=== PATIENT | male | born 1940 | race Caucasian/White ===

== ENCOUNTER 2020-08-04 11:16 | Outpatient (REF) | payer MEDICARE, SELFPAY ==
--- NOTE | 2020-08-04 11:25 | XR_ITS ---
EXAMINATION: XR LUMBAR SPINE XR CERVICAL SPINE CLINICAL INFORMATION: Chronic cervical and lumbar pain. COMPARISON: None TECHNIQUE: Three views lumbar spine and 4 views cervical spine. FINDINGS: LUMBAR SPINE: There is normal lumbar lordosis. The vertebral heights and alignment are normal. There is loss of L4-L5 and L5-S1 disc heights. The rest of the disc heights are normal. No lytic or sclerotic process seen. The paravertebral soft tissues are normal. CERVICAL SPINE: There is mild straightening of the cervical lordosis. The vertebral heights and alignment are normal. There is moderate right C3-C4, C4-C5 and C5-C6 and left C4-C5 facet joint arthropathy and hypertrophy. No visible acute fracture or dislocation seen. There is mild ventral spondylosis. The prevertebral soft tissues are normal. XR/XR cervical spine 2V IMPRESSION: 1. Degenerative disc changes L4-L5 and L5-S1 disc levels. No visible acute fracture or dislocation seen. 2. Mild degenerative disc changes C6-C7 disc levels with mild ventral spondylosis. No visible acute fracture or dislocation.
--- NOTE | 2020-08-04 11:25 | XR_ITS ---
EXAMINATION: XR LUMBAR SPINE XR CERVICAL SPINE CLINICAL INFORMATION: Chronic cervical and lumbar pain. COMPARISON: None TECHNIQUE: Three views lumbar spine and 4 views cervical spine. FINDINGS: LUMBAR SPINE: There is normal lumbar lordosis. The vertebral heights and alignment are normal. There is loss of L4-L5 and L5-S1 disc heights. The rest of the disc heights are normal. No lytic or sclerotic process seen. The paravertebral soft tissues are normal. CERVICAL SPINE: There is mild straightening of the cervical lordosis. The vertebral heights and alignment are normal. There is moderate right C3-C4, C4-C5 and C5-C6 and left C4-C5 facet joint arthropathy and hypertrophy. No visible acute fracture or dislocation seen. There is mild ventral spondylosis. The prevertebral soft tissues are normal. XR/XR lumbar spine 2-3V IMPRESSION: 1. Degenerative disc changes L4-L5 and L5-S1 disc levels. No visible acute fracture or dislocation seen. 2. Mild degenerative disc changes C6-C7 disc levels with mild ventral spondylosis. No visible acute fracture or dislocation.
== END 2020-08-04 11:17 | disposition home or self-care (01) ==
LOC: HO.XRAY 11:16
PROVIDERS: Visit Provider Chiropractor
DX: M54.5 Low back pain (principal); M54.2 Cervicalgia
CPT/HCPCS: 72040; 72100

== ENCOUNTER 2020-09-09 14:51 | Outpatient (REF) | payer MEDICARE, SELFPAY ==
--- NOTE | 2020-09-09 15:09 | XR_ITS ---
EXAMINATION: XR HANDS, BILATERAL CLINICAL INFORMATION: Bilateral hand pain. COMPARISON: None TECHNIQUE: 3 views each hand. FINDINGS: Left Hand: There is mild reduction in the PIP and DIP joint space with mild periarticular spurring DIP joint 2nd, 3rd and 5th joints and PIP joint 1st digit. The MCP joints are preserved well. There is nonspecific minimal calcification 2nd and 5th MCP joint as noted. Right Hand: Mild loss of PIP and DIP joints 1st through 5th digits is noted. There is periarticular spurring PIP joint 1st digit. No visible acute fracture, dislocation seen. No pericardial spurring. The soft tissues are normal. 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 No visible acute fracture, bony erosive changes or subluxation seen.
--- NOTE | 2020-09-09 15:09 | XR_ITS ---
EXAMINATION: XR HANDS, BILATERAL CLINICAL INFORMATION: Bilateral hand pain. COMPARISON: None TECHNIQUE: 3 views each hand. FINDINGS: Left Hand: There is mild reduction in the PIP and DIP joint space with mild periarticular spurring DIP joint 2nd, 3rd and 5th joints and PIP joint 1st digit. The MCP joints are preserved well. There is nonspecific minimal calcification 2nd and 5th MCP joint as noted. Right Hand: Mild loss of PIP and DIP joints 1st through 5th digits is noted. There is periarticular spurring PIP joint 1st digit. No visible acute fracture, dislocation seen. No pericardial spurring. The soft tissues are normal. 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 No visible acute fracture, bony erosive changes or subluxation seen.
== END 2020-09-09 14:52 | disposition home or self-care (01) ==
LOC: HO.XRAY 14:51
PROVIDERS: PCP Internal Medicine Geriatric Medicine; Visit Provider Internal Medicine Geriatric Medicine
DX: M79.641 Pain in right hand (principal); M79.642 Pain in left hand; M79.89 Other specified soft tissue disorders
CPT/HCPCS: 73130

== ENCOUNTER → 2020-09-29 10:41 | Outpatient (BNVA) | payer MEDICARE, SELFPAY | PROVIDERS: Visit Provider Internal Medicine Gastroenterology | DX: Z13.89 Encounter for screening for other disorder (principal) | CPT/HCPCS: Q3014 ==

== ENCOUNTER 2020-12-19 11:39 | Outpatient (REF) | payer MEDICARE, SELFPAY | END 2020-12-19 11:40 | disposition home or self-care (01) | LOC: HO.LAB 11:39 | PROVIDERS: Visit Provider Internal Medicine | DX: Z20.822 Contact with and (suspected) exposure to COVID-19 (principal) | CPT/HCPCS: 36415; C9803; U0003; U0005 ==

== ENCOUNTER 2020-12-25 09:54 | Emergency (ER) | payer MEDICARE, SELFPAY ==
[2020-12-25 10:01] VITALS: BP 200/76; PULSE 54; RESP 16; TEMP 36.6; O2SAT 98; BMI 29.7
--- NOTE | 2020-12-25 10:35 | ED.MALEGU ---
HPI - Male Genitourinary General Chief complaint: Urogenital-Male Stated complaint: uti? Time Seen by Provider: 12/25/20 10:13 Source: patient Mode of arrival: ambulatory History of Present Illness HPI Narrative: 80-year-old male with a past medical history of diabetes, cholecystectomy, presented to the ED complaining of urinary frequency and dysuria x1.5 weeks. Denies hematuria, penile discharge, penile/scrotal pain/lesion, flank pain, abdominal pain, nausea/vomiting, fever. Denies being sexually active MD Complaint: dysuria Related Data Home Medications Medication Instructions Recorded Confirmed amlodipine 10 mg tablet 10 mg PO DAILY 09/29/20 blood sugar diagnostic #10 ea 09/29/20 dulaglutide 1.5 mg/0.5 mL 1.5 mg SUBCUT QWEEK 09/29/20 subcutaneous pen injector glimepiride 2 mg tablet 2 mg PO DAILY 09/29/20 metformin 500 mg tablet 500 mg PO DAILY 09/29/20 metoprolol succinate 50 mg 50 mg PO DAILY 09/29/20 tablet,extended release 24 hr spironolactone 25 mg tablet 12.5 mg PO DAILY 09/29/20 tramadol 50 mg tablet 50 mg PO BID PRN 09/29/20 Previous Rx's Medication Instructions Recorded omeprazole 20 mg capsule,delayed 20 mg PO DAILY 60 Days #60 cap 09/29/20 release cefuroxime axetil 250 mg PO BID 7 Days #14 tab 12/25/20 phenazopyridine [Pyridium] 200 mg PO TID PRN #6 tab 12/25/20 Allergies Allergy/AdvReac Type Severity Reaction Status Date / Time No Known Allergies Allergy Verified 12/25/20 10:04 [No Known Allergies*] Review of Systems Review of Systems: Constitutional: No Fever, No Chills Gastrointestinal: No Nausea, No Vomiting, No Constipation, No Abdominal pain Genitourinary: + Dysuria, + Urinary Frequency, No Hematuria, No Urinary Incontinence, No Urgency, No Flank Pain Musculoskeletal: No joint pain, No Myalgias Skin: No Skin Lesions, No rash Yes all other systems are reviewed and are negative [facility] Past Medical History Attestation statement: The following information was validated with the patient. Medical History (Updated 12/25/20 @ 11:35 by HATTIE Plaza) Diabetes Surgical History (Updated 09/29/20 @ 10:13 by Gissel Roman MD) History of arthroplasty of right knee (~03/2019) History of cholecystectomy Hx of colonoscopy (~03/2019) Family History Family History (Updated 09/29/20 @ 10:45 by Sherry Garcia CMA) Father No problems noted. Mother No problems noted. Social History Social History (Updated 09/29/20 @ 10:45 by Sherry Garcia CMA) Alcohol intake: never Smoking Status: Never smoker Advance Directives: No Advance Directives Information Provided: No Physical Exam Vital Signs: Vital Signs: Last Vital Signs Temp 97.8 F 12/25/20 10:01 Pulse 54 12/25/20 10:01 Resp 16 12/25/20 10:01 BP 200/76 H 12/25/20 10:01 Pulse Ox 98 12/25/20 10:01 Body Mass Index 29.7 Const: General: cooperative, healthy appearing and comfortable Orientation/consciousness: patient oriented x3 Limitations: no limitations HENMT: Head: Yes normal to inspection Ears: hearing grossly normal bilaterally General nose exam: Normal external nose present Face and sinus: Yes normal facial exam Eyes: General: appearance normal, both eyes and all related structures EOM: EOMs intact bilaterally Neck: Neck: Yes normal visual inspection and Yes no meningeal signs Resp: Effort & Inspection: normal respiratory effort Cardio: Rate: regular rate GI: Inspection: Yes normal to inspection Palpation (GI): Soft to palpation, nontender, no guarding and not rigid : General: Yes no CVA tenderness Back/Spine/Pelvis: Back: no CVA tenderness Skin: Rashes: no rashes Wounds: no wounds Neuro: General: patient oriented x3 and no meningeal signs Gait exam (Neuro): Normal gait present Extrem: General: Yes normal to inspection Course Course Course Narrative: -UA infected. Patient given 1st doses of Ceftin in the ED. MDM - Male Genitourinary MDM Narrative Medical decision making narrative: 80-year-old male with a past medical history of diabetes, cholecystectomy, presented to the ED complaining of urinary frequency and dysuria x1.5 weeks. On exam hypertensive, NAD/nontoxic, abdomen soft/nontender, no CVAT. Concern for UTI. Low concern for STI, renal stone, pyelo, or intra-abdominal pathology Plan: UA Lab Data Labs: Lab Results 12/25/20 Range/Units 10:46 Urine Color YELLOW Urine Appearance CLOUDY Urine pH 7.0 (5.0-8.0) Ur Specific [place] 1.015 (1.005-1.025) Urine Protein 2+ H (NEG-TRACE) MG/DL Urine Glucose (UA) 250 H (NEG) MG/DL Urine Ketones NEG (NEG) MG/DL Urine Blood 1+ H (NEG) Urine Nitrite NEG (NEG) Ur Leukocyte Esterase 2+ H (NEG) Urine RBC 15-29 H (0) /HPF Urine WBC 30-49 H (0-4) /HPF Ur Squamous Epith Cells NONE /LPF Urine Bacteria NONE /LPF Discharge Plan Discharge Clinical Impression: Urinary tract infection Qualifiers: Urinary tract infection type: acute cystitis Hematuria presence: without hematuria Qualified Code(s): N30.00 - Acute cystitis without hematuria Patient Disposition: Home, Self-Care Instructions: Urinary Tract Infection in Men (ED) Additional Instructions: You have a urinary tract infection. Ceftin as an antibiotic, take as prescribed. Pyridium will help with the burning when he pee Take antibiotic until completion Make sure staying hydrated at home Follow-up with her primary care doctor If you develop constant worsening symptoms, fever, chills, nausea, vomiting, abdominal pain, back pain return to the ED Prescriptions: New cefuroxime axetil 250 mg tablet 250 mg PO BID 7 Days Qty: 14 RF: 0 phenazopyridine [Pyridium] 200 mg tablet 200 mg PO TID PRN (Reason: pain) Qty: 6 RF: 0 No Action metformin 500 mg tablet 500 mg PO DAILY RF: 0 spironolactone 25 mg tablet 12.5 mg PO DAILY RF: 0 glimepiride 2 mg tablet 2 mg PO DAILY RF: 0 Trulicity 1.5 mg/0.5 mL pen injector 1.5 mg subcut QWEEK RF: 0 tramadol 50 mg tablet 50 mg PO BID PRNRF: 0 (DME) FreeStyle Lite Strips Strip See Rx Instructions ea Not Applicable .MEDSUPPLY Qty: 10 RF: 0 amlodipine 10 mg tablet 10 mg PO DAILY RF: 0 metoprolol succinate 50 mg tablet extended release 24 hr 50 mg PO DAILY RF: 0 omeprazole 20 mg capsule,delayed release(DR/EC) 20 mg PO DAILY 60 Days Qty: 60 RF: 2 Referrals: Name,MD Isai [Primary Care Provider] - 2 days
[2020-12-25 10:54] LABS: Glucose Urine UA 250 MG/DL (NEG); Leukocyte Esterase Urine 2+ (NEG); Nitrite Urine NEG (NEG); Specific Gravity - Urine 1.015 (1.005-1.025); UACC Culture Trigger YES; Urine Blood 1+ (NEG); Urine Ketones NEG (NEG); Urine Protein 2+ MG/DL (NEG-TRACE)
[2020-12-25 10:55] LABS: Appearance Urine CLOUDY; Color Urine YELLOW
[2020-12-25 11:03] LABS: WBC Urine 30-49 /HPF (0-4)
== END 2020-12-25 11:51 | disposition home or self-care (01) ==
PROVIDERS: Physician Assistant; Emergency Provider Emergency Medicine; PCP Internal Medicine Geriatric Medicine
DX: N30.00 Acute cystitis without hematuria (principal); Z79.899 Other long term (current) drug therapy
CPT/HCPCS: 81001; 81003; 87086; 99283

== ENCOUNTER 2021-01-27 13:59 | Outpatient (REF) | payer MEDICARE, SELFPAY ==
--- NOTE | ~2021-01-27 | US_ITS ---
EXAMINATION: US SCROTUM CLINICAL INFORMATION: Right and left testicular pain. COMPARISON: Previous CT of the pelvis March 2019 TECHNIQUE: A sonogram of the scrotum was performed assessing villanueva-scale appearance and color Doppler flow. Spectral Doppler analysis of the arterial and venous flow were performed in the testes bilaterally. FINDINGS: RIGHT: Right testicle measures 5.0 x 2.7 x 4.1 cm, volume 28.9 mL. 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 There is a 6 x 4 x 3 mm simple cyst cyst in the left superior right testicle. No other focal lesion is seen. Spectral Doppler analysis of the arterial and venous flow is normal in the right testis. Right epididymal head is normal in size. There is a complex cyst in the right epididymal head measuring 1.7 x 0.7 x 1.4 cm. No right hydrocele or varicocele is seen. Right epididymal Doppler flow is normal. LEFT: Left testicle measures 5.3 x 2.5 x 3.4 cm, volume 23.6 mL. 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 No focal testicular parenchymal lesions are visualized. Spectral Doppler analysis of the arterial and venous flow is normal in the left testis. Left epididymal head is normal in size. There is a 0.7 x 0.9 x 1.3 cm complex cyst in the left epididymal head. No left hydrocele or varicocele is seen. There is a left scrotal calcification or scrotal oral the superior scrotum measuring 2 x 4 x 2 mm. Left epididymal Doppler flow is normal. US/US scrotum IMPRESSION: Bilateral complex epididymal head cysts, right greater than left. Ectasia of the bilateral rete testis. Small simple appearing right testicular cyst.
== END 2021-01-27 14:00 | disposition home or self-care (01) ==
LOC: HO.HMGCX 13:59
PROVIDERS: Visit Provider Internal Medicine
DX: N50.811 Right testicular pain (principal); N50.812 Left testicular pain
CPT/HCPCS: 76870

== ENCOUNTER → 2021-02-06 14:23 | Outpatient (BNVA) | payer MEDICARE, SELFPAY | PROVIDERS: PCP Internal Medicine Geriatric Medicine; Visit Provider Internal Medicine Gastroenterology | DX: K76.0 Fatty (change of) liver, not elsewhere classified (principal); R79.89 Other specified abnormal findings of blood chemistry; Z87.19 Personal history of other diseases of the digestive system; Z86.010 Personal history of colon polyps | CPT/HCPCS: 99212 ==

== ENCOUNTER → 2021-02-08 11:07 | Outpatient (BNVA) | payer MEDICARE, SELFPAY | PROVIDERS: PCP Internal Medicine Geriatric Medicine; Visit Provider Urology | DX: N40.1 Benign prostatic hyperplasia with lower urinary tract symptoms (principal); N13.8 Other obstructive and reflux uropathy | CPT/HCPCS: 81002; 99202 ==

== ENCOUNTER 2021-02-16 10:06 | Outpatient (REF) | payer MEDICARE, SELFPAY ==
--- NOTE | 2021-02-16 10:09 | EMG_ITS ---
Bilateral median and ulnar motor and sensory studies were performed. Bilateral radial sensory studies were performed and paraspinal muscles were tested with a needle. IMPRESSION: 1. 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 2. Mild bilateral ulnar neuropathy across cubital tunnel. 3. Underlying chronic axonal sensory motor peripheral neuropathy. MD DANA Fitzgerald/ADAIR / [id number]
== END 2021-02-16 10:07 | disposition home or self-care (01) ==
LOC: HO.NEURO 10:06
PROVIDERS: Visit Provider Internal Medicine Geriatric Medicine
DX: N50.811 Right testicular pain (principal); N50.812 Left testicular pain; R20.0 Anesthesia of skin
CPT/HCPCS: 95886; 95911

== ENCOUNTER 2021-03-23 18:51 | Emergency (ER) | payer MEDICARE, SELFPAY ==
[2021-03-23 18:56] VITALS: BP 155/91; PULSE 79; RESP 18; TEMP 36.7; O2SAT 98; BMI 32.8
[2021-03-23 19:23] LABS: Glucose Urine UA NEG (NEG); Leukocyte Esterase Urine 1+ (NEG); Nitrite Urine NEG (NEG); Specific Gravity - Urine 1.015 (1.005-1.025); Urine Blood NEG (NEG); Urine Ketones NEG (NEG); Urine Protein 2+ MG/DL (NEG-TRACE)
[2021-03-23 19:24] LABS: Appearance Urine CLEAR; Color Urine YELLOW
[2021-03-23 19:32] LABS: Bacteria Urine TRACE /LPF; RBC Urine 0 /HPF (0); WBC Urine 0-2 /HPF (0-4)
--- NOTE | 2021-03-23 23:24 | ED_ITS ---
HPI - Male Genitourinary General Chief complaint: Urogenital-Male Stated complaint: Prostate Time Seen by Provider: 03/23/21 22:51 Source: patient and family (Daughter, Nicholas) Mode of arrival: ambulatory Limitations: no limitations History of Present Illness HPI Narrative: 80-year-old male who presents emergency department for evaluation of frequency, dysuria, diminished urinary stream, lower abdominal pain. The patient states that he has been having these symptoms for approximately 2 months. He was seen by his urologist and started on finasteride and tamsulosin. He states that despite taking these medications his symptoms have not improved. He states that he is continuing to urinate small amounts of urine every 15 minutes. He believes that he can empty his bladder knee does not feel a fullness in his bladder. He does complain of pain in his suprapubic area in the also believes that he is having pain in his lower testicles and prostate area whenever he goes from sitting to standing position. He denied fever, chills, chest pain, shortness of breath, nausea, vomiting, changes bowel movements. Related Data Home Medications Medication Instructions Recorded Confirmed amlodipine 10 mg tablet 10 mg PO DAILY 09/29/20 02/06/21 blood sugar diagnostic #10 ea 09/29/20 02/06/21 dulaglutide 1.5 mg/0.5 mL 1.5 mg SUBCUT QWEEK 09/29/20 02/06/21 subcutaneous pen injector glimepiride 2 mg tablet 2 mg PO DAILY 09/29/20 02/06/21 metformin 500 mg tablet 500 mg PO DAILY 09/29/20 02/06/21 metoprolol succinate 50 mg 50 mg PO DAILY 09/29/20 02/06/21 tablet,extended release 24 hr spironolactone 25 mg tablet 12.5 mg PO DAILY 09/29/20 02/06/21 tramadol 50 mg tablet 50 mg PO BID PRN 09/29/20 02/06/21 atorvastatin 20 mg tablet 20 mg PO DAILY 02/08/21 dulaglutide 3 mg/0.5 mL 3 mg SUBCUT QWEEK 02/08/21 subcutaneous pen injector hydralazine 25 mg tablet 25 mg PO BID 02/08/21 hydralazine 50 mg tablet 50 mg PO BID 02/08/21 losartan 25 mg tablet 25 mg PO DAILY 02/08/21 tamsulosin 0.4 mg capsule 0.4 mg PO DAILY 02/08/21 Previous Rx's Medication Instructions Recorded omeprazole 20 mg capsule,delayed 20 mg PO DAILY 60 Days #60 cap 09/29/20 release cefuroxime axetil 250 mg PO BID 7 Days #14 tab 12/25/20 phenazopyridine [Pyridium] 200 mg PO TID PRN #6 tab 12/25/20 simethicone 125 mg chewable tablet 125 mg PO BID-QID PRN 30 Days #90 02/06/21 tab finasteride 5 mg tablet 5 mg PO DAILY 90 Days #90 tab 02/08/21 ciprofloxacin HCl [Cipro] 500 mg PO Q12H 14 Days #28 tab 03/23/21 phenazopyridine [Pyridium] 200 mg PO TID PRN 3 Days #9 tab 03/23/21 Allergies Allergy/AdvReac Type Severity Reaction Status Date / Time No Known Allergies Allergy Verified 03/23/21 18:54 [No Known Allergies*] Review of Systems Review of Systems: Yes all other systems are reviewed and are negative [facility] Past Medical History [facility] Narrative: Social history: Patient is a former smoker, he stopped smoking 30 years prior. He denies alcohol use. He denies drug use. 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 Mother No problems noted. Social History Social History Alcohol intake: never Advance Directives: No Advance Directives Information Provided: No Physical Exam Vital Signs: Vital Signs: Last Vital Signs Temp 98.0 F 03/23/21 18:56 Pulse 79 03/23/21 18:56 Resp 18 03/23/21 18:56 BP 155/91 H 03/23/21 18:56 Pulse Ox 98 03/23/21 18:56 Body Mass Index 32.8 Const: General: cooperative and healthy appearing Orientation/consciousness: oriented to person and oriented to place Limitations: no limitations HENMT: Head: Yes normal to inspection, Yes normocephalic and Yes atraumatic Ears: external ears normal General nose exam: Normal external nose present Face and sinus: Yes normal facial exam Mouth: Normal oral and palatal mucosa present Throat: Yes posterior oropharynx normal Eyes: Periorbital: periorbital findings normal Eyelids: Yes eyelids normal Conjunctivae: conjunctivae normal Sclerae: sclerae normal Corneas: corneas normal Pupils: Equal, round and reactive pupils present Direct Ophthalmoscopy: normal light reflex Neck: Neck: Yes full ROM, Yes no lymphadenopathy, Yes no meningeal signs, Yes trachea midline and Yes supple Chest: Chest palpation & inspection: normal inspection of the chest and normal palpation of entire chest wall Resp: Effort & Inspection: normal respiratory effort and able to speak in complete sentences Auscultation: clear to auscultation bilaterally Cardio: Rate: regular rate Rhythm: regular rhythm Heart sounds: S1 normal heart sound present, S2 normal heart sound present and no murmurs GI: Inspection: Yes normal to inspection Palpation (GI): Soft to palpation, Tenderness to palpation present (GI) suprapubicly (Mild), no guarding, not rigid and No hepatosplenomegaly present Rectal Exam - Male: Yes visual inspection normal, Yes normal sphincter tone and Yes prostate abnormal (Soft, tender to palpation) : General: Yes no CVA tenderness Penis: normal penis and uncircumcised Meatus: meatus normal Scrotum: scrotum normal Testes: Testes normal, no testicular swelling and testicular tenderness (Mild, bilateral) Back/Spine/Pelvis: Back: no CVA tenderness Cervical Spine: normal cervical lordosis Thoracic/Lumbar Spine: thoracic and lumbar spine normal to inspection Skin: Lesions: no lesions Rashes: no rashes Wounds: no wounds Neuro: General: oriented to person, oriented to place and no meningeal signs Cranial nerves: Yes Equal, round and reactive pupils present Cognition (Neuro): normal cognition Motor exam (neuro): 5/5 motor strength present throughout Extrem: General: Yes normal to inspection and Yes full ROM Psych: Appearance: well kempt Mental Status: mental status grossly normal Speech and movement: Normal speech and movement present Affect: normal affect Attitude: cooperative Thought process: Normal thought process present Thought content: Normal thought content present Course Course Course Narrative: 80-year-old male who presents emergency department for evaluation of frequency, dysuria, slow urinary stream, suprapubic pain x2 months with symptoms getting worse x1 month. Patient was started on prostate medications by his doctor but did not get any improvement of his symptoms. States the symptoms are worse over the last week. Urinalysis revealed 2+ protein in his urine, 1+ leukocyte esterase. Microscopic examination revealed 0 RBCs, 0-2 wbc's and trace bacteria. Bladder scan revealed that the patient 270 cc of urine in bladder. The patient was able to urinate approximately 250 cc and post micturition bladder scan revealed no urine in the bladder suggested does not have urinary retention is the cause of his symptoms. The patient did have a tender boggy prostate and I suspect that he may have prostatitis and I did discuss this with the patient. Patient was given Levaquin 500 mg orally and Pyridium 200 mg orally here in the emergency department. The patient will be treated with ciprofloxacin 500 mg twice a day for 14 days and Pyridium 200 mg 3 times a day for 3 days. He was advised to contact his urologist for follow-up in 10-14 days. MDM - Male Genitourinary Lab Data Labs: Lab Results 03/23/21 Range/Units 19:09 Urine Color YELLOW Urine Appearance CLEAR Urine pH 6.0 (5.0-8.0) Ur Specific [place] 1.015 (1.005-1.025) Urine Protein 2+ H (NEG-TRACE) MG/DL Urine Glucose (UA) NEG (NEG) MG/DL Urine Ketones NEG (NEG) MG/DL Urine Blood NEG (NEG) Urine Nitrite NEG (NEG) Ur Leukocyte Esterase 1+ H (NEG) Urine RBC 0 (0) /HPF Urine WBC 0-2 (0-4) /HPF Ur Squamous Epith Cells NONE /LPF Urine Bacteria TRACE /LPF Discharge Plan Discharge Clinical Impression: Acute prostatitis Patient Disposition: Home, Self-Care Instructions: Prostatitis (ED) Additional Instructions: Your urinalysis today was unremarkable, there is no evidence for an infection. Your bladder scan revealed that you are not retaining urine (your pre void volume was 270 mL, your postvoid volume was 0). On your prostate exam, the prostate did feel soft and you had tenderness with palpation of her prostate, this is consistent with a prostate infection (prostatitis). You received Levaquin 500 mg orally. Start ciprofloxacin tomorrow night, 500 mg twice a day for 14 days. You also received Pyridium 200 mg orally, this is medication to help with the burning when he urinates. Take Pyridium 200 mg 3 times a day as needed for burning with urination for the next 3 days. Follow-up with Dr. Tolbert in 10-14 days. Please return to the emergency department if your symptoms get worse or if you develop any symptoms that are concerning to you. Prescriptions: New ciprofloxacin HCl [Cipro] 500 mg tablet 500 mg PO Q12H 14 Days Qty: 28 RF: 0 phenazopyridine [Pyridium] 200 mg tablet 200 mg PO TID PRN (Reason: Burning with urination) 3 Days Qty: 9 RF: 0 No Action cefuroxime axetil 250 mg tablet 250 mg PO BID 7 Days Qty: 14 RF: 0 phenazopyridine [Pyridium] 200 mg tablet 200 mg PO TID PRN (Reason: pain) Qty: 6 RF: 0 metformin 500 mg tablet 500 mg PO DAILY RF: 0 spironolactone 25 mg tablet 12.5 mg PO DAILY RF: 0 glimepiride 2 mg tablet 2 mg PO DAILY RF: 0 Trulicity 1.5 mg/0.5 mL pen injector 1.5 mg subcut QWEEK RF: 0 tramadol 50 mg tablet 50 mg PO BID PRNRF: 0 (DME) FreeStyle Lite Strips Strip See Rx Instructions ea Not Applicable .MEDSUPPLY Qty: 10 RF: 0 amlodipine 10 mg tablet 10 mg PO DAILY RF: 0 metoprolol succinate 50 mg tablet extended release 24 hr 50 mg PO DAILY RF: 0 omeprazole 20 mg capsule,delayed release(DR/EC) 20 mg PO DAILY 60 Days Qty: 60 RF: 2 simethicone [Gas Relief (simethicone)] 125 mg tablet,chewable 125 mg PO BID-QID PRN (Reason: abdominal distention) 30 Days Qty: 90 RF: 2 finasteride 5 mg tablet 5 mg PO DAILY 90 Days Qty: 90 RF: 1 Referrals: Colby Tolbert MD [Physician] - 2 weeks (Seen in the ED for frequency, dysuria, suprapubic pain. Soft tender prostate on examination. Pre void bladder scan 270 mL, postvoid residual was 0. Started on ciprofloxacin 500 mg q.12 times 14 days for prostatitis. )
[2021-03-23] MEDS: Phenazopyridine HCL 200 MG TABLET PO (23:45)
[2021-03-23] MEDS: levoFLOXacin 500 MG TABLET PO (23:46)
[2021-03-23 23:49] VITALS: BP 146/84; PULSE 77; RESP 16; TEMP 36.6; O2SAT 99
== END 2021-03-23 23:50 | disposition home or self-care (01) ==
PROVIDERS: Emergency Provider Emergency Medicine Emergency Medical Services; PCP Internal Medicine Geriatric Medicine
DX: N41.0 Acute prostatitis (principal); I12.9 Hypertensive chronic kidney disease with stage 1 through stage 4 chronic kidney disease, or unspecified chronic kidney disease; N18.30 Chronic kidney disease, stage 3 unspecified; E10.22 Type 1 diabetes mellitus with diabetic chronic kidney disease; Z79.899 Other long term (current) drug therapy
CPT/HCPCS: 51798; 81001; 99283; 99284

== ENCOUNTER → 2021-05-15 13:37 | Outpatient (BNVA) | payer MEDICARE, SELFPAY | PROVIDERS: PCP Internal Medicine Geriatric Medicine; Referring Provider Internal Medicine Geriatric Medicine; Visit Provider Internal Medicine Gastroenterology | DX: K76.0 Fatty (change of) liver, not elsewhere classified (principal); K59.09 Other constipation; K64.9 Unspecified hemorrhoids; R79.89 Other specified abnormal findings of blood chemistry; Z87.19 Personal history of other diseases of the digestive system; Z86.010 Personal history of colon polyps | CPT/HCPCS: 99212 ==

== ENCOUNTER → 2021-06-14 13:59 | Outpatient (BNVA) | payer MEDICARE, SELFPAY | PROVIDERS: PCP Internal Medicine Geriatric Medicine; Visit Provider Urology | DX: N40.1 Benign prostatic hyperplasia with lower urinary tract symptoms (principal); N48.1 Balanitis; N13.8 Other obstructive and reflux uropathy | CPT/HCPCS: 51798; 99212 ==

== ENCOUNTER 2021-07-03 11:14 | Outpatient (REF) | payer MEDICARE, SELFPAY ==
--- NOTE | ~2021-07-03 | XR_ITS ---
EXAMINATION: XR THORACIC SPINE CLINICAL INFORMATION: Right-sided mid back pain. COMPARISON: None. TECHNIQUE: 3 views of the thoracic spine were obtained. FINDINGS: Minimal levocurvature of the midthoracic spine. No significant loss of vertebral body height. Multilevel loss of intervertebral disc height with endplate osteophytes. No lytic or blastic osseous lesion. The visualized lungs are clear. XR/XR thoracic spine 3V IMPRESSION: Moderate multilevel degenerative disc disease. No displaced fracture or acute subluxation.
== END 2021-07-03 11:15 | disposition home or self-care (01) ==
LOC: HO.XRAY 11:14
PROVIDERS: PCP Internal Medicine Geriatric Medicine; Visit Provider Internal Medicine Geriatric Medicine
DX: M54.6 Pain in thoracic spine (principal); G89.29 Other chronic pain
CPT/HCPCS: 72072

== ENCOUNTER 2021-07-05 09:00 | Outpatient (RCR) | payer MEDICARE, SELFPAY | END 2021-08-11 12:49 | disposition home or self-care (01) | LOC: HO.PT 09:00 | PROVIDERS: Visit Provider Internal Medicine Geriatric Medicine | DX: M25.561 Pain in right knee (principal) | CPT/HCPCS: 97110; 97162; 97530 ==

== ENCOUNTER 2021-07-20 08:28 | Emergency (ER) | payer MEDICARE, SELFPAY ==
[2021-07-20 08:54] VITALS: BP 181/84; PULSE 70; RESP 18; TEMP 36.7; O2SAT 99; BMI 32.8
--- NOTE | 2021-07-20 10:19 | ED.GENADULT ---
HPI - General Adult General Chief complaint: General Medical Stated complaint: Back pain Time Seen by Provider: 07/20/21 09:52 Source: patient Mode of arrival: ambulatory Limitations: no limitations History of Present Illness HPI narrative: 80-year-old male who presents emergency department for evaluation of thoracic back pain. Patient states he has had the pain for at least 2 years but is gotten worse for the past 2 days. The patient did have x-rays as an outpatient on 07/03/2021 which revealed arthritis and degenerative disc disease but no acute findings. The patient states that over the past 3 days his pain has gotten worse, describes as a constant, sharp pain which is located in his thoracic and left posterior chest, the pain is worse with movement. The pain is 10/10 at its worst. He denied any numbness or weakness of extremities or loss of bowel or bladder control. He denied fever, chills, chest pain, shortness of breath, nausea, vomiting, frequency, urgency or dysuria. The patient has been taking ibuprofen 400 mg once or twice a day for no relief his pain. He has been using topical ointments with no relief. Patient states that his pain got worse today therefore came to the emergency department for evaluation. Related Data Home Medications Medication Instructions Recorded Confirmed amlodipine 10 mg tablet 10 mg PO DAILY 09/29/20 05/15/21 blood sugar diagnostic #10 ea 09/29/20 05/15/21 dulaglutide 1.5 mg/0.5 mL 1.5 mg SUBCUT QWEEK 09/29/20 05/15/21 subcutaneous pen injector glimepiride 2 mg tablet 2 mg PO DAILY 09/29/20 05/15/21 metformin 500 mg tablet 500 mg PO DAILY 09/29/20 05/15/21 metoprolol succinate 50 mg 50 mg PO DAILY 09/29/20 05/15/21 tablet,extended release 24 hr spironolactone 25 mg tablet 12.5 mg PO DAILY 09/29/20 05/15/21 tramadol 50 mg tablet 50 mg PO BID PRN 09/29/20 05/15/21 atorvastatin 20 mg tablet 20 mg PO DAILY 02/08/21 05/15/21 dulaglutide 3 mg/0.5 mL 3 mg SUBCUT QWEEK 02/08/21 05/15/21 subcutaneous pen injector hydralazine 25 mg tablet 25 mg PO BID 02/08/21 05/15/21 hydralazine 50 mg tablet 50 mg PO BID 02/08/21 05/15/21 losartan 25 mg tablet 25 mg PO DAILY 02/08/21 05/15/21 tamsulosin 0.4 mg capsule 0.4 mg PO DAILY 02/08/21 05/15/21 lancets 33 gauge (TRUEplus Lancets) #100 ea 06/14/21 Previous Rx's Medication Instructions Recorded omeprazole 20 mg capsule,delayed 20 mg PO DAILY 60 Days #60 cap 09/29/20 release phenazopyridine 200 mg tablet 200 mg PO TID PRN #6 tab 12/25/20 (Pyridium) simethicone 125 mg chewable tablet 125 mg PO BID-QID PRN 30 Days #90 02/06/21 (Gas Relief (simethicone)) tab finasteride 5 mg tablet 5 mg PO DAILY 90 Days #90 tab 02/08/21 phenazopyridine 200 mg tablet 200 mg PO TID PRN 3 Days #9 tab 03/23/21 (Pyridium) hydrocortisone 2.5 % topical cream 1 appl [place] BID-QID PRN 15 Days #30 g 05/15/21 with perineal applicator sennosides 8.6 mg tablet (senna) 8.6 mg PO BID PRN 60 Days #60 tab 05/15/21 clotrimazole-betamethasone 1 1 appl TOPICAL BID 7 Days #15 g 06/14/21 %-0.05 % topical cream lidocaine 5 % topical patch 1 patch TOPICAL DAILY #30 ea 07/20/21 meloxicam 7.5 mg tablet 7.5 mg PO DAILY PRN #30 tab 07/20/21 Allergies Allergy/AdvReac Type Severity Reaction Status Date / Time No Known Allergies Allergy Verified 06/14/21 14:07 [No Known Allergies*] Review of Systems Review of Systems: Yes all other systems are reviewed and are negative [facility] Past Medical History [facility] Narrative: Social history: The patient denies tobacco, alcohol and drug use. 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 Mother No problems noted. Social History Social History Alcohol intake: never Advance Directives: No Physical Exam Vital Signs: Vital Signs: Last Vital Signs Temp 98.0 F 07/20/21 08:54 Pulse 70 07/20/21 08:54 Resp 18 07/20/21 08:54 BP 181/84 H 07/20/21 08:54 Pulse Ox 99 07/20/21 08:54 Body Mass Index 32.8 Const: Other: Very pleasant and cooperative elderly male patient, he answers all questions appropriately, he does not appear to be in distress. HENMT: Head: Yes normal to inspection, Yes normocephalic and Yes atraumatic Ears: external ears normal General nose exam: Normal external nose present Face and sinus: Yes normal facial exam Mouth: Normal oral and palatal mucosa present Throat: Yes posterior oropharynx normal Eyes: General: appearance normal, both eyes and all related structures Pupils: Equal, round and reactive pupils present Neck: Neck: Yes normal visual inspection, Yes no lymphadenopathy, Yes trachea midline and Yes supple Chest: Chest palpation & inspection: normal inspection of the chest and normal palpation of entire chest wall Resp: Effort & Inspection: normal respiratory effort and able to speak in complete sentences Auscultation: clear to auscultation bilaterally Cardio: Rate: regular rate Rhythm: regular rhythm Heart sounds: S1 normal heart sound present, S2 normal heart sound present and no murmurs GI: Inspection: Yes normal to inspection Palpation (GI): Soft to palpation, nontender and no guarding Auscultation: normal bowel sounds Back/Spine/Pelvis: Other: The patient does have tenderness with palpation of his mid to lower thoracic spine, he also has tenderness with palpation of the left thoracic paraspinal muscles, there is no spasm was muscles, he has negative straight leg raises bilaterally. Skin: General skin exam: no rashes or lesions noted Neuro: Cranial nerves: Yes CN's II-XII intact bilaterally and Yes Equal, round and reactive pupils present Cognition (Neuro): normal cognition Motor exam (neuro): 5/5 motor strength present throughout Extrem: General: Yes normal to inspection Psych: Appearance: grossly normal Speech and movement: Normal speech and movement present Affect: normal affect Attitude: cooperative Thought process: Normal thought process present Thought content: Normal thought content present Course Course Course Narrative: 80-year-old male who presents emergency department for evaluation change in his chronic back pain. The patient has been having chronic back pain for at least 2 years, pain is gotten worse in the last 2 weeks and especially worse over the past 3 days. The patient had thoracic spine x-rays done on 07/03/2021 as moderate multilevel degenerative disc disease with no displaced fracture or acute subluxation. I did discuss these findings with the patient. The patient was advised to stop taking ibuprofen the patient was started on meloxicam 7.5 mg once a day. Patient was also advised to take Tylenol for pain and he was also prescribed lidocaine patches. Patient was given printed and verbal instructions and discharged home. Discharge Plan Discharge Clinical Impression: Thoracic disc disease Back pain, thoracic Qualifiers: Chronicity: acute Back pain laterality: left Qualified Code(s): M54.6 - Pain in thoracic spine Patient Disposition: Home, Self-Care Instructions: Back Pain (ED) Additional Instructions: Back Pain Discharge Instructions: Take meloxicam 7.5 mg pills, 1 pills daily needed for pain. Take Tylenol (acetaminophen) 500 mg pills, 2 pills every 6 hours as needed for pain. Apply ice for 15 minutes to the area that hurts on your back, then apply a heating a pad on low for 15 minutes. Do this 4-6 times a day to help reduce the pain in your back. Continue with normal activities as tolerated since staying in bed and not moving around will make your pain worse. You can also try over the lidocaine patches , apply to the area of your back that hurts the most, apply 1 patch daily and take it off after 12 hours. Please return to the Emergency Department or see your doctor immediately if your symptoms get worse or if you develop any new symptoms that are concerning you. Follow up with your doctor in 2 day. Please read the other printed discharge instructions on back pain. Prescriptions: New meloxicam 7.5 mg tablet 7.5 mg PO DAILY PRN (Reason: back pain) Qty: 30 RF: 0 lidocaine 5 % adhesive patch,medicated 1 patch topical DAILY Qty: 30 RF: 0 No Action phenazopyridine [Pyridium] 200 mg tablet 200 mg PO TID PRN (Reason: pain) Qty: 6 RF: 0 phenazopyridine [Pyridium] 200 mg tablet 200 mg PO TID PRN (Reason: Burning with urination) 3 Days Qty: 9 RF: 0 metformin 500 mg tablet 500 mg PO DAILY RF: 0 spironolactone 25 mg tablet 12.5 mg PO DAILY RF: 0 glimepiride 2 mg tablet 2 mg PO DAILY RF: 0 Trulicity 1.5 mg/0.5 mL pen injector 1.5 mg subcut QWEEK RF: 0 tramadol 50 mg tablet 50 mg PO BID PRNRF: 0 (DME) FreeStyle Lite Strips Strip See Rx Instructions ea Not Applicable .MEDSUPPLY Qty: 10 RF: 0 amlodipine 10 mg tablet 10 mg PO DAILY RF: 0 metoprolol succinate 50 mg tablet extended release 24 hr 50 mg PO DAILY RF: 0 omeprazole 20 mg capsule,delayed release(DR/EC) 20 mg PO DAILY 60 Days Qty: 60 RF: 2 sennosides [senna] 8.6 mg tablet 8.6 mg PO BID PRN (Reason: constipation) 60 Days Qty: 60 RF: 1 hydrocortisone 2.5 % cream with perineal applicator 1 appl MT BID-QID PRN (Reason: hemorrhoids) 15 Days Qty: 30 RF: 1 clotrimazole-betamethasone 1-0.05 % cream 1 appl topical BID 7 Days Qty: 15 RF: 0 simethicone [Gas Relief (simethicone)] 125 mg tablet,chewable 125 mg PO BID-QID PRN (Reason: abdominal distention) 30 Days Qty: 90 RF: 2 losartan 25 mg tablet 25 mg PO DAILY RF: 0 atorvastatin 20 mg tablet 20 mg PO DAILY RF: 0 hydralazine 50 mg tablet 50 mg PO BID RF: 0 Trulicity 3 mg/0.5 mL pen injector 3 mg subcut QWEEK RF: 0 tamsulosin 0.4 mg capsule 0.4 mg PO DAILY RF: 0 hydralazine 25 mg tablet 25 mg PO BID RF: 0 finasteride 5 mg tablet 5 mg PO DAILY 90 Days Qty: 90 RF: 1
== END 2021-07-20 10:43 | disposition home or self-care (01) ==
PROVIDERS: Emergency Provider Emergency Medicine Emergency Medical Services; PCP Internal Medicine Geriatric Medicine
DX: M54.6 Pain in thoracic spine (principal); Z79.899 Other long term (current) drug therapy
CPT/HCPCS: 99283

== ENCOUNTER → 2021-09-21 12:32 | Outpatient (BNVA) | payer MEDICARE, SELFPAY | PROVIDERS: Referring Provider Internal Medicine Geriatric Medicine; Visit Provider Internal Medicine Gastroenterology | DX: K59.09 Other constipation (principal); K64.9 Unspecified hemorrhoids; K76.0 Fatty (change of) liver, not elsewhere classified; R79.89 Other specified abnormal findings of blood chemistry; Z87.19 Personal history of other diseases of the digestive system; Z86.010 Personal history of colon polyps | CPT/HCPCS: 99212 ==

== ENCOUNTER 2021-12-04 09:05 | Outpatient (REF) | payer MEDICARE, SELFPAY ==
--- NOTE | ~2021-12-04 | XR_ITS ---
EXAMINATION: XR LUMBOSACRAL SPINE CLINICAL INFORMATION: Pain. COMPARISON: 08/04/2020 TECHNIQUE: Three views of the lumbosacral spine. FINDINGS: Vertebral body heights are maintained. Degenerative disc space narrowing at T11-T12, L4-L5, and L5-S1. Moderate facet arthrosis at L4-L5 and L5-S1 bilaterally. No compression fracture. Aortoiliac calcifications. XR/XR lumbar spine 2-3V IMPRESSION: Stable degenerative disc disease in the lower lumbar spine.
--- NOTE | ~2021-12-04 | XR_ITS ---
EXAMINATION: XR CHEST CLINICAL INFORMATION: Pain COMPARISON: Chest x-ray 04/21/2019 TECHNIQUE: 2 views of the chest were obtained. FINDINGS: The cardiomediastinal silhouette is stable. No vascular congestion or pulmonary edema. The lungs are mildly hypoexpanded. No consolidation. No effusion or pneumothorax. Degenerative changes in the thoracic spine. XR/XR chest 2V IMPRESSION: No acute cardiopulmonary findings. Stable chest x-ray.
[2021-12-04 10:04] LABS: Hematocrit 43.7 % (42.0-52.0); Hemoglobin 14.5 g/dl (14.0-18.0); Mean Corpuscular HGB Conc 33.2 g/dl (31.0-36.0); Mean Corpuscular Hemoglobin 30.1 pg (27.0-33.0); Mean Corpuscular Volume 90.7 fL (80.0-98.0); Mean Platelet Volume 10.3 fL (9.4-12.4); Platelet Count 243 X10*3/uL (160-400); Red Blood Count 4.82 X10*6/uL (4.60-5.80); Red Cell Distribution Width 12.9 % (11.0-16.0); White Blood Count 6.3 X10*3/uL (4.8-10.8)
[2021-12-04 10:31] LABS: Alanine Aminotransferase 43 U/L (0-40); Albumin Level 4.4 g/dL (3.5-5.0); Alkaline Phosphatase 72 U/L (39-117); Anion Gap 12 (12-20); Aspartate Amino Transferase 29 U/L (5-37); Bilirubin Direct 0.4 mg/dL (0.0-0.5); Bilirubin Total 0.9 mg/dL (0.0-1.0); Blood Urea Nitrogen 18 mg/dL (9-16); Calcium 9.9 mg/dL (8.4-10.2); Carbon Dioxide 28 mmol/L (22-29); Chloride 102 mmol/L (96-108); Cholesterol 108 mg/dL; Estimated Glomerular Filt Rate 45; Glucose Random 172 mg/dL (60-115); HDL Cholesterol 46 mg/dL; LDL Cholesterol Calculated 38 mg/dl; Potassium 4.5 mmol/L (3.3-5.1); Sodium 137 mmol/L (135-145); Total Protein 7.3 g/dL (6.5-8.0); Triglycerides 120 mg/dL
[2021-12-04 11:09] LABS: Creatinine Urine 112.46 mg/dL; Microalbum/Creatinine Ratio Ur 273.8 ug/mg cr
== END 2021-12-04 09:06 | disposition home or self-care (01) ==
LOC: HO.LAB 09:05
PROVIDERS: PCP Internal Medicine Geriatric Medicine; Visit Provider Internal Medicine Geriatric Medicine
DX: G89.29 Other chronic pain (principal); M54.6 Pain in thoracic spine; I12.9 Hypertensive chronic kidney disease with stage 1 through stage 4 chronic kidney disease, or unspecified chronic kidney disease; N18.30 Chronic kidney disease, stage 3 unspecified
CPT/HCPCS: 36415; 71046; 72100; 80048; 80061; 80076; 82043; 85027

== ENCOUNTER → 2021-12-12 14:56 | Outpatient (BNVA) | payer MEDICARE, SELFPAY | PROVIDERS: PCP Internal Medicine Geriatric Medicine; Visit Provider Urology | DX: N40.1 Benign prostatic hyperplasia with lower urinary tract symptoms (principal); N13.8 Other obstructive and reflux uropathy; R33.8 Other retention of urine; N48.1 Balanitis; Z79.899 Other long term (current) drug therapy | CPT/HCPCS: 51798; 99212 ==

== ENCOUNTER → 2021-12-21 10:00 | Outpatient (REF) | payer OTHER, SELFPAY ==
--- NOTE | 2021-12-21 11:08 | ECG_ITS ---
Test Reason : 287.19 Blood Pressure : / mmHG Vent. Rate : 061 BPM Atrial Rate : 061 BPM P-R Int : 172 ms QRS Dur : 104 ms QT Int : 404 ms P-R-T Axes : 043 -24 -04 degrees QTc Int : 406 ms Normal sinus rhythm with sinus arrhythmia Normal ECG When compared with ECG of 24-APR-2019 07:36, Premature atrial complexes are no longer Present Inverted T waves have replaced nonspecific T wave abnormality in Inferior leads T wave amplitude has increased in Anterior leads QT has shortened Referred By: Gissel Roman Electronically Signed By:MONIQUE MENDEZ MD
== END ==
LOC: HO.CARD 10:00
PROVIDERS: PCP Internal Medicine Geriatric Medicine; Visit Provider Internal Medicine Gastroenterology
DX: I49.9 Cardiac arrhythmia, unspecified (principal); K59.09 Other constipation; K64.9 Unspecified hemorrhoids; R79.89 Other specified abnormal findings of blood chemistry; Z87.19 Personal history of other diseases of the digestive system; Z86.010 Personal history of colon polyps
CPT/HCPCS: 93005; 99212

== ENCOUNTER → 2022-04-26 13:38 | Outpatient (BNVA) | payer OTHER, SELFPAY | PROVIDERS: PCP Internal Medicine Geriatric Medicine; Referring Provider Internal Medicine Geriatric Medicine; Visit Provider Internal Medicine Gastroenterology | DX: R10.10 Upper abdominal pain, unspecified (principal); K59.09 Other constipation; K64.9 Unspecified hemorrhoids; K76.0 Fatty (change of) liver, not elsewhere classified; R79.89 Other specified abnormal findings of blood chemistry; Z87.19 Personal history of other diseases of the digestive system; Z86.010 Personal history of colon polyps; Z79.899 Other long term (current) drug therapy | CPT/HCPCS: 99212 ==

== ENCOUNTER 2022-05-03 14:55 | Outpatient (REF) | payer OTHER, SELFPAY ==
[2022-05-03 15:51] LABS: Alanine Aminotransferase 36 U/L (0-40); Albumin Level 4.4 g/dL (3.5-5.0); Alkaline Phosphatase 67 U/L (39-117); Aspartate Amino Transferase 25 U/L (5-37); Bilirubin Direct 0.4 mg/dL (0.0-0.5); Bilirubin Total 0.9 mg/dL (0.0-1.0); Lipase 78 U/L (8-78); Total Protein 7.2 g/dL (6.5-8.0)
== END 2022-05-03 14:56 | disposition home or self-care (01) ==
LOC: HO.LAB 14:55
PROVIDERS: Urology; PCP Internal Medicine Geriatric Medicine; Visit Provider Internal Medicine Gastroenterology
DX: Z12.5 Encounter for screening for malignant neoplasm of prostate (principal); R10.10 Upper abdominal pain, unspecified; N13.8 Other obstructive and reflux uropathy; N40.1 Benign prostatic hyperplasia with lower urinary tract symptoms
CPT/HCPCS: 36415; 80076; 83690; 84153

== ENCOUNTER 2022-05-25 09:41 | Outpatient (REF) | payer OTHER, SELFPAY ==
--- NOTE | ~2022-05-25 | FL_ITS ---
EXAMINATION: FL UPPER GI SERIES AND SMALL BOWEL SERIES CLINICAL INFORMATION: Upper abdominal pain, R10.10. COMPARISON: CT abdomen and pelvis 04/21/2019 TECHNIQUE: Upper GI series and small bowel follow-through and are performed using fluoroscopic evaluation in addition to multiple fluoroscopic spot views and overhead images. The patient is imaged both upright and prone and using both thick and thin barium sulfate along with effervescent granules. Fluoroscopy time: 2.6 minutes DAP: 39.59 Gycm2 Fluoroscopic spot images: 25 FINDINGS: The esophagus has no obstruction, stricture, or ulceration. There is some physiologic herniation at the esophagogastric junction during prone imaging. No significant hernia and no gastroesophageal reflux demonstrated. The stomach shows thickening of rugal folds in the fundus and proximal to mid body. There is no visible mass or ulcer crater. No gastric outlet obstruction. The duodenal bulb is pliable and shows no ulceration or scarring. Post bulbar duodenum is unremarkable. Contrast is followed through the small bowel and reaches the colon between 3.5 hours and 6 hours. There is no small bowel dilatation, angulated or tethered loops, or abnormal thickening of small bowel folds. There are no fixed or rigid segments of small bowel on fluoroscopic exam with compression. The distal ileum is unremarkable. FL/FL upper GI small bowel IMPRESSION: -Nonspecific thickening gastric folds fundus and proximal to mid body. -No visible gastric ulcer, mass, or gastric outlet obstruction. -Small bowel transit time between 3. 5-6 hours. No small bowel obstruction or thickening of folds.
== END 2022-05-25 09:42 | disposition home or self-care (01) ==
LOC: HO.XRAY 09:41
PROVIDERS: PCP Internal Medicine Geriatric Medicine; Visit Provider Internal Medicine Gastroenterology
DX: R10.10 Upper abdominal pain, unspecified (principal)
CPT/HCPCS: 74240; 74248

== ENCOUNTER 2022-06-05 14:00 | Outpatient (RCR) | payer OTHER, SELFPAY ==
[2022-04-25 13:19] VITALS: BP 151/73; PULSE 69; O2SAT 96
== END 2022-07-23 14:31 | disposition home or self-care (01) ==
LOC: HO.PT 14:00
PROVIDERS: PCP Internal Medicine Geriatric Medicine; Visit Provider Internal Medicine Geriatric Medicine
DX: M25.561 Pain in right knee (principal)
CPT/HCPCS: 97110; 97162; 97530

== ENCOUNTER 2022-06-14 11:00 | Outpatient (RCR) | payer OTHER, SELFPAY | END 2022-07-23 15:16 | disposition home or self-care (01) | LOC: HO.OT 11:00 | PROVIDERS: PCP Internal Medicine Geriatric Medicine; Visit Provider Internal Medicine Geriatric Medicine | DX: G56.03 Carpal tunnel syndrome, bilateral upper limbs (principal) | CPT/HCPCS: 29125; 97035; 97110; 97140; 97165 ==

== ENCOUNTER → 2022-06-15 13:57 | Outpatient (BNVA) | payer MEDICARE, SELFPAY | PROVIDERS: PCP Internal Medicine Geriatric Medicine; Visit Provider Urology | DX: N40.1 Benign prostatic hyperplasia with lower urinary tract symptoms (principal); N13.8 Other obstructive and reflux uropathy; R10.10 Upper abdominal pain, unspecified; K64.9 Unspecified hemorrhoids; K59.09 Other constipation; K76.0 Fatty (change of) liver, not elsewhere classified; R79.89 Other specified abnormal findings of blood chemistry; R93.3 Abnormal findings on diagnostic imaging of other parts of digestive tract; Z87.19 Personal history of other diseases of the digestive system; Z86.010 Personal history of colon polyps | CPT/HCPCS: 51798; 99212 ==

== ENCOUNTER 2022-07-18 09:46 | Outpatient (REF) | payer MEDICARE, SELFPAY ==
--- NOTE | ~2022-07-18 | XR_ITS ---
EXAMINATION: XR HIP, RIGHT CLINICAL INFORMATION: Pain in right hip COMPARISON: None TECHNIQUE: Two views of the right hip. FINDINGS: There is acetabular sclerosis and mild joint space narrowing. No fracture or dislocation. Right sacroiliac joint is patent. XR/XR hip RT min 2V IMPRESSION: No acute osseous abnormality of the right hip. Mild osteoarthritis.
== END 2022-07-18 09:47 | disposition home or self-care (01) ==
LOC: HO.XRAY 09:46
PROVIDERS: Visit Provider Family Medicine
DX: M25.551 Pain in right hip (principal)
CPT/HCPCS: 73502

== ENCOUNTER 2022-08-01 21:09 | Observation (INO) | payer OTHER, SELFPAY ==
--- NOTE | ~2022-08-01 | XR_ITS ---
EXAMINATION: XR CHEST CLINICAL INFORMATION: Chest pain COMPARISON: 12/04/2021 TECHNIQUE: Frontal view of the chest was obtained. FINDINGS: No significant abnormality is noted involving the heart, lungs, mediastinum, bony thorax or soft tissues. XR/XR chest 1V IMPRESSION: Unremarkable examination.
--- NOTE | 2022-08-01 21:14 | ECG_ITS ---
Test Reason : chest pain Blood Pressure : / mmHG Vent. Rate : 066 BPM Atrial Rate : 066 BPM P-R Int : 168 ms QRS Dur : 108 ms QT Int : 404 ms P-R-T Axes : 038 -42 014 degrees QTc Int : 423 ms Normal sinus rhythm Left anterior fascicular block Intra-ventricular conduction delay Abnormal ECG When compared with ECG of 21-DEC-2021 11:15, Left anterior fascicular block is new Referred By: Generic ED Physician Electronically Signed By:HOLLIS HAMILTON MD
[2022-08-01 21:18] VITALS: BP 163/80; PULSE 68; RESP 18; TEMP 36.3; O2SAT 98; BMI 32.2
[2022-08-01 21:32] LABS: MANUAL DIFF FLAG NO
[2022-08-01 21:33] LABS: Basophils Percent Auto 0.5 % (0-2); Eosinophils Absolute Auto 0.2 X10*3/uL (0.0-0.4); Eosinophils Percent Auto 2.6 % (0-4); Hematocrit 42.8 % (42.0-52.0); Hemoglobin 14.5 g/dl (14.0-18.0); Imm Gran Abs Auto 0.01 X10*3/uL (0.00-0.03); Imm Gran Pct Auto 0.2 % (0.0-0.4); Lymphocytes Absolute Auto 1.6 X10*3/uL (1.2-4.9); Lymphocytes Percent Auto 26.8 % (20-40); Mean Corpuscular HGB Conc 33.9 g/dl (31.0-36.0); Mean Corpuscular Hemoglobin 29.9 pg (27.0-33.0); Mean Corpuscular Volume 88.2 fL (80.0-98.0); Mean Platelet Volume 10.4 fL (9.4-12.4); Monocytes Absolute Auto 0.6 X10*3/uL (0.1-1.2); Neutrophils Absolute Auto 3.7 x10*3/uL (2.0-8.3); Neutrophils Percent Auto 60.9 % (45-73); Platelet Count 211 X10*3/uL (160-400); Red Blood Count 4.85 X10*6/uL (4.60-5.80); Red Cell Distribution Width 12.4 % (11.0-16.0); White Blood Count 6.1 X10*3/uL (4.8-10.8)
[2022-08-01 21:53] LABS: Alanine Aminotransferase 31 U/L (0-40); Albumin Level 4.2 g/dL (3.5-5.0); Alkaline Phosphatase 80 U/L (39-117); Anion Gap 16 (12-20); Aspartate Amino Transferase 20 U/L (5-37); Bilirubin Total 0.7 mg/dL (0.0-1.0); Blood Urea Nitrogen 27 mg/dL (9-16); Calcium 9.5 mg/dL (8.4-10.2); Carbon Dioxide 27 mmol/L (22-29); Chloride 97 mmol/L (96-108); Creatinine Clr Calc Pharmacy 32.7; Estimated Glomerular Filt Rate 33; Glucose Random 382 mg/dL (60-115); Potassium 4.5 mmol/L (3.3-5.1); Sodium 135 mmol/L (135-145); Total Protein 7.1 g/dL (6.5-8.0); Troponin-I High Sensitivity 11.4 ng/L (<3.5-35.0)
[2022-08-01 22:45] VITALS: BP 168/69; PULSE 59; RESP 17; O2SAT 97
--- NOTE | 2022-08-01 22:47 | PC.NURSE ---
patient endorses chest pain that began last night and resolved on its own. he states he felt three additional pinches today throughout the day, the last being around 7:30 pm after he finished eating. he endorses a history of diabetes and htn. he currently states he has no pain or pinch in his chest, he denies SOB, nausea, or dizziness. HR SB/NSR upper 50s-60s on telemetry.
--- NOTE | 2022-08-01 22:56 | ED.CHESTPAIN ---
HPI - Chest Pain General Chief Complaint: Chest Pain Stated Complaint: Chest pain Time Seen by Provider: 08/01/22 22:49 Source: patient Limitations: no limitations History of Present Illness HPI narrative: This is a 81-year-old male with a history of hypertension and diabetes, who complains of squeezing left-sided chest pain lasting seconds to a few minutes, which started last night when he was going to bed. Pain came back a few times today and again this evening. Is not present now. The patient denies any radiation the pain to his shoulder, arm, neck, jaw. He denies any shortness of breath, nausea, sweats. He denies any prior history of heart disease. Pain was not exertional Related Data Home Medications Medication Instructions Recorded Confirmed amlodipine 10 mg tablet 10 mg PO DAILY 09/29/20 06/15/22 blood sugar diagnostic #10 ea 09/29/20 06/15/22 dulaglutide 1.5 mg/0.5 mL 1.5 mg subcut QWEEK 09/29/20 06/15/22 subcutaneous pen injector glimepiride 2 mg tablet 2 mg PO DAILY 09/29/20 06/15/22 metformin 500 mg tablet 500 mg PO DAILY 09/29/20 06/15/22 metoprolol succinate 50 mg 50 mg PO DAILY 09/29/20 06/15/22 tablet,extended release 24 hr spironolactone 25 mg tablet 12.5 mg PO DAILY 09/29/20 06/15/22 tramadol 50 mg tablet 50 mg PO BID PRN 09/29/20 06/15/22 atorvastatin 20 mg tablet 20 mg PO DAILY 02/08/21 06/15/22 dulaglutide 3 mg/0.5 mL 3 mg subcut QWEEK 02/08/21 06/15/22 subcutaneous pen injector hydralazine 25 mg tablet 25 mg PO BID 02/08/21 06/15/22 hydralazine 50 mg tablet 50 mg PO BID 02/08/21 06/15/22 lancets 33 gauge (TRUEplus Lancets) #100 ea 06/14/21 06/15/22 losartan 50 mg tablet 50 mg PO DAILY 09/21/21 06/15/22 Previous Rx's Medication Instructions Recorded phenazopyridine 200 mg tablet 200 mg PO TID PRN pain 6 doses #6 12/25/20 (Pyridium) tabs simethicone 125 mg chewable tablet 125 mg PO BID-QID PRN abdominal 02/06/21 (Gas Relief (simethicone)) distention 30 days #90 tabs phenazopyridine 200 mg tablet 200 mg PO TID PRN Burning with 03/23/21 (Pyridium) urination 3 days #9 tabs hydrocortisone 2.5 % topical cream 1 appl [place] BID-QID PRN hemorrhoids 05/15/21 with perineal applicator 15 days #30 grams sennosides 8.6 mg tablet (senna) 8.6 mg PO BID PRN constipation 60 05/15/21 days #60 tabs clotrimazole-betamethasone 1 1 appl topical BID 1 week #15 grams 06/14/21 %-0.05 % topical cream lidocaine 5 % topical patch 1 patch topical DAILY #30 ea 07/20/21 meloxicam 7.5 mg tablet 7.5 mg PO DAILY PRN back pain #30 07/20/21 tabs polyethylene glycol 3350 17 17 g PO DAILY 30 days #510 grams 09/21/21 gram/dose oral powder (Miralax) omeprazole 20 mg capsule,delayed 20 mg PO BID 60 days #120 caps 12/21/21 release bisacodyl 5 mg tablet,delayed 10 mg PO ONCE colon prep 2 days #4 06/15/22 release (Dulcolax (bisacodyl)) tabs clotrimazole-betamethasone 1 1 appl topical BID 4 weeks #45 06/15/22 %-0.05 % topical cream grams finasteride 5 mg tablet 5 mg PO DAILY 90 days #90 tabs 06/15/22 polyethylene glycol 3350 17 17 g PO DAILY colon prep 1 day 06/15/22 gram/dose oral powder (Miralax) #238 grams tamsulosin 0.4 mg capsule 0.4 mg PO DAILY 90 days #90 caps 06/15/22 Allergies Allergy/AdvReac Type Severity Reaction Status Date / Time No Known Allergies Allergy Verified 06/15/22 14:18 [No Known Allergies*] Review of Systems Review of Systems: Yes all other systems are reviewed and are negative Constitutional: Constitutional: Reports as per HPI and Denies fever(s) Eyes: Eyes: Reports as per HPI and Reports no additional eye complaints ENT: Reports system reviewed and no additional complaints, except as documented, Reports as per HPI, Denies nasal congestion, Denies nasal discharge and Denies sore throat Cardiovascular: Cardiovascular: Reports as per HPI, Reports chest pain and Denies dyspnea Respiratory: Respiratory: Reports as per HPI, Denies cough and Denies dyspnea Gastrointestinal: Gastrointestinal: Reports as per HPI, Denies abdominal pain, Denies diarrhea and Denies vomiting Genitourinary: Genitourinary: Reports as per HPI, Denies hematuria, Denies dysuria and Denies urinary frequency Musculoskeletal: Musculoskeletal: Reports no additional musculoskeletal complaints and Denies numbness Integumentary/Breasts: Skin/Breast: Reports as per HPI and Denies rash Neurologic: Reports as per HPI, Denies focal weakness and Denies numbness Psychiatric: Psychiatric: Reports no additional psychiatric complaints and Reports as per HPI Endocrine: Endocrine: Reports no additional endocrine complaints and Reports as per HPI Hematologic/Lymphatic: Hematologic/Lymphatic: Reports no additional hematologic/lymphatic complaints, Reports as per HPI and Reports other (No peripheral edema) [facility] Past Medical History Medical History Anxiety Aortic root dilatation Balanitis 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 Mother No problems noted. Social History Social History Alcohol intake: never Advance Directives: No Advance Directives Information Provided: No Physical Exam Vital Signs: Vital Signs: Last Vital Signs Temp 98.9 F 08/02/22 04:08 Pulse 55 08/02/22 04:08 Resp 12 08/02/22 04:08 BP 179/60 H 08/02/22 04:08 Pulse Ox 99 08/02/22 04:08 O2 Del Method 08/02/22 04:08 BMI result Body Mass Index 32.2 Const: Other: PERRLA [facility] Mucous membranes moist Throat clear Neck supple Lungs CTA Heart RRR no murmurs rubs or gallops Abd soft, non tender, non distended Extremities no pitting edema Neuro alert and oriented x 3, non focal MDM - Chest Pain MDM Narrative Medical decision making narrative: Patient with a history of hypertension, diabetes, has had episodic squeezing chest pain, nonexertional, for around 24 hours. Patient did have abnormalities on his EKG suggesting an old infarct. Troponin x2 negative. Given the patient's risk factors and evidence of prior ID on EKG, admission for further cardiology evaluation is warranted. Lab Data Result diagrams: 08/02/22 04:34 08/02/22 04:34 Labs: Lab Results 08/01/22 08/01/22 08/01/22 Range/Units 21:27 21:27 21:27 WBC 6.1 (4.8-10.8) X10*3/uL RBC 4.85 (4.60-5.80) X10*6/uL Hgb 14.5 (14.0-18.0) g/dl Hct 42.8 (42.0-52.0) % MCV 88.2 (80.0-98.0) fL MCH 29.9 (27.0-33.0) pg MCHC 33.9 (31.0-36.0) g/dl RDW 12.4 (11.0-16.0) % Plt Count 211 (160-400) X10*3/uL MPV 10.4 (9.4-12.4) fL Immature Gran % (Auto) 0.2 (0.0-0.4) % Neut % (Auto) 60.9 (45-73) % Lymph % (Auto) 26.8 (20-40) % [place] % (Auto) 9.0 (2-11) % Eos % (Auto) 2.6 (0-4) % Baso % (Auto) 0.5 (0-2) % Lymph # (Auto) 1.6 (1.2-4.9) X10*3/uL [place] # (Auto) 0.6 (0.1-1.2) X10*3/uL Eos # (Auto) 0.2 (0.0-0.4) X10*3/uL Baso # (Auto) 0.0 (0.0-0.2) X10*3/uL Abs Immat Gran (auto) 0.01 (0.00-0.03) X10*3/uL Absolute Neuts (auto) 3.7 (2.0-8.3) x10*3/uL Absolute Nucleated RBC 0.000 (0.0-0.012) X10*3/uL Nucleated RBC % (auto) 0.0 (0.0-0.2) /100WBC Sodium 135 (135-145) mmol/L Potassium 4.5 (3.3-5.1) mmol/L Chloride 97 (96-108) mmol/L Carbon Dioxide 27 (22-29) mmol/L Anion Gap 16 (12-20) BUN 27 H (9-16) mg/dL Creatinine 1.96 H (0.5-1.4) mg/dL Estim Creat Clear Calc 32.7 Estimated GFR 33 Random Glucose 382 H* (60-115) mg/dL Calcium 9.5 (8.4-10.2) mg/dL Total Bilirubin 0.7 (0.0-1.0) mg/dL AST 20 (5-37) U/L ALT 31 (0-40) U/L Alkaline Phosphatase 80 (39-117) U/L Troponin I High Sens 11.4 (<3.5-35.0) ng/L Total Protein 7.1 (6.5-8.0) g/dL Albumin 4.2 (3.5-5.0) g/dL 08/01/22 Range/Units 23:43 WBC (4.8-10.8) X10*3/uL RBC (4.60-5.80) X10*6/uL Hgb (14.0-18.0) g/dl Hct (42.0-52.0) % MCV (80.0-98.0) fL MCH (27.0-33.0) pg MCHC (31.0-36.0) g/dl RDW (11.0-16.0) % Plt Count (160-400) X10*3/uL MPV (9.4-12.4) fL Immature Gran % (Auto) (0.0-0.4) % Neut % (Auto) (45-73) % Lymph % (Auto) (20-40) % [place] % (Auto) (2-11) % Eos % (Auto) (0-4) % Baso % (Auto) (0-2) % Lymph # (Auto) (1.2-4.9) X10*3/uL [place] # (Auto) (0.1-1.2) X10*3/uL Eos # (Auto) (0.0-0.4) X10*3/uL Baso # (Auto) (0.0-0.2) X10*3/uL Abs Immat Gran (auto) (0.00-0.03) X10*3/uL Absolute Neuts (auto) (2.0-8.3) x10*3/uL Absolute Nucleated RBC (0.0-0.012) X10*3/uL Nucleated RBC % (auto) (0.0-0.2) /100WBC Sodium (135-145) mmol/L Potassium (3.3-5.1) mmol/L Chloride (96-108) mmol/L Carbon Dioxide (22-29) mmol/L Anion Gap (12-20) BUN (9-16) mg/dL Creatinine (0.5-1.4) mg/dL Estim Creat Clear Calc Estimated GFR Random Glucose (60-115) mg/dL Calcium (8.4-10.2) mg/dL Total Bilirubin (0.0-1.0) mg/dL AST (5-37) U/L ALT (0-40) U/L Alkaline Phosphatase (39-117) U/L Troponin I High Sens 13.7 (<3.5-35.0) ng/L Total Protein (6.5-8.0) g/dL Albumin (3.5-5.0) g/dL Imaging Data Chest x-ray: Radiologist's impression: MPRESSION: Unremarkable examination. ? ECG Data ECG #1: Attestation: I personally reviewed and interpreted this ECG as follows: ECG interpretation date: 08/01/22 ECG interpretation time: 23:36 Interpretation: Normal sinus rhythm with a rate 66. No deshawn ST elevation or depression. Delayed R-wave progression. LVH present. Left axis deviation. Some baseline artifact present. Q-waves in leads 3 and F present consistent with an old inferior myocardial infarction. Discharge Plan Discharge Clinical Impression: Chest pain Patient Disposition: Admitted As Inpatient
[2022-08-02] VITALS (9 sets, daily range): BP systolic 158–217; BP diastolic 60–177; PULSE 53–65; RESP 12–20; TEMP 36.2–37.2; O2SAT 96–99; BMI 32.3
[2022-08-02 00:19] LABS: Troponin-I High Sensitivity 13.7 ng/L (<3.5-35.0)
--- NOTE | 2022-08-02 01:33 | PM.IMHP ---
History of Present Illness Date of Service: 08/02/22 Chief Complaint: chest pain 81-year-old male with past medical history of CKD stage 3, diabetes, HTN, anxiety, osteoarthritis, nonalcoholic fatty liver, BPH, presents to the hospital with complaints of left-sided chest pain. Patient describes as the chest pain on the left side of his chest, 3/10, intermittent, occurs at rest, resolves spontaneously. No exacerbating or relieving factors. Occurred multiple times lasting few minutes and going few hours between each episode. Patient reports the pain started 2 days prior while he was watching TV. Not related to exertion. Denies any palpitations, no shortness of breath. Patient denies any headache, no change in vision, no fever or chills, no abdominal pain nausea or vomiting, no diarrhea constipation, no urinary symptoms and no lower extremity edema. 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 Mother No problems noted. Surgical History History of arthroplasty of right knee (~03/2019) History of cholecystectomy History of esophagogastroduodenoscopy (EGD) Hx of colonoscopy (~03/2019) Social History Alcohol intake: never Advance Directives: No Advance Directives Information Provided: No Meds Allergies Allergy/AdvReac Type Severity Reaction Status Date / Time No Known Allergies Allergy Verified 06/15/22 14:18 [No Known Allergies*] Home Medications Medication Instructions Recorded Confirmed Last Taken Type amlodipine 10 mg tablet 10 mg PO DAILY 09/29/20 08/02/22 Unknown History blood sugar diagnostic #10 ea 09/29/20 06/15/22 Unknown History dulaglutide 1.5 mg/0.5 mL 1.5 mg subcut QWEEK 09/29/20 06/15/22 Unknown History subcutaneous pen injector glimepiride 2 mg tablet 2 mg PO DAILY 09/29/20 06/15/22 Unknown History metformin 500 mg tablet 500 mg PO DAILY 09/29/20 06/15/22 Unknown History metoprolol succinate 50 mg 50 mg PO DAILY 09/29/20 08/02/22 Unknown History tablet,extended release 24 hr spironolactone 25 mg tablet 12.5 mg PO DAILY 09/29/20 06/15/22 Unknown History tramadol 50 mg tablet 50 mg PO BID PRN 09/29/20 06/15/22 Unknown History atorvastatin 20 mg tablet 20 mg PO DAILY 02/08/21 08/02/22 Unknown History dulaglutide 3 mg/0.5 mL 3 mg subcut QWEEK 02/08/21 06/15/22 Unknown History subcutaneous pen injector hydralazine 25 mg tablet 25 mg PO BID 02/08/21 06/15/22 Unknown History hydralazine 50 mg tablet 50 mg PO BID 02/08/21 06/15/22 Unknown History lancets 33 gauge (TRUEplus Lancets) #100 ea 06/14/21 06/15/22 Unknown History losartan 50 mg tablet 50 mg PO DAILY 09/21/21 06/15/22 Unknown History dulaglutide 3 mg/0.5 mL 3 mg subcut QWEEK 08/02/22 08/02/22 Unknown History subcutaneous pen injector (Trulicity) Physical Exam Vital Signs and Narrative: Vital Signs: Last Vital Signs Temp 98.2 F 08/02/22 00:17 Pulse 54 08/02/22 00:17 Resp 15 08/02/22 00:17 BP 158/60 H 08/02/22 00:17 Pulse Ox 97 08/02/22 00:17 O2 Del Method 08/02/22 00:17 BMI result Body Mass Index 32.2 Const: General: cooperative and no acute distress Orientation/consciousness: patient oriented x3 Eyes: General: appearance normal, both eyes and all related structures Chest: Other: No chest pain on palpating the chest Resp: Effort & Inspection: normal respiratory effort Auscultation: clear to auscultation bilaterally Cardio: Rate: regular rate Rhythm: regular rhythm GI: Palpation (GI): Soft to palpation Auscultation: normal bowel sounds Skin: General skin exam: no rashes or lesions noted Neuro: General: patient oriented x3 Cognition (Neuro): normal cognition Extrem: General: Yes normal to inspection and Yes no pedal edema Results Labs CBC and Chem 7: 08/02/22 04:34 08/02/22 04:34 Labs: Laboratory Results - last 24 hr 08/01/22 08/01/22 08/01/22 21:27 21:27 21:27 MCV 88.2 MCH 29.9 MCHC 33.9 RDW 12.4 Plt Count 211 MPV 10.4 Immature Gran % (Auto) 0.2 Neut % (Auto) 60.9 Lymph % (Auto) 26.8 Kings % (Auto) 9.0 Eos % (Auto) 2.6 Baso % (Auto) 0.5 Lymph # (Auto) 1.6 [place] # (Auto) 0.6 Eos # (Auto) 0.2 Baso # (Auto) 0.0 Abs Immat Gran (auto) 0.01 Absolute Neuts (auto) 3.7 Absolute Nucleated RBC 0.000 Nucleated RBC % (auto) 0.0 Anion Gap 16 Estim Creat Clear Calc 32.7 Estimated GFR 33 Random Glucose 382 H* Calcium 9.5 Total Bilirubin 0.7 AST 20 ALT 31 Alkaline Phosphatase 80 Troponin I High Sens 11.4 Total Protein 7.1 Albumin 4.2 08/01/22 23:43 MCV MCH MCHC RDW Plt Count MPV Immature Gran % (Auto) Neut % (Auto) Lymph % (Auto) Kings % (Auto) Eos % (Auto) Baso % (Auto) Lymph # (Auto) Kings # (Auto) Eos # (Auto) Baso # (Auto) Abs Immat Gran (auto) Absolute Neuts (auto) Absolute Nucleated RBC Nucleated RBC % (auto) Anion Gap Estim Creat Clear Calc Estimated GFR Random Glucose Calcium Total Bilirubin AST ALT Alkaline Phosphatase Troponin I High Sens 13.7 Total Protein Albumin Imaging Radiologist's Impressions: Impressions Chest X-Ray 08/01/22 23:45 IMPRESSION: Unremarkable examination. Assessment and Plan (1) Chest pain: Status: Acute (2) Acute kidney injury superimposed on CKD: Status: Acute Plan 81-year-old male with past medical history of hypertension, diabetes, CKD stage 3 presents to the hospital wit complaints of chest pain # chest pain - typical chest pain - troponin negative x2 - EKG shows T-wave inversion V1 otherwise nonspecific changes - will obtain Cardiology consultation given his risk factors - admit to telemetry # BRIJESH on CKD - will treat with IV fluids - follow BMP # hypertension - stable - continue antihypertensives # diabetes - hold oral antihyperglycemics - low-dose sliding scale insulin - diabetic diet # BPH - continue finasteride DVT prophylaxis: Early ambulation Quality Stroke Does the patient have a stroke diagnosis?: No VTE Prior VTE?: No VTE Risk Level:: Medical - moderate - high VTE Device Contraindication: Treatment Not Indicated VTE Drug Contraindication: Treatment Not Indicated
--- OUTSIDE RECORDS SUMMARY | 2022-08-02 01:47 | XMS_ITS ---
:1940 Author Care Team Providers Name Role Phone EVELIN JOHNSON 1ST FLOOR OTHER [phone] Allergies Code Code System Name Reaction Severity Status Onset NKDA ? Medications Notes: Meds reviewed. See nursing MAR for complete list. Problems Name Status Onset Date Source ? Type 2 Diabetes Mellitus without Complication Active ? Essential Hypertension Active 04/07/2019 ? Osteoarthritis of Left Knee Joint Unknown 04/07/2019 ? Osteoarthritis of Right Knee Joint Active 04/07/2019 ? Chronic Kidney Disease Active 04/09/2019 ? Upper Gastrointestinal Bleeding Active 04/27/2019 ? Notes: s/p R TKR Procedures Notes: cataracts, gallblader, colonosc opy. Results Lab Results None recorded. Past Encounters None recorded. Social History Tobacco Smoking Status Former Smoker Notes: quit 31 yrs ago Vaccine List None recorded. Plan of Care Reminders Provider Appointments None recorded. ? ? Lab None recorded. ? ? Referral None recorded. ? ? Procedures None recorded. ? ? Surgeries None recorded. ? ? Imaging None recorded. ? ? Vitals 05/06/2019 03:46PM Discharge Summary Height Blood Pressure 5 ft 7 in 126/78 mm[Hg] 04/27/2019 09:49AM Readmission Height Blood Pressure 5 ft 7 in 156/71 mm[Hg] 04/09/2019 10:38AM Admitting H&P Height Weight BMI Blood Pressure 5 ft 7 in 200 lbs 31.3 kg/m2 119/70 mm[Hg] 04/07/2019 02:15PM Initial Intake Note Blood Pressure 162/76 mm[Hg]
[2022-08-02 02:07] LABS: COVID-19 Test Negative (Negative); IDNOW Serial# 16C4AD1C
[2022-08-02 04:39] LABS: Basophils Absolute Auto 0.1 X10*3/uL (0.0-0.2); Basophils Percent Auto 0.8 % (0-2); Eosinophils Absolute Auto 0.2 X10*3/uL (0.0-0.4); Eosinophils Percent Auto 2.5 % (0-4); Hematocrit 44.6 % (42.0-52.0); Imm Gran Abs Auto 0.03 X10*3/uL (0.00-0.03); Imm Gran Pct Auto 0.5 % (0.0-0.4); Lymphocytes Absolute Auto 1.9 X10*3/uL (1.2-4.9); Lymphocytes Percent Auto 29.6 % (20-40); MANUAL DIFF FLAG NO; Mean Corpuscular HGB Conc 33.6 g/dl (31.0-36.0); Mean Corpuscular Hemoglobin 29.8 pg (27.0-33.0); Mean Corpuscular Volume 88.5 fL (80.0-98.0); Mean Platelet Volume 10.6 fL (9.4-12.4); Monocytes Absolute Auto 0.6 X10*3/uL (0.1-1.2); Neutrophils Absolute Auto 3.8 x10*3/uL (2.0-8.3); Neutrophils Percent Auto 57.6 % (45-73); Platelet Count 213 X10*3/uL (160-400); Red Blood Count 5.04 X10*6/uL (4.60-5.80); Red Cell Distribution Width 12.4 % (11.0-16.0); White Blood Count 6.5 X10*3/uL (4.8-10.8)
[2022-08-02 04:57] LABS: Anion Gap 17 (12-20); Blood Urea Nitrogen 27 mg/dL (9-16); Calcium 9.8 mg/dL (8.4-10.2); Carbon Dioxide 27 mmol/L (22-29); Chloride 97 mmol/L (96-108); Creatinine Clr Calc Pharmacy 37.9; Estimated Glomerular Filt Rate 39; Glucose Random 299 mg/dL (60-115); Potassium 4.7 mmol/L (3.3-5.1); Sodium 136 mmol/L (135-145)
[2022-08-02] MEDS: Lactated Ringers 1,000 ML 100 ML IVCONT (06:15)
[2022-08-02] MEDS: Insulin Lispro 100 UNIT/ML 3 ML VIAL SUBCUT ×4 (06:50→20:26)
[2022-08-02 06:52] LABS: Glucose, Whole Blood 270 mg/dL (60-115)
[2022-08-02] MEDS: 0.9 % Sodium Chloride Flush 3 ML SYRINGE IVFLUSH ×2 (08:10→20:26)
[2022-08-02] MEDS: hydrALAZINE HCl 50 MG TABLET PO ×2 (08:10→20:26)
[2022-08-02] MEDS: amLODIPine Besylate 10 MG TABLET PO (08:10)
[2022-08-02] MEDS: Atorvastatin Calcium 20 MG TABLET PO (08:10)
[2022-08-02] MEDS: Losartan Potassium 50 MG TABLET PO ×2 (08:10→10:59)
--- NOTE | 2022-08-02 08:15 | PC.NURSE ---
pt alert and oriented, skin appropriate for ethnicity, respirations even and unlabored, pt denies chest pain at this time, lola to sinus on the monitor 55-60's bp slightly elevated at this time
[2022-08-02] MEDS: Metoprolol Succinate ER 50 MG TAB.ER.24H PO (08:51)
--- NOTE | 2022-08-02 09:08 | CA_ITS ---
Transthoracic Echocardiogram Patient (Last, First, Middle): Nelson Mandujano, Gender: Male Date of : 1940 Age: 81 Procedure Date: 08/02/2022 Procedure Type: Transthoracic Echocardiogram Location: ER Height: 170.18 cm Weight: 93.44 kg BSA: 2.05 m2 Heart Rate: bpm BP: 184 / 93 mmHg Package Sealer: WANDER Referring MD: Juaquin Arreguin MD Symptoms: chest pain, uncontrolled HTN Study Quality: Adequate ECG Rhythm: Sinus Conclusions: - The left ventricular systolic function is normal. The calculated ejection fraction is 68% by biplane method. - The basal inferior segment is akinetic. - The left atrium is severely dilated. - There is mild calcification of the aortic valve. - Mild pulmonary hypertension is present. - There is mild dilatation of the sinuses of Valsalva measuring 4.38 cm, moderate dilatation of the ascending aorta measuring 4.80 cm, and mild dilatation of the aortic arch measuring 4.30 cm. Findings Left Ventricle Normal left ventricular cavity size. There is moderately increased left ventricular wall thickness. The left ventricular systolic function is normal. The calculated ejection fraction is 68% by biplane method. There is no evidence of regional wall motion abnormalities. E/E prime ratio is >15, consistent with elevated filling pressures. Evidence suggests grade II (moderate) diastolic dysfunction. Wall Motion Rest Echo Findings The basal inferior segment is akinetic. Right Ventricle Normal right ventricular cavity size and systolic function. Atria The left atrium is severely dilated. The right atrium is normal in size. Aortic Valve There is mild calcification of the aortic valve. There is no aortic valve stenosis. There is mild aortic valve regurgitation. Mitral Valve The mitral valve appears normal. There is mild mitral valve regurgitation. There is no mitral valve stenosis. Pulmonic Valve The pulmonic valve is likely normal. Tricuspid Valve There is trace tricuspid valve regurgitation. Mild pulmonary hypertension is present. Great Vessels There is mild dilatation of the sinuses of Valsalva measuring 4.38 cm, moderate dilatation of the ascending aorta measuring 4.80 cm, and mild dilatation of the aortic arch measuring 4.30 cm. Venous The inferior vena cava is mildly dilated and collapses greater than 50% with inspiration. Pericardium/Pleural There is a trivial pericardial effusion. Prior Study Comparison Changes noted compared to prior study dated: 06/25/2016. Wall motion abnormality not previously described. Ascending aorta previously dilated. Measurements 2D Linear Measurements IVSd: 1.48 0.6-0.9/0.6-1.0 cm LVIDd: 5.66 3.9-5.3/4.2-5.9 cm LVIDd Index: 2.76 2.4-3.2/2.2-3.1 cm/m2 LVIDs: 3.15 2.0-3.6 cm LVPWd: 1.35 0.7-1.1 cm LA Diam: 5.30 2.7-3.8/3.0-4.0 cm LAIDs Index: 2.59 1.5-2.3 cm/m2 LV Mass: 447.86 67-162/88-224 g LV Mass Index: 218.47 43-95/49-115 g/m2 LVOT Diam: 2.40 3.0+(-)1.3 cm 2D Systolic Function EF 4C: 69.30 >55% EF 2C: 68.50 >55% EF BiP: 68.10 >55% Mitral Valve MV Pk E: 1.02 MV PK A: 1.14 MV Decel Time: 255.00 E/A: 0.90 E'Lateral: 4.24 E'Medial: 3.81 E/E' Med: 26.80 E/E' Lat: 24.10 PHT: 75.00 MVA PHT: 2.93 Decel Mcpherson: 4.67 Aortic Valve AoV Pk Sha: 1.90 AoV Mn Sha: 1.17 AoV VTI: 0.43 AoV Pk Grad: 14.00 Aov Mn Grad: 7.00 SON Cont.VTI: 3.13 AI Pk Sha: 4.16 AI Mcpherson: 1.87 LVOT LVOT Pk Sha: 1.23 LVOT Mn Sha: 0.75 LVOT VTI: 0.30 LVOT Pk Grad: 6.00 LVOT Mn Grad: 3.00 LVOT Diam: 2.40 LVOT Area: 4.52 Diastolic Function MV Pk E: 1.02 MV Pk A: 1.14 E/A: 0.90 E'Medial: 3.81 E/E' Med: 26.80 E' Laterial: 4.24 E/E' Lat: 24.10 Right Ventricle TAPSE (mm): 3.30 TVS' Sha: 19.50 Tricuspid Valve TR Pk Sha: 2.74 TR Pk Grad: 30.00 RA Press: 8.00 RVSP: 38.00 Great Vessels Aorta Sinus of Valsalva: 4.38 2.0-3.[address] Ridge: 3.96 1.7-3.4 cm Ao Asc: 4.80 2.1-3.4 cm Ao Arch: 4.30 Updated in Other Vendor System with Status of Final Juaquin Arreguin MD electronically signed on 08/02/2022 3:03:50 PM with status of Final
--- NOTE | 2022-08-02 09:16 | PHA.MEDREC ---
Pharmacy Consult ? Medication Reconciliation Pharmacy has completed the medication reconciliation. Pt poor historian, had list of medications in wall but it did not have any recent medications from his claim history. Asked about some of these from recent and he was agreeable; using pt info and claim history for med rec
--- NOTE | 2022-08-02 10:11 | PM.CNCAR ---
History of Present Illness History of Present Illness Date of Service: 08/02/22 Chief complaint: r/o ACS Narrative: This is a cardiology consultation regarding chest pain. Patient listed to have multiple medical comorbidities including chronic kidney disease, hypertension, diabetes, among others. He states that he does not have any history of coronary artery disease or myocardial infarction or cardiomyopathy or in fact any other cardiac issues. Apparently, in the last few days he has had a few episodes of chest pain. Can happen randomly. No specific provoking or relieving factors. Lot of than actually happen at rest rather. No other complaints like shortness of breath or palpitations or syncopal episodes or leg swelling extra. He came here for further evaluation. It seems that her blood pressures have been quite high going as much as 200 mm Hg. Still seems high. Currently, pain-free and comfortable. Review of Systems Review of Systems: Yes all other systems are reviewed and are negative Constitutional: Constitutional: Reports as per HPI Eyes: Eyes: Reports as per HPI ENT: Reports as per HPI Cardiovascular: Cardiovascular: Reports as per HPI, Denies acrocyanosis, Denies cool extremities, Reports chest pain, Denies leg edema, Denies lightheadedness, Denies palpitations and Denies dyspnea Respiratory: Respiratory: Reports as per HPI, Reports no additional respiratory complaints and Denies dyspnea Gastrointestinal: Gastrointestinal: Reports as per HPI and Reports no additional gastrointestinal complaints Genitourinary: Genitourinary: Reports no additional male genitourinary complaints and Reports as per HPI Musculoskeletal: Musculoskeletal: Reports no additional musculoskeletal complaints and Reports as per HPI Integumentary/Breasts: Skin/Breast: Reports system reviewed and no additional complaints, except as docu Neurologic: Reports system reviewed and no additional complaints, except as documented and Reports as per HPI Psychiatric: Psychiatric: Reports no additional psychiatric complaints and Reports as per HPI Endocrine: Endocrine: Reports no additional endocrine complaints, Reports as per HPI and Denies palpitations Hematologic/Lymphatic: Hematologic/Lymphatic: Reports no additional hematologic/lymphatic complaints and Reports as per HPI Allergic/Immunologic: Allergic/Immunologic: Reports no additional allergic/immunologic complaints and Reports as per HPI PMF Past Medical History Medical History Anxiety Aortic root dilatation Balanitis 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 Mother No problems noted. Surgical History Surgical History History of arthroplasty of right knee (~03/2019) History of cholecystectomy History of esophagogastroduodenoscopy (EGD) Hx of colonoscopy (~03/2019) Social History Social History Alcohol intake: never Advance Directives: No Advance Directives Information Provided: No Meds Allergies Allergy/AdvReac Type Severity Reaction Status Date / Time No Known Allergies Allergy Verified 06/15/22 14:18 [No Known Allergies*] Active Medications: Current Medications Acetaminophen (Acetaminophen 325 Mg Tablet) 650 mg PO Q6H PRN PRN Reason: Pain, Mild (Pain Scale 1-3) Amlodipine Besylate (Amlodipine Besylate 10 Mg Tablet) 10 mg PO DAILY [facility]; Protocol Last Admin: 08/02/22 08:10 Dose: 10 mg Atorvastatin Calcium (Atorvastatin Calcium 20 Mg Tablet) 20 mg PO DAILY [facility] Last Admin: 08/02/22 08:10 Dose: 20 mg Dextrose (Dextrose 50 % 25 Gm/50 Ml Syringe) 25 gm IVPUSH Q15M PRN; Protocol PRN Reason: per Hypoglycemia Standing Ord. Docusate Sodium (Docusate Sodium 100 Mg Capsule) 100 mg PO DAILY PRN PRN Reason: Constipation Glucose (Glucose Gel 15 Gm Gel..Gram.) 15 gm PO Q15M PRN; Protocol PRN Reason: per Hypoglycemia Standing Ord. Hydralazine HCl (Hydralazine Hcl 50 Mg Tablet) 50 mg PO BID [facility]; Protocol Last Admin: 08/02/22 08:10 Dose: 50 mg Lactated Ringer's (Lr) 1,000 mls @ 100 mls/hr IVCONT .Q10H [facility] Last Admin: 08/02/22 06:15 Dose: 100 mls/hr Insulin Human Lispro (Insulin Lispro 100 Unit/Ml 3 Ml Vial) 0 unit SUBCUT QIDACHS [facility]; Protocol Last Admin: 08/02/22 06:50 Dose: 6 unit Losartan Potassium (Losartan Potassium 50 Mg Tablet) 50 mg PO DAILY [facility]; Protocol Last Admin: 08/02/22 08:10 Dose: 50 mg Metoprolol Succinate (Metoprolol Succinate Er 50 Mg Tab.Er.24h) 50 mg PO DAILY [facility]; Protocol Last Admin: 08/02/22 08:51 Dose: 50 mg Nitroglycerin (Nitroglycerin 0.4 Mg Tab.Subl) 0.4 mg SUBLINGUAL Q5MX3 PRN PRN Reason: Chest Pain Ondansetron HCl (Ondansetron Hcl 4 Mg/2 Ml Vial) 4 mg IVPUSH Q8H PRN PRN Reason: Nausea and Vomiting Sodium Chloride (0.9 % Sodium Chloride Flush 3 Ml Syringe) 3 ml IVFLUSH QSHIFT [facility] Last Admin: 08/02/22 08:10 Dose: 3 ml Home Medications Medication Instructions Recorded Confirmed Last Taken Type amlodipine 10 mg tablet 10 mg PO DAILY 09/29/20 08/02/22 Unknown History blood sugar diagnostic #10 ea 09/29/20 06/15/22 Unknown History glimepiride 2 mg tablet 2 mg PO DAILY 09/29/20 08/02/22 Unknown History metformin 500 mg tablet 500 mg PO DAILY 09/29/20 08/02/22 Unknown History metoprolol succinate 50 mg 50 mg PO DAILY 09/29/20 08/02/22 Unknown History tablet,extended release 24 hr atorvastatin 20 mg tablet 20 mg PO DAILY 02/08/21 08/02/22 Unknown History hydralazine 50 mg tablet 50 mg PO BID 02/08/21 08/02/22 Unknown History lancets 33 gauge (TRUEplus Lancets) #100 ea 06/14/21 06/15/22 Unknown History losartan 50 mg tablet 50 mg PO DAILY 09/21/21 08/02/22 Unknown History clonidine HCl 0.1 mg tablet 1 tab PO BID 08/02/22 08/02/22 Unknown History clotrimazole-betamethasone 1 1 appl topical BID PRN Itching 08/02/22 08/02/22 Unknown History %-0.05 % topical cream dulaglutide 3 mg/0.5 mL 3 mg subcut WE 08/02/22 08/02/22 Unknown History subcutaneous pen injector (Trulicity) multivitamin 1 tab PO DAILY 08/02/22 08/02/22 Unknown History polyethylene glycol 3350 17 17 g PO DAILY PRN Constipation 08/02/22 08/02/22 Unknown History gram/dose oral powder (Miralax) Physical Exam Vital Signs: Vital Signs: Last Vital Signs Temp 98.0 F 08/02/22 07:32 Pulse 65 08/02/22 08:11 Resp 18 08/02/22 08:11 BP 184/93 H 08/02/22 08:11 Pulse Ox 96 08/02/22 07:32 O2 Del Method 08/02/22 07:32 BMI result Body Mass Index 32.2 Const: General: comfortable and no acute distress Orientation/consciousness: patient oriented x3 HEENT: Other: Unremarkable Head: Yes normal to inspection Neck: Neck: Yes normal visual inspection Chest: Chest palpation & inspection: normal inspection of the chest Resp: Auscultation: clear to auscultation bilaterally Cardio: Palpation: normal PMI Heart sounds: S1 normal heart sound present, S2 normal heart sound present, no gallops, no murmurs and no rubs GI: Palpation (GI): Soft to palpation Back/Spine/Pelvis: Other: unremarkable Skin: General skin exam: no rashes or lesions noted Neuro: General: patient oriented x3 Extrem: General: Yes normal to inspection Psych: Mental Status: mental status grossly normal Objective Labs and Meds Result diagrams: 08/02/22 04:34 08/02/22 04:34 Lab results: Laboratory Results - last 24 hr 08/01/22 08/01/22 08/01/22 21:27 21:27 21:27 WBC 6.1 RBC 4.85 Hgb 14.5 Hct 42.8 MCV 88.2 MCH 29.9 MCHC 33.9 RDW 12.4 Plt Count 211 MPV 10.4 Immature Gran % (Auto) 0.2 Neut % (Auto) 60.9 Lymph % (Auto) 26.8 [place] % (Auto) 9.0 Eos % (Auto) 2.6 Baso % (Auto) 0.5 Lymph # (Auto) 1.6 [place] # (Auto) 0.6 Eos # (Auto) 0.2 Baso # (Auto) 0.0 Abs Immat Gran (auto) 0.01 Absolute Neuts (auto) 3.7 Absolute Nucleated RBC 0.000 Nucleated RBC % (auto) 0.0 Sodium 135 Potassium 4.5 Chloride 97 Carbon Dioxide 27 Anion Gap 16 BUN 27 H Creatinine 1.96 H Estim Creat Clear Calc 32.7 Estimated GFR 33 POC Glucose Random Glucose 382 H* Calcium 9.5 Total Bilirubin 0.7 AST 20 ALT 31 Alkaline Phosphatase 80 Troponin I High Sens 11.4 Total Protein 7.1 Albumin 4.2 COVID-19 ([facility]) COVID-19 Clin Com 08/01/22 08/02/22 08/02/22 23:43 01:40 04:34 WBC RBC Hgb Hct MCV MCH MCHC RDW Plt Count MPV Immature Gran % (Auto) Neut % (Auto) Lymph % (Auto) [place] % (Auto) Eos % (Auto) Baso % (Auto) Lymph # (Auto) [place] # (Auto) Eos # (Auto) Baso # (Auto) Abs Immat Gran (auto) Absolute Neuts (auto) Absolute Nucleated RBC Nucleated RBC % (auto) Sodium 136 Potassium 4.7 Chloride 97 Carbon Dioxide 27 Anion Gap 17 BUN 27 H Creatinine 1.69 H Estim Creat Clear Calc 37.9 Estimated GFR 39 POC Glucose Random Glucose 299 H Calcium 9.8 Total Bilirubin AST ALT Alkaline Phosphatase Troponin I High Sens 13.7 Total Protein Albumin COVID-19 ([facility]) Negative COVID-19 Clin Com See Note 08/02/22 08/02/22 04:34 06:47 WBC 6.5 RBC 5.04 Hgb 15.0 Hct 44.6 MCV 88.5 MCH 29.8 MCHC 33.6 RDW 12.4 Plt Count 213 MPV 10.6 Immature Gran % (Auto) 0.5 H Neut % (Auto) 57.6 Lymph % (Auto) 29.6 [place] % (Auto) 9.0 Eos % (Auto) 2.5 Baso % (Auto) 0.8 Lymph # (Auto) 1.9 [place] # (Auto) 0.6 Eos # (Auto) 0.2 Baso # (Auto) 0.1 Abs Immat Gran (auto) 0.03 Absolute Neuts (auto) 3.8 Absolute Nucleated RBC 0.000 Nucleated RBC % (auto) 0.0 Sodium Potassium Chloride Carbon Dioxide Anion Gap BUN Creatinine Estim Creat Clear Calc Estimated GFR POC Glucose 270 H Random Glucose Calcium Total Bilirubin AST ALT Alkaline Phosphatase Troponin I High Sens Total Protein Albumin COVID-19 ([facility]) COVID-19 Clin Com ECG Interpretation: EKG with sinus rhythm at 66/Min; voltage criteria for LVH, cannot exclude old inferior infarct. Normal PA and corrected QT. Imaging Radiologist's impression: Impressions Chest X-Ray 08/01/22 23:45 IMPRESSION: Unremarkable examination. Assessment and Plan (1) Hypertensive urgency: Status: Acute (2) Chest pain: Status: Acute Plan EKG without any clear-cut ischemic changes. Unremarkable high sensitivity troponins. Blood pressures are fairly high. Maximum 217 systolic. Diastolic listed as 177 mm Hg but not clear if that is accurate or not. Most recently, 184/93 mm Hg. He could be having uncontrolled blood pressures causing chest pain. Possible underlying coronary disease but do not think he is having ACS at this time. We will get an echocardiogram for cardiac function assessment. Blood pressure to be better control. Will continue his home dose of amlodipine at 10 mg. We will increase the losartan to 100 mg daily. Switch the metoprolol to carvedilol. Hydralazine as currently on. Will follow up with you. Procedures Date of Service Date of Service: 08/02/22
[2022-08-02 11:42] LABS: Glucose, Whole Blood 284 mg/dL (60-115)
--- NOTE | 2022-08-02 12:06 | PC.NURSE ---
assumed care of pt at 1100, u/s at bedside.
--- NOTE | 2022-08-02 17:09 | HO.PM.IMPN ---
Subjective Subjective Date of Service: 08/02/22 Interval History: seen and examined this morning follow up for chest pain no chest pain at this time. denies SOB, nausea or vomiting Review of Systems Review of Systems: Yes all other systems are reviewed and are negative Constitutional Constitutional: Denies chills and Denies fever(s) ENT Ears, Nose, Mouth, and Throat: Denies dizziness Cardiovascular Cardiovascular: Denies chest pain, Denies palpitations and Denies dyspnea Respiratory Respiratory: Denies cough and Denies dyspnea Gastrointestinal Gastrointestinal: Denies abdominal pain, Denies nausea and Denies vomiting Neurologic Neurologic: Denies dizziness Endocrine Endocrine: Denies palpitations Physical Exam Vital Signs: Vital Signs: Last Vital Signs Temp 98.1 F 08/02/22 14:47 Pulse 61 08/02/22 14:47 Resp 13 08/02/22 14:47 BP 179/82 H 08/02/22 14:47 Pulse Ox 96 08/02/22 14:47 O2 Del Method 08/02/22 14:47 BMI result Body Mass Index 32.2 Const: General: cooperative, comfortable, alert and awake Nutritional Appearance: average body habitus Orientation/consciousness: patient oriented x3 Resp: Effort & Inspection: normal respiratory effort and able to speak in complete sentences Auscultation: clear to auscultation bilaterally Cardio: Rate: regular rate Heart sounds: S1 normal heart sound present and S2 normal heart sound present GI: Palpation (GI): Soft to palpation and nontender Neuro: General: patient oriented x3 and CN's II-XI intact bilaterally Extrem: General: Yes no pedal edema Objective Data Active Medications Acetaminophen (Acetaminophen 325 Mg Tablet) 650 mg PO Q6H PRN PRN Reason: Pain, Mild (Pain Scale 1-3) Amlodipine Besylate (Amlodipine Besylate 10 Mg Tablet) 10 mg PO DAILY [facility]; Protocol Last Admin: 08/02/22 08:10 Dose: 10 mg Documented By: JOSEPH Atorvastatin Calcium (Atorvastatin Calcium 20 Mg Tablet) 20 mg PO DAILY [facility] Last Admin: 08/02/22 08:10 Dose: 20 mg Documented By: JOSEPH Carvedilol (Carvedilol 25 Mg Tablet) 25 mg PO BID [facility]; Protocol Dextrose (Dextrose 50 % 25 Gm/50 Ml Syringe) 25 gm IVPUSH Q15M PRN; Protocol PRN Reason: per Hypoglycemia Standing Ord. Docusate Sodium (Docusate Sodium 100 Mg Capsule) 100 mg PO DAILY PRN PRN Reason: Constipation Glucose (Glucose Gel 15 Gm Gel..Gram.) 15 gm PO Q15M PRN; Protocol PRN Reason: per Hypoglycemia Standing Ord. Hydralazine HCl (Hydralazine Hcl 50 Mg Tablet) 50 mg PO BID [facility]; Protocol Last Admin: 08/02/22 08:10 Dose: 50 mg Documented By: JOSEPH Insulin Human Lispro (Insulin Lispro 100 Unit/Ml 3 Ml Vial) 0 unit SUBCUT QIDACHS [facility]; Protocol Last Admin: 08/02/22 13:59 Dose: 6 unit Documented By: MADDENRadha Losartan Potassium (Losartan Potassium 50 Mg Tablet) 100 mg PO DAILY [facility]; Protocol Nitroglycerin (Nitroglycerin 0.4 Mg Tab.Subl) 0.4 mg SUBLINGUAL Q5MX3 PRN PRN Reason: Chest Pain Ondansetron HCl (Ondansetron Hcl 4 Mg/2 Ml Vial) 4 mg IVPUSH Q8H PRN PRN Reason: Nausea and Vomiting Sodium Chloride (0.9 % Sodium Chloride Flush 3 Ml Syringe) 3 ml IVFLUSH QSHIFT [facility] Last Admin: 08/02/22 16:29 Dose: Not Given Documented By: SUMAN Non-Admin Reason: Patient Asleep Labs CBC & Chem 7: 08/02/22 04:34 08/02/22 04:34 Labs: Laboratory Results - last 24 hr 08/01/22 08/01/22 08/01/22 21:27 21:27 21:27 MCV 88.2 MCH 29.9 MCHC 33.9 RDW 12.4 Plt Count 211 MPV 10.4 Immature Gran % (Auto) 0.2 Neut % (Auto) 60.9 Lymph % (Auto) 26.8 [place] % (Auto) 9.0 Eos % (Auto) 2.6 Baso % (Auto) 0.5 Lymph # (Auto) 1.6 [place] # (Auto) 0.6 Eos # (Auto) 0.2 Baso # (Auto) 0.0 Abs Immat Gran (auto) 0.01 Absolute Neuts (auto) 3.7 Absolute Nucleated RBC 0.000 Nucleated RBC % (auto) 0.0 Anion Gap 16 Estim Creat Clear Calc 32.7 Estimated GFR 33 POC Glucose Random Glucose 382 H* Calcium 9.5 Total Bilirubin 0.7 AST 20 ALT 31 Alkaline Phosphatase 80 Troponin I High Sens 11.4 Total Protein 7.1 Albumin 4.2 COVID-19 ([facility]) COVID-19 Clin Com 08/01/22 08/02/22 08/02/22 23:43 01:40 04:34 MCV MCH MCHC RDW Plt Count MPV Immature Gran % (Auto) Neut % (Auto) Lymph % (Auto) [place] % (Auto) Eos % (Auto) Baso % (Auto) Lymph # (Auto) [place] # (Auto) Eos # (Auto) Baso # (Auto) Abs Immat Gran (auto) Absolute Neuts (auto) Absolute Nucleated RBC Nucleated RBC % (auto) Anion Gap 17 Estim Creat Clear Calc 37.9 Estimated GFR 39 POC Glucose Random Glucose 299 H Calcium 9.8 Total Bilirubin AST ALT Alkaline Phosphatase Troponin I High Sens 13.7 Total Protein Albumin COVID-19 ([facility]) Negative COVID-19 Clin Com See Note 08/02/22 08/02/22 08/02/22 04:34 06:47 11:38 MCV 88.5 MCH 29.8 MCHC 33.6 RDW 12.4 Plt Count 213 MPV 10.6 Immature Gran % (Auto) 0.5 H Neut % (Auto) 57.6 Lymph % (Auto) 29.6 [place] % (Auto) 9.0 Eos % (Auto) 2.5 Baso % (Auto) 0.8 Lymph # (Auto) 1.9 [place] # (Auto) 0.6 Eos # (Auto) 0.2 Baso # (Auto) 0.1 Abs Immat Gran (auto) 0.03 Absolute Neuts (auto) 3.8 Absolute Nucleated RBC 0.000 Nucleated RBC % (auto) 0.0 Anion Gap Estim Creat Clear Calc Estimated GFR POC Glucose 270 H 284 H Random Glucose Calcium Total Bilirubin AST ALT Alkaline Phosphatase Troponin I High Sens Total Protein Albumin COVID-19 ([facility]) COVID-19 Clin Com Assessment and Plan (1) Hypertensive urgency: Status: Acute (2) Chest pain: Status: Acute Plan 81-year-old male with past medical history of hypertension, diabetes, CKD stage 3 presents to the hospital wit complaints of chest pain chest pain troponin negative x2 EKG shows T-wave inversion V1 otherwise nonspecific changes multiple cardiac risk factors possibly related to uncontrolled hypertension echo pending BRIJESH on CKD3 trending down today will d/c IVF given high BP follow renal function Hypertensive urgency BP elevated Change metoprolol to carvedilol Increased dose of losartan to 100 mg daily Continue Norvasc, hydralazine Monitor blood pressure closely T2Dm with hyperglycemia hold oral antihyperglycemics continue SSI, POCs BPH - continue finasteride DVT prophylaxis: Early ambulation attending - dr. neil Requires ongoing inpatient hospitalization for management of uncontrolled hypertension, chest pain, hypertensive urgency Quality Stroke Does the patient have a stroke diagnosis?: No VTE Prior VTE?: No VTE Risk Level:: Medical - moderate - high VTE Device Contraindication: Treatment Not Indicated VTE Drug Contraindication: Treatment Not Indicated
[2022-08-02 18:07] LABS: Glucose, Whole Blood 295 mg/dL (60-115)
[2022-08-02 19:54] LABS: Glucose, Whole Blood 346 mg/dL (60-115)
[2022-08-02] MEDS: carvediloL 25 MG TABLET PO (20:26)
[2022-08-03] VITALS (7 sets, daily range): BP systolic 136–220; BP diastolic 65–95; PULSE 52–66; RESP 13–20; TEMP 36.2–36.7; O2SAT 96–98
[2022-08-03] MEDS: Losartan Potassium 50 MG TABLET 100 MG PO (05:52)
[2022-08-03] MEDS: hydrALAZINE HCl 50 MG TABLET PO ×2 (05:52→11:27)
[2022-08-03] MEDS: carvediloL 25 MG TABLET PO ×2 (05:52→20:29)
[2022-08-03] MEDS: amLODIPine Besylate 10 MG TABLET PO (05:52)
[2022-08-03] MEDS: Bismuth Subsalicylate 262 MG TABLET 524 MG PO (05:53)
[2022-08-03 07:22] LABS: Glucose, Whole Blood 302 mg/dL (60-115)
[2022-08-03] MEDS: Insulin Lispro 100 UNIT/ML 3 ML VIAL SUBCUT ×4 (08:10→20:29)
[2022-08-03] MEDS: Atorvastatin Calcium 20 MG TABLET PO (08:11)
[2022-08-03] MEDS: 0.9 % Sodium Chloride Flush 3 ML SYRINGE IVFLUSH ×3 (08:11→20:29)
[2022-08-03] MEDS: Finasteride 5 MG TABLET PO (10:48)
[2022-08-03] MEDS: Tamsulosin HCL 0.4 MG CAPSULE PO (10:48)
--- NOTE | 2022-08-03 11:00 | P.PNCA_ITS ---
Subjective Subjective Date of Service: 08/03/22 Interval history: His blood pressure is still quite high. Patient himself does not have any specific symptoms like chest pain or shortness of breath at this time. Review of Systems Review of Systems Yes all other systems are reviewed and are negative Constitutional: Reports as per HPI Eyes: Reports as per HPI Reports as per HPI Cardiovascular: Reports as per HPI, Denies acrocyanosis, Denies cool extrem ities, Denies chest pain, Denies leg edema, Denies lightheadedness, Denies palpitations and Denies dyspnea Respiratory: Reports as per HPI, Reports no additional respiratory complaints and Denies dyspnea Gastrointestinal: Reports as per HPI and Reports no additional gastrointestinal complaints Genitourinary: Reports no additional male genitourinary complaints and Reports as per HPI Musculoskeletal: Reports no additional musculoskeletal complaints and Reports as per HPI Skin/Breast: Reports system reviewed and no additional complaints, except as docu Reports system reviewed and no additional complaints, except as documented and Reports as per HPI Psychiatric: Reports no additional psychiatric complaints and Reports as per HPI Endocrine: Reports no additional endocrine complaints, Reports as per HPI and Denies palpitations Hematologic/Lymphatic: Reports no additional hematologic/lymphatic complaints and Reports as per HPI Allergic/Immunologic: Reports no additional allergic/immunologic complaints and Reports as per HPI Physical Exam Vital Signs: Last Vital Signs Temp 97.8 F 08/03/22 10:56 Pulse 52 08/03/22 10:56 Resp 18 08/03/22 10:56 BP 192/74 H 08/03/22 10:56 Pulse Ox 98 08/03/22 10:56 O2 Del Method 08/03/22 10:56 BMI result Body Mass Index 32.3 Const General: comfortable and no acute distress Orientation/consciousness: patient oriented x3 HEENT Other: Unremarkable Head: Yes normal to inspection Neck Neck: Yes normal visual inspection Chest Chest palpation & inspection: normal inspection of the chest Resp Auscultation: clear to auscultation bilaterally Cardio Palpation: normal PMI Heart sounds: S1 normal heart sound present, S2 normal heart sound present, no gallops, no murmurs and no rubs GI Palpation (GI): Soft to palpation Back/Spine/Pelvis Other: unremarkable Skin General skin exam: no rashes or lesions noted Neuro General: patient oriented x3 Extrem General: Yes normal to inspection Psych Mental Status: mental status grossly normal Objective Labs and Meds Result diagrams: 08/02/22 04:34 08/02/22 04:34 Lab results: Laboratory Results - last 24 hr 08/02/22 08/02/22 08/02/22 11:38 18:00 19:43 POC Glucose 284 H 295 H 346 H 08/03/22 07:18 POC Glucose 302 H Progress Note: A&P Assessment and plan (1) Hypertensive urgency: Status: Acute Assessment and Plan: Blood pressure is still quite high. Most recent blood pressure is 192/74 mm Hg. Metoprolol has been changed to Coreg. Losartan dose has been increased. Otherwise also on amlodipine. We will go up on hydralazine does and also add back the home clonidine. (2) Chest pain: Status: Acute Assessment and Plan: Could have underlying coronary disease. Chest pain could have been from uncontrolled blood pressure. Currently denying any symptoms. Echocardiogram with basal inferior akinesis. Once blood pressure control, consider out patient ischemia workup. (3) Ascending aortic aneurysm: Status: Acute Assessment and Plan: In the echocardiogram, ascending aortic size 4.8 cm. This is a known finding. However not clear if it is actively followed or not. Because of this, will need aggressive blood pressure management. Patient states he does go to another desktop support specialist, possibly from [facility]. Last seen about 6 months ago per patient. Plan Discussed with HATTIE Atkinson. Time Spent With Patient Time: Total time spent is greater than 50% in coordination of care (as documented) at patient's floor/unit and/or counseling patient: 35min. Progress Note: Quality Stroke Does the patient have a stroke diagnosis?: No Procedures Date of Service Date of Service: 08/03/22
[2022-08-03 11:03] LABS: Glucose, Whole Blood 393 mg/dL (60-115)
[2022-08-03] MEDS: Insulin Lispro 100 UNIT/ML 3 ML VIAL 6 UNIT SUBCUT (11:26)
[2022-08-03] MEDS: cloNIDine HCL 0.1 MG TABLET PO ×2 (11:27→20:28)
[2022-08-03 12:21] LABS: Anion Gap 16 (12-20); Blood Urea Nitrogen 26 mg/dL (9-16); Calcium 9.4 mg/dL (8.4-10.2); Carbon Dioxide 27 mmol/L (22-29); Chloride 97 mmol/L (96-108); Creatinine Clr Calc Pharmacy 38.2; Estimated Glomerular Filt Rate 40; Glucose Random 394 mg/dL (60-115); Potassium 5.1 mmol/L (3.3-5.1); Sodium 135 mmol/L (135-145)
--- NOTE | 2022-08-03 16:15 | HO.PM.IMPN ---
Subjective Subjective Date of Service: 08/03/22 Interval History: Seen and examined this morning Follow-up for uncontrolled hypertension No further episodes of chest pain. No shortness of breath Review of Systems Review of Systems: Yes all other systems are reviewed and are negative Constitutional Constitutional: Denies chills Cardiovascular Cardiovascular: Denies chest pain, Denies palpitations and Denies dyspnea Respiratory Respiratory: Denies cough and Denies dyspnea Gastrointestinal Gastrointestinal: Denies abdominal pain, Denies nausea and Denies vomiting Endocrine Endocrine: Denies palpitations Physical Exam Vital Signs: Vital Signs: Last Vital Signs Temp 98.1 F 08/03/22 15:13 Pulse 55 08/03/22 15:13 Resp 13 08/03/22 15:13 BP 166/72 H 08/03/22 15:13 Pulse Ox 96 08/03/22 15:13 O2 Del Method 08/03/22 15:13 BMI result Body Mass Index 32.3 Const: General: cooperative, comfortable, alert and awake Nutritional Appearance: average body habitus Orientation/consciousness: patient oriented x3 Resp: Effort & Inspection: normal respiratory effort and able to speak in complete sentences Auscultation: clear to auscultation bilaterally Cardio: Rate: regular rate Heart sounds: S1 normal heart sound present and S2 normal heart sound present GI: Palpation (GI): Soft to palpation and nontender Neuro: General: patient oriented x3 and CN's II-XI intact bilaterally Extrem: General: Yes no pedal edema Objective Data Active Medications Acetaminophen (Acetaminophen 325 Mg Tablet) 650 mg PO Q6H PRN PRN Reason: Pain, Mild (Pain Scale 1-3) Amlodipine Besylate (Amlodipine Besylate 10 Mg Tablet) 10 mg PO DAILY [facility]; Protocol Last Admin: 08/03/22 05:52 Dose: 10 mg Documented By: YIN Atorvastatin Calcium (Atorvastatin Calcium 20 Mg Tablet) 20 mg PO DAILY [facility] Last Admin: 08/03/22 08:11 Dose: 20 mg Documented By: CHINO Bismuth Subsalicylate (Bismuth Subsalicylate 262 Mg Tablet) 524 mg PO Q1H PRN PRN Reason: Heartburn Last Admin: 08/03/22 05:53 Dose: 524 mg Documented By: YIN Carvedilol (Carvedilol 25 Mg Tablet) 25 mg PO BID [facility]; Protocol Last Admin: 08/03/22 05:52 Dose: 25 mg Documented By: YIN Clonidine HCl (Clonidine Hcl 0.1 Mg Tablet) 0.1 mg PO BID [facility]; Protocol Last Admin: 08/03/22 11:27 Dose: 0.1 mg Documented By: CHINO Dextrose (Dextrose 50 % 25 Gm/50 Ml Syringe) 25 gm IVPUSH Q15M PRN; Protocol PRN Reason: per Hypoglycemia Standing Ord. Docusate Sodium (Docusate Sodium 100 Mg Capsule) 100 mg PO DAILY PRN PRN Reason: Constipation Finasteride (Finasteride 5 Mg Tablet) 5 mg PO DAILY [facility] Last Admin: 08/03/22 10:48 Dose: 5 mg Documented By: CHINO Glucose (Glucose Gel 15 Gm Gel..Gram.) 15 gm PO Q15M PRN; Protocol PRN Reason: per Hypoglycemia Standing Ord. Hydralazine HCl (Hydralazine Hcl 50 Mg Tablet) 100 mg PO TID [facility]; Protocol Insulin Human Lispro (Insulin Lispro 100 Unit/Ml 3 Ml Vial) 0 unit SUBCUT QIDACHS [facility]; Protocol Last Admin: 08/03/22 11:26 Dose: 10 unit Documented By: CHINO Losartan Potassium (Losartan Potassium 50 Mg Tablet) 100 mg PO DAILY [facility]; Protocol Last Admin: 08/03/22 05:52 Dose: 100 mg Documented By: YIN Nitroglycerin (Nitroglycerin 0.4 Mg Tab.Subl) 0.4 mg SUBLINGUAL Q5MX3 PRN PRN Reason: Chest Pain Ondansetron HCl (Ondansetron Hcl 4 Mg/2 Ml Vial) 4 mg IVPUSH Q8H PRN PRN Reason: Nausea and Vomiting Sodium Chloride (0.9 % Sodium Chloride Flush 3 Ml Syringe) 3 ml IVFLUSH QSHIFT [facility] Last Admin: 08/03/22 08:11 Dose: 3 ml Documented By: CHINO Tamsulosin HCl (Tamsulosin Hcl 0.4 Mg Capsule) 0.4 mg PO DAILY [facility] Last Admin: 08/03/22 10:48 Dose: 0.4 mg Documented By: CHINO Labs CBC & Chem 7: 08/02/22 04:34 08/03/22 11:38 Labs: Laboratory Results - last 24 hr 1108/02/22 08/03/22 18:00 19:43 07:18 Anion Gap Estim Creat Clear Calc Estimated GFR POC Glucose 295 H 346 H 302 H Random Glucose Calcium 08/03/22 08/03/22 10:54 11:38 Anion Gap 16 Estim Creat Clear Calc 38.2 Estimated GFR 40 POC Glucose 393 H* Random Glucose 394 H* Calcium 9.4 Assessment and Plan (1) Ascending aortic aneurysm: Status: Acute (2) Hypertensive urgency: Status: Acute (3) Acute kidney injury superimposed on CKD: Status: Acute Plan 81-year-old male with past medical history of hypertension, diabetes, CKD stage 3 presents to the hospital wit complaints of chest pain chest pain troponin negative x2 EKG shows T-wave inversion V1 otherwise nonspecific changes multiple cardiac risk factors possibly related to uncontrolled hypertension echo with basal inferior akinesis - outpatient ischemic workup BRIJESH on CKD3 creatinine stable today follow renal function Hypertensive urgency BP elevated Change metoprolol to carvedilol Increased dose of losartan to 100 mg daily Continue Norvasc Increase dose of hydralazine Resume home dose of clonidine Monitor blood pressure closely Chronic Ascending aortic aneurysm continue outpatient follow up T2Dm with hyperglycemia Trulicity nonformulary hold metformin, glimepiride continue SSI, POCs BPH - continue finasteride, flomax DVT prophylaxis: mechanical devices attending - dr. neil Requires ongoing inpatient hospitalization for management of uncontrolled hypertension, chest pain, hypertensive urgency Quality Stroke Does the patient have a stroke diagnosis?: No VTE Prior VTE?: No VTE Risk Level:: Medical - moderate - high VTE Device Contraindication: Treatment Not Indicated VTE Drug Contraindication: Treatment Not Indicated
--- NOTE | 2022-08-03 16:23 | MHC.CM.PN ---
Male 81 R/O ACS No dc today. DP Home with resumption of [employer] services, and family transport.
[2022-08-03 16:24] LABS: Glucose, Whole Blood 285 mg/dL (60-115)
[2022-08-03] MEDS: hydrALAZINE HCl 50 MG TABLET 100 MG PO ×2 (16:32→20:29)
[2022-08-03 19:55] LABS: Glucose, Whole Blood 345 mg/dL (60-115)
[2022-08-04 03:07] VITALS: BP 167/79; PULSE 67; RESP 18; TEMP 37.2; O2SAT 96
[2022-08-04 07:00] LABS: Anion Gap 17 (12-20); Blood Urea Nitrogen 26 mg/dL (9-16); Calcium 8.7 mg/dL (8.4-10.2); Carbon Dioxide 22 mmol/L (22-29); Chloride 102 mmol/L (96-108); Creatinine Clr Calc Pharmacy 42.5; Estimated Glomerular Filt Rate 45; Glucose Random 296 mg/dL (60-115); Potassium 4.2 mmol/L (3.3-5.1); Sodium 137 mmol/L (135-145)
[2022-08-04 07:23] VITALS: BP 165/78; PULSE 60; RESP 18; TEMP 36.6; O2SAT 97
[2022-08-04 07:42] LABS: Glucose, Whole Blood 263 mg/dL (60-115)
[2022-08-04] MEDS: cloNIDine HCL 0.1 MG TABLET PO (08:13)
[2022-08-04] MEDS: Losartan Potassium 50 MG TABLET 100 MG PO (08:13)
[2022-08-04] MEDS: amLODIPine Besylate 10 MG TABLET PO (08:13)
[2022-08-04] MEDS: Atorvastatin Calcium 20 MG TABLET PO (08:13)
[2022-08-04] MEDS: Tamsulosin HCL 0.4 MG CAPSULE PO (08:13)
[2022-08-04] MEDS: hydrALAZINE HCl 50 MG TABLET 100 MG PO (08:13)
[2022-08-04] MEDS: carvediloL 25 MG TABLET PO (08:13)
[2022-08-04] MEDS: Finasteride 5 MG TABLET PO (08:13)
[2022-08-04] MEDS: 0.9 % Sodium Chloride Flush 3 ML SYRINGE IVFLUSH (08:14)
[2022-08-04] MEDS: Insulin Lispro 100 UNIT/ML 3 ML VIAL SUBCUT ×2 (08:14→12:40)
[2022-08-04 08:29] VITALS: BP 162/86
[2022-08-04 11:22] VITALS: BP 139/67; PULSE 58; RESP 18; TEMP 36.4; O2SAT 95
[2022-08-04 11:29] LABS: Glucose, Whole Blood 290 mg/dL (60-115)
--- NOTE | 2022-08-04 11:32 | P.PNCA_ITS ---
Subjective Subjective Date of Service: 08/04/22 Interval history: He states he feels fine. No cardiac symptoms. Review of Systems Review of Systems Yes all other systems are reviewed and are negative Constitutional: Reports as per HPI Eyes: Reports as per HPI Reports as per HPI Cardiovascular: Reports as per HPI, Denies acrocyanosis, Denies cool extre mities, Denies chest pain, Denies leg edema, Denies lightheadedness, Denies palpitations and Denies dyspnea Respiratory: Reports as per HPI, Reports no additional respiratory complaints and Denies dyspnea Gastrointestinal: Reports as per HPI and Reports no additional gastrointestinal complaints Genitourinary: Reports no additional male genitourinary complaints and Reports as per HPI Musculoskeletal: Reports no additional musculoskeletal complaints and Reports as per HPI Skin/Breast: Reports system reviewed and no additional complaints, except as docu Reports system reviewed and no additional complaints, except as documented and Reports as per HPI Psychiatric: Reports no additional psychiatric complaints and Reports as per HPI Endocrine: Reports no additional endocrine complaints, Reports as per HPI and Denies palpitations Hematologic/Lymphatic: Reports no additional hematologic/lymphatic complaints and Reports as per HPI Allergic/Immunologic: Reports no additional allergic/immunologic complaints and Reports as per HPI Physical Exam Vital Signs: Last Vital Signs Temp 97.6 F 08/04/22 11: Pulse 58 08/04/22 11:22 Resp 18 08/04/22 11:22 BP 139/67 08/04/22 11:22 Pulse Ox 95 08/04/22 11:22 O2 Del Method 08/04/22 11:22 BMI result Body Mass Index 32.3 Const General: comfortable and no acute distress Orientation/consciousness: patient oriented x3 HEENT Other: Unremarkable Head: Yes normal to inspection Neck Neck: Yes normal visual inspection Chest Chest palpation & inspection: normal inspection of the chest Resp Auscultation: clear to auscultation bilaterally Cardio Palpation: normal PMI Heart sounds: S1 normal heart sound present, S2 normal heart sound present, no gallops, no murmurs and no rubs GI Palpation (GI): Soft to palpation Back/Spine/Pelvis Other: unremarkable Skin General skin exam: no rashes or lesions noted Neuro General: patient oriented x3 Extrem General: Yes normal to inspection Psych Mental Status: mental status grossly normal Objective Labs and Meds Result diagrams: 08/02/22 04:34 08/04/22 06:22 Lab results: Laboratory Results - last 24 hr 08/03/22 08/03/22 08/03/22 11:38 16:17 19:50 Sodium 135 Potassium 5.1 Chloride 97 Carbon Dioxide 27 Anion Gap 16 BUN 26 H Creatinine 1.68 H Estim Creat Clear Calc 38.2 Estimated GFR 40 POC Glucose 285 H 345 H Random Glucose 394 H* Calcium 9.4 08/04/22 08/04/22 08/04/22 06:22 07:30 11:24 Sodium 137 Potassium 4.2 Chloride 102 Carbon Dioxide 22 Anion Gap 17 BUN 26 H Creatinine 1.51 H Estim Creat Clear Calc 42.5 Estimated GFR 45 POC Glucose 263 H 290 H Random Glucose 296 H Calcium 8.7 D Progress Note: A&P Assessment and plan (1) Hypertensive urgency: Status: Acute Assessment and Plan: Blood pressure seems better. Most recently 139/67 mm Hg. Previous blood pressures in this hospitalization has been quite high but improved. Current meds include carvedilol, losartan, amlodipine, clonidine, hydralazine. He st ates at home it is only the 120s and 130s and some 140s. Hence not clear why it went up so much or if the home blood pressure monitoring is unreliable. Next option for blood pressure management will be adding something like spironolactone. However, he already has some CKD and hence will need to be cautious. (2) Ascending aortic aneurysm: Status: Acute Assessment and Plan: In the echocardiogram, ascending aortic size 4.8 cm. This is a known finding. Can be followed up as an outpatient. Because of ascending aortic aneurysm, strict blood pressure control recommended with a target at 120/80 mm Hg. (3) Chest pain: Status: Acute Assessment and Plan: Could have underlying coronary disease. Chest pain could have been from uncontrolled blood pressure. Echocardiogram with basal inferior akinesis. He does not have any further chest pain. Could consider outpatient stress testing. Plan Discussed with HATTIE Atkinson. Time Spent With Patient Time: Total time spent is greater than 50% in coordination of care (as documented) at patient's floor/unit and/or counseling patient: 35min. Progress Note: Quality Stroke Does the patient have a stroke diagnosis?: No Procedures Date of Service Date of Service: 08/04/22
--- NOTE | 2022-08-04 11:35 | P.DS_ITS ---
DS: Providers Provider Date of Service: 08/04/22 Date of admission: 08/02/22 01:32 Date of discharge: 08/04/22 Primary care physician: Isai Resendez MD Consults: 08/02/22 01:33 Consult to Cardiology Routine Consulting Provider: Juaquin Arreguin Reason for consultation: chest pain Has provider been notified: No [facility]: Jessica Andujar DS: Diagnosis Discharge Diagnosis (1) Hypertensive urgency: Status: Acute (2) Ascending aortic aneurysm: Status: Acute (3) Chest pain: Status: Acute DS: Summary Hospital Course Hospital Course: From H&P on day of admission 81-year-old male with past medical history of CKD stage 3, diabetes, HTN, anxiety, osteoarthritis, nonalcoholic fatty liver, BPH, presents to the hospital with complaints of left-sided chest pain.? Patient d escribes as the chest pain on the left side of his chest, 3/10, intermittent, occurs at rest, resolves spontaneously.? No exacerbating or relieving factors.? Occurred multiple times lasting few minutes and going few hours between each episode.? Patient reports the pain started 2 days prior while he was watching TV.? Not related to exertion.? Denies any palpitations, no shortness of breath. Patient denies any headache, no change in vision, no fever or chills, no abdominal pain nausea or vomiting, no diarrhea constipation, no urinary symptoms and no lower extremity edema.? No orthopnea or PND On arrival to the ED patient hemodynamically stable with elevated blood pressure ?labs are significant for creatinine of 1.96 with a baseline of 1.5, troponin negative x2 EKG shows no evidence of ST T wave changes Chest x-ray negative chest pain. troponin negative x2. no acute ischemic changes seen on EKG. echo with basal inferior akinesis. seen by cardiology, recommend outpatient ischemic workup. Chest pain possibly secondary to elevated blood pressure, blood pressure 200 systolic in the ED. no further episodes of chest pain during This hospitalization. BRIJESH on CKD3. creatinine up to 1.96, baseline around 1.5. creatinine stable near baseline today. Hypertensive urgency. Change metoprolol to carvedilol. Increased dose of losartan to 100 mg daily. Continue Norvasc. continued on home dose of clonidine. Increase dose of hydralazine patient checks his blood pressure on a daily basis and will continue to closely monitor blood pressure Chronic Ascending aortic aneurysm continue outpatient follow up Call to schedule follow up with cardiology and PCP for close blood pressure monitoring. Time Spent with Patient Time attestation: Total time spent providing and/or coordinating discharge services: Discharge coordination time: Greater than 30 minutes Quality: Safe Use of Opioids Does Pt have an Active Cancer Diagnosis on the Problem List?: No Quality: Stroke Does the patient have a stroke diagnosis?: No Physical Exam Vital Signs: Vital Signs: Last Vital Signs Temp 97.6 F 08/04/22 11:22 Pulse 58 08/04/22 11:22 Resp 18 08/04/22 11:22 BP 139/67 08/04/22 11:22 Pulse Ox 95 08/04/22 11:22 O2 Del Method 08/04/22 11:22 BMI result Body Mass Index 32.3 Const: General: cooperative, comfortable, alert and awake Nutritional Appearance: average body habitus Orientation/consciousness: patient oriented x3 Resp: Effort & Inspection: normal respiratory effort and able to speak in complete sentences Auscultation: clear to auscultation bilaterally Cardio: Rate: regular rate Heart sounds: S1 normal heart sound present and S2 normal heart sound present GI: Palpation (GI): Soft to palpation and nontender Neuro: General: patient oriented x3 and CN's II-XI intact bilaterally Extrem: General: Yes no pedal edema DS: Data Data Completed and Pending Labs on day of discharge: Laboratory Results - last 24 hr 08/03/22 08/03/22 08/03/22 11:38 16:17 19:50 Sodium 135 Potassium 5.1 Chloride 97 Carbon Dioxide 27 Anion Gap 16 BUN 26 H Creatinine 1.68 H Estim Creat Clear Calc 38.2 Estimated GFR 40 POC Glucose 285 H 345 H Random Glucose 394 H* Calcium 9.4 08/04/22 08/04/22 08/04/22 06:22 07:30 11:24 Sodium 137 Potassium 4.2 Chloride 102 Carbon Dioxide 22 Anion Gap 17 BUN 26 H Creatinine 1.51 H Estim Creat Clear Calc 42.5 Estimated GFR 45 POC Glucose 263 H 290 H Random Glucose 296 H Calcium 8.7 D Discharge Plan Discharge Anticipated Discharge Date/Time: 08/04/22 11:35 Patient Disposition: Home, Self-Care Discharge Diagnosis: uncontrolled HTN chest pain aortic aneurysm Referrals: Name,MD Isai [Primary Care Provider] - 1 Week Discharge Medications: New losartan 50 mg Tablet 100 mg PO DAILY 30 Days Qty: 60 0RF Protocol: Hold for SBP< HOLD for SBP < : 90 carvedilol 25 mg Tablet 25 mg PO BID Qty: 60 0RF Protocol: Hold for SBP/HR < HOLD for SBP < : 90 HOLD for HR < : 60 hydralazine 50 mg Tablet 100 mg PO TID 30 Days Qty: 180 0RF Protocol: Hold for SBP< HOLD for SBP < : 90 Continued Trulicity 3 mg/0.5 mL Pen Injector 3 mg SUBCUT WE clonidine HCl 0.1 mg tablet 1 tab PO BID clotrimazole-betamethasone 1-0.05 % cream 1 appl topical BID PRN (Reason: Itching) Rx Instructions: Apply thin coat 2 times per day polyethylene glycol 3350 [Miralax] 17 gram/dose powder 17 g PO DAILY PRN (Reason: Constipation) Rx Instructions: Mix Miralax with 64 oz(8 cups) of Crystal light. Take 2 tablets of Dulcolax qt 12 pm. Wait to have your 1st bowel movement, then begin drinking Miralax. Drink a glass of Miralax every 10-15 minutes until you are finished. You will drink at least another 4 cups of clear liquid of your choice over the next 2 hours. Please drink as many clear liquids as possible You may have clear liquids up to four hours before your procedure multivitamin Tablet 1 tab PO DAILY metformin 500 mg tablet 500 mg PO DAILY glimepiride 2 mg tablet 2 mg PO DAILY amlodipine 10 mg tablet 10 mg PO DAILY hydrocortisone 2.5 % cream with perineal applicator 1 appl SC BID-QID PRN (Reason: hemorrhoids) 15 Days Qty: 30 1RF atorvastatin 20 mg tablet 20 mg PO DAILY finasteride 5 mg tablet 5 mg PO DAILY 90 Days Qty: 90 3RF tamsulosin 0.4 mg capsule 0.4 mg PO DAILY 90 Days Qty: 90 3RF Discontinued metoprolol succinate 50 mg tablet extended release 24 hr 50 mg PO DAILY losartan 50 mg tablet 50 mg PO DAILY hydralazine 50 mg tablet 50 mg PO BID No Action (DME) FreeStyle Lite Strips Strip See Rx Instructions Not Applicable .MEDSUPPLY Qty: 10 Rx Instructions: As directed (DME) lancets [TRUEplus Lancets] 33 gauge misc See Rx Instructions topical .MEDSUPPLY Qty: 100 Rx Instructions: As directed Discharge Orders: Discharge Order (Routine); Ordered 08/04/22 Ordered By: Jessica Andujar Activity on Discharge: As tolerated Stand Alone Forms: Patient Portal Discharge page Care Plan Goals: Better blood pressure control Health Concerns: uncontrolled blood pressure chest pain aortic aneurysm Plan of Treatment: stop taking metoprolol, this has been changed to coreg your dose of hydralazine has been increased your dose of losartan has been increased monitor blood pressure daily call to schedule follow up with PCP call to schedule follow up with cardiology - either here at [place] or at your current [facility] office for close blood pressure monitoring and follow up on aortic aneurysm Assessment: see discharge summary Discharge Date/Time: 08/04/22 13:44
--- NOTE | 2022-08-04 12:27 | MHC.CM.PN ---
Patient has been medically cleared for dc to home today, self care.
== END 2022-08-04 13:44 | disposition home or self-care (01) ==
LOC: HO.ED 23:05 → HO.EDOVER 08-02 01:45 → HO.IMC 08-02 16:20
PROVIDERS: Admitting Provider Internal Medicine; Emergency Provider Emergency Medicine; PCP Internal Medicine Geriatric Medicine; Visit Provider Physician Assistant Medical
DX: R07.89 Other chest pain (principal); I71.21 Aneurysm of the ascending aorta, without rupture; I16.0 Hypertensive urgency; E11.22 Type 2 diabetes mellitus with diabetic chronic kidney disease; I12.9 Hypertensive chronic kidney disease with stage 1 through stage 4 chronic kidney disease, or unspecified chronic kidney disease; N18.30 Chronic kidney disease, stage 3 unspecified; N40.0 Benign prostatic hyperplasia without lower urinary tract symptoms; Z20.822 Contact with and (suspected) exposure to COVID-19; Z79.899 Other long term (current) drug therapy
CPT/HCPCS: 36415; 71045; 80048; 80053; 82947; 84484; 85025; 87635; 93005; 93306; 96365; 96366; 96375; 99205; 99219; 99285; Q9957

== ENCOUNTER 2022-11-12 12:25 | Emergency (ER) | payer OTHER, SELFPAY ==
[2022-11-12 12:34] VITALS: BP 238/80; PULSE 80; RESP 20; TEMP 37.1; O2SAT 98; BMI 32.4
[2022-11-12] MEDS: hydrALAZINE HCl 50 MG TABLET PO (13:07)
[2022-11-12] MEDS: Losartan Potassium 50 MG TABLET 100 MG PO (13:07)
[2022-11-12] MEDS: amLODIPine Besylate 10 MG TABLET PO (13:08)
[2022-11-12] MEDS: carvediloL 25 MG TABLET PO (13:08)
[2022-11-12 13:09] VITALS: BP 204/99
--- NOTE | 2022-11-12 13:21 | ED_ITS ---
HPI - General Adult General Chief complaint: General Medical Stated complaint: High BP (238/107) per EMS Time Seen by Provider: 11/12/22 12:48 Source: patient and old records reviewed Mode of arrival: EMS Limitations: no limitations History of Present Illness HPI narrative: states he checked his BP at home and it was elevated he had no symptoms. instead of eating breakfast like he normally does and taking his pills he went to his PCP who sent him to the ED. He notes he has to eat first before he takes his medications or his stomach gets upset. He has no headache or chest pain. He did not take his 4 medications this AM. complaint: HTN Onset (ago): day(s) (this AM) Severity: moderate Relieving factors: none Exacerbating factors: none Associated symptoms: denies other symptoms Treatments prior to arrival: none Related Data Home Medications Medication Instructions Recorded Confirmed amlodipine 10 mg tablet 10 mg PO DAILY 09/29/20 11/07/22 blood sugar diagnostic #10 ea 09/29/20 06/15/22 glimepiride 2 mg tablet 2 mg PO DAILY 09/29/20 11/07/22 metformin 500 mg tablet 1,000 mg PO DAILY 09/29/20 11/07/22 atorvastatin 20 mg tablet 20 mg PO DAILY 02/08/21 11/07/22 lancets 33 gauge (TRUEplus Lancets) #100 ea 06/14/21 06/15/22 clonidine HCl 0.1 mg tablet 1 tab PO BID 08/02/22 11/07/22 clotrimazole-betamethasone 1 1 appl topical BID PRN Itching 08/02/22 11/07/22 %-0.05 % topical cream dulaglutide 3 mg/0.5 mL 3 mg subcut WE 08/02/22 11/07/22 [facility] multivitamin 1 tab PO DAILY 08/02/22 11/07/22 aspirin 81 mg tablet,delayed 81 mg PO DAILY 11/07/22 11/07/22 release chlorthalidone 25 mg tablet 25 mg PO DAILY 11/07/22 11/07/22 spironolactone 25 mg tablet 25 mg PO DAILY 11/07/22 11/07/22 Previous Rx's Medication Instructions Recorded hydrocortisone 2.5 % topical cream 1 appl ID BID-QID PRN hemorrhoids 05/15/21 with perineal applicator 15 days #30 grams tamsulosin 0.4 mg capsule 0.4 mg PO DAILY 90 days #90 caps 06/15/22 carvedilol 25 mg tablet 25 mg PO BID #60 tabs 08/04/22 hydralazine 50 mg tablet 100 mg PO TID 30 days #180 tabs 08/04/22 losartan 50 mg tablet 100 mg PO DAILY 30 days #60 tabs 08/04/22 finasteride 5 mg tablet 5 mg PO DAILY 90 days #90 tabs 11/05/22 bisacodyl 5 mg tablet,delayed 20 mg PO ONCE 1 day #4 tabs 11/09/22 release (Dulcolax (bisacodyl)) polyethylene glycol 3350 17 17 g PO DAILY PRN Constipation 11/09/22 gram/dose oral powder (Miralax) #238 grams Allergies Allergy/AdvReac Type Severity Reaction Status Date / Time No Known Allergies Allergy Verified 06/15/22 14:18 [No Known Allergies*] Review of Systems Review of Systems: Constitutional : No Fever, No Chills, Cardiovascular : No Chest Pain, No SOB Respiratory : No Dyspnea Gastrointestinal : No abdominal pain Musculoskeletal : No Joint Swelling Skin : No rash, no skin lesions Neuro : No Weakness, No Numbness, no headaches Psych : No SI/HI PMFSH Past Medical History Attestation statement: The following information was validated with the patient. 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 Mother No problems noted. Social History Social History Alcohol intake: never Patient Tobacco Use Status: Former Tobacco user Quit Date: age 21's Tobacco use type: Cigarette Years Smoked: 35 Advance Directives: No Advance Directives Information Provided: Yes Advance Directives Date on File: 04/16/19 Physical Exam ED Vital Signs: Vital Signs - 24 hr 11/12/22 12:34 11/12/22 13:09 11/12/22 14:59 Temperature 98.7 F 97.8 F Pulse Rate 80 82 Respiratory Rate 20 18 Blood Pressure 238/80 H 204/99 H 164/83 H Pulse Oximetry 98 97 Oxygen Delivery Method Room Air Room Air BMI result Body Mass Index 32.4 Appearance: Alert. Oriented X3. No acute distress. walking around ED no distress Eyes: Pupils equal, round and reactive to light. ENT: Pharynx normal. Neck: Normal inspection. Neck supple. CVS: Normal heart rate and rhythm. Pulses normal. Respiratory: No respiratory distress. Breath sounds normal. Abdomen: Soft and nontender. Skin: Skin warm and dry. Normal skin color. Normal skin turgor. Extremities: No lower extremity edema. No calf ttp Neuro: Oriented X 3. No motor deficit. No sensory deficit. Course Course Course Narrative: BP 164/83 Medications Administered Discontinued Medications Generic Name Dose Route Start Last Admin Trade Name Freq PRN Reason Stop Dose Admin Amlodipine Besylate 10 mg 11/12/22 12:50 11/12/22 13:08 Amlodipine Besylate 10 Mg Tablet PO 11/12/22 12:51 10 mg ONCE ONE Administration Protocol Carvedilol 25 mg 11/12/22 12:50 11/12/22 13:08 Carvedilol 25 Mg Tablet PO 11/12/22 12:51 25 mg ONCE ONE Administration Protocol Hydralazine HCl 50 mg 11/12/22 12:50 11/12/22 13:07 Hydralazine Hcl 50 Mg Tablet PO 11/12/22 12:51 50 mg ONCE ONE Administration Protocol Losartan Potassium 100 mg 11/12/22 12:50 11/12/22 13:07 Losartan Potassium 50 Mg Tablet PO 11/12/22 12:51 100 mg ONCE ONE Administration Protocol Medical Decision Making Medical Decision Making MDM Narrative: 82 yo male with hx of CKD, NAFL, TAA, anxiety, on 4 BP medications at this time presents with asymptomatic HTN but did not take his medications - will give food medicate and refer to his PCP. He has no symptoms or signs of end organ damage on exam Differential Diagnosis Differential Diagnoses: The differential diagnosis associated with the presentation includes asymptomatic HTN External Record Review External record reviewed: Office record and Prior outpatient labs Chronic Conditions Patient?s care impacted by: Hypertension Discharge Plan Discharge Clinical Impression: Hypertension Qualifiers: Hypertension type: unspecified Qualified Code(s): I10 - Essential (primary) hypertension Patient Disposition: Home, Self-Care Instructions: Hypertension (ED) Additional Instructions: return to ED for any worsening symptoms or concerns return for chest pain, trouble breathing, headaches or any other concerns you were given your amlodipine, carvedilol, hydralazine, losartan and the ED do not take your morning doses this AM. follow up with your doctor this week Prescriptions: No Action finasteride 5 mg tablet 5 mg PO DAILY 90 Days Qty: 90 2RF bisacodyl [Dulcolax (bisacodyl)] 5 mg tablet,delayed release (DR/EC) 20 mg PO ONCE 1 Days Qty: 4 0RF Rx Instructions: for colonoscopy prep polyethylene glycol 3350 [Miralax] 17 gram/dose powder 17 g PO DAILY PRN (Reason: Constipation) Qty: 238 0RF Rx Instructions: Mix Miralax with 64 oz(8 cups) of Crystal light. Take 2 tablets of Dulcolax qt 12 pm. Wait to have your 1st bowel movement, then begin drinking Miralax. Drink a glass of Miralax every 10-15 minutes until you are finished. You will drink at least another 4 cups of clear liquid of your choice over the next 2 hours. Please drink as many clear liquids as possible You may have clear liquids up to four hours before your procedure chlorthalidone 25 mg Tablet 25 mg PO DAILY aspirin 81 mg Tablet,Delayed Release (Dr/Ec) 81 mg PO DAILY spironolactone 25 mg Tablet 25 mg PO DAILY Trulicity 3 mg/0.5 mL Pen Injector 3 mg SUBCUT WE clonidine HCl 0.1 mg tablet 1 tab PO BID clotrimazole-betamethasone 1-0.05 % cream 1 appl topical BID PRN (Reason: Itching) Rx Instructions: Apply thin coat 2 times per day multivitamin Tablet 1 tab PO DAILY losartan 50 mg Tablet 100 mg PO DAILY 30 Days Qty: 60 0RF Protocol: Hold for SBP< HOLD for SBP < : 90 carvedilol 25 mg Tablet 25 mg PO BID Qty: 60 0RF Protocol: Hold for SBP/HR < HOLD for SBP < : 90 HOLD for HR < : 60 hydralazine 50 mg Tablet 100 mg PO TID 30 Days Qty: 180 0RF Protocol: Hold for SBP< HOLD for SBP < : 90 metformin 500 mg tablet 1,000 mg PO DAILY glimepiride 2 mg tablet 2 mg PO DAILY (DME) FreeStyle Lite Strips Strip See Rx Instructions Not Applicable .MEDSUPPLY Qty: 10 Rx Instructions: As directed amlodipine 10 mg tablet 10 mg PO DAILY hydrocortisone 2.5 % cream with perineal applicator 1 appl ID BID-QID PRN (Reason: hemorrhoids) 15 Days Qty: 30 1RF (DME) lancets [TRUEplus Lancets] 33 gauge misc See Rx Instructions topical .MEDSUPPLY Qty: 100 Rx Instructions: As directed atorvastatin 20 mg tablet 20 mg PO DAILY tamsulosin 0.4 mg capsule 0.4 mg PO DAILY 90 Days Qty: 90 3RF Interventions: ED Discharge Assessment Last Done: 11/12/22 15:19 Discharge Date/Time: 11/12/22 15:20
[2022-11-12 14:59] VITALS: BP 164/83; PULSE 82; RESP 18; TEMP 36.6; O2SAT 97
== END 2022-11-12 15:20 | disposition home or self-care (01) ==
PROVIDERS: Emergency Provider Emergency Medicine; PCP Internal Medicine Geriatric Medicine
DX: E11.22 Type 2 diabetes mellitus with diabetic chronic kidney disease (principal); I12.9 Hypertensive chronic kidney disease with stage 1 through stage 4 chronic kidney disease, or unspecified chronic kidney disease; N18.30 Chronic kidney disease, stage 3 unspecified; Z87.891 Personal history of nicotine dependence; Z79.84 Long term (current) use of oral hypoglycemic drugs; Z79.85 Long-term (current) use of injectable non-insulin antidiabetic drugs; Z79.82 Long term (current) use of aspirin; Z79.899 Other long term (current) drug therapy; Z79.02 Long term (current) use of antithrombotics/antiplatelets
CPT/HCPCS: 99282; 99283

== ENCOUNTER → 2023-01-07 07:57 | Day surgery (SDC) | payer OTHER, SELFPAY ==
[2022-11-07 14:59] VITALS: BMI 32.2
--- NOTE | 2023-01-07 08:36 | MHC.SHP ---
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 No changes have occurred unless specified. Time Spent With Patient Time: Total time managing care of this patient today ____ minutes.
[2023-01-07 08:56] VITALS: BP 218/78; PULSE 87; RESP 16; TEMP 37.1; O2SAT 97
--- NOTE | 2023-01-07 08:59 | HO.ANESPROP2 ---
HPI - Anesthesia Eval Consult details Narrative: for colonoscopy high risk pt with CKD, Acs aorta 4.8 cm aneurysm htn PMFSH Active Problems Active Problems: All Active Problems (Updated 11/13/22 @ 00:01 by Ladonna La) NAFL (nonalcoholic fatty liver) (Acute) Elevated LFTs (Acute) CKD (chronic kidney disease) stage 3, GFR 30-59 ml/min (Acute) Renal cyst (Acute) Thoracic aortic aneurysm (TAA) (Acute) Aortic root dilation (Acute) Hypertension (Acute) Anxiety (Acute) History of duodenal ulcer (Acute) History of colon polyps (Acute) BPH w urinary obs/LUTS (Acute) Chronic constipation (Acute) Hemorrhoids (Acute) Balanitis (Acute) Upper abdominal pain (Acute) Abnormal CT scan, stomach (Acute) Chest pain (Acute) Acute kidney injury superimposed on CKD (Acute) Hypertensive urgency (Acute) Ascending aortic aneurysm (Acute) Past Medical History Medical History Anxiety Aortic root dilatation Balanitis 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 Mother No problems noted. Family history of problems with anesthesia: No Surgical History Surgical History History of arthroplasty of right knee (~03/2019) History of cholecystectomy History of esophagogastroduodenoscopy (EGD) Hx of colonoscopy (~03/2019) History of Problems with Anesthesia: No Social History Social History Alcohol intake: never Patient Tobacco Use Status: Former Tobacco user Quit Date: age 21's Tobacco use type: Cigarette Years Smoked: 35 Use of substances other than those prescribed or required for medical reasons: No Have you been hit, kicked, punched, or otherwise hurt by someone within the past year? If so, by whom?: No Are you DNR?: No Advance Directives: Yes (has MOLST form) Advance Directives on File: Yes Advance Directives Date on File: 01/07/23 Recently lost weight without trying: No Eating poorly because of decreased appetite: No Nutrition Risks: Surgical patient >75years Poor oral hygiene: No (upper & lower dentures) Meds Allergies Allergy/AdvReac Type Severity Reaction Status Date / Time No Known Allergies Allergy Verified 06/15/22 14:18 [No Known Allergies*] Active Medications: Current Medications Sodium Chloride (Ns) 1,000 mls @ 50 mls/hr IVCONT .Q20H ISAURA Home Medications Medication Instructions Recorded Confirmed Last Taken Type amlodipine 10 mg tablet 10 mg PO DAILY 09/29/20 11/07/22 Unknown History blood sugar diagnostic #10 ea 09/29/20 06/15/22 Unknown History glimepiride 2 mg tablet 2 mg PO DAILY 09/29/20 11/07/22 Unknown History metformin 500 mg tablet 1,000 mg PO DAILY 09/29/20 11/07/22 Unknown History atorvastatin 20 mg tablet 20 mg PO DAILY 02/08/21 11/07/22 Unknown History lancets 33 gauge (TRUEplus Lancets) #100 ea 06/14/21 06/15/22 Unknown History clonidine HCl 0.1 mg tablet 1 tab PO BID 08/02/22 11/07/22 Unknown History clotrimazole-betamethasone 1 1 appl topical BID PRN Itching 08/02/22 11/07/22 Unknown History %-0.05 % topical cream dulaglutide 3 mg/0.5 mL 3 mg subcut WE 08/02/22 11/07/22 Unknown History subcutaneous pen injector (Trulicity) multivitamin 1 tab PO DAILY 08/02/22 11/07/22 Unknown History aspirin 81 mg tablet,delayed 81 mg PO DAILY 11/07/22 11/07/22 Unknown History release chlorthalidone 25 mg tablet 25 mg PO DAILY 11/07/22 11/07/22 Unknown History spironolactone 25 mg tablet 25 mg PO DAILY 11/07/22 11/07/22 Unknown History Exam Exam Date and Time: January 07, 2023 0859 Height,Weight and Vital Signs: Height 5 ft 7.5 in Weight 94.801 kg Airway Mallampati Class: II TM Dist: >3cm Heart: rrr Lungs: cta Assessment and Plan Assessment Anesthesia Assessment: Anesthesia Plan Discussed and Chart Reviewed Final Anesthetic Review Family History of Problems with Anesthesia: No History of Problems with Anesthesia: No NPO: Yes ASA Class: IV Final Preanesthetic Review: No Changes in Pt Med Stat, Meds/Allgs Chart Reviewed, Consent Obtained/Reviewed and Anes Risks/Benef Reviewed Patient Risk: High Procedure Risk: Intermediate Anesthetic Plan Anesthetic Plan: MAC: Disposition: Standard PACU
[2023-01-07 09:23] LABS: Glucose, Whole Blood 169 mg/dL (60-115)
[2023-01-07 09:34] VITALS: BP 219/100; PULSE 83; RESP 16
--- NOTE | 2023-01-07 09:36 | PC.NURSE ---
patient has a follow up with his scutcher tender in two weeks. ok for patient to take his medications with water. patient is going to take his prescribed meds he has with himself but can only take them with food because it upsets his stomach. iv inserted patient to take his medications he brought with him. plan is to monitor his bp then to go home. calling daughter for his plan of care.
--- NOTE | 2023-01-07 09:50 | PC.NURSE ---
report given to nikolai and moved patient to discharge. called his daughter thiago and aware of the plan of care.
== END | disposition home or self-care (01) ==
PROVIDERS: PCP Internal Medicine Geriatric Medicine; Visit Provider Internal Medicine Gastroenterology
DX: R10.10 Upper abdominal pain, unspecified (principal); Z53.09 Procedure and treatment not carried out because of other contraindication; I71.20 Thoracic aortic aneurysm, without rupture, unspecified; I10 Essential (primary) hypertension; E11.9 Type 2 diabetes mellitus without complications
CPT/HCPCS: 82947

== ENCOUNTER 2023-01-08 09:18 | Outpatient (REF) | payer OTHER, SELFPAY ==
[2023-01-08 11:19] LABS: Anion Gap 12 (12-20); Blood Urea Nitrogen 23 mg/dL (9-16); Calcium 9.2 mg/dL (8.4-10.2); Carbon Dioxide 26 mmol/L (22-29); Chloride 102 mmol/L (96-108); Estimated Glomerular Filt Rate 37; Sodium 136 mmol/L (135-145)
== END 2023-01-08 09:19 | disposition home or self-care (01) ==
LOC: HO.LAB 09:18
PROVIDERS: PCP Internal Medicine Geriatric Medicine; Visit Provider Internal Medicine Hypertension Specialist
DX: N18.30 Chronic kidney disease, stage 3 unspecified (principal)
CPT/HCPCS: 36415; 80051; 82310; 82565; 84520

== ENCOUNTER 2023-04-09 14:31 | Outpatient (REF) | payer OTHER, SELFPAY ==
[2023-04-09 16:19] LABS: MANUAL DIFF FLAG NO
[2023-04-09 16:28] LABS: Basophils Percent Auto 0.7 % (0-2); Eosinophils Absolute Auto 0.2 X10*3/uL (0.0-0.4); Eosinophils Percent Auto 2.9 % (0-4); Hemoglobin 11.5 g/dl (14.0-18.0); Imm Gran Abs Auto 0.03 X10*3/uL (0.00-0.03); Imm Gran Pct Auto 0.6 % (0.0-0.4); Lymphocytes Absolute Auto 1.2 X10*3/uL (1.2-4.9); Lymphocytes Percent Auto 22.4 % (20-40); Mean Corpuscular HGB Conc 31.1 g/dl (31.0-36.0); Mean Corpuscular Hemoglobin 29.8 pg (27.0-33.0); Mean Corpuscular Volume 95.9 fL (80.0-98.0); Mean Platelet Volume 10.3 fL (9.4-12.4); Monocytes Absolute Auto 0.7 X10*3/uL (0.1-1.2); Monocytes Percent Auto 11.9 % (2-11); Neutrophils Absolute Auto 3.3 x10*3/uL (2.0-8.3); Neutrophils Percent Auto 61.5 % (45-73); Platelet Count 322 X10*3/uL (160-400); Red Blood Count 3.86 X10*6/uL (4.60-5.80); Red Cell Distribution Width 13.5 % (11.0-16.0); White Blood Count 5.4 X10*3/uL (4.8-10.8)
[2023-04-09 16:43] LABS: Anion Gap 12 (12-20); Blood Urea Nitrogen 17 mg/dL (9-16); Calcium 9.7 mg/dL (8.4-10.2); Carbon Dioxide 25 mmol/L (22-29); Chloride 103 mmol/L (96-108); Estimated Glomerular Filt Rate 50; Glucose Random 180 mg/dL (60-115); Potassium 4.4 mmol/L (3.3-5.1); Sodium 136 mmol/L (135-145)
== END 2023-04-09 14:32 | disposition home or self-care (01) ==
LOC: HO.HHCL 14:31
PROVIDERS: Visit Provider Internal Medicine Geriatric Medicine
DX: E11.65 Type 2 diabetes mellitus with hyperglycemia (principal); D64.9 Anemia, unspecified; D72.829 Elevated white blood cell count, unspecified; N18.9 Chronic kidney disease, unspecified; Z98.890 Other specified postprocedural states
CPT/HCPCS: 36415; 80048; 85025

== ENCOUNTER 2023-05-09 14:43 | Outpatient (REF) | payer OTHER, SELFPAY | END 2023-05-09 14:44 | disposition home or self-care (01) | LOC: HO.LAB 14:43 | PROVIDERS: PCP Internal Medicine Geriatric Medicine; Visit Provider Urology | DX: Z12.5 Encounter for screening for malignant neoplasm of prostate (principal); N40.1 Benign prostatic hyperplasia with lower urinary tract symptoms; N13.8 Other obstructive and reflux uropathy | CPT/HCPCS: 36415; 84153 ==

== ENCOUNTER 2023-06-19 14:39 | Outpatient (AMB) | payer MEDICARE, SELFPAY ==
--- NOTE | 2023-06-19 14:44 | A.OFFVIS_ITS ---
Intake Intake Visit Reasons: 1Y PSA(set) Intake Note: Patient is present for Follow Up PSA/PVR Urology Med: Finasteride, Tamsulosin Antibiotic Allergy: None Blood Thinner: Aspirin Pharmacy: [facility] PVR: Allergies No Known Allergies [No Known Allergies*] Allergy (Verified 06/19/23 14:45) Medication List - Last Reconciled 06/19/23 by Colby Tolbert MD amlodipine 10 mg PO DAILY aspirin 81 mg PO DAILY atorvastatin 20 mg PO DAILY bisacodyl (Dulcolax (bisacodyl)) 20 mg (4 x 5 mg) PO ONCE 1 day blood sugar diagnostic As directed carvedilol 25 mg See Protocol PO BID chlorthalidone 25 mg PO DAILY clonidine HCl 1 tab PO BID clotrimazole-betamethasone 1-0.05 % 1 appl topical BID PRN dulaglutide (Trulicity) 3 mg subcut WE finasteride 5 mg PO DAILY 90 days glimepiride 2 mg PO DAILY hydralazine 100 mg See Protocol PO TID 30 days hydrocortisone 2.5% 1 appl ID BID-QID PRN 15 days lancets (TRUEplus Lancets) As directed losartan 100 mg See Protocol PO DAILY 30 days metformin 1,000 mg PO DAILY multivitamin 1 tab PO DAILY polyethylene glycol 3350 (Miralax) 17 grams PO DAILY PRN spironolactone 25 mg PO DAILY tamsulosin 0.4 mg PO DAILY 90 days HPI HPI Comments History of Present Illness Details Nelson is a pleasant male. He is a patient of Dr. Resendez. He is seen for the following urologic issues. 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 Mother No problems noted. Social History Alcohol intake: never Patient Tobacco Use Status: Former Tobacco user Quit Date: age 21's Tobacco use type: Cigarette Years Smoked: 35 Advance Directives Date on File: 01/07/23 Review of Systems Const Denies chills and Denies fever(s) Card Reports no additional complaints and Denies syncope Resp Denies cough GI Denies abdominal pain and Denies heartburn Reports as per HPI and Denies change in libido Neuro Denies syncope Psych Denies change in libido Endo Denies change in libido Physical Exam Const General: cooperative, healthy appearing, comfortable and no acute distress Orientation/consciousness: patient oriented x3 HEENT Face and sinus: Yes normal facial exam Mouth: moist mucous membranes Neck Neck: Yes normal visual inspection, Yes full ROM and Yes trachea midline Chest Chest palpation & inspection: normal inspection of the chest Resp Effort & Inspection: normal respiratory effort, able to speak in complete sentences and no respiratory distress GI Inspection: Yes normal to inspection Back/Spine/Pelvis Cervical Spine: normal cervical lordosis Thoracic/Lumbar Spine: thoracic and lumbar spine normal to inspection Skin General skin exam: no rashes or lesions noted Neuro General: patient oriented x3, gait normal, tone normal and moves all extremities Extrem General: Yes normal to inspection and Yes capillary refill normal Office Procedures Post Void Residual Post Residual Void Post Void Residual (PVR): 0 35225-[place] Void Residual by ultrasound Results AMB Urinalysis, Automated UA Leukoctes 0 Anh/uL Last Edit by ANNA Tesfaye on 06/19/23 14:53 UA Nitrite Negative Last Edit by ANNA Tesfaye on 06/19/23 14:53 UA Urobilinogen 0.2 mg/dL Last Edit by ANNA Tesfaye on 06/19/23 14:5 3 UA Protein 100 mg/dL Last Edit by Asia Sosaro, A on 06/19/23 14:53 UA pH 5.5 Last Edit by Asia Weiss, A on 06/19/23 14:53 UA Blood 0 Phu/uL Last Edit by Asia Weiss, RMA on 06/19/23 14:53 UA Specific [place] 1.020 Last Edit by Asia Weiss, A on 06/19/23 14: 53 UA Ketone Negative Last Edit by Asia Weiss, RMA on 06/19/23 14:53 UA Bilirubin 0 mg/dL Last Edit by Asia Weiss, RMA on 06/19/23 14:53 UA Glucose 1000 mg/dL Last Edit by Asia Sosaro, A on 06/19/23 14:53 Assessment & Plan Assessment & Plan (1) BPH w urinary obs/LUTS: Code(s): N40.1 - Benign prostatic hyperplasia with lower urinary tract symptoms; N13.8 - Other obstructive and reflux uropathy (2) Balanitis: Comment: Secondary to diabetes Code(s): N48.1 - Balanitis Plan Twelve month follow-up Orders: Orders AMB Urinalysis Automated Today Z13.9 - Encounter for screening, unspecified AMB Post Void Residual by ultrasound Today N13.8 - Other obstructive and reflux uropathy, N40.1 - Benign prostatic hyperplasia with lower urinary tract symptoms Medications: Refilled tamsulosin 0.4 mg PO DAILY 90 caps 3RF 90 days N13.8 - Other obstructive and reflux uropathy, N40.1 - Benign prostatic hyperplasia with lower urinary tract symptoms finasteride 5 mg PO DAILY 90 tabs 3RF 90 days N13.8 - Other obstructive and reflux uropathy, N40.1 - Benign prostatic hyperplasia with lower urinary tract symptoms, R33.9 - Retention of urine, unspecified Patient Instructions: Imaging studies, laboratory and physical exam results were discussed and reviewed in detail. No major barriers to patient understanding were identified. An opportunity to ask questions regarding the treatment plan was provided. All questions were answered. The patient expressed understanding and agreement with the above treatment plan. The patient is aware they should contact our office by phone for worsening of their current condition or the appearance of new urologic symptoms. Compliance is encouraged with any medications and followup testing that is ordered. It is a privilege to participate in the urologic care of your patient. If you have any questions or concerns regarding treatment for the above conditions, or other urologic issues, please do not hesitate to contact me. The office telephone contact is [phone]. This note is constructed using voice recognition software. While every effort has been made to ensure accuracy drug enforcement administration agent errors may have been included. Yours sincerely, Dr Colby Tolbert MD, [facility] - Urology Providers of Expert, Compassionate Care for the Genitourinary System Coding Level of Care Code Est Pt Level 4 (82446) Diagnoses BPH w urinary obs/LUTS N40.1; N13.8 Balanitis N48.1 CPT Codes Post Residual Void - PVR CPT Code: 55028-Fffa Void Residual by ultrasound ([id number])
== END 2023-06-19 15:03 | disposition home or self-care (01) ==
PROVIDERS: PCP Internal Medicine Geriatric Medicine; Visit Provider Urology
DX: N40.1 Benign prostatic hyperplasia with lower urinary tract symptoms (principal); N13.8 Other obstructive and reflux uropathy; N48.1 Balanitis; Z13.9 Encounter for screening, unspecified
CPT/HCPCS: 99214

== ENCOUNTER → 2023-06-19 14:39 | Outpatient (BNVA) | payer MEDICARE, SELFPAY | PROVIDERS: Visit Provider Urology | DX: N40.1 Benign prostatic hyperplasia with lower urinary tract symptoms (principal); N13.8 Other obstructive and reflux uropathy; N48.1 Balanitis | CPT/HCPCS: 51798; 81003; 99212 ==

== ENCOUNTER 2023-07-09 09:32 | Outpatient (REF) | payer OTHER, SELFPAY ==
--- NOTE | ~2023-07-09 | XR_ITS ---
EXAMINATION: XR HIP, RIGHT CLINICAL INFORMATION: Right hip pain. COMPARISON: None available. TECHNIQUE: 2 views of the right hip and frontal view of the pelvis of the right hip. XR/XR hip RT min 2V FINDINGS/IMPRESSION: The patient is status post ORIF for appears to be an intertrochanteric fracture. There is no evidence of hardware fracture or loosening. Suspect bony callus formation. No lytic or sclerotic bony lesion is seen. There may be mild osteoarthritis of the right hip which appears symmetrical with the left. The soft tissues appear unremarkable.
[2023-07-09 12:02] LABS: Cholesterol 116 mg/dL (<200); HDL Cholesterol 46 mg/dL (>40); LDL Cholesterol Calculated 40 mg/dL (<100); Triglycerides 153 mg/dL (<150)
== END 2023-07-09 09:33 | disposition home or self-care (01) ==
LOC: HO.LAB 09:32
PROVIDERS: PCP Internal Medicine Geriatric Medicine; Visit Provider Internal Medicine Geriatric Medicine
DX: M25.551 Pain in right hip (principal); G89.29 Other chronic pain; E11.65 Type 2 diabetes mellitus with hyperglycemia
CPT/HCPCS: 36415; 73502; 80061; 82043; 82570

== ENCOUNTER 2023-10-16 09:48 | Outpatient (REF) | payer OTHER, SELFPAY ==
[2023-10-16 11:54] LABS: Anion Gap 11 (12-20); Blood Urea Nitrogen 22 mg/dL (9-16); Calcium 9.5 mg/dL (8.4-10.2); Carbon Dioxide 26 mmol/L (22-29); Chloride 103 mmol/L (96-108); Estimated Glomerular Filt Rate 39; Glucose Random 203 mg/dL (60-115); Sodium 136 mmol/L (135-145)
== END 2023-10-16 09:49 | disposition home or self-care (01) ==
LOC: HO.HHCL 09:48
PROVIDERS: Visit Provider Internal Medicine Geriatric Medicine
DX: I12.9 Hypertensive chronic kidney disease with stage 1 through stage 4 chronic kidney disease, or unspecified chronic kidney disease (principal); E11.22 Type 2 diabetes mellitus with diabetic chronic kidney disease; N18.30 Chronic kidney disease, stage 3 unspecified; E11.65 Type 2 diabetes mellitus with hyperglycemia
CPT/HCPCS: 36415; 80048

== ENCOUNTER 2024-02-04 08:13 | Outpatient (REF) | payer OTHER, SELFPAY ==
--- NOTE | ~2024-02-04 | XR_ITS ---
EXAMINATION: XR KNEE, LEFT CLINICAL INFORMATION: Chronic pain in knee DJD COMPARISON: None available. TECHNIQUE: Four views of the left knee. FINDINGS: No fracture or joint effusion. There is lateral patellar tilt. There is severe narrowing of the medial joint compartment with marginal osteophyte formation. There is moderate to marked narrowing of the lateral aspect patellofemoral joint compartment with marginal osteophyte formation. Chondrocalcinosis is seen in the medial lateral joint compartments. Quadriceps enthesopathy is noted. XR/XR knee LT 4V IMPRESSION: 1. Severe osteoarthritis involving the medial and patellofemoral joint compartment. 2. Chondrocalcinosis.
--- NOTE | ~2024-02-04 | XR_ITS ---
EXAMINATION: XR ELBOW, RIGHT CLINICAL INFORMATION: Lateral epicondylitis of the right elbow COMPARISON: None available. TECHNIQUE: AP, lateral, and oblique views of the right elbow. FINDINGS: The bones are intact. No fracture or joint effusion. Alignment is anatomic. There is soft tissue swelling over the olecranon consistent with olecranon bursitis. There are small calcific densities adjacent to the medial epicondyle consistent with tendinosis. XR/XR elbow RT 2V IMPRESSION: 1. Findings consistent with olecranon bursitis. 2. Calcific densities adjacent to the medial epicondyle consistent with tendinosis.
[2024-02-04 09:47] LABS: Anion Gap 16 (12-20); Blood Urea Nitrogen 26 mg/dL (9-16); Calcium 10.1 mg/dL (8.4-10.2); Carbon Dioxide 25 mmol/L (22-29); Chloride 103 mmol/L (96-108); Estimated Glomerular Filt Rate 44; Glucose Random 156 mg/dL (60-115); Potassium 4.4 mmol/L (3.3-5.1); Sodium 140 mmol/L (135-145)
[2024-02-04 09:57] LABS: Creatinine Urine 64.57 mg/dL; Microalbum/Creatinine Ratio Ur 399.5 ug/mg cr (<30)
== END 2024-02-04 08:14 | disposition home or self-care (01) ==
LOC: HO.XRAY 08:13
PROVIDERS: PCP Internal Medicine Geriatric Medicine; Visit Provider Internal Medicine Geriatric Medicine
DX: I12.9 Hypertensive chronic kidney disease with stage 1 through stage 4 chronic kidney disease, or unspecified chronic kidney disease (principal); E11.22 Type 2 diabetes mellitus with diabetic chronic kidney disease; E11.65 Type 2 diabetes mellitus with hyperglycemia; N18.30 Chronic kidney disease, stage 3 unspecified; M17.12 Unilateral primary osteoarthritis, left knee; M77.11 Lateral epicondylitis, right elbow
CPT/HCPCS: 36415; 73070; 73564; 80048; 82043; 82570

== ENCOUNTER 2024-04-17 09:24 | Outpatient (REF) | payer OTHER, SELFPAY ==
--- NOTE | ~2024-04-17 | XR_ITS ---
EXAMINATION: XR SACRUM AND COCCYX CLINICAL INFORMATION: Pain COMPARISON: Prior x-ray from 2021 TECHNIQUE: 3 views frontal lateral oblique FINDINGS: Cortical irregularity of the sacrococcygeal junction with a step-off suggesting mildly displaced fracture. This has newly developed since prior exam. XR/XR sacrum coccyx min 2V IMPRESSION: * Mildly displaced fracture of the sacrococcygeal junction. * This has newly developed since prior exam.
--- NOTE | ~2024-04-17 | XR_ITS ---
EXAMINATION: XR SACROILIAC JOINTS CLINICAL INFORMATION: Sacrococcygeal pain with history of femoral fracture. COMPARISON: None available. TECHNIQUE: 3 views of the sacroiliac joints FINDINGS: Some mild sclerotic changes are present at the SI joints. No acute fractures are seen. Intramedullary radha and screw noted in the right femur. Mild degenerative changes are seen in both hips. XR/XR sacroiliac joint min 3V IMPRESSION: Mild degenerative changes in the SI joints and hips. No acute finding. Electronically signed by: Jf Watson MD 06/04/2024 09:58 PM EDT
== END 2024-04-17 09:25 | disposition home or self-care (01) ==
LOC: HO.HHCX 09:24
PROVIDERS: Visit Provider Internal Medicine
DX: M54.50 Low back pain, unspecified (principal); M53.3 Sacrococcygeal disorders, not elsewhere classified
CPT/HCPCS: 72202; 72220

== ENCOUNTER 2024-04-22 10:40 | Outpatient (REF) | payer OTHER, SELFPAY ==
[2024-04-22 14:16] LABS: Anion Gap 13 (12-20); Blood Urea Nitrogen 20 mg/dL (9-16); Calcium 9.1 mg/dL (8.4-10.2); Carbon Dioxide 25 mmol/L (22-29); Chloride 104 mmol/L (96-108); Estimated Glomerular Filt Rate 44; Glucose Random 264 mg/dL (60-115); Potassium 3.6 mmol/L (3.3-5.1); Sodium 138 mmol/L (135-145)
== END 2024-04-22 10:41 | disposition home or self-care (01) ==
LOC: HO.HHCL 10:40
PROVIDERS: Visit Provider Internal Medicine Geriatric Medicine
DX: N18.30 Chronic kidney disease, stage 3 unspecified (principal)
CPT/HCPCS: 36415; 80048

== ENCOUNTER 2024-07-07 14:00 | Outpatient (RCR) | payer OTHER, SELFPAY | END 2024-08-07 07:00 | disposition home or self-care (01) | LOC: HO.PTCHIC 14:00 | PROVIDERS: PCP Internal Medicine Geriatric Medicine; Visit Provider Internal Medicine Geriatric Medicine | DX: M48.48XD Fatigue fracture of vertebra, sacral and sacrococcygeal region, subsequent encounter for fracture with routine healing (principal) | CPT/HCPCS: 97110; 97162; 97164 ==

== ENCOUNTER 2024-10-23 07:40 | Outpatient (REF) | payer OTHER, SELFPAY ==
--- NOTE | ~2024-10-23 | FL_ITS ---
EXAMINATION: XR FLUOROSCOPY UPPER GI WITH AIR CLINICAL INFORMATION: Dysphagia. COMPARISON: Upper GI 2021 TECHNIQUE: Fluoroscopic air contrast upper GI examination was performed utilizing standard techniques with thin and thick barium and effervescent granules. Numerous spot images were obtained. FINDINGS: Lateral cine images of the oropharynx and hypopharynx demonstrate normal swallow mechanism with normal epiglottic inversion and soft palate elevation. No tracheal penetration, glottic or subglottic aspiration identified. No nasopharyngeal reflux present. Hypopharyngeal structures appear normal without evidence of mass or diverticulum. There is mild cricopharyngeal achalasia. Dual and single contrast images of the esophagus demonstrate a normal caliber and contour. There is felinization of the mid and distal esophageal mucosa. No evidence of stricture, mass, or ulcerations identified. Esophageal peristalsis is moderately disorganized. A small type I hiatal hernia is present. Gastroesophageal reflux is seen up to the distal esophagus. Dual contrast and single contrast images of the stomach demonstrated a normal contour. Evaluation of the gastric mucosa is limited due to underdistention of stomach from poor tolerance of the effervescent granules. The gastric rugal folds have a thickened appearance, suggestive of gastritis, however, this may be also be due to underdistention of the stomach. No obvious masses or ulcerations are seen. Contrast freely passed into the gastric antrum and duodenal bulb without delay. Single and air-contrast images of the duodenal bulb demonstrate no abnormality. The duodenal sweep has a normal appearance, course, and mucosal fold appearance. The imaged proximal jejunum has a normal fold pattern and caliber. FLUOROSCOPY TIME: 4 minutes 58 seconds Number of Spot Images: 6 Number of Cine: 14 DOSE AREA PRODUCT: 1692 uGy-m2 (microgray-meter squared) FL/FL barium swallow with air IMPRESSION: 1. Mild cricopharyngeal achalasia. 2. Felinization of the mid and distal esophageal mucosa. This is a benign finding associated with chronic gastroesophageal reflux. Mild gastroesophageal reflux was seen during this examination. 3. Small type I hiatal hernia. 4. Moderate esophageal dysmotility. 5. Limited evaluation of the gastric mucosa due to underdistention of stomach from poor tolerance of the effervescent granules. The gastric rugal folds have a thickened appearance, suggestive of gastritis, however, this may be also due be to underdistention of the stomach. This procedure was performed by Bryant Harrison PA-C, and supervised by Dr. So Electronically signed by: Grant So MD 10/23/2024 05:[address] [facility]
== END 2024-10-23 07:41 | disposition home or self-care (01) ==
LOC: HO.XRAY 07:40
PROVIDERS: PCP Internal Medicine Geriatric Medicine; Visit Provider Internal Medicine Geriatric Medicine
DX: R13.10 Dysphagia, unspecified (principal)
CPT/HCPCS: 74221

== ENCOUNTER → 2024-10-23 07:46 | Outpatient (BNV) | payer OTHER, SELFPAY | PROVIDERS: PCP Internal Medicine Geriatric Medicine; Visit Provider Physician Assistant Surgical | DX: R13.10 Dysphagia, unspecified (principal) | CPT/HCPCS: 74221 ==

== ENCOUNTER 2024-11-13 07:38 | Outpatient (AMB) | payer OTHER, SELFPAY ==
--- OUTSIDE RECORDS SUMMARY | 2024-11-13 07:40 | XMS_ITS | Encounter Summary ---
Author Organization [employer] Address [address] [place] [address] Care Team Providers Care Automatic Corn Grinder Operator Name Role Phone Name, Isai ARZATE Primary Care Provider Encounter Details Date Type Department Care Team (Latest Contact Info) Description 10/22/2024 Travel Social History Tobacco Use Types Packs/Day Years Used Date Smoking Tobacco: Never Smokeless Tobacco: Never Alcohol Use Standard Drinks/Week Comments Never 0 (1 standard drink = 0.6 oz pur e alcohol) Alcohol Answer Date Recorded Frequency of Alcohol Consumption Not on file 07/28/2024 Average Number of Drinks Not on file 024 Frequency of Binge Drinking Not on file 07/01 Score 0 07/28/2024 Depression Answer Date Recorded Patient Health Questionnaire-9 Score 0 01/14/2024 Patient Health Questionnaire-9 Score 0 01/14/2024 Last PHQ-9: Questionnaire Data Not on file 0 01/14/2024 Housing Stability Answer Date Recorded What is your housing situation today? I have tessa ch 01/14/[address] you li ve. Do you have problems with any of the following? None of the above 01/14/2024 Food Insecurity Answer Date Recorded Within the past 12 months, y ou worried that your food would run out before you got money to buy more: Never True 01/14/2024 Within the past 12 months,th e food you bought just didn't last and you didn't have enough money to get more: Never True Transportation Answer Date Recorded In the past 12 months, has l ack of transportation kept you from medical appts, meetings, work or from getting things needed for daily living? No 01/14/2024 Utilities Answer Date Recorded In the past 12 months, has t he electric, gas, oil or water company threatened to shut off services in your home? No 01/14/2024 Depression Answer Date Recorded Patient Health Questionnaire-2 Score 0 01/14/2024 Sex and Gender Information Value Date Recorded Sex Assigned at Male 07/30/2022 10:29 AM EDT Legal Sex Male 10:29 AM EDT Gender Identity Male 07/30/2022 10:29 AM EDT Sexual Orientation Straight 07/30/2022 10 :29 AM EDT documented as of this encounter Plan of Treatment Upcoming Encounters Date Type Department Care Team (Late st Contact Info) Description 12/30/2024 11:15 AM EDT Telemedicine [facility] [address] [place] [id number] NameIsai MD [address] [place] [phone] documented as of this encounter Visit Diagnoses Not on filedocumented in this encounter Additional Health Concerns Assessment Noted Time PHQ-9 Depression Total Score: 0 01/14/20 24 1:28 PM EDT documented as of this encounter Care Teams Automatic Corn Grinder Operator Relationship Specialty Start Date End Date Name, MD Isai [address] [place] [id number] PCP - General Family Medicine 09/30/18 documented as of this encounter
--- OUTSIDE RECORDS SUMMARY | 2024-11-13 07:40 | XMS_ITS | Patient Health Record ---
[facility] Address [address] [place] [address] Care Team Providers Care Apparel Embroidery Digitizer Name Role Phone Name Isai ARZATE Primary Care Provider Rodrick Li Unavailable [phone] Allergies No Known Allergies Results Component Value Reference Range Notes HEMOGLOBIN A1C (GLYCOHEMOGLO BIN) Reviewed date:09/28/2024 03:04:52 PM Interpretation: Performing Lab: Notes/Report: TOTAL HEMOGLOBIN (HGBA1C) 7.0 HEMOGLOBIN A1C (GLYCOHEMOGLO BIN) Reviewed date:10/17/2024 04:45:03 PM Interpretation: Performing Lab: Notes/Report: HEMOGLOBIN A1C % (HH) 7.0 Reason For Referral No Information Medications Medication SIG (Take, Route, Frequency, Duration) Notes Start Date End Date Status Trulicity 3 MG/0.5ML as directed Subcutaneous Active Extra Depth Orthopedic Shoes, (1) Pair With (3) Pair Custom Heat Molded Multidensity Innersoles Dx: NIDDM/PVD(E11.51), Hammertoe Foot Deformity(M20.41,M20.42), Preulcerative Skin Lesion(s)(L85.1) Wear Daily for 365 days 04/15/2024 Active Glimepiride 2 MG 1 tablet with breakf ast or the first main meal of the day Orally Once a day Active hydrALAZINE HCl 50 MG 1 tablet with food Orally Three times a day Active amLODIPine Besylate 10 MG 1 tablet Orally Once a day Active Atorvastatin Calcium 20 MG 1 tablet Orally Once a day Active Ciclopirox Olamine 0.77 % 1 application Externally Twice a day to feet including between the toes for 30 days Active metFORMIN HCl 500 MG 1 tablet with a brisa l Orally Once a day Active Potassium Active Social History Tobacco Use: Social History Observation Description Date Details (start date - stop date) Never Smoker NA - NA Alcohol Screen Question Answer Notes Did you have a drink containing alcohol in the p ast year? Yes Points 0 Interpretation Negative Tobacco use other than smoking: Question Answer Notes Are you an other tobacco user? No Tobacco Control (Standard) Question Answer Notes Tobacco use: Nonsmoker Additional Findings: Tobacco non-user Current no nsmoker Problems Problem Type SNOMED Code ICD Code Onset Dates Problem Status W/U Status Risk Notes Problem Acquired hammer toe of right foot (4080302804449 105) Other hammer toe(s) (acquired), right foot (M20.41) Active confirmed Response to treatment,I mprovement Problem Type 2 diabetes mellitus with peripheral angiopathy (591762503) Type 2 diabetes mellitus with diabetic peripheral angiopathy without gangrene (E11.51) Active confirmed Q7(A), Q8(2B), Q9(1B,2C) Problem Acquired hammer toe of left foot (4680810682427 103) Other hammer toe(s) (acquired), left foot (M20.42) Active confirmed Response to treatment,I mprovement Vital Signs Blood pressure diastolic 80 mm Hg 09/28/2024 Height 5ft 7in in 09/28/2024 Blood pressure systolic 133 mm Hg 09/28/2024 Weight 196 lbs 09/28/2024 BMI 30.69 kg/m2 09/28/2024 Procedures Procedure Date Ordered Date Performed Result Body Sit e 40337-TNAXVHC NAIL, 6 OR MORE 04/15/2024 N/A 46948-ALAP SKIN LESIONS, OVER 4 04/15/2024 N/A 72838-Yakp. Subungual Hematoma 04/15/2024 N/A 57471-LFOIIDK NAIL, 6 OR MORE 06/29/2024 N/A 68009-ZFKH SKIN LESIONS, OVER 4 06/29/2024 N/A 45067-TLBVLGC NAIL, 6 OR MORE 09/28/2024 N/A 23807-RTBF SKIN LESIONS, OVER 4 09/28/2024 N/A Encounters Encounter Location Date Provider Diagnosis [facility] [address] [address] 04/15/2024 Rodrick Hill Type 2 diabetes mellitus with diabetic peripheral angiopathy without gangrene E11.51 ; Tinea unguium B35.1 ; Pain in right toe(s) M79.674 ; Pain in left toe(s) M79.675 ; Other hammer toe(s) (acquired), left foot M20.42 ; Other hammer toe(s) (acquired), right foot M20.41 and Subungual hematoma of left foot, initial encounter S90.222A [address] [address] 06/29/2024 Rodrick Hill Type 2 diabetes mellitus with diabetic peripheral angiopathy without gangrene E11.51 ; Tinea unguium B35.1 ; Pain in right toe(s) M79.674 ; Pain in left toe(s) M79.675 ; Other hammer toe(s) (acquired), right foot M20.41 ; Other hammer toe(s) (acquired), left foot M20.42 and Tinea pedis of both feet B35.[address] [address] 09/28/2024 Rodrick Hill Type 2 diabetes mellitus with diabetic peripheral angiopathy without gangrene E11.51 ; Tinea unguium B35.1 ; Pain in right toe(s) M79.674 ; Pain in left toe(s) M79.675 and Tinea pedis of both feet B35.[address] [address] 01/21/2024 Rodrick Hill Assessments Encounter Date Diagnosis (ICD Code) Assessment Notes Treatment Notes Treatment Clinical Notes Section Notes 04/15/2024 Type 2 diabetes mellitus with diabetic peripheral angiopathy without gangrene (ICD-10 - E11.51) 06/29/2024 Type 2 diabetes mellitus with diabetic peripheral angiopathy without gangrene (ICD-10 - E11.51) Q7(A), Q8(2B), Q9(1B,2C) 06/29/2024 Tinea unguium (ICD-10 - B35.1) 09/28/2024 Type 2 diabetes mellitus with diabetic peripheral angiopathy without gangrene (ICD-10 - E11.51) Q7(A), Q8(2B), Q9(1B,2C) 09/28/2024 Tinea unguium (ICD-10 - B35.1) 06/29/2024 Pain in right toe(s) (ICD-10 - M79.674) 04/15/2024 Tinea unguium (ICD-10 - B35.1) 09/28/2024 Pain in right toe(s) (ICD-10 - M79.674) 04/15/2024 Pain in right toe(s) (ICD-10 - M79.674) 09/28/2024 Pain in left toe(s) (ICD-10 - M79.675) 06/29/2024 Pain in left toe(s) (ICD-10 - M79.675) 06/29/2024 Other hammer toe(s) (acquired), right foot (ICD-10 - M20.41) Response to treatment,Impro vement 04/15/2024 Pain in left toe(s) (ICD-10 - M79.675) 09/28/2024 Tinea pedis of both feet (ICD-10 - B35.3) 04/15/2024 Other hammer toe(s) (acquired), left foot (ICD-10 - M20.42) 06/29/2024 Other hammer toe(s) (acquired), left foot (ICD-10 - M20.42) Response to treatment,Impro vement 06/29/2024 Tinea pedis of both feet (ICD-10 - B35.3) 04/15/2024 Other hammer toe(s) (acquired), right foot (ICD-10 - M20.41) Patient Educated with: DIABETIC FOOT CARE INSTRUCTIONS.p df (DIABETIC FOOT CARE INSTRUCTIONS.p df) 04/15/2024 Subungual hematoma of left foot, initial encounter (ICD-10 - S90.222A) Plan Of Treatment Pending Test Test Name Order Date 00160-GAZKEJU NAIL, 6 OR MORE 04/15/2024 84852-SECXIGR NAIL, 6 OR MORE 06/29/2024 06309-OSIBWLY NAIL, 6 OR MORE 09/28/2024 35130-TJXP SKIN LESIONS, OVER 4 09/28/20 24 98044-KKLC SKIN LESIONS, OVER 4 04/15/20 20724-PTGN SKIN LESIONS, OVER 4 06/29/20 24 28612-Goxu. Subungual Hematoma 4 Next Appt Details Provider Name:Rodrick Hill , 12/31/2024 01:30:00 PM, [address], [address], [place], [address], Insurance Providers Payer Name Payer Address Payer Phone Subscriber Number Group Number Insured Name Patient Relationship to Insured Coverage Start Date Coverage End Date [facility] [employer] Claims [address] [place] [address] [id number] Nelson Vela Self - patient is the insured Medical (General) History Medical History History ICD Code Arthritis Back,Hip,and Knee pain Diabetic High blood pressure Stomach ulcer Joint implants/screws Bone implants/screws Transfusions Surgical History Surgery Date(Month/Year) 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
--- OUTSIDE RECORDS SUMMARY | 2024-11-13 07:40 | XMS_ITS | Encounter Summary ---
Author Organization [employer] Address [address] [place] [address] 7 [place] [address] Care Team Providers Care Uniform Maker Name Role Phone Name, Isai ARZATE Primary Care Provider [phone] Reason for Visit * Reason Comments Dysphagia Encounter Details Date Type Department Care Team ([facility] st Contact Info) Description 10/22/2024 11:30 AM EST Office Visit [facility] [address], [place] [id number] Name, MD Isai [address] [place] [address] Dysphagia, unspecified type (Primary Dx); Type 2 diabetes mellitus with hyperglycemia, unspecified whether medical terminologist insulin use ([facility]) Social History Tobacco Use Types Packs/Day Years [...] the past 12 months, has t he [employer], oil or water company threatened to [...] AM EDT documented as of this encounter Last Filed Vital Signs Vital Sign Reading Time Taken Comments Blood Pressure 148/78 10/22/2024 11:33 AM EST Pulse 63 10/22/2024 11:18 AM EST Temperature 35.9 ??C (96.7 ??F) 10/22/2024 11:[address] Respiratory Rate 14 10/22/2024 11:18 AM EST Oxygen Saturation 96% 10/22/2024 11:18 AM EST Inhaled Oxygen Concentration - - Weight 92 kg (202 lb 12.8 oz) 10/22/2024 11:18 A M EST Height 170.2 cm (5' 7 ) 10/22/2024 11:18 AM EST Body Mass Index 31.76 10/22/2024 11:18 AM EST documented in this encounter Progress Notes * Isai Resendez MD - 10/22/2024 11:30 AM EST Subjective Patient ID: Nelson Doyle is a 83 y.o. male who presents for Dysphagia. Patient comes for a follow-up visit. He complains of a year of dysphagia. The patient has a sensation after eating solids or liquids. He feels the food gets stuck in the throat. He is having this problem for about a year but forgot to tell me. He is not losing any weight. He does not have any vomiting. The patient does not drink alcohol. He quit smoking many years ago. He denies any abdominal pain or heartburn today. BP was initially elevated and repeat was better. He is hemoglobin A1c is 8.4 and remains unchanged compared to previous values. Review of Systems Constitutional: Negative for chills, fatigue and fever. HENT: Negative for sore throat. Respiratory: Negative for cough, chest tightness and shortness of breath. Cardiovascular: Negative for chest pain, palpitations and leg swelling. Gastrointestinal: Negative for abdominal pain and blood in stool. See HPI Visit Vitals BP (!) 148/78 Pulse 63 Temp 96.7 ??F (35.9 ??C) (Temporal) Resp 14 Ht 5' 7 (1.702 m) Wt 202 lb 12.8 oz (92 kg) SpO2 96% BMI 31.76 kg/m?? Smoking Status Never BSA 2.09 m?? Objective Physical Exam Constitutional: Appearance: Normal appearance. Cardiovascular: Rate and Rhythm: Normal rate and regular rhythm. Heart sounds: No murmur heard. Pulmonary: Effort: Pulmonary effort is normal. No respiratory distress. Breath sounds: No wheezing, rhonchi or rales. Abdominal: Palpations: Abdomen is soft. Tenderness: There is no abdominal tenderness. Musculoskeletal: Right lower leg: No edema. Left lower leg: No edema. Neurological: Mental Status: He is alert. Assessment/Plan Diagnoses and all orders for this visit: Dysphagia, unspecified type Comments: He was already referred to GI at his previous walk-in clinic visit. Today I will refer him to barium swallow. Televisit after test is done. Orders: - FL Esophagus Barium Swallow; Future Type 2 diabetes mellitus with hyperglycemia, unspecified whether medical terminologist insulin use ([facility]) Comments: I did not recommend any medication changes. I recommended to use medications as prescribed. Avoid sweets and soda. Orders: - POCT HGB A1C - POCT Glucose documented in this encounter Plan of Treatment Upcoming Encounters Date Type Department Care Team (Late st Contact Info) Description 12/30/2024 11:15 AM EDT Telemedicine [facility] [address] [place] [phone] Name, MD Isai [address] [place] [id number] documented as of this encounter Procedures Procedure Name Priority Date/Time Associated Diagnosis Comments FL ESOPHAGUS BARIUM SWALLOW WITH AIR Routine 10/23/2024 7:46 AM EST POCT GLYCATED HEMOGLOBIN, TOTAL Routine 10/22/2024 11:21 AM EST Type 2 diabetes mellitus with hyperglycemia, unspecified whether medical terminologist insulin use ([facility]) POCT GLUCOSE Routine 10/22/2024 11:20 AM EST Type 2 diabetes mellitus with hyperglycemia, unspecified whether senior living insulin use ([facility]) documented in this encounter Results * FL Esophagus Barium Swallow w/Air (10/23/2024 7:46 AM EST) Anatomical Region Laterality Modality Head, Neck Radiographic Shari ging 10/23/2024 7:46 AM EST Narrative 10/23/2024 5:06 PM EST ? [facility] ?[address] ?[place] [address] ? Fluoroscopy Report ? Signed ? Patient: Nelson Mandujano ?MR#: [id number] ?? [id number] ? : 1940 ?Acct:[id number] ? Age/Sex: 83 / M ?ADM Date: 10/23/24 ? Loc: HO.XRAY ? Attending Dr: Isai Resendez MD ? Ordering Physician: Isai Resendez MD ?? Date of Service: 10/23/24 ?? Procedure(s): FL barium swallow with air ?? Accession Number(s): [id number] ? cc: Isai Resendez MD ? EXAMINATION: ?? XR FLUOROSCOPY UPPER GI WITH AIR ? CLINICAL INFORMATION: ?? Dysphagia. ? COMPARISON: ?? Upper GI 2021 ? TECHNIQUE: ?? Fluoroscopic air contrast upper GI examination was performed utilizing ?? standard techniques with thin and thick barium and effervescent ?? granules. Numerous spot images were obtained. ? FINDINGS: ?? Lateral cine images of the oropharynx and hypopharynx demonstrate ?? normal swallow mechanism with normal epiglottic inversion and soft ?? palate elevation. No tracheal penetration, glottic or subglottic ?? aspiration identified. No nasopharyngeal reflux present. Hypopharyngeal ?? structures appear normal without evidence of mass or diverticulum. ?? There is mild cricopharyngeal achalasia. ? Dual and single contrast images of the esophagus demonstrate a normal ?? caliber and contour. There is felinization of the mid and distal ?? esophageal mucosa. No evidence of stricture, mass, or ulcerations ?? identified. Esophageal peristalsis is moderately disorganized. ? A small type I hiatal hernia is present. Gastroesophageal reflux is ?? seen up to the distal esophagus. ? Dual contrast and single contrast images of the stomach demonstrated a ?? normal contour. Evaluation of the gastric mucosa is limited due to ?? underdistention of stomach from poor tolerance of the effervescent ?? granules. The gastric rugal folds have a thickened appearance, ?? suggestive of gastritis, however, this may be also be due to ?? underdistention of the stomach. No obvious masses or ulcerations are ?? seen. Contrast freely passed into the gastric antrum and duodenal bulb ?? without delay. ? Single and air-contrast images of the duodenal bulb demonstrate no ?? abnormality. The duodenal sweep has a normal appearance, course, and ?? mucosal fold appearance. The imaged proximal jejunum has a normal fold ?? pattern and caliber. ? FLUOROSCOPY TIME: ?? 4 minutes 58 seconds ? Number of Spot Images: 6 ?? Number of Cine: 14 ? DOSE AREA PRODUCT: ?? 1692 uGy-m2 (microgray-meter squared) ? FL/FL barium swallow with air ?? IMPRESSION: ?? 1. Mild cricopharyngeal achalasia. ?? 2. Felinization of the mid and distal esophageal mucosa. This is a ?? benign finding associated with chronic gastroesophageal reflux. ??Mild ?? gastroesophageal reflux was seen during this examination. ?? 3. Small type I hiatal hernia. ?? 4. Moderate esophageal dysmotility. ?? 5. Limited evaluation of the gastric mucosa due to underdistention of ?? stomach from poor tolerance of the effervescent granules. The gastric ?? rugal folds have a thickened appearance, suggestive of gastritis, ?? however, this may be also due be to underdistention of the stomach. ? This procedure was performed by Bryant Harrison PA-C, and supervised by ?? Dr. So ? Electronically signed by: ??Grant So MD ??10/23/2024 05:03 PM EST RP ?? Workstation: [id number] ? Dictated By: ?Bryant Harrison ? Signed By: ?<Electronically signed by Bryant Harrison in OV> ? 10/23/24 1703 ?<Electronically signed by Grant So MD in OV> ? 10/23/24 1705 ? DD/ 0746 ? TD/TT: 10/23/24 0848 ? Shirt Folder: ? Procedure Note Donotyaneinterpreter, Image - 10/23/[address] [address] Fluoroscopy Report Signed Patient: Crista Mandujano#: [id number] : 1940cct:[id number] Age/Sex: 83 / MADM Date: 10/23/24 Loc: [facility] Attending Dr: Isai Resendez MD Ordering Physician: Isai Resendez MD Date of Service: 10/23/24 Procedure(s): FL barium swallow with air Accession Number(s): [id number] cc: Isai Resendez MD EXAMINATION: XR FLUOROSCOPY UPPER GI WITH AIR CLINICAL INFORMATION: Dysphagia. COMPARISON: Upper GI 2021 TECHNIQUE: Fluoroscopic air contrast upper GI examination was performed utilizing standard techniques with thin and thick barium and effervescent granules. Numerous spot images were obtained. FINDINGS: Lateral cine images of the oropharynx and hypopharynx demonstrate normal swallow mechanism with normal epiglottic inversion and soft palate elevation. No tracheal penetration, glottic or subglottic aspiration identified. No nasopharyngeal reflux present. Hypopharyngeal structures appear normal without evidence of mass or diverticulum. There is mild cricopharyngeal achalasia. Dual and single contrast images of the esophagus demonstrate a normal caliber and contour. There is felinization of the mid and distal esophageal mucosa. No evidence of stricture, mass, or ulcerations identified. Esophageal peristalsis is moderately disorganized. A small type I hiatal hernia is present. Gastroesophageal reflux is seen up to the distal esophagus. Dual contrast and single contrast images of the stomach demonstrated a normal contour. Evaluation of the gastric mucosa is limited due to underdistention of stomach from poor tolerance of the effervescent granules. The gastric rugal folds have a thickened appearance, suggestive of gastritis, however, this may be also be due to underdistention of the stomach. No obvious masses or ulcerations are seen. Contrast freely passed into the gastric antrum and duodenal bulb without delay. Single and air-contrast images of the duodenal bulb demonstrate no abnormality. The duodenal sweep has a normal appearance, course, and mucosal fold appearance. The imaged proximal jejunum has a normal fold pattern and caliber. FLUOROSCOPY TIME: 4 minutes 58 seconds Number of Spot Images: 6 Number of Cine: 14 DOSE AREA PRODUCT: 1692 uGy-m2 (microgray-meter squared) FL/FL barium swallow with air IMPRESSION: 1. Mild cricopharyngeal achalasia. 2. Felinization of the mid and distal esophageal mucosa. This is a benign finding associated with chronic gastroesophageal reflux. Mild gastroesophageal reflux was seen during this examination. 3. Small type I hiatal hernia. 4. Moderate esophageal dysmotility. 5. Limited evaluation of the gastric mucosa due to underdistention of stomach from poor tolerance of the effervescent granules. The gastric rugal folds have a thickened appearance, suggestive of gastritis, however, this may be also due be to underdistention of the stomach. This procedure was performed by Bryant Harrison PA-C, and supervised by Dr. So Electronically signed by: Grant So MD 10/23/2024 05:03 PM EST Dictated By: Bryant Harrison Signed By: <Electronically signed by Bryant Harrison in OV> 10/23/24 1703 <Electronically signed by Grant So MD in OV> 10/23/24 1705 DD/ 0746 TD/TT: 10/23/24 0848 Shirt Folder: us Isai Resendez MD IMMarv FLUOROSCOPY PROCEDURES Edite d Result - Final * (ABNORMAL) POCT HGB A1C (10/22/2024 11:21 AM EST) Hemoglobin A1C 8.4(A) 4.0 - 6.0 % QC Media Lot # [id number] Lot# Expiration Date ,249 Blood 10/22/2024 11:2 1 AM EST us Isai Resendez MD POINT OF CARE TEST ENTER/EDIT OR DERABLES Final Result * (ABNORMAL) POCT Glucose (10/22/2024 11:20 AM EST) Glucose Blood, POC 230(A) 60 - 200 mg/dL QC Media Lot # [id number] Lot# Expiration Date 53,025 Blood Capillary blood specimen / Unknown 10/22/2024 11:20 AM EST us Isai Resendez MD POINT OF CARE TEST ENTER/EDIT OR DERABLES Final Result documented in this encounter Visit Diagnoses Diagnosis Dysphagia, unspecified type- Primary Type 2 diabetes mellitus with hyperglycemia, unspecified whether medical terminologist insulin use ([facility]) documented in this encounter Additional Health Concerns Assessment Noted Time PHQ-9 Depression Total Score: 0 01/14/20 24 1:28 PM EDT documented as of this encounter Care Teams Uniform Maker Relationship Specialty Start Date End Date Name, MD Isai [address] [place] [address] PCP - General Family Medicine 09/30/18 documented as of this encounter
--- OUTSIDE RECORDS SUMMARY | 2024-11-13 07:40 | XMS_ITS | Clinical Summary ---
Author Organization [employer] Address [address] [place] [address] [address] [place] [address] Care Team Providers Care Citrix Architect Name Role Phone Name, Isai ARZATE Primary Care Provider [phone] Allergies No known active allergies Medications Blood Glucose Monitoring Suppl ([employer]ite) w/Device kit TEST BLOOD SUGAR TWICE DAILY 2 Active finasteride (Proscar) 5 MG tablet 3 Active Multiple Vitamins-Mineral s ([employer]) tablet OTC 1 tablet daily Active Blood Pressure Monitor kit Check BP at home once a day 1 kit 3 Active lidocaine (Lidoderm) 5 % patchIndications :Pain of right upper extremity Apply 1 patch topically in the morning. Remove & discard patch within 12 hours or as directed by MD. 15 patch 2 3 Active tamsulosin (Flomax) 0.4 MG 24 hr capsule Take 1 capsule by mouth Once daily. 3 Active olmesartan (BENIcar) 40 MG tabletIndication s:Hypertension, unspecified type TAKE 1 TABLET BY MOUTH EVERY MORNING 30 tablet 11 4 Active polyethylene glycol, PEG, 3350 (MiraLax) 17 GM/SCOOP powder Take 17 g by mouth Once per day. 527 g 4 03/30/20 25 Active docusate sodium (Colace) 100 MG capsule Take 1 capsule (100 mg) by mouth 2 times daily. 30 capsule 11 4 03/30/20 25 Active dulaglutide (Trulicity) 4.5 MG/0.5ML solution pen-injector Inject 4.5 mg under the skin 1 (one) time per week. 4 each 11 4 Active senna-docusate sodium (Senokot-S) 8.6-50 MG tablet Take 1 tablet by mouth Once per day. 30 tablet 4 05/13/20 25 Active atorvastatin (Lipitor) 20 MG tablet TAKE 1 TABLET BY MOUTH EVERY EVENING 90 tablet 1 4 Active metFORMIN (Glucophage) 500 MG tablet TAKE 1 TABLET BY MOUTH EVERYDAY AT NOON 90 tablet 1 4 Active glimepiride (Amaryl) 2 MG tabletIndication s:Elevated blood sugar TAKE 1 TABLET BY MOUTH EVERYDAY AT NOON 90 tablet 1 4 Active amLODIPine (Norvasc) 10 MG tablet TAKE 1 TABLET BY MOUTH EVERY MORNING 90 tablet 1 4 Active metoprolol tartrate (Lopressor) 100 MG tablet TAKE 1 TABLET BY MOUTH TWICE DAILY IN THE MORNING AND IN THE EVENING 60 tablet 11 4 Active tretinoin (Retin-A) 0.025 % cream Apply topically at bedtime. 45 g 2 4 07/28/20 25 Active hydrocortisone 0.5 % cream Apply topically 2 times daily. 15 g 1 4 Active cloNIDine (Catapres) 0.1 MG tabletIndication s:Hypertension, unspecified type TAKE 1 TABLET BY MOUTH TWICE DAILY IN THE MORNING AND IN THE EVENING 60 tablet 3 4 Active glucose blood (FREESTYLE LITE) test strip TEST BLOOD SUGAR THREE TIMES DAILY 100 strip 11 4 Active TRUEplus Lancets [facility] Apply 1 each topically 3 times daily. TEST BLOOD SUGAR THREE TIMES DAILY DIRECTED 100 each 4 Active omeprazole (PriLOSEC) [address] capsuleIndicatio ns:Epigastric pain Take 1 capsule (20 mg) by mouth before breakfast and before evening meal for 28 days. Do not crush or chew. 56 capsule 4 Active hydrALAZINE (Apresoline) 50 MG tabletIndication s:Hypertension, unspecified type TAKE 2 TABLETS BY MOUTH THREE TIMES DAILY IN THE MORNING, EVENING AND BEDTIME 180 tablet 3 4 Active Jardiance 25 MG TAKE 1 TABLET BY MOUTH EVERY MORNING 30 tablet 1 5 Active Active Problems Problem Noted Date Diagnosed Date Personal history of surgery to other organs 03/30 Closed fracture of femur 04/10/2023 BPH associated with nocturia 10/17/2022 Calcaneal spur 10/17/2022 Chronic thoracic back pain 10/17/2022 Peptic ulcer 10/17/2022 Lumbar spondylosis 10/17/2022 Polyp of colon 10/17/2022 Pain in limb 06/26/2022 Assessment & Plan (08/18/2023 9:03 AM EST): There is slight possible induration palpated in right forearm juts below antecubital fossa when compare with left arm, There is no swelling, erythema or increase of skin tempo in area, Pain is exacerbated with touch but wore with rotation of forearm.Skin is intact Possible tendon injury w pain w forearm movement also will need to r/o lipoma?,no vascular pathology from exam -lidoerm patch Tylenol prn -US soft tissue of area -will call pt w report -to f w PCP in next 4 weeks -alarm signs and symptoms discussed w pt Carpal tunnel syndrome of right wrist 06/21/2021 Anxiety 01/05/2021 Congenital renal cyst 01/05/2021 History of GI bleed 05/04/2019 Hyperlipidemia 04/06/2019 Other lack of coordination 04/06/2019 Other abnormalities of gait and mobility 019 Unilateral primary osteoarthritis, right knee Presence of right artificial knee joint 04/06/20 19 Weakness 04/06/2019 Senile hyperkeratosis 07/15/2018 Primary osteoarthritis of both knees 07/15/2018 LFT elevation 10/23/2017 Steatosis of liver 10/23/2017 Knee pain 07/09/2017 Thoracic aortic aneurysm without rupture 016 Aortic root dilatation 07/06/2016 Obstructive sleep apnea syndrome 05/23/2016 Diabetes mellitus type 2 in obese 11/28/2015 Class 1 obesity 11/28/2015 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, uncontrolled 12/08/2013 Overview (03/14/2023): NS on eye exam 02/06/13 Type II or unspecified type diabetes mellitus with ophthalmic manifestations, not stated as uncontrolled 12/08/2013 Overview (05/20/2023): NS on eye exam 02/06/13 History of alcoholism 03/11/2013 Esophageal dysmotility 12/30/2012 Overview (03/14/2023): Mild, barium swallow 08/11 CKD (chronic kidney disease) stage 3, GFR 30-59 ml/min 07/29/2012 Hypertension 01/16/2012 Assessment & Plan (08/18/2023 9:02 AM EST): Here BP 156/78 -states at home BP < 150 Systolic ,not took BP med this am -advised to be compliant w all meds- pt pick remover today his medbox -to f w PCP in 4 weeks to monitor BP Assessment & Plan (12/14/2022 4:21 PM EDT): Patient is averaging 145/82 in the mornings when he checks his BP. He is well managed. Medications will not be altered. Patient is to continue current therapies. F/up in 2 months. Patient completed BMP on 12/07 Creatinine 0.70 - 1.22 mg/dL 1.49??High?? EGFR > OR = 60 mL/min/1.73m2 47??Low?? Ed precautions discussed. Call clinic for high BP >170/90 or low <90/60. Resolved Problems Problem Noted Date Diagnosed Date Resolved Date Ankle ulcer 10/17/2022 05/23/2023 Erosive gastritis 10/17/2022 05/23/2023 Numbness of hand 10/17/2022 05/23/2023 Pain in elbow 07/29/2021 05/23/2023 Nondisplaced fracture of rig ht radial styloid process, initial encounter for closed fracture 07/29/2021 05/23/2023 Biceps tendinitis 06/21/2021 05/23/2023 Type 2 diabetes mellitus without complication 04/06/20 19 10/17/2022 Balanitis 03/06/2019 05/23/2023 Acute situational disturbance 11/28/2015 05/23/2023 DM (diabetes mellitus), type 2, uncontrolled, with renal complications 09/20/2015 05/23/2023 Encounters Date Type Department Care Team Description 10/22/2024 11:30 AM EST Office Visit [facility] [address] [place] [phone] Isai Resendez MD Dysphagia, unspecified type (Primary Dx); Type 2 diabetes mellitus with hyperglycemia, unspecified whether intermediate insulin use ([facility]) 10/22/2024 Travel 10/13/2024 Telephone [facility] [address] [place] [address] [phone] Silvia Snyder MA Chart Prep 10/08/2024 Refill [facility] [address] [place] [address] [phone] Isai Resendez MD 09/07/2024 Telephone [facility] [address] [place] [address] [phone] Breann Lopez RN 09/05/2024 Refill [facility] [address] [place] [address] [phone] Isai Resendez MD Hypertension, unspecified type 09/04/2024 9:40 AM EST Office Visit [facility] [address] [place] [address] [phone] Juliana Carney ANP Epigastric pain (Primary Dx); Hypertension, unspecified type; Asymptomatic hypertensive urgency; Peptic ulcer 09/04/2024 Telephone [facility] [address] [place] [address] [phone] Juliana Carney ANP 09/04/2024 Telephone [facility] [address] [place] [address] [phone] Griselda Ibarra, HERNANDEZ EMR record search 08/13/2024 Refill [facility] [address] [place], [place] [phone] Isai Resendez MD from Last 3 Months Immunizations Name Administration Dates Next Due Influenza High-dose Quadriva lent Preservative Free 08/14/2022 Influenza injectable quadriv alent preservative free 08/28/2021 Influenza, High Dose Seasona l, Preservative Free 11/30/2019 Influenza, IIV3, injectable 07/09/2014, 3,07/29/2012 PPD Test 04/07/2019 Pneumococcal Conjugate PCV 13 09/26/2016 Pneumococcal Polysaccharide PPSV23 07/29/2012 TD (adult), 2 Lf tetanus tox oid, preservative free, adsorbed 07/09/2014 Td (adult) 07/09/2014 Social History Tobacco Use Types Packs/Day Years Used Date Smoking Tobacco: Never Smokeless Tobacco: Never Tobacco Cessation:Counseling Given: Not Answered Alcohol Use Standard Drinks/Week Comments Never 0 [...] Orientation Straight 07/30/2022 10 :29 AM EDT Last Filed Vital Signs Vital Sign Reading [...] Mass Index 31.76 10/22/2024 11:18 AM EST Plan of Treatment Upcoming Encounters Date Type Department Care Team (Late st Contact Info) Description 12/30/2024 11:15 AM EDT Telemedicine [facility] [address] [place] [phone] Name, MD Isai [address] [place] [address] Health Maintenance Due Date Last Done Comments Hepatitis A Vaccines (1 of 2 - Risk 2-dose series) 1960 Zoster Vaccines (1 of 2) 1991 Hepatitis B Vaccines (1 of 3 - Risk 3-dose series) 2001 DTaP/Tdap/Td Vaccines (1 - Tdap) 07/10/2014 07/09/2014, 07/09/2014 RSV Patients and Patients Aged 60 years or older (1 - 1-dose 75+ series) 2016 COVID-19 Vaccine ( - season) 2024 01/30/2021, 01/02/2021 Influenza Vaccine (#1) 2024 2, 08/28/2021, 11/30/2019, Additional history exists Diabetes: Foot Exam 07/05/2024 07/05/2023, 07/05/2023, 07/05/2023 Lipid Panel 07/09/2024 07/09/2023, 08/0 11/2020, 10/19/2020 Depression Screening 01/13/2025 01/14/2024, 01/14/20 SDOH Screening 01/13/2025 01/14/2024 Diabetes: Hemoglobin A1C 01/20/2025 025, 07/28/2024, 04/28/2024, Additional history exists Diabetes: Urine Protein Screening 02/03/2025 02/04/2024, 07/09/2023, 12/04/2021, Additional history exists Alcohol/Substance Use Screening 07/28/2025 07/28/2024 Eye Exam 10/10/2025 10/10/2023 Tobacco Screening 10/22/2025 10/22/2024 Pneumococcal Vaccine: 50+ Years Completed 09/26/2016, 07/29/2012 HIB Vaccines Aged Out No longer eligi ble based on patient's age to complete this topic HPV Vaccines Aged Out No longer eligi ble based on patient's age to complete this topic IPV Vaccines Aged Out No longer eligi ble based on patient's age to complete this topic Meningococcal Vaccine Aged Out No truman ash eligible based on patient's age to complete this topic RSV under 20 months Aged Out No longe r eligible based on patient's age to complete this topic Rotavirus Vaccines Aged Out No longer eligible based on patient's age to complete this topic Procedures Procedure Name Priority Date/Time Associated Diagnosis Comments FL ESOPHAGUS BARIUM SWALLOW WITH AIR Routine 10/23/2024 7:46 AM EST POCT GLYCATED HEMOGLOBIN, TOTAL Routine 10/22/2024 11:21 AM EST Type 2 diabetes mellitus with hyperglycemia, unspecified whether intermediate insulin use ([facility]) POCT GLUCOSE Routine 10/22/2024 11:20 AM EST Type 2 diabetes mellitus with hyperglycemia, unspecified whether intermediate insulin use ([facility]) ALBUMIN, RANDOM URINE W/CREATININE Routine 02/04/2024 8:39 AM EDT Type 2 diabetes mellitus with hyperglycemia, unspecified whether intermediate insulin use ([facility]) Primary hypertension Stage 3 chronic kidney disease, unspecified whether stage 3a or 3b CKD (CMS/HCC) LIPID PANEL, STANDARD Routine 07/09/2023 10:29 AM EDT Type 2 diabetes mellitus with hyperglycemia, unspecified whether adjunct faculty for medical terminology insulin use ([facility]) from Last 3 Months or Most Recently Relevant to Health Maintenance Results * FL Esophagus Barium Swallow w/Air (10/23/2024 7:46 AM EST) Anatomical Region Laterality Modality Head, Neck Radiographic Shari ging 10/23/2024 7:46 AM EST Narrative 10/23/2024 5:06 PM EST ? [facility] ?[address] ?[place] [address] ? Fluoroscopy Report ? Signed ? Patient: Liz Doyle,Nelson ?MR#: [id number] ?? [id number] ? : 1940 ?Acct:[id number] ? Age/Sex: 83 / M ?ADM Date: 10/23/24 ? Loc: HO.XRAY ? Attending Dr: Isai Resendez MD ? Ordering Physician: Isai Resendez MD ?? Date of Service: 10/23/24 ?? Procedure(s): FL barium swallow with air ?? Accession Number(s): [id number] ? cc: NameIsai MD ? EXAMINATION: ?? XR FLUOROSCOPY UPPER [...] So MD ??10/23/2024 05:03 PM EST RP ? Dictated By: ?Bryant Harrison ? Signed By: ?<Electronically signed by Bryant Harrison in OV> ? 10/23/24 1703 ?<Electronically signed by Grant So MD in OV> ? 10/23/24 1705 ? DD/ 0746 ? TD/TT: 10/23/24 0848 ? Tour Narrator: ? Procedure Note Donotuseinterpreter, Image - 10/23/[address] [address] Fluoroscopy Report Signed Patient: Crista Mandujano#: [id number] : 1940cct:[id number] Age/Sex: 83 / MADM Date: 10/23/24 Loc: HO.XRAY Attending Dr: Isai Resendez MD Ordering Physician: Isai Resendez MD Date of Service: 10/23/24 Procedure(s): FL barium swallow with air Accession Number(s): [id number] cc: Isai Resendez MD EXAMINATION: XR FLUOROSCOPY [...] Grant So MD 10/23/2024 05:03 PM EST RP Dictated By: Bryant Harrison Signed By: <Electronically signed by Bryant Harrison in OV> 10/23/24 1703 <Electronically signed by Grant So MD in OV> 10/23/24 1705 DD/ 0746 TD/TT: 10/23/24 0848 Tour Narrator: us Isai Resendez MD IMG FLUOROSCOPY PROCEDURES Edite d Result - Final * (ABNORMAL) POCT HGB A1C (10/22/2024 11:21 AM EST) Pathologist [facility] Hemoglobin A1C 8.4(A) 4.0 - 6.0 % QC Media Lot # [id number] Lot# Expiration Date Blood 10/22/2024 11:2 1 AM EST us Isai Resendez MD POINT OF CARE TEST ENTER/EDIT OR DERABLES Final Result * (ABNORMAL) POCT Glucose (10/22/2024 11:20 AM EST) Glucose Blood, POC 230(A) 60 - 200 mg/dL QC Media Lot # [id number] Lot# Expiration Date Blood Capillary blood specimen / Unknown 10/22/2024 11:20 AM EST us Isai Resendez MD POINT OF CARE TEST ENTER/EDIT OR DERABLES Final Result * (ABNORMAL) Albumin, Random Urine W/Creatinine (02/04/2024 8:39 AM EDT) Creatinine, Urine 64.57 mg/dL [facility] Microalbumin Urine 258.0 mg/L H [facility] Microalbum Creatinine Ratio Ur 399.5(H) <30 ug/mg cr [facility] Comment:Albumin/Creatinine R at Reference Ranges: Normal: < 30 ug/mg creatinine Microalbuminuria: 30 - 300 ug/mg creatinineClinical Albuminuria: > 300 ug/mg creatinine Urine (Urine, Random) 02/04/2024 8:39 AM EDT 02/04/2024 9:02 AM EDT us Isai Resendez MD LAB URINE ORDERABLES Final Resul t [facility] [address] [place] [phone] * (ABNORMAL) Lipid Panel, Standard (07/09/2023 10:29 AM EDT) Triglycerides 153(H) <150 mg/dL [facility] Comment:Desirable Triglyceri de: less than 150 mg/dLBorderline High Triglyceride 150-199 mg/dLHigh Triglyceride: 200-499 mg/dLVery High Triglyceride: greater than or equal to 5OO mg/dL Cholesterol 116 <200 mg/dL [facility] Comment:Desirable Cholestero l: less than 200 mg/dLBorderline High Cholesterol: 200-239 mg/dLHigh Cholesterol: greater than 239 mg/dL LDL Cholesterol Calculated 40 <100 mg/dL [facility] Comment:Desirable LDL: less than 100 mg/dLNear Optimal/Above Optimal LDL: 110- 129 mg/dLBorderline High LDL: 130-159 mg/dLHigh LDL: 160-189 mg/dLVery High LDL: greater than or equal to 190 mg/dL HDL Cholesterol 46 >40 mg/dL [facility] Comment:Desirable HDL: great er than 40 mg/dL Note: This HDL assay may give artificially low results in patients with liver disease. Blood Venous blood specimen / Unknown 07/09/2023 10:29 AM EDT 07/09/2023 10:29 AM EDT us Isai Name LAB BLOOD ORDERABLES Final Resul t [facility] [address] [place] [address] [phone] from Last 3 Months or Most Recently Relevant to Health Maintenance [place] [id number] [facility] Care Teams [employer] Architect Relationship Specialty Start Date End Date Name, MD Isai [address] [place] [address] PCP - General Family Medicine 09/30/18
--- OUTSIDE RECORDS SUMMARY | 2024-11-13 07:40 | XMS_ITS ---
[facility] [place] Address [address] [place] [address] Care Team Providers Care Surgery Assistant Name Role Phone Name Isai ARZATE Primary Care Provider Rodrick Li Unavailable [phone] Allergies No Known Allergies REASON FOR VISIT At Risk Footcare, Painful Nail(s) aggravated by shoes and causing difficulty standing/walking, Toe Irritation, Skin Problem Medications Medication SIG (Take, Route, Frequency, Duration) Notes Start Date End Date Status Potassium Active metFORMIN HCl 500 MG 1 tablet with a brisa l Orally Once a day Active Ciclopirox Olamine 0.77 % 1 application Externally Twice a day to feet including between the toes for 30 days Active Trulicity 3 MG/0.5ML as directed Subcutaneous Active Extra Depth Orthopedic Shoes, (1) Pair With (3) Pair Custom Heat Molded Multidensity Innersoles Dx: NIDDM/PVD(E11.51), Hammertoe Foot Deformity(M20.41,M20.42), Preulcerative Skin Lesion(s)(L85.1) Wear Daily for 365 days 04/15/2024 Active Atorvastatin Calcium 20 MG 1 tablet Orally Once a day Active amLODIPine Besylate 10 MG 1 tablet Orally Once a day Active hydrALAZINE HCl 50 MG 1 tablet with food Orally Three times a day Active Glimepiride 2 MG 1 tablet with breakf ast or the first main meal of the day Orally Once a day Active Social History Tobacco Use: Social History Observation Description Date Details (start date - stop date) Former Smoker NA - NA Tobacco Use/Smoking Question Answer Notes Are you a: former smoker Additional Findings: Tobacco Non-User Current no n-smoker Tobacco use other than smoking: Question Answer Notes Are you an other tobacco user? No Vital Signs Height 5ft 7in in 06/29/2024 Weight 205 lbs 06/29/2024 BMI 32.1 kg/m2 06/29/2024 Blood pressure systolic 125 mm Hg 06/29/20 24 Blood pressure diastolic 80 mm Hg 024 Procedures Procedure Date Ordered Date Performed Result Body Sit e 96043-NMOEBRF NAIL, 6 OR MORE 06/29/2024 N/A 32088-AHMV SKIN LESIONS, OVER 4 06/29/2024 N/A Encounters Encounter Location Date Provider Diagnosis [facility] [address] [address] 06/29/2024 Rodrick Hill Type 2 diabetes mellitus with diabetic peripheral angiopathy without gangrene E11.51 ; Tinea unguium B35.1 ; Pain in right toe(s) M79.674 ; Pain in left toe(s) M79.675 ; Other hammer toe(s) (acquired), right foot M20.41 ; Other hammer toe(s) (acquired), left foot M20.42 and Tinea pedis of both feet B35.3 Assessments Encounter Date Diagnosis (ICD Code) Assessment Notes Treatment Notes Treatment Clinical Notes Section Notes 06/29/2024 Type 2 diabetes mellitus with diabetic peripheral angiopathy without gangrene (ICD-10 - E11.51) Q7(A), Q8(2B), Q9(1B,2C) 06/29/2024 Tinea unguium (ICD-10 - B35.1) 06/29/2024 Pain in right toe(s) (ICD-10 - M79.674) 06/29/2024 Pain in left toe(s) (ICD-10 - M79.675) 06/29/2024 Other hammer toe(s) (acquired), right foot (ICD-10 - M20.41) Response to treatment,Impro vement 06/29/2024 Other hammer toe(s) (acquired), left foot (ICD-10 - M20.42) Response to treatment,Impro vement 06/29/2024 Tinea pedis of both feet (ICD-10 - B35.3) Plan Of Treatment Medication Medication Name Sig Start Date Stop Date Notes Ciclopirox Olamine 0.77 % 1 application Externally Twice a day to feet including between the toes for 30 days Pending Test Test Name Order Date 98968-QMEXODC NAIL, 6 OR MORE 06/29/2024 05684-TSKT SKIN LESIONS, OVER 4 06/29/20 24 Next Appt Details Follow Up: 2 Months, Reason: Provider Name:Rodrick Hill , 12/31/2024 01:30:00 PM, [address] [facility], [address], [place], [address], Procedure Notes * Category Sub-Category Detail Notes Debride Nail 6-10 Nail debridement Performance o f this nail treatment by a nonprofessional would put this patients foot and overall health at risk. Therefore, nail debridement was performed extensively to reduce/remove overall nail length, girth, thickness, subungual debris, and necrotic tissue, by manual and/or electrical means through the use of a nail nipper and/or dremel-type turbinated bone grinder, to a more viable healthy nail plate or bed tissue 6-10. Silver nitrate used for any petechial bleeding as necessary. Definitive antifungal treatment options have been reviewed and discussed with the patient. The patient chooses, no pharmaceutical tx - 40027 Keratoma Treatment Parring or Cutting o f Benign Hyperkeratotic Lesion(s) (-57) More than 4 Lesions - The Benign hyperkeratotic lesions, as described above were pared, and/or cut utilizing a sterile 15 blade, tissue nippers, and/or dremel - 62637 , Q7 Progress Notes * Nelson FERNANDEZDOB:1940 (83 yo M)Acc No.[id number]:06/29/2024 Progress Note Patient:?Nelson FERNANDEZ Provider:?Rodrick Hill DPM :1940???Age:83 Y???Sex:Male Raul e:06/29/2024 Address:[address] [place], [place] [id number] Pcp:Isai Resendez MD Subjective: * Chief Complaints: * ???At Risk FootcarePainful N ail(s) aggravated by shoes and causing difficulty standing/walkingToe IrritationSkin Problem * HPI: ???At Risk footcare:?Pt States Last PCP Visit:?Date?05/19/2024 ???Toe pain:?Location:?B/L feet.?Duration:?several months.?Course:?worse.?Aggravated by:?shoes, any pressure.?Treatments:?change in shoes , Rx shoes.?Skin problems:?Nature:?scaling , redness.?Location:?B/L .?Duration:?several days.?Course:?worse.? * ROS:?General/Constitutional:?Nausea?denies.?Vomiting?denies.?Hunger Thirst?denies.?Loss appetite?denies.?Chills?denies.?Fatigue?denies.?Fever?denies.?Night Sweats?denies.?Unexplained weight loss?denies.?Unexplained weight gain?denies.?HEENTM:?Dentures?denies.?Dizziness?denies.?Glasses/contacts?admits.?Retinopathy?den ies.?Blurred/double vision?denies.?TMJ?denies.?Discharge/drainage?denies.?Implants?denies.?Sore throat?denies.?Dental implants?denies.?Hard of hearing ?denies.?Difficulty chewing/swallowing/speaking?denies.?Nose bleeds?denies.?Sore mouth?denies.?Respiratory:?On O xygen?denies.?Pneumonia/pleurisy?denies.?Bronchitis?denies.?Emphysema?denies.?Co ughing?denies.?Cough blood?denies.?Shortness of breath?denies.?Wheezing?denies.?Cardiovascular:?Pacemaker?denies.?MVP?denies.?WPW?denies.?CHF?denies.?Heart attack?denies.?Septal defect?denies.?Rapid beat?denies.?Chest pain ?denies.?Atrial Fib.?denies.?Murmur/Palpitations?denies.?Gastrointestinal:?Hemorrhoids?denies.?Stomach/Abdominal pain?denies.?Dark blood stool?denies.?Irritable bowel ?denies.?Constipation?denies.?Diarrhea?denies.?Hematology:?Swelling?denies.?Clots?denies.?Varicose Veins?denies.?Bruising?denies.?Bleeding problem?denies.?Genitourinary:?Blood urine?denies.?Frequent/Painfu/urination/bladder control?denies.?Kidney stones?denies.?Infection (UTI)?denies.?Nephropathy?denies.?sex trans dis (STD)?denies.?Prostate?denies.?Musculoskeletal:?Hammertoes?admits.?Bunions?denies.?Back Pain?admits.?Muscle Cramps/ Resting?denies.?Muscle cramps / walking?denies.?Generalized aches and pains?denies.?Weakness?denies.?Integ.:?Goff?denies.?Scars?denies.?Corns/calluses?admits.?Ingrown nails?admits.?Painful nails?admits.?Open Sores?denies.?Rashes?denies.?Neurologic:?Difficulty sleeping?denies.?Brain disorder?denies.?Numbness?denies.?Balance t rouble?denies.?Confusion?denies.?Fainting/blackouts?denies.?Tingling?denies.?Bryan mors?denies.? * Medical History:? * Surgical History:?right knee replacement 03/2019right hip replacement 02/2023 * Hospitalization/Major Diagno stic Procedure:?Denies Past Hospitalization * Family History:?Mother: dece ased.?Father: .?Spouse: .? * Social History:?Tobacco Use:?Tobacco Use/Smoking?Are you a:?former smoker ?Additional Findings: Tobacco Non-User?Current non-smoker ?Tobacco use other than smoking?Are you an other tobacco user??No ???Miscellaneous:?Caffeine: yes, 1-2 cups per day. ?Children: yes, Three. ?Exercise: no. ?Marital status: . ?Occupation: Retired. * Medications:?TakingamLODIPin e Besylate 10 MG Tablet 1 tablet Orally Once a day Atorvastatin Calcium 20 MG Tablet 1 tablet Orally Once a day Glimepiride 2 MG Tablet 1 tablet with breakfast or the first main meal of the day Orally Once a day hydrALAZINE HCl 50 MG Tablet 1 tablet with food Orally Three times a day metFORMIN HCl 500 MG Tablet 1 tablet with a meal Orally Once a day Potassium Trulicity 3 MG/0.5ML Solution Pen-injector as directed Subcutaneous Extra Depth Orthopedic Shoes, (1) Pair With (3) Pair Custom Heat Molded Multidensity Innersoles . Dx: NIDDM/PVD(E11.51), Hammertoe Foot Deformity(M20.41,M20.42), Preulcerative Skin Lesion(s)(L85.1) Wear Daily Medication List reviewed and reconciled with the patientTaking amLODIPine Besylate 10 MG Tablet 1 tablet Orally Once a day Taking Atorvastatin Calcium 20 MG Tablet 1 tablet Orally Once a day Taking Glimepiride 2 MG Tablet 1 tablet with breakfast or the first main meal of the day Orally Once a day Taking hydrALAZINE HCl 50 MG Tablet 1 tablet with food Orally Three times a day Taking metFORMIN HCl 500 MG Tablet 1 tablet with a meal Orally Once a day Taking Potassium Taking Trulicity 3 MG/0.5ML Solution Pen-injector as directed Subcutaneous Taking Extra Depth Orthopedic Shoes, (1) Pair With (3) Pair Custom Heat Molded Multidensity Innersoles . Dx: NIDDM/PVD(E11.51), Hammertoe Foot Deformity(M20.41,M20.42), Preulcerative Skin Lesion(s)(L85.1) Wear Daily Medication List reviewed and reconciled with the patient * Allergies:?N.K.D.A.yes[Aller gies Verified] Objective: * Vitals:?Ht: 5ft 7in, Wt: 205 , BMI: 32.1, Shoe size: 10, BP: 125/80 mm Hg, BS: 145, Ht-cm: 170.18 cm, Wt-k.99 kg. * Examination: ???Ophthalmology Referral: ?DIABETES EYE EXAM?Vascular: ?AMPUTATION, NON-TRAUMATIC (A):?Distal T6, T7.?DP PULSES (B):? 0/4, B/L.?PT PULSES (B):? 0/4, B/L.?CAPILLARY FILL TIME:? delayed, all digits, B/L.?TROPHIC CONDITION-TEXTURE/ELASTICITY/TURGOR/HAIR GROWTH (B):? decreased, fragile, thin, shiny skin, with sparse to absent hair growth, B/L.?TEMPERTURE GRADIENT (C):? decreased, cool to cool, proximal to distal, B/L.?PIGMENTATION:?brawny , B/L.?EDEMA (C):?absent, B/L.?CLAUDICATION (C):?denies, B/L.?REST PAIN:?denies, B/L.?Nails: ?NAILS are:?Elongated, overgrown, dystrophic, lytic, greater than 3mm thick, discolored and friable with crumbly malodorous subungual debris, with pain on palpation , 1-5 Left foot , T5 , T8 , T9.?Dermatologic: ?SKIN FINDINGS:?Skin exam reveals Keratotic lesion(s) located at , SUB MTH (s) , 1 , B/L , SUB MTH (s) , 5 , B/L , Heel(s) , B/L , Skin shows sign(s) of, erythema, scaling, in a moccasin fashion, no fissure(s) present, B/L.?Orthopedic: ?MUSCLE STRENGTH:?5/5 all groups in a symmetrical fashion, B/L.?FOOT MORPHOLOGY:?Pes Planus structure , (-) Charcot collapse/destruction noted at MTJ.?DIGITAL DEFORMITIES:?Distal Amputation T6, T7, Digital contracture, PIPJ, 2-5 B/L, incompl-reducible to push-up test, no over, nor underlapping, no longer, with evidence of shoe producing skin irritation.?FOOTWEAR:?good condition, exhibit proper fit and accommodation for pedal deformities. OT were inspected and noted to be worn, but in good condition giving proper support at the present time.?Neurological: ?SENSORY:?Neurological exam reveals intact sensorium, pain sensation normal, vibration sensation intact, pinprick sensation is normal in the lower extremities, 5.07 monofilament test performed at plantar aspects of 5 varied sites per foot shows sensation, normal, B/L, Pt denies, anesthesia, burning, paresthesia, tingling, B/L.?General Examination: ?GENERAL APPEARANCE:?Reveals a pleasant, alert, well nourished, well- developed, well hydrated individual, who demonstrates proper attention to hygiene/body habitus, and is in no acute distress , Pt accompanied by , Female , CAR GROOMER , who serves as , Beater Engineer/Dial Refinisher , and/who is physically present in exam room at time of visit.?ORIENTED:?person, place, and time.?FOOT EXAM:?Footwear Evaluation? Assessment: * Assessment: 1.?Type 2 diabetes mellitus with diabetic peripheral angiopathy without gangrene - E11.51???Notes :Q7(A), Q8(2B), Q9(1B,2C)???2.?Tinea unguium - B35.1???3.?Pain in right toe(s) - M79.674???4.?Pain in left toe(s) - M79.675???5.?Other hammer toe(s) (acquired), right foot - M20.41???Specify :Chronic problem, Stable (1=3,2=4)???Notes :Response to treatment,Improvement???6.?Other hammer toe(s) (acquired), left foot - M20.42???Specify :Chronic problem, Stable (1=3,2=4)???Notes :Response to treatment,Improvement???7.?Tinea pedis of both feet - B35.3???Specify :Acute problem, Uncomplicated (3),Rx drug management (4)??? Plan: * Treatment: 2.?Tinea unguium?Procedure: 45920-TUAVFQR NAIL, 6 OR MORE 3.?Tinea pedis of both feet? Start Ciclopirox Olamine Cream, 0.77 %, 1 application, Externally, Twice a day to feet including between the toes, 30 days, 90, Refills 2.?? * Procedures:?Debride Nail 6-10:?Nail debridement?Performance of this nail treatment by a nonprofessional would put this patients foot and overall health at risk. Therefore, nail debridement was performed extensively to reduce/remove overall nail length, girth, thickness, subungual debris, and necrotic tissue, by manual and/or electrical means through the use of a nail nipper and/or dremel-type turbinated bone grinder, to a more viable healthy nail plate or bed tissue 6-10. Silver nitrate used for any petechial bleeding as necessary. Definitive antifungal treatment options have been reviewed and discussed with the patient. The patient chooses, no pharmaceutical tx - 15305.?Keratoma Treatment:?Parring or Cutting of Benign Hyperkeratotic Lesion(s)?(-57) More than 4 Lesions - The Benign hyperkeratotic lesions, as described above were pared, and/or cut utilizing a sterile 15 blade, tissue nippers, and/or dremel - 69873 , Q7.? * Procedure Codes:?47754 DEBRI DE NAIL, 6 OR MORE, Modifiers: XS 11579 TRIM SKIN LESIONS, OVER 4, Modifiers: XS , Q7 * Preventive Medicine:? ??Counseling:?Discussion:?-14: Office or other outpatient visit for the evaluation and management of an established patient, which required a medically appropriate history and/or examination and MODERATE level of DECISION MAKING for: 1 OR MORE CHRONIC PROBLEM(S) THATS WORSENING, 2 STABLE CHRONIC PROBLEMS, A NEWLY DIAGNOSED PROBLEM WITH UNCERTAIN PROGNOSIS, AN ACUTE COMPLICATED INJURY WITH MULTIPLE TREATMENT OPTIONS, OR AN ACUTE PROBLEM WITH ACCOMPANYING SYSTEMIC SYMPTOMS, THAT POSE(S) A MODERATE RISK OF MORBIDITY. THIS CONDITION MAY ALSO INCLUDE RX DRUG MANAGEMENT, OR A DECISON FOR MINOR SURGERY. The visit on the day of the encounter encompassed interpreting the data and educating the patient as to the nature of their condition, treatment options available according to their individual PMH, meds, allergies, and overall health/living conditions, as well as any potential risks or complications that may occur from a failure to adhere to, and participate in, the recommended course of therapy. The discussion included a complete verbal, and/or written explanation of the examination results, any x-rays taken, the proposed diagnosis, and outline of the treatment plan. A schedule for future care needs was also explained. The patient verbalized an understanding of the instructions at this time and agreed to be an active participant in their treatment. If the patient should think of any questions or concerns after the visit, I have encouraged the patient to call the office.?Shoe Gear Counseling:?A thorough inspection of the patients Rxed shoegear and inserts was performed and findings communicated. We reviewed the many important medical advantages for adhering to regularly wearing these shoe and insert accomidative devices daily as well as reviewed the fact that a failure in accepting these recommedations may be deleterious, unable to prevent, and disadvantagely result in, many pedal complications such as skin irritation, skin ulceration, infection, and even loss of toe/foot/leg/or even their life. Time was also spent reviewing the proper footcare techniques including daily skin moisturization, daily foot inspection for any interruption in skin integrity, open lesions, or sign of infection such as redness/malodor/drainage/swelling as well as daily shoe inspection for the presence of internal foreign bodies and shoe as well as insert wear. Patient questions re: shoes, inserts, and self foot inspections were answered to their satisfaction as the patient verbally confirmed a full understanding of the above information.?Tinea Pedis:?The patient was counseled on the diagnosis, potential etiologies, and treatment options for their skin condition. We discussed the risks and benefits of each option from performing no treatment, to utilizing OTC topical skin creams, prescription topical creams, customized compounded topical medications, and, if necessary, to utilize oral antifungal therapy. We discussed the advantages and disadvantages of each possible treatment and importance for adherence to all the recommended therapies for optimum success and avoid potential complications such as open sore/infection/possible hospitalization. We discussed the potential effectiveness of each topical preparation as well as each ones possible side effects and/or patient medication interactions if oral therapy is selected. Patient questions re: the advantages and disadvantages of each treatment choice, medication use/dosage, successful outcomes, and application consistency were reviewed and the patient verbalized that all answers were clearly understood. The patient was told they can help alleviate symptoms by utilizing moisture absorbant innersoles with activated charcoal and baking soda, applying antifungal sprays daily, aerating toe web spaces at night by putting cotton or lambs wool between the toes, alternating shoe gear daily if possible so they can dry out, changing socks at least once during the day, wearing well-ventilated shoes or sandals. The patient has decided to apply antifungal skin creams to their feet as directed. Rx was sent to their pharmacy at the time of visit.? ??Screening/Special Tests:?Fall Risk?Screening:?No falls in the past year ?FALLS: Screening for Future Fall Risk?Have you had any falls with injury in the past year??No * Follow Up:?2 Months * Images: * Sign off status: Completed true * Provider:?Rodrick Hill DPM Date:?2023 Generated for Rodrigo pritchett/Deja/Tim on:?11/13/2024 07:40 AM EST History and Physical Notes * HPI (History of Present Illness) Category Sub-Category Detail Notes Category Not es Toe pain Location: B/L feet Duration: several months Course: worse Aggravated by: shoes, any pressure Treatments: change in shoes , Rx shoes Skin problems Nature: scaling , redness Location: B/L Duration: several days Course: worse At Risk footcare Pt States Last PCP Visit: Date: 4 Examination Category Sub-Category Detail Notes Category Not es Neurological SENSORY: Neurological exa m reveals intact sensorium, pain sensation normal, vibration sensation intact, pinprick sensation is normal in the lower extremities, 5.07 monofilament test performed at plantar aspects of 5 varied sites per foot shows sensation, normal, B/L, Pt denies, anesthesia, burning, paresthesia, tingling, B/L Dermatologic SKIN FINDINGS: Skin exam reveal s Keratotic lesion(s) located at , SUB MTH (s) , 1 , B/L , SUB MTH (s) , 5 , B/L , Heel(s) , B/L , Skin shows sign(s) of, erythema, scaling, in a moccasin fashion, no fissure(s) present, B/L Orthopedic FOOT MORPHOLOGY: Pes Planus stru cture , (-) Charcot collapse/destruction noted at MTJ FOOTWEAR: good condition, exhi bit proper fit and accommodation for pedal deformities. OT were inspected and noted to be worn, but in good condition giving proper support at the present time DIGITAL DEFORMITIES: Distal Amputation T 6, T7, Digital contracture, PIPJ, 2-5 B/L, incompl-reducible to push-up test, no over, nor underlapping, no longer, with evidence of shoe producing skin irritation MUSCLE STRENGTH: 5/5 all groups in a symmetrical fashion, B/L General Examination GENERAL APPEARANCE: Reveals a pleasant, alert, well nourished, well-developed, well hydrated individual, who demonstrates proper attention to hygiene/body habitus, and is in no acute distress , Pt accompanied by , Female , CAR GROOMER , who serves as , Beater Engineer/Dial Refinisher , and/who is physically present in exam room at time of visit FOOT EXAM: Lower Extremity Neurological Exa m performed:: Yes Visual exam of foot performed:: Yes Date: 06/29/2024 ORIENTED: person, place, and t chanda Footwear Evaluation Footwear Evaluation performe d:: Yes Ophthalmology Referral DIABETES EYE EXAM Procedure Perform ed:: Yes ?Date of Exam Performed: 03/12/2024 Diabetic Retinopathy Screening:: Yes Findings of Diabetic Eye Exam:: no retin opathy Vascular DP PULSES (B): 0/4, B/L PT PULSES (B): 0/4, B/L CAPILLARY FILL TIME: delayed, all digits , B/L TEMPERTURE GRADIENT (C): decreased, cool to cool, proximal to distal, B/L TROPHIC CONDITION-TEXTURE/ELASTICITY/TURGOR/HAIR GROWTH (B): decreased, fragile, thin, shiny skin, wi th sparse to absent hair growth, B/L EDEMA (C): absent, B/L CLAUDICATION (C): denies, B/L REST PAIN: denies, B/L PIGMENTATION: brawny , B/L AMPUTATION, NON-TRAUMATIC (A): Distal T6 , T7 Nails NAILS are: Elongated, overg rown, dystrophic, lytic, greater than 3mm thick, discolored and friable with crumbly malodorous subungual debris, with pain on palpation , 1-5 Left foot , T5 , T8 , T9
--- OUTSIDE RECORDS SUMMARY | 2024-11-13 07:40 | XMS_ITS | Encounter Summary ---
Author Organization [facility] Address [address] [place] [address] [address] [place] [address] Care Team Providers Care Patent Agent Name Role Phone Name, Isai ARZATE Primary Care Provider [phone] Reason for Referral * Consultation (Urgent) - Closed Specialty Diagnoses / Procedures Referred By Contac t Referred To Contact Physical Therapy Diagnoses Stress fracture of sacrococcygeal region with routine healing Roxanna Nichole MD [address] [place] [id number] Phone: tel: fax: [facility] [address] [place] [address] Phone: tel: fax: Referral ID Status Reason Start Date Expiration Date V isits Requested Visits Authorized [id number] Closed Specialty Services Required 04/20/2024 04/20/2025 1 1 Encounter Details Date Type Department Care Team (Late st Contact Info) Description 04/20/2024 Orders Only [facility] [address] [place] [address] [phone] Roxanna Nichole MD [address] [place], [place] [phone] Stress fracture of sacrococcygeal region with routine healing (Primary Dx) Social History Tobacco Use Types Packs/Day Years Used Date Smoking Tobacco: Never Smokeless Tobacco: Never Alcohol Use Standard Drinks/Week Comments Never 0 (1 standard drink = 0.6 oz pur e alcohol) Depression Answer Date Recorded Patient Health Questionnaire-9 [...] Info) Description 12/30/2024 11:15 AM EDT Telemedicine [facility] [address] [place] [address] Name, MD Isai [address] [place] [address] Scheduled Referrals Name Type Priority Associated Diagnoses Orde r Schedule Referral to Physical Therapy Outpatient Referral Urgent Stress fracture of sacrococcygeal region with routine healing Expected: 04/20/2024 (Approximate), Expires: 04/20/2025 documented as of this encounter Visit Diagnoses Diagnosis Stress fracture of sacrococcygeal region with routine healing- Primary documented in this encounter Additional Health Concerns Assessment Noted Time PHQ-9 Depression Total Score: 0 01/14/20 24 1:28 PM EDT documented as of this encounter Care Teams Patent Agent Relationship Specialty Start Date End Date Name, MD Isai [address] [place] [address] PCP - General Family Medicine 09/30/18 documented as of this encounter
--- OUTSIDE RECORDS SUMMARY | 2024-11-13 07:41 | XMS_ITS ---
[facility] endy [place] Address [address] [place] [address] Care Team Providers Care Appetizer Packer Name Role Phone Name Isai ARZATE Primary Care Provider Rodrick Li Unavailable [phone] Allergies No Known Allergies REASON FOR VISIT At Risk Footcare, Painful Nail(s) aggravated by shoes and causing difficulty standing/walking, Toe Irritation, Painful Toe/Nail(s) Medications Medication SIG (Take, Route, Frequency, Duration) Notes Start Date End Date Status metFORMIN HCl 500 MG 1 tablet with a brisa l Orally Once a day Active Glimepiride 2 MG 1 tablet with breakf ast or the first main meal of the day Orally Once a day Active hydrALAZINE HCl 50 MG 1 tablet with food Orally Three times a day Active Extra Depth Orthopedic Shoes, (1) Pair With (3) Pair Custom Heat Molded Multidensity Innersoles Dx: NIDDM/PVD(E11.51), Hammertoe Foot Deformity(M20.41,M20.42), Preulcerative Skin Lesion(s)(L85.1) Wear Daily for 365 days 04/15/2024 Active Atorvastatin Calcium 20 MG 1 tablet Orally Once a day Active Trulicity 3 MG/0.5ML as directed Subcutaneous Active Potassium Active amLODIPine Besylate 10 MG 1 tablet Orally Once a day Active Social History [...] Problem Status W/U Status Risk Notes Problem Type 2 diabetes mellitus with peripheral angiopathy (762197434) Type 2 diabetes mellitus with diabetic peripheral angiopathy without gangrene (E11.51) Active confirmed Q7(A), Q8(2B), Q9(1B,2C) Problem Acquired hammer toe of right foot (8432229688849 105) Other hammer toe(s) (acquired), right foot (M20.41) Active confirmed Response to treatment,I mprovement Problem Acquired hammer toe of left foot (9679901042673 103) Other hammer toe(s) (acquired), left foot (M20.42) Active confirmed Response to treatment,I mprovement Vital Signs Height 5ft 9in in 04/15/2024 Weight 215 lbs 04/15/2024 BMI 31.75 kg/m2 04/15/2024 Procedures Procedure Date Ordered Date Performed Result Body Sit e 06573-KQHWIHR NAIL, 6 OR MORE 04/15/2024 N/A 54186-JHIQ SKIN LESIONS, OVER 4 04/15/2024 N/A 44062-Dcqd. Subungual Hematoma 04/15/2024 N/A Encounters Encounter Location Date Provider Diagnosis [facility] [address] [address] 04/15/2024 Rodrick Hill Type 2 diabetes mellitus with diabetic peripheral angiopathy without gangrene E11.51 ; Tinea unguium B35.1 ; Pain in right toe(s) M79.674 ; Pain in left toe(s) M79.675 ; Other hammer toe(s) (acquired), left foot M20.42 ; Other hammer toe(s) (acquired), right foot M20.41 and Subungual hematoma of left foot, initial encounter S90.222A Assessments Encounter Date Diagnosis (ICD Code) Assessment Notes Treatment Notes Treatment Clinical Notes Section Notes 04/15/2024 Type 2 diabetes mellitus with diabetic peripheral angiopathy without gangrene (ICD-10 - E11.51) 04/15/2024 Tinea unguium (ICD-10 - B35.1) 04/15/2024 Pain in right toe(s) (ICD-10 - M79.674) 04/15/2024 Pain in left toe(s) (ICD-10 - M79.675) 04/15/2024 Other hammer toe(s) (acquired), left foot (ICD-10 - M20.42) 04/15/2024 Other hammer toe(s) (acquired), right foot (ICD-10 - M20.41) Patient Educated with: DIABETIC FOOT CARE INSTRUCTIONS.p df (DIABETIC FOOT CARE INSTRUCTIONS.p df) 04/15/2024 Subungual hematoma of left foot, initial encounter (ICD-10 - S90.222A) Plan Of Treatment Medication Medication Name Sig Start Date Stop Date Notes Extra Depth Orthopedic Shoes , (1) Pair With (3) Pair Custom Heat Molded Multidensity Innersoles Dx: NIDDM/PVD(E11.51), Hammertoe Foot Deformity(M20.41,M20.42), Preulcerative Skin Lesion(s)(L85.1) Wear Daily for 365 days 04/15/2024 Treatment Notes Assessment Notes Other hammer toe(s) (acquired), right fo ot Patient Educated with: DIABETIC FOOT CARE INSTRUCTIONS.pdf (DIABETIC FOOT CARE INSTRUCTIONS.pdf) Pending Test Test Name Order Date [id number] NAIL, 6 OR MORE 04/15/2024 07202-ZFET SKIN LESIONS, OVER 4 04/15/20 24 90666-Hgct. Subungual Hematoma 4 Next Appt Details Follow Up: 2 Months, Reason: Provider Name:Rodrick Hill , 12/31/2024 01:30:00 PM, [address], [address], [place], [address], Procedure Notes * Category Sub-Category Detail Notes Debride Nail 6-10 Nail debridement Nail debridem ent performed extensively to reduce/remove overall nail length, girth, thickness, subungual debris, and necrotic tissue, by manual and electrical means through the use of a nail nipper and/or dremel, to more viable healthy nail plate or bed tissue 1-5. Silver nitrate used for any petechial bleeding as necessary. Patient chooses, no pharmaceutical tx (42254) I&D subungual hematoma: Location TA Procedure: Performed incision a nd drainage of subungual hematoma with use of sterile power timothy and/or nail nipper. Approximately ( 0.2 ) cc of hemorrhagic fluid material was drained. No underlying bone was visualized. An application of sterile Bacitracin dressing was performed. Local wound care instructions were discussed and dispensed , Pt was advised of the possibilty for nail auto-avulsion (22308) , DIABETES: Pt was advised as to the risk of delayed or nonhealing due to diabetes. Pt is to call the office with any questions, concerns, or complications Anesthesia was deferred - PT AB SOLUTELY REFUSES - tolerant to pain without issue/complication Keratoma Treatment Parring or Cutting o f Benign Hyperkeratotic Lesion(s) 19781 ( 2-4 Lesions ) - The Benign hyperkeratotic lesions, as described above were pared, and/or cut utilizing a sterile 15 blade, tissue nippers, and/or lary , Q7 Progress Notes * Nelson FERNANDEZDOB:1940 (83 yo M)Acc No.[id number]:04/15/2024 Progress Notes Patient:?Nelson FERNANDEZ Provider:?Rodrick Hill DPM :1940???Age:83 Y???Sex:Male Raul e:04/15/2024 Address:[address] [place], [place] [id number] Pcp:Isai Resendez MD Subjective: * Chief Complaints: * ???At Risk FootcarePainful N ail(s) aggravated by shoes and causing difficulty standing/walkingToe IrritationPainful Toe/Nail(s) * HPI: ???At Risk footcare:?Pt States Last PCP Visit:?Date?04/01/2024 ???Toe pain:?Location:?B/L feet.?Duration:?several months.?Course:?worse.?Aggravated by:?shoes, any pressure.?Treatments:?change in shoes.?Painful Nails:?Duration:?States Possible Date Of Injury - 04/08/24.? * ROS:?General/Constitutional:?Nausea?denies.?Vomiting?denies.?Hunger Thirst?denies.?Loss appetite?denies.?Chills?denies.?Fatigue?denies.?Fever?denies.?Night Sweats?denies.?Unexplained weight loss?denies.?Unexplained [...] hip replacement 02/2023 * Hospitalization/Major Diagno stic Procedure:?No Hospitalization History. * Family History:?Mother: dece ased.?Father: .?Spouse: .? * Social History:?Tobacco Use:?Tobacco use other than smoking?Are you an other tobacco user??No ?Tobacco Control (Standard)?Tobacco use:?Nonsmoker ?Additional Findings: Tobacco non-user?Current nonsmoker ???Drugs/Alcohol:?Drugs?Have you used drugs other than those for medical reasons in the past 12 months??No ?Alcohol Screen?Did you have a drink containing alcohol in the past year??Yes ?Points?0 ?Interpretation?Negative ???Miscellaneous:?Caffeine: yes, 1-2 cups per day. ?Children: yes, Three. ?Marital status: . ?Occupation: Retired. * Medications:?TakingamLODIPin [...] 3 MG/0.5ML Solution Pen-injector as directed Subcutaneous Medication List reviewed and reconciled with the [...] 3 MG/0.5ML Solution Pen-injector as directed Subcutaneous Medication List reviewed and reconciled with the patient * Allergies:?N.K.D.A.yes[Aller gies Verified] Objective: * Vitals:?Ht: 5ft 9in, Wt:215, BMI: 31.75, Shoe size: 10, BS:149, Ht-cm: 175.26 cm, Wt-k.52 kg. * Examination: ???Ophthalmology Referral: ?DIABETES EYE EXAM?Vascular: ?DP PULSES (B):? 0/4, B/L.?PT PULSES (B):? 0/4, B/L.?CAPILLARY FILL TIME:? delayed, all digits, B/L.?TROPHIC CONDITION-TEXTURE/ELASTICITY/TURGOR/HAIR GROWTH (B):? decreased, B/L.?TEMPERTURE GRADIENT (C):? decreased, cool to cool, proximal to distal, B/L.?PIGMENTATION:?brawny , B/L.?EDEMA (C):?absent, B/L.?CLAUDICATION (C):?denies, B/L.?REST PAIN:?denies, B/L.?Nails: ?NAILS are:?Elongated, overgrown, dystrophic, lytic, greater than 3mm thick, discolored and friable with crumbly malodorous subungual debris, with pain on palpation , 1-5 Left foot , T5 , T8 , T9 , There is evidence of pain on palpation, and an area of subungual HEMORRAGHIC fluid with a pre-operative size measuring approximately ( 2-3 ) mm square , TA.?Dermatologic: ?SKIN FINDINGS:?Skin exam reveals Keratotic lesion(s) located at , SUB MTH (s) , 1 , B/L , SUB MTH (s) , 5 , B/L , Heel(s) , B/L.?Orthopedic: ?MUSCLE STRENGTH:?5/5 all groups in a symmetrical fashion, B/L.?FOOT MORPHOLOGY:?Pes Planus structure , (-) Charcot collapse/destruction noted at [facility].?DIGITAL DEFORMITIES:?Distal Amputation T6, T7, Digital contracture, PIPJ, 2-5 B/L, incompl-reducible to push-up test, no over, nor underlapping, with evidence of shoe producing skin irritation.?FOOTWEAR:?worn, non-supportive, shoe gear properties exacerbate patient's foot/toe deformity.?Neurological: ?SENSORY:?Neurological exam reveals intact sensorium, pain sensation [...] , Pt accompanied by , Female , TOLL MECHANIC , who serves as , Ambulatory Nurse/Hop Grower , and/who is physically present in exam room at time of visit.?ORIENTED:?person, place, and time.?FOOT EXAM:?Footwear Evaluation? Assessment: * Assessment: 1.?Type 2 diabetes mellitus with diabetic peripheral angiopathy without gangrene - E11.51???2.?Tinea unguium - B35.1???3.?Pain in right toe(s) - M79.674???4.?Pain in left toe(s) - M79.675???5.?Other hammer toe(s) (acquired), left foot - M20.42???Specify :Chronic problem, Worse (4),Rx Management (4)???6.?Subungual hematoma of left foot, initial encounter - S90.222A???7.?Other hammer toe(s) (acquired), right foot - M20.41 (Primary)???Specify :Chronic problem, Worse (4),Rx Management (4)??? Plan: * Treatment: 2.?Type 2 diabetes mellitus with diabetic peripheral angiopathy without gangrene?Procedure: 82402-WKXN SKIN LESIONS, OVER 4 3.?Tinea unguium?Procedure: 86841-EXXFLIL NAIL, 6 OR MORE 4.?Subungual hematoma of lef t foot, initial encounter?Procedure: 66524-Cmxn. Subungual Hematoma * Procedures:?Debride Nail 6-10:?Nail debridement?Nail debridement performed extensively to reduce/remove overall nail length, girth, thickness, subungual debris, and necrotic tissue, by manual and electrical means through the use of a nail nipper and/or dremel, to more viable healthy nail plate or bed tissue 1-5. Silver nitrate used for any petechial bleeding as necessary. Patient chooses, no pharmaceutical tx (76319).?I&D subungual hematoma::?Location?TA.?Anesthesia? was deferred - PT ABSOLUTELY REFUSES - tolerant to pain without issue/complication.?Procedure:?Performed incision and drainage of subungual hematoma with use of sterile power timothy and/or nail nipper. Approximately ( 0.2 ) cc of hemorrhagic fluid material was drained. No underlying bone was visualized. An application of sterile Bacitracin dressing was performed. Local wound care instructions were discussed and dispensed , Pt was advised of the possibilty for nail auto-avulsion (54207) , DIABETES: Pt was advised as to the risk of delayed or nonhealing due to diabetes. Pt is to call the office with any questions, concerns, or complications.?Keratoma Treatment:?Parring or Cutting of Benign Hyperkeratotic Lesion(s)?90538 ( 2-4 Lesions ) - The Benign hyperkeratotic lesions, as described above were pared, and/or cut utilizing a sterile 15 blade, tissue nippers, and/or dremel , Q7.? * Procedure Codes:?21819 DEBRI DE NAIL, 6 OR MORE, Modifiers: XS 68424 DRAIN BLOOD FROM UNDER NAIL, Modifiers: XS , [id number] TRIM SKIN LESIONS, OVER 4, Modifiers: XS , Q7 * Preventive Medicine:? ??Counseling:?Discussion:?-04: Office or other outpatient visit for the evaluation and management of a new patient, which required a medically appropriate history [...] have encouraged the patient to call the office.?Digital Surgery:?Digital surgery was discussed with the patient, We elected to try conservative treatment at the present time, due to the patients medical history and increased asssociated post-operative risks.?Digital Treatment:?HT- I explained to the patient the possible etiologies of Hammertoes, including genetics/foot type/shoegear/activity level/exercise routine and the risks/benefits of all the different treatment options for their pain including: No treatment at all, Rest, Ice, New/supportive/wider/deeper Shoegear, Digital Padding/Strapping/Taping/Bracing/Gel protective sleeves, Foot/Ankle AFO Bracing, Stretching exercises, Deep Tissue Massage, Arch support/shoe inserts with splay metatarsal padding, and Custom orthoses. I insisted that any digital devices be removed daily and not worn overnight for safety. The patient is to carefully examine the toes daily for any skin irritation while using any splinting or padding device. The advantages and disadvantages of each option were discussed and the patients questions re: shoegear, padding, custom vs prefabricated inserts, activity level, and consistency in home treatment regimens for optimal success were answered to their verbally confirmed satisfaction.?Shoe Gear Counseling:?SHOE Rx - The patient was counseled in great detail on their muscoloskeletal foot and toe deformities which coincided with the dermatological presentations visualized on exam. We discussed how their deformities put the integrity of their feet at risk for potential pedal complications which makes the accomidative diabetic shoes and cutomizable inserts medically necessary. We discussed the different shoe and insert treatment types and options, as well as the important advantages for adhering to regularly wearing these accomidative devices daily. The patient was made aware of the fact that a failure to abide by these recommedations may be deleterious to their foot health as they are able to prevent many pedal complications such as skin irritation, skin ulceration, infection, and even loss of toe/foot/leg/or life. Time was also spent with the patient dispensing and discussing proper diabetic footcare techniques including daily skin moisturization, daily foot inspection for any interruption in skin integrity including open lesions, or sign of infection such as redness/malodor/drainage/swelling. Also discussed and recommended were procedures regarding daily shoe inspection for the presence of internal foreign bodies as well as any visualized irregular shoe or insert wear. Patient questions re: shoes, inserts, and self foot inspections were answered to their satisfaction as the patient verbally confirmed a full understanding of the above information. A Rx for Extra Depth Orthopedic Shoes with 3 pair of custom heat-molded inserts was dispensed.? ??Screening/Special Tests:?Fall Risk?Screening:?No falls in the past year ?FALLS: Screening for Future Fall Risk?Have you had any falls with injury in the past year??No * Follow Up:?2 Months * Images: * Sign off status: Completed Addendum: * ? true * Provider:?Rodrick Hill DPM Date:?2023 Generated for Rodrigo pritchett/Deja/Tim on:?11/13/2024 07:40 AM EST History and Physical Notes * HPI (History of Present Illness) Category Sub-Category Detail Notes Category Not es Toe pain Location: B/L feet Duration: several months Course: worse Aggravated by: shoes, any pressure Treatments: change in shoes Painful Nails Duration: States Possible Date Of Inj ury - 04/08/24 At Risk footcare Pt States Last PCP Visit: Date: Examination Category Sub-Category Detail Notes Category Not [...] 5 , B/L , Heel(s) , B/L Orthopedic FOOT MORPHOLOGY: Pes Planus stru cture , (-) Charcot collapse/destruction noted at [facility] FOOTWEAR: worn, non-supportive , shoe gear properties exacerbate patient's foot/toe deformity DIGITAL DEFORMITIES: Distal Amputation T 6, T7, Digital contracture, PIPJ, 2-5 B/L, incompl-reducible to push-up test, no over, nor underlapping, with evidence of shoe producing skin irritation MUSCLE STRENGTH: 5/5 all groups in a symmetrical fashion, B/L General Examination GENERAL APPEARANCE: Reveals a pleasant, alert, well nourished, well-developed, well hydrated individual, who demonstrates proper attention to hygiene/body habitus, and is in no acute distress , Pt accompanied by , Female , TOLL MECHANIC , who serves as , Ambulatory Nurse/Hop Grower , and/who is physically present in exam room at time of visit FOOT EXAM: Lower Extremity Neurological Exa m performed:: Yes Visual exam of foot performed:: Yes Date: 04/15/2024 ORIENTED: person, place, and t chanda Footwear [...] distal, B/L TROPHIC CONDITION-TEXTURE/ELASTICITY/TURGOR/HAIR GROWTH (B): decreased, B/L EDEMA (C): absent, B/L CLAUDICATION (C): denies, B/L REST PAIN: denies, B/L PIGMENTATION: brawny , B/L Nails NAILS are: Elongated, overg rown, dystrophic, lytic, greater than 3mm thick, discolored and friable with crumbly malodorous subungual debris, with pain on palpation , 1-5 Left foot , T5 , T8 , T9 , There is evidence of pain on palpation, and an area of subungual HEMORRAGHIC fluid with a pre-operative size measuring approximately ( 2-3 ) mm square , TA
--- OUTSIDE RECORDS SUMMARY | 2024-11-13 07:41 | XMS_ITS | Encounter Summary ---
Author Organization [employer] Address [address] [place] [address] [address] [place] [address] Care Team Providers Care Laserist Name Role Phone NameIsai MD Primary Care Provider [phone] Encounter Details Date Type Department Care Team (Late st Contact Info) Description 10/08/[address] [facility] & PEDS [address] [place] [address] Asia Duffy LPN Social History Tobacco Use Types Packs/Day Years Used Date Smoking Tobacco: Never Assessed Sex and Gender Information Value Date Recorded Sex Assigned at Male 07/30/2022 10:29 AM EDT Legal Sex Male 10:29 AM EDT Gender Identity Male 07/30/2022 10:29 AM EDT Sexual Orientation Straight 07/30/2022 10 :29 AM EDT documented as of this encounter Plan of Treatment Upcoming Encounters Date Type Department Care Team (Late st Contact Info) Description 12/30/2024 11:[address] [facility] MEDICINE [address] [place], [place] [phone] NameIsai MD [address] [place] [address] documented as of this encounter Procedures Procedure Name Priority Date/Time Associated Diagnosis Comments ALBUMIN, RANDOM URINE W/CREATININE Routine 07/09/2023 10:30 AM EDT PSA, TOTAL Routine 05/09/2023 2:57 PM EDT CBC WITH AUTO DIFFERENTIAL Routine 04/09/2023 2:45 PM EDT BASIC METABOLIC PANEL Routine 04/09/2023 2:45 PM EDT CREATININE, SERUM Routine 01/08/2023 9:3 8 AM EDT UREA NITROGEN (BUN) Routine 01/08/2023 9 :38 AM EDT CALCIUM Routine 01/08/2023 9:38 AM EDT ELECTROLYTE PANEL Routine 01/08/2023 9:3 8 AM EDT GLUCOSE, WHOLE BLOOD Routine 01/07/2023 9:20 AM EDT documented in this encounter Results * (ABNORMAL) Albumin, Random Urine W/Creatinine (07/09/2023 10:30 AM EDT) Creatinine, Urine 81.71 mg/dL [facility] Microalbumin Urine 468.0 mg/L [facility] Microalbum Creatinine Ratio Ur 572.7(H) <30 ug/mg cr [facility] Comment:Albumin/Creatinine R atio Reference Ranges: Normal: < 30 ug/mg creatinine Microalbuminuria: 30 - 300 ug/mg creatinineClinical Albuminuria: > 300 ug/mg creatinine 07/09/2023 10:3 0 AM EDT 07/09/2023 12:39 PM EDT us Isai Resendez MD LAB URINE ORDERABLES Final Resul t [facility] [address] [place] [address] [phone] * PSA,Total (05/09/2023 2:57 PM EDT) Prostate Specific Antigen 2.90 <0.05 - 4.0 ng/mL [facility] Comment:PSA methodology: Abb mathew Alinity i ChemiluminescentMicroparticle Immunoassay (CMIA) 05/09/2023 2:57 PM EDT 05/09/2023 2:57 PM EDT [facility] External Provider LAB BLO OD ORDERABLES Final Result [facility] [address] [place] [address] [phone] * (ABNORMAL) CBC auto differential (04/09/2023 2:45 PM EDT) White Blood Count 5.4 4.8 - 10.8 X10*3/uL [facility] Red Blood Count 3.86(L) 4.60 - 5.80 X10*6/uL [facility] Hemoglobin 11.5(L) 14.0 - 18.0 g/dl [facility] Hematocrit 37.0(L) 42.0 - 52.0 % [facility] Mean Corpuscular Volume 95.9 80.0 - 98.0 fL [facility] Mean Corpuscular Hemoglobin 29.8 27.0 - 33.0 pg [facility] Mean Corpuscular HGB Conc 31.1 31.0 - 36.0 g/dl [facility] Red Cell Distribution Width 13.5 11.0 - 16.0 % [facility] Platelet Count 322 160 - 400 X10*3/uL [facility] Mean Platelet Volume 10.3 9.4 - 12.4 fL [facility] Neutrophils Percent Auto 61.5 45 - 73 % [facility] Imm Gran Pct Auto 0.6(H) 0.0 - 0.4 % [facility] Lymphocytes Percent Auto 22.4 20 - 40 % [facility] Monocytes Percent Auto 11.9(H) 2 - 11 % [facility] Eosinophils Percent Auto 2.9 0 - 4 % [facility] Basophils Percent Auto 0.7 0 - 2 % [facility] NRBC Pct Auto 0.0 0.0 - 0.2 /100WBC [facility] Neutrophils Absolute Auto 3.3 2.0 - 8.3 x10*3/uL [facility] Imm Gran Abs Auto 0.03 0.00 - 0.03 X10*3/uL [facility] Lymphocytes Absolute Auto 1.2 1.2 - 4.9 X10*3/uL [facility] Monocytes Absolute Auto 0.7 0.1 - 1.2 X10*3/uL [facility] Eosinophils Absolute Auto 0.2 0.0 - 0.4 X10*3/uL [facility] Basophils Absolute Auto 0.0 0.0 - 0.2 X10*3/uL [facility] NRBC Abs Auto 0.000 0.0 - 0.012 X10*3/uL [facility] 04/09/2023 2:45 PM EDT 04/09/2023 4:13 PM EDT us [facility] External Provider LAB BLO OD ORDERABLES Final Result [facility] [address] [place] [phone] * (ABNORMAL) Basic Metabolic Panel (04/09/2023 2:45 PM EDT) Sodium 136 135 - 145 mmol/L [facility] Potassium 4.4 3.3 - 5.1 mmol/L [facility] Chloride 103 96 - 108 mmol/L [facility] Carbon Dioxide 25 22 - 29 mmol/L [facility] Anion Gap 12 12 - 20 [facility] Urea Nitrogen (BUN) 17(H) 9 - 16 mg/dL [facility] Creatinine, Serum 1.36 0.5 - 1.4 mg/dL [facility] Estimated Glomerular Filt Rate 50 [facility] Comment:NOTE: For -Am erican individuals, multiply the result by 1.210.Chronic Kidney Disease: Estimated GFR < 60 mL/min/1.58y0Enzgax Kidney Disease: Estimated GFR < 15 mL/min/1.73m2 Glucose 180(H) 60 - 115 mg/dL [facility] Calcium 9.7 8.4 - 10.2 mg/dL [facility] 04/09/2023 2:45 PM EDT 04/09/2023 4:13 PM EDT [facility] External Provider LAB BLO OD ORDERABLES Final Result Performing Organization Address [facility] Co de Phone Number [facility] [address] [place] [phone] * Calcium (01/08/2023 9:38 AM EDT) Calcium 9.2 8.4 - 10.2 mg/dL [facility] 01/08/2023 9:38 AM EDT 01/08/2023 9:38 AM EDT [facility] External Provider LAB BLO OD ORDERABLES Final Result Performing Organization Address [facility] Phone Number [facility] [address] [place] [phone] * (ABNORMAL) Creatinine, Serum (01/08/2023 9:38 AM EDT) Creatinine, Serum 1.77(H) 0.5 - 1.4 mg/dL [facility] Estimated Glomerular Filt Rate 37 [facility] Comment:NOTE: For -Am erican individuals, multiply the result by 1.210.Chronic Kidney Disease: Estimated GFR < 60 mL/min/1.27t0Ojvscp Kidney Disease: Estimated GFR < 15 mL/min/1.73m2 01/08/2023 9:38 AM EDT 01/08/2023 9:38 AM EDT [facility] External Provider LAB BLO OD ORDERABLES Final Result Performing Organization Address [facility] Co de Phone Number [facility] [address] [place] [phone] * (ABNORMAL) BUN (Blood Urea Nitrogen) (01/08/2023 9:38 AM EDT) Urea Nitrogen (BUN) 23(H) 9 - 16 mg/dL [facility] 01/08/2023 9:38 AM EDT 01/08/2023 9:38 AM EDT [facility] External Provider LAB BLO OD ORDERABLES Final Result Performing Organization Address [facility] de Phone Number [facility] [address] [place] [address] [phone] * Electrolyte Panel (01/08/2023 9:38 AM EDT) Sodium 136 135 - 145 mmol/L [facility] Potassium 4.0 3.3 - 5.1 mmol/L [facility] Chloride 102 96 - 108 mmol/L [facility] Carbon Dioxide 26 22 - 29 mmol/L [facility] Anion Gap 12 12 - 20 [facility] 01/08/2023 9:38 AM EDT 01/08/2023 9:38 AM EDT [facility] External Provider LAB BLO OD ORDERABLES Final Result Performing Organization Address [facility] de Phone Number [facility] [address] [place] [phone] * (ABNORMAL) GLUCOSE, WHOLE BLOOD (01/07/2023 9:20 AM EDT) Glucose, Whole Blood 169(H) 60 - 115 mg/dL [facility] Comment:METER #: [id number] 01/07/2023 9:20 AM EDT 01/07/2023 9:23 AM EDT [facility] External Provider LAB BLO OD ORDERABLES Final Result Performing Organization Address [facility] Co de Phone Number [facility] [address] [place] [address] [phone] documented in this encounter Visit Diagnoses Not on filedocumented in this encounter Care Teams Laserist Relationship Specialty Start Date End Date Name, MD Isai [address] [place] [address] PCP - General Family Medicine 09/30/18 documented as of this encounter
--- OUTSIDE RECORDS SUMMARY | 2024-11-13 07:41 | XMS_ITS | Clinical Summary ---
Author Organization [facility] Address [address] [place] [address] [place] [address] Phone Care Team Providers Care Auto Mechanic Apprentice Name Role Phone Name, Isai ARZATE Primary Care Provider [phone] Allergies Active Allergy Reactions Criticality Noted Date Comments Metoprolol 01/25/2015 tinnitus Medications amLODIPine (NORVASC) 10 MG tablet Take 1 tablet by mouth 1 (one) time each day 10/17/2017 Active atorvastatin (LIPITOR) 10 MG tablet Take 20 mg by mouth 1 (one) time each day Active Dulaglutide (Trulicity) 0.75 MG/0.5ML solution pen-injector Active glimepiride (AMARYL) 2 MG tablet Take 1 tablet by mouth 1 (one) time each day Active metFORMIN (GLUCOPHAGE) 1000 MG tablet Take 500 mg by mouth in the morning and 500 mg in the evening. Take with meals. Active hydrALAZINE (APRESOLINE) 50 MG tablet Take 50 mg by mouth in the morning and 50 mg in the evening. 12/29/2020 Active losartan (COZAAR) 50 MG tablet Take 100 mg by mouth 1 (one) time each day Active cloNIDine (CATAPRES) 0.1 MG tablet Take 0.1 mg by mouth in the morning and 0.1 mg in the evening. Active carvedilol (COREG) 25 MG tablet Take 25 mg by mouth in the morning and 25 mg in the evening. Take with meals. 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 Diabetes mellitus 01/05/2021 Hyperglycemia 01/05/2021 Obese class I 01/05/2021 Obstructive sleep apnea syndrome 01/05/2021 Gastrointestinal hemorrhage 05/04/2019 Aftercare following joint replacement surgery Chronic kidney disease stage 3 04/06/2019 Essential hypertension 04/06/2019 Hyperlipidemia 04/06/2019 Other abnormalities of gait and mobility 019 Other lack of coordination 04/06/2019 Presence of right artificial knee joint 04/06/20 19 Type 2 diabetes mellitus without complication Unilateral primary osteoarthritis of right knee 04/06/2019 Weakness 04/06/2019 Disorder of eye due to type 2 diabetes mellitus 12/08/2013 05/09/2023 Overview (05/09/2023): NS on eye exam 02/06/13 H/O: alcoholism 03/11/2013 05/09/2023 Esophageal dysmotility 12/30/2012 Overview (05/09/2023): Mild, barium swallow 08/11 Immunizations Name Administration Dates Next Due PPD Test 04/07/2019 Family History Medical History Relation Comments Diabetes Sibling 1 sister Kidney disease Sibling 2 sister Hypertension Sibling 3 brother & sister Relation Status Comments Father Unknown Mother Unknown Sibling 1 Sibling 2 Sibling 3 Social History Tobacco Use Types Packs/Day Years Used Date Smoking Tobacco: Never Alcohol Use Standard Drinks/Week Comments No 0 (1 standard drink = 0.6 oz pur e alcohol) Sex and Gender Information Value Date Recorded Sex Assigned at Not on file Legal Sex Male 4:49 PM EST Gender Identity Not on file Sexual Orientation Not on file Last Filed Vital Signs Vital Sign Reading Time Taken Comments Blood Pressure 130/64 12/26/2023 2:03 PM EDT Pulse 63 12/26/2023 2:03 PM EDT Temperature - - Respiratory Rate - - Oxygen Saturation 97% 01/31/2023 2:03 PM EDT Inhaled Oxygen Concentration - - Weight 90.7 kg (200 lb) 12/26/2023 2:03 PM EDT Height 170.2 cm (5' 7 ) 01/31/2023 2:03 PM EDT Body Mass Index 31.32 01/31/2023 2:03 PM EDT Plan of Treatment Health Maintenance Due Date Last Done Comments Diabetes: Ophthalmology Exam 2020 02/06/2013 Diabetes: Pedal Pulse Checked 2020 Diabetes: Sensory Foot Exam 2020 Diabetes: Visual Foot Exam 2020 Diabetes: Hemoglobin A1C 01/07/2024 024, 04/09/2023, 10/17/2022, Additional history exists Influenza Vaccine (#1) 2024 08/28/2021, 2019 Pneumococcal Vaccine: 65+ Years Completed 09/26/2016, 07/29/2012 Hepatitis B Vaccine Aged Out No longe r eligible based on patient's age to complete this topic Procedures Procedure Name Priority Date/Time Associated Diagnosis Comments COMPREHENSIVE METABOLIC PANEL Routine 11/04/2019 12:00 AM EST from Last 3 Months or Most Recently Relevant to Health Maintenance Results * (ABNORMAL) Comprehensive Metabolic Panel (11/04/2019 12:00 AM EST) Hemoglobin A1C 7.2(H) 4.0 - 6.0 % [facility] Glucose 160 mg/dl [facility] 11/04/2019 us [facility] Conversion LAB BLOOD ORDERABLES Final Resu lt [facility] from Last 3 Months or Most Recently Relevant to Health Maintenance Insurance [facility] ([id number]) [facility] ([id number]) Care Teams Auto Mechanic Apprentice Relationship Specialty Start Date End Date Name, MD Isai [address] [place] [phone] [phone] PCP - General 10/10/20
--- OUTSIDE RECORDS SUMMARY | 2024-11-13 07:41 | XMS_ITS ---
Author Organization [facility] endy Collins Address [address] [address] Care Team Providers Care Horse Racer Name Role Phone Name Isai ARZATE Primary Care Provider Rodrick Li Unavailable [phone] Allergies No Known Allergies REASON FOR VISIT At Risk Footcare, Painful Nail(s) aggravated by shoes and causing difficulty standing/walking, SkinProblem Medications Medication SIG (Take, Route, Frequency, Duration) Notes Start Date End Date Status Glimepiride 2 MG 1 tablet with breakf [...] Wear Daily for 365 days 04/15/2024 Active metFORMIN HCl 500 MG 1 tablet with a brisa l Orally Once a day Active Potassium Active Social History Tobacco Use: Social History Observation Description Date Details (start date - stop date) Never Smoker NA - NA Tobacco use other than smoking: Question Answer Notes Are you an other tobacco user? No Tobacco Control (Standard) Question Answer Notes Tobacco use: Nonsmoker Additional Findings: Tobacco non-user Current no nsmoker Vital Signs Height 5ft 7in in 09/28/2024 Weight 196 lbs 09/28/2024 BMI 30.69 kg/m2 09/28/2024 Blood pressure systolic 133 mm Hg 09/28/20 Blood pressure diastolic 80 mm Hg 024 Procedures Procedure Date Ordered Date Performed Result Body Sit e 62676-ONLDOKZ NAIL, 6 OR MORE 09/28/2024 N/A 80870-QJLY SKIN LESIONS, OVER 4 09/28/2024 N/A Encounters Encounter Location Date Provider Diagnosis [facility] [address] [address] 09/28/2024 Rodrick Hill Type 2 diabetes mellitus with diabetic peripheral angiopathy without gangrene E11.51 ; Tinea unguium B35.1 ; Pain in right toe(s) M79.674 ; Pain in left toe(s) M79.675 and Tinea pedis of both feet B35.3 Assessments Encounter Date Diagnosis (ICD Code) Assessment Notes Treatment Notes Treatment Clinical Notes Section Notes 09/28/2024 Type 2 diabetes mellitus with diabetic peripheral angiopathy without gangrene (ICD-10 - E11.51) Q7(A), Q8(2B), Q9(1B,2C) 09/28/2024 Tinea unguium (ICD-10 - B35.1) 09/28/2024 Pain [...] days Pending Test Test Name Order Date [id number] NAIL, 6 OR MORE 09/28/2024 62408-ZKHL SKIN LESIONS, OVER 4 09/28/20 24 Next Appt Details Follow Up: 2 Months, Reason: Provider Name:Rodrick Hill 12/31/2024 01:30:00 PM, [address], [address], [place], [address], Procedure Notes * Category Sub-Category Detail Notes Debride Nail 6-10 Nail debridement Due to the cl inical pathology outlined in the exam findings, performance of this nail treatment is medically necessary as its management by an unskilled/untrained nonprofessional would put this patients foot and overall health at risk. Therefore, debridement to affected nail(s), as described in exam ( TA, T1, T2, T3, T4, T5 , T8 , T9), was performed exclusively by the physician of record to reduce/remove overall nail length, girth, thickness, subungual debris, and necrotic tissue, by manual and/or electrical means through the use of a nail nipper and/or dremel-type cinnamon grinder, to a more viable healthy nail plate or bed tissue 6-10 nails in total. Silver nitrate was used for any petechial bleeding as necessary. Definitive antifungal treatment options, both pharmaceutical and surgical, have been reviewed and discussed with the patient. The patient solely prefers the use of intermittent/as needed professional debridement services for their nail condition and understands the need for additional periodic treatments to maintain effectiveness in symptomatic relief - 77320 Keratoma Treatment Parring or Cutting o f Benign Hyperkeratotic Lesion(s) (-57) More than 4 Lesions - Due to the at risk nature of the patients medical condition as documented in the exam findings, performance of this keratoderma treatment is medically necessary as its management by an unskilled/untrained nonprofessional would put this patients foot and overall health at risk. Therefore, the benign hyperkeratotic lesions, ( 6) in total, locations as stated and described in the exam ( SUB MTH (s) , 1 , B/L , SUB MTH (s) , 5 , B/L , Plantar, Heel(s) , B/L), were pared, and/or cut utilizing a sterile 15 blade, tissue nippers, and/or power dremel instrumentation by the physician of record - 68965, Q8 Progress Notes * Dudley FERNANDEZ:1940 (83 yo M)Acc No.[id number]:09/28/2024 Progress Note Patient:?Nelson FERNANDEZ Provider:?Rodrick Hill DPM :1940???Age:83 Y???Sex:Male Raul e:09/28/2024 Address: [id number] Pcp:Isai Resendez MD Subjective: * Chief Complaints: * ???At Risk FootcarePainful N ail(s) aggravated by shoes and causing difficulty standing/walkingSkin Problem * HPI: ???At Risk footcare:?Pt States Last PCP Visit:?Date?07/22/2024 ???Skin problems:?Nature:?scaling , redness.?Location:?B/L .?Duration:?several days.?Course:?worse.?Treatments:?Medication (Ciclopirox Olamine 0.77 Cream) - states still needs.? * ROS:?General/Constitutional:?Nausea?denies.?Vomiting?denies.?Hunger Thirst?denies.?Loss appetite?denies.?Chills?denies.?Fatigue?denies.?Fever?denies.?Night Sweats?denies.?Unexplained weight loss?denies.?Unexplained weight gain?denies.?HEENTM:?Dentures?denies.?Dizziness?denies.?Glasses/contacts?admits.?Retinopathy?de nies.?Blurred/double vision?denies.?TMJ?denies.?Discharge/drainage?denies.?Implants?denies.?Sore throat?denies.?Dental implants?denies.?Hard of hearing ?denies.?Difficulty chewing/swallowing/speaking?denies.?Nose bleeds?denies.?Sore mouth?denies.?Respiratory:?On Oxygen?denies.?Pneumonia/pleurisy?denies.?Bronchitis?denies.?Emphysema?denies.?C oughing?denies.?Cough blood?denies.?Shortness of breath?denies.?Wheezing?denies.?Cardiovascular:?Pacemaker?denies.?MVP?denies.?WPW?denies.?CHF?denies.?Heart attack?denies.?Septal defect?denies.?Rapid beat?denies.?Chest pain ?denies.?Atrial Fib.?denies.?Murmur/Palpitations?denies.?Gastrointestinal:?Hemorrhoids?denies.?Stomach/Abdominal pain?denies.?Dark blood stool?denies.?Irritable bowel ?denies.?Constipation?denies.?Diarrhea?denies.?Hematology:?Swelling?denies.?Clots?denies.?Varicose Veins?denies.?Bruising?denies.?Bleeding problem?denies.?Genitourinary:?Blood urine?denies.?Frequent/Painfu/urination/bladder control?denies.?Kidney stones?denies.?Infection (UTI)?denies.?Nephropathy?denies.?sex trans dis (STD)?denies.?Prostate?denies.?Musculoskeletal:?Hammertoes?admits.?Bunions?denies.?Back Pain?admits.?Muscle Cramps/ Resting?denies.?Muscle cramps / walking?denies.?Generalized aches and pains?denies.?Weakness?denies.?Integ.:?Goff?denies.?Scars?denies.?Corns/calluses?admits.?Ingrown nails?admits.?Painful nails?admits.?Open Sores?denies.?Rashes?denies.?Neurologic:?Difficulty sleeping?denies.?Brain disorder?denies.?Numbness?denies.?Balance trouble?denies.?Confusion?denies.?Fainting/blackouts?denies.?Tingling?denies.?Tr emors?denies.? * Medical History:? * Surgical History:?right knee replacement 03/2019right hip replacement 02/2023 * Hospitalization/Major Diagno stic Procedure:?Denies Past Hospitalization * Family History:?Mother: dece ased.?Father: .?Spouse: .? * Social History:?Tobacco Use:?Tobacco use other than smoking?Are you an other tobacco user??No ?Tobacco Control (Standard)?Tobacco use:?Nonsmoker ?Additional Findings: Tobacco non-user?Current nonsmoker * Medications:?TakingamLODIPin e Besylate 10 MG Tablet [...] Foot Deformity(M20.41,M20.42), Preulcerative Skin Lesion(s)(L85.1) Wear Daily Ciclopirox Olamine 0.77 % Cream 1 application Externally Twice a day to feet including between the toes Medication List reviewed and reconciled with the [...] Foot Deformity(M20.41,M20.42), Preulcerative Skin Lesion(s)(L85.1) Wear Daily Taking Ciclopirox Olamine 0.77 % Cream 1 application Externally Twice a day to feet including between the toes Medication List reviewed and reconciled with the patient * Allergies:?N.K.D.A.yes[Aller gies Verified] Objective: * Vitals:?Ht: 5ft 7in, Wt: 196 , BMI: 30.69, Shoe size: 10, BP: 133/80 mm Hg, BS: 145, Ht-cm: 170.18 cm, Wt-k.9 kg. * ???Past Orders: Lab:HEMOGLOBIN A1C (GLYCOHEM OGLOBIN) * Collection Date 06/30/2024 06/30/2024 Collection Time 04:44 PM 03:04 PM Order Date 06/30/2024 06/30/2024 HEMOGLOBIN A1C % (HH) 7.0 NR TOTAL HEMOGLOBIN (HGBA1C) NR 7.0 * Examination: ???Vascular: ?AMPUTATION, NON-TRAUMATIC (A):?Distal T6, T7.?DP PULSES (B):? [...] crumbly malodorous subungual debris, with pain on palpation, TA, T1, T2, T3, T4, T5 , T8 , T9, all other nails not described with characteristics as possessing mycosis are elongated, overgrown, and dystrophic.?Dermatologic: ?SKIN FINDINGS:?Skin exam reveals Keratotic lesion(s) located at , SUB MTH (s) , 1 , B/L , SUB MTH (s) , 5 , B/L , Plantar, Heel(s) , B/L , Skin STILL, shows sign(s) of, erythema, scaling, in a moccasin fashion, no fissure(s) present, B/L.? Assessment: * Assessment: 1.?Type 2 diabetes mellitus with diabetic peripheral angiopathy without gangrene - E11.51 (Primary)???Notes :Q7(A), Q8(2B), Q9(1B,2C)???2.?Tinea unguium - B35.1???3.?Pain in right toe(s) - M79.674???4.?Pain in left toe(s) - M79.675???5.?Tinea pedis of both feet - B35.3???Specify :Acute problem, Uncomplicated (3),Rx drug management (4)??? Plan: * Treatment: 2.?Tinea unguium?Procedure: [id number] NAIL, 6 OR MORE 3.?Tinea pedis of both feet? Start Ciclopirox Olamine Cream, 0.77 %, 1 application, Externally, Twice a day to feet including between the toes, 30 days, 90, Refills 2.?? * Procedures:?Debride Nail 6-10:?Nail debridement?Due to the clinical pathology outlined in the exam findings, performance of this nail treatment is medically necessary as its management by an unskilled/untrained nonprofessional would put this patients foot and overall health at risk. Therefore, debridement to affected nail(s), as described in exam (?TA, T1, T2, T3, T4,?T5?,?T8?,?T9), was performed exclusively by the physician of record to reduce/remove overall nail length, girth, thickness, subungual debris, and necrotic tissue, by manual and/or electrical means through the use of a nail nipper and/or dremel-type cinnamon grinder, to a more viable healthy nail plate or bed tissue 6-10 nails in total. Silver nitrate was used for any petechial bleeding as necessary. Definitive antifungal treatment options, both pharmaceutical and surgical, have been reviewed and discussed with the patient. The patient solely prefers the use of intermittent/as needed professional debridement services for their nail condition and understands the need for additional periodic treatments to maintain effectiveness in symptomatic relief - 40453.?Keratoma Treatment:?Parring or Cutting of Benign Hyperkeratotic Lesion(s)?(-57) More than 4 Lesions - Due to the at risk nature of the patients medical condition as documented in the exam findings, performance of this keratoderma treatment is medically necessary as its management by an unskilled/untrained nonprofessional would put this patients foot and overall health at risk. Therefore, the benign hyperkeratotic lesions, ( 6) in total, locations as stated and described in the exam (?SUB MTH (s)?,?1?,?B/L?,?SUB MTH (s)?,?5?,?B/L?,?Plantar,?Heel(s)?,?B/L), were pared, and/or cut utilizing a sterile 15 blade, tissue nippers, and/or power dremel instrumentation by the physician of record - 58585, Q8.? * Procedure Codes:?03840 DEBRI DE NAIL, 6 OR MORE, Modifiers: XS 48188 TRIM SKIN LESIONS, OVER 4, Modifiers: XS , Q7 * Preventive Medicine:? ??Counseling:?Discussion:?-13: Office or other outpatient visit for the evaluation and management of an established patient, which required a medically appropriate history and/or examination and LOW level of DECISION MAKING for: 1 STABLE ACUTE UNCOMPLICATED PROBLEM, 2 OR MORE MINOR PROBLEMS, OR 1 STABLE CHRONIC PROBLEM, THAT POSE(S) A LOW RISK FOR MORBIDITY/MORTALITY. The visit on the day of the [...] have encouraged the patient to call the office.?Tinea Pedis:?The patient was counseled on the diagnosis, [...] DPM Date:?2023 Generated for Rodrigo pritchett/Deja/Tim on:?11/13/2024 07:41 AM EST History and Physical Notes * HPI (History of Present Illness) Category Sub-Category Detail Notes Category Not es Skin problems Nature: scaling , redness Location: B/L Duration: several days Course: worse Treatments: Medication (Ciclopir ox Olamine 0.77 Cream) - states still needs At Risk footcare Pt States Last PCP Visit: Date: 4 Examination Category Sub-Category Detail Notes Category Not es Dermatologic SKIN FINDINGS: Skin exam reveal s Keratotic lesion(s) located at , SUB MTH (s) , 1 , B/L , SUB MTH (s) , 5 , B/L , Plantar, Heel(s) , B/L , Skin STILL, shows sign(s) of, erythema, scaling, in a moccasin fashion, no fissure(s) present, B/L Vascular DP PULSES (B): 0/4, B/L PT [...] crumbly malodorous subungual debris, with pain on palpation, TA, T1, T2, T3, T4, T5 , T8 , T9, all other nails not described with characteristics as possessing mycosis are elongated, overgrown, and dystrophic
--- OUTSIDE RECORDS SUMMARY | 2024-11-13 07:41 | XMS_ITS | Encounter Summary ---
Author Organization [facility] Address [address] [place] [address] Care Team Providers Care Body Man Name Role Phone Name, Isai ARZATE Primary Care Provider [phone] Reason for Visit * Reason Onset Date Comments Appointment Request 10/25/2022 Encounter Details Date Type Department Care Team ([facility] st Contact Info) Description 10/25/2022 Telephone [facility] [address], [place] [phone] Name, MD Isai [address] [place] [address] Appointment Request Social History Tobacco Use Types Packs/Day Years Used Date Smoking Tobacco: Never Smokeless Tobacco: Never PHQ-2 Answer Date Recorded Patient Health Questionnaire-2 Score 0 10/17/2022 Depression Answer Date Recorded Patient Health Questionnaire-2 Score 0 10/17/2022 Sex and Gender Information Value Date Recorded Sex Assigned at Male 07/30/2022 10:29 AM EDT Legal Sex Male 10:29 AM EDT Gender Identity Male 07/30/2022 10:29 AM EDT Sexual Orientation Straight 07/30/2022 10 :29 AM EDT COVID-19 Exposure Response Date Recorded In the last 10 days, have yo u been in contact with someone who was confirmed or suspected to have Coronavirus/COVID-19? No / Unsure 10/17/2022 3:24 PM EST documented as of this encounter Miscellaneous Notes * Telephone Encounter - Ramirez Bondos - 10/25/2022 11:47 AM EST Tc from daughter requesting a call back regarding appt on 11/26/22 at 2:30 ( NEW DERM seborrheic keratosis and scalp wart) Daughter is looking to r/s appt Please contact daughter at [phone] documented in this encounter Plan of Treatment Upcoming Encounters Date Type Department Care Team (Late st Contact Info) Description 12/30/2024 11:15 AM EDT Telemedicine [facility] MED[facility]INE [address] [place] [id number] Name, MD Isai [address] [place] [address] documented as of this encounter Visit Diagnoses Not on filedocumented in this encounter Care Teams Body Man Relationship Specialty Start Date End Date NameIsai MD [address] [place] [id number] PCP - General Family Medicine 09/30/18 documented as of this encounter
--- OUTSIDE RECORDS SUMMARY | 2024-11-13 07:41 | XMS_ITS | Encounter Summary ---
Author Organization [employer] Address [address] [facility] [address] [place] [address] Care Team Providers Care Service Desk Associate Name Role Phone Name, Isai ARZATE Primary Care Provider [phone] Reason for Visit * Reason Onset Date Comments Medication Question 04/05/2023 Encounter Details Date Type Department Care Team ([facility] st Contact Info) Description 04/05/2023 Telephone [facility] MEDICINE [address] [place] [address] Name, MD Isai [address] [place] [address] Medication Question Social History Tobacco Use Types Packs/Day Years Used Date Smoking Tobacco: Never Smokeless Tobacco: Never Alcohol Answer Date Recorded Frequency of Alcohol [...] suspected to have Coronavirus/COVID-19? No / Unsure 04/09/2023 1:31 PM EDT documented as of this encounter Miscellaneous Notes * Telephone Encounter - Tim Akers RN - 04/05/2023 1:14 PM EDT T/C to Chantel regarding below message. Patient was discharged from [facility] 04/04/2023 and changes in her medication that does not currently reflect list on file. Patient has pain get oxycodonein Rehab which works well. However, Homecare is not requesting anything specifically for pain but needs something stronger than tylenol. Patient has an upcoming appointment on 04/09/23 and Chantel russell to ensure pt has current medication list with him. [facility] discharge medication Glimepiride 4 mg daily Metoprolol 1000 mg BID Esomeprazole 20 mg daily Hydrochlorothiazide 25 mg daily Atorvastatin 20 mg daily Trulicity not on discharge list but daughter gave yesterday. Medication Discharge off patient list: Clonidine Finasteride Hydralazine Olmesartan * Telephone Encounter - Tom Vila - 04/05/2023 12:16 PM EDT Tc from [facility] requesting to speak to a nurse, states would like to go over medlist also is requesting medication for pain they are aware pt is scheduled for [facility] on 04/09/23. Please contact at [phone] documented in this encounter Plan of Treatment Upcoming Encounters Date Type Department Care Team (Late st Contact Info) Description 12/30/2024 11:15 AM EDT Telemedicine [facility] MEDICINE [address] [place] [address] Name, MD Isai [address] [place] [address] documented as of this encounter Visit Diagnoses Not on filedocumented in this encounter Care Teams Service Desk Associate Relationship Specialty Start Date End Date Name, MD Isai [address] [place] [phone] PCP - General Family Medicine 09/30/18 documented as of this encounter
[2024-11-13 07:47] VITALS: BP 167/75; PULSE 72; BMI 31.8
--- NOTE | 2024-11-13 07:47 | A.OFFVIS_ITS ---
Vital Signs 11/13/24 07:47 Height 5 ft 7 in Weight 202 lb 13.204 oz BMI 31.8 BP 167/75 H Blood Pressure Location Lt brachial Position Sitting Pulse 72 Intake Visit Reasons: GI abd pain Intake Note: Nelson presents in the office as a follow up for abdomianl pains. CC: He states that he is feeling good and now having any concerns at this time. Commercial Finance Manager Required: No Allergies No Known Allergies [No Known Allergies*] Allergy (Verified 11/13/24 07:47) Medication List - Last Reconciled 11/13/24 by Gissel Roman MD amlodipine 10 mg PO DAILY atorvastatin 20 mg PO DAILY blood sugar diagnostic As directed clonidine HCl 1 tab PO BID dulaglutide (Trulicity) mg subcut empagliflozin (Jardiance) 25 mg PO DAILY glimepiride 2 mg PO DAILY hydralazine 100 mg See Protocol PO TID 30 days lancets (TRUEplus Lancets) As directed metformin 1,000 mg PO DAILY metoprolol tartrate 100 mg PO BID multivitamin 1 tab PO DAILY olmesartan 40 mg PO DAILY HPI HPI GI abd pain: Details: GI CLINIC VISIT FOR THIS 81-YEAR-OLD MALE FOR FOLLOW-UP. PT WAS HOSPTAL[place] [facility] WITH GI BLEEDING. CHRONIC ILLNESSES:?anxiety, hypertension, SHELLIE, aortic root dilation, thoracic aortic aneurysm without rupture, renal cyst, CKD stage 3, elevated LFTs, fatty liver. TODAY'S VISIT: CC: He states that he is feeling good and now having any concerns at this time. Pain is intermittent Continues to have post prandial squeezing upper abdominal pain 15 to 20 min after eating and last for half an hour - 3-4 times a week Takes peptobismol (1 bottle every 2 weeks) Taking Miralax for constipation - has a BM daily Denies heartburn or dysphagia Appetite is good and denies wt loss Diagnosed with DM several yrs ago. PAST VISIT: UGISBFT results were reviewed with the patient. Continues to have intermittent 10/10 lower abdominal pain once in a while lasting 1-2 min and resolves spontaneously. I have a lot of gasses Complains of constipation.? Has to fight to have a BM. Takes peptobismol twice a day and takes pills for gas as needed. Denies diarrhea and complains of constipation and painful hemorrhoids Has a BM mostly every day ? Completed vaccination for COVID last week. ? Doing well - not taking any acid reducing medications. ? Complains of intermittent lower abdominal pain after eating ? Notes mild pain in the stomach when he eats lasting for a few days. ? Denies heartburn, black stools or rectal bleeding. ? Lost 30 lbs during his hospitalization and gained 20 lbs back. ? Appetite is good. ? Denies dysphagia, heartburn. ? Was taking Omeprazole and stopped 2 months ago. ? Takes peptobismol prn ?LABS:? Reviewed From [facility] 05/02/21 ? HEMOGLOBIN 14.9, HEMATOCRIT 45.8, PLATELET COUNT 232, WBC 6.3. ? BILIRUBIN 1.1, AST 22, ALT 28, ALKALINE PHOSPHATASE 72, ALBUMIN 4.4, CREATININE 1.52, GLUCOSE IS 214, POTASSIUM 4.4. ? CHOLESTEROL 116, HDL 46, LDL 45, TRIGLYCERIDES 172, HEMOGLOBIN A1C 8.3 ? [facility] reviewed. 09/17 H Pylori Breath test was negative ? Sep, 2017 hepatitis-B and C serologies were negative. ?IMAGING STUDIES: 04/2022 UGISBFT SHOWED: Nonspecific thickening gastric folds fundus and proximal to mid body. -No visible gastric ulcer, mass, or gastric outlet obstruction. -Small bowel transit time between 3. 5-6 hours. No small bowel obstruction or thickening of folds. 04/21/[address] scan showed: ? IMPRESSION: ? No evidence for acute abdominal or pelvic inflammatory or infectious processes. No CT evidence for pneumonia. ? Hepatic steatosis. ?ENDOSCOPIC STUDIES: 05/10/20 EGD and colonoscopy showed: ?STOMACH: Moderate diffuse gastric erythema with nodular appearing gastric mucosa and prominent gastric folds -. Biopsies were obtained from the gastric folds and antrum. Grade 2 flap valve on retroflexed examination of the cardia. DUODENUM: Scar of healed ulcer in the bulb and apex and normal descending duod enum Colonoscopy Findings: Three polyps removed Moderate diverticulosis seen in the left colon Moderate hemorrhoids on retroflexed exam. Plan: Patient has an appointment on 05/26/20 in the GI Clinic with Gissel Roman M.D. Repeat Colonoscopy interval based on path results - in 3 years if polyps are adenomatous and 10 years if polyps are hyperplastic. BIOPSIES SHOWED: A. Stomach, antrum, biopsy: Antral-type with moderate chronic inactive inflammation; no Helicobacter organisms seen. B. Stomach fold, biopsy: Oxyntic mucosa with moderate chronic inactive inflammation; no Helicobacter organisms seen. C. Cecum, polypectomy: Tubular adenoma; no high grade dysplasia or carcinoma seen. D. Colon, ascending, polypectomy: Fragments of tubular adenoma; no high grade dysplasia or carcinoma seen. E. Colon, transverse, polypectomy: Fragments of tubular adenoma; no high grade dysplasia or carcinoma seen. [facility] Medical History GI (gastrointestinal bleed) CKD stage 3 due to type 1 diabetes mellitus Aortic root dilatation HTN (hypertension) Anxiety History of colon polyps Balanitis Primary osteoarthritis of knees, bilateral Chondrocalcinosis articularis Diabetes Surgical History History of esophagogastroduodenoscopy (EGD) Hx of colonoscopy (~03/2019) History of arthroplasty of right knee (~03/2019) History of cholecystectomy Family History Father No problems noted. Mother No problems noted. Social History Alcohol intake: never Patient Tobacco Use Status: Former Tobacco user Tobacco use type: Cigarette Years Smoked: 35 Advance Directives Date on File: 01/07/23 Review of Systems Const All systems reviewed & are unremarkable except as noted in HPI and below Physical Exam Vital Signs: Last Vital Signs Pulse 72 11/13/24 07:47 BP 167/75 H 11/13/24 07:47 BMI result Body Mass Index 31.8 Const General: no acute distress Nutritional Appearance: obese Orientation/consciousness: patient oriented x3 HEENT Head: Yes normal to inspection Ears: hearing grossly normal bilaterally Eyes Sclerae: sclerae normal Pupils: Equal, round and reactive pupils present Neck Neck: Yes normal visual inspection Chest Chest palpation & inspection: normal inspection of the chest Resp Effort & Inspection: normal respiratory effort Auscultation: clear to auscultation bilaterally Cardio Palpation: normal PMI Rate: regular rate Rhythm: regular rhythm Heart sounds: S1 normal heart sound present, S2 normal heart sound present and no murmurs GI Palpation (GI): Soft to palpation, Tenderness to palpation present (GI) (Mild epigastric tenderness without rebound) and No hepatosplenomegaly present Auscultation: normal bowel sounds Rectal Exam - Male: Yes deferred Skin General skin exam: no rashes or lesions noted Neuro General: patient oriented x3, gait normal and moves all extremities Cranial nerves: Yes Equal, round and reactive pupils present Psych Appearance: grossly normal Mental Status: mental status grossly normal Assessment & Plan Assessment & Plan (1) Abnormal CT scan, stomach: Code(s): R93.3 - Abnormal findings on diagnostic imaging of other parts of digestive tract Category: Medical (2) Upper abdominal pain: Code(s): R10.10 - Upper abdominal pain, unspecified Category: Medical (3) Hemorrhoids: Code(s): K64.9 - Unspecified hemorrhoids Category: Medical (4) Chronic constipation: Code(s): K59.09 - Other constipation Category: Medical (5) History of duodenal ulcer: Code(s): Z87.19 - Personal history of other diseases of the digestive system Category: Medical (6) NAFL (nonalcoholic fatty liver): Code(s): K76.0 - Fatty (change of) liver, not elsewhere classified Category: Medical (7) Elevated LFTs: Code(s): R79.89 - Other specified abnormal findings of blood chemistry Category: Medical (8) History of colon polyps: Comment: 05/19 Three medium sized polyps were removed. Repeat colonoscopy is advised in 2 years (due in 05/21) Code(s): Z86.010 - Personal history of colon polyps Category: Medical Plan 84 year-old M with DM, hypertension, hypercholesterolemia hospitalized at [facility] in [place], with recurrent GI Bleeding from a duodenal ulcer associated with H Pylori infection. Pt was treated with Bismuth, doxycycline, metronidazole x 14 days at discharge from the hospital and has been doing well. An H Pylori breath test was negative post treatment. Patient complains of intermittent mild postprandial abdominal discomfort and bloating and was prescribed simethicone chewable tablets. Senna prescribed for constipation and hydrocortisone cream for painful hemorrhoids without rectal bleeding Patient was advised to increase omeprazole to 20 mg twice daily. 04/2022 UGISBFT showed Nonspecific thickening gastric folds fundus and proximal to mid body. Pt was advised further evaluation with abdominal CT scan to rule out mesenteric ischemia and to follow up on thickened gastric folds On 01/07/23 @ 10:03 Gissel Roman Wrote To Gissel Roman (2) Pt came for his EGD and colon appt today. BP was high 220/100 (pt did not take his morning medications and brought them with him) Pt had a 4.8 cms aneurysm of the thoracic aorta Procedure was canceled by Anesthesia due to risk aneurysm rupture during the procedure. Pt was asked to take his morning medications and BP was monitored in the discharge area. Pt's daughter, Fabiola, was called and updated. Pt is scheduled for a CT scan and a FU with community service manager next month. Silvering Applicator is Daniel Hall at [address] [place] [address]. Please keep FU appt in GI as scheduled. Pt needs to have surgery for the aneurysm prior to rescheduling his procedures. 11/13/24 Complains of post prandial squeezing upper abdominal pain 15 to 20 min after eating and last for half an hour Takes peptobismol (1 bottle every 2 weeks) Taking Miralax for constipation - has a BM daily Patient advise labs and to schedule an abdominal CT scan for further evaluation of abdominal pain. He was prescribed omeprazole 20 mg twice daily. FU in 3 months - scheduled 03/11/25 Orders: Orders Comprehensive Met. Panel 11/13/24 R10.10 - Upper abdominal pain, unspecified Vitamin B12 and Folate 11/13/24 R10.10 - Upper abdominal pain, unspecified Prothrombin Time INR 11/13/24 R10.10 - Upper abdominal pain, unspecified Lipase 11/13/24 R10.10 - Upper abdominal pain, unspecified Complete Blood Count Auto Diff 11/13/24 R10.10 - Upper abdominal pain, unspecif ied CT abdomen pelvis wo IV con 11/13/24 R10.10 - Upper abdominal pain, unspecified Medications: New omeprazole 20 mg PO BID 180 caps 1RF 90 days R10.10 - Upper abdominal pain, unspecified Coding Level of Care Code Est Pt Level 4 (88091) Diagnoses Abnormal CT scan, stomach R93.3 Upper abdominal pain R10.10 Hemorrhoids K64.9 Chronic constipation K59.09 History of duodenal ulcer Z87.19 NAFL (nonalcoholic fatty liver) K76.0 Elevated LFTs R79.89 History of colon polyps Z86.010 Time Spent (min) 22
== END 2024-11-13 08:27 | disposition home or self-care (01) ==
PROVIDERS: PCP Internal Medicine Geriatric Medicine; Visit Provider Internal Medicine Gastroenterology
DX: R93.3 Abnormal findings on diagnostic imaging of other parts of digestive tract (principal); R10.10 Upper abdominal pain, unspecified; K64.9 Unspecified hemorrhoids; K59.09 Other constipation; Z87.19 Personal history of other diseases of the digestive system; K76.0 Fatty (change of) liver, not elsewhere classified; R79.89 Other specified abnormal findings of blood chemistry; Z86.0100 Personal history of colon polyps, unspecified
CPT/HCPCS: 99214

== ENCOUNTER → 2024-11-13 07:38 | Outpatient (BNVA) | payer OTHER, SELFPAY | PROVIDERS: PCP Internal Medicine Geriatric Medicine; Visit Provider Internal Medicine Gastroenterology | DX: R93.3 Abnormal findings on diagnostic imaging of other parts of digestive tract (principal); R10.10 Upper abdominal pain, unspecified; K64.9 Unspecified hemorrhoids; K59.09 Other constipation; K76.0 Fatty (change of) liver, not elsewhere classified; R79.89 Other specified abnormal findings of blood chemistry; Z87.19 Personal history of other diseases of the digestive system; Z86.0100 Personal history of colon polyps, unspecified | CPT/HCPCS: 99212 ==

== ENCOUNTER 2025-03-11 10:04 | Outpatient (AMB) | payer OTHER, SELFPAY ==
--- NOTE | 2025-03-11 10:17 | MHC.OFFVIS ---
Vital Signs 03/11/25 10:19 Height 5 ft 7 in Weight 199 lb BMI 31.2 BP 122/59 L Blood Pressure Location Lt brachial Position Sitting Pulse 65 Pulse Oximetry (%) 97 Oxygen Delivery Method Room Air Intake Visit Reasons: f/u ct review Intake Note: Patient follow up for Abnormal CT scan, the patient did not have the ordered results done and also no show to his CT scan s/c for 01/08/2025. Patient cc: abdominal pain with bloating after eating, gasses all day, acid reflux( Omeprazole 20 mg) not working, chronic Constipation( 3 dates with out any BM), and some swallowing. Turntable Operator Required: Yes Turntable Operator Name: [facility] [place] Interpeter Accompanied by: Self / Same As Patient Allergies No Known Allergies (No Known Allergies*) Allergy (Verified 07/01/25 13:53) Medication List - Last Reconciled 03/11/25 by Gissel Roman MD amlodipine 10 mg PO DAILY atorvastatin 20 mg PO DAILY blood sugar diagnostic As directed clonidine HCl 1 tab PO BID dulaglutide (Trulicity) mg subcut empagliflozin (Jardiance) 25 mg PO DAILY glimepiride 2 mg PO DAILY hydralazine 100 mg See Protocol PO TID 30 days lancets (TRUEplus Lancets) As directed metformin 1,000 mg PO DAILY metoprolol tartrate 100 mg PO BID multivitamin 1 tab PO DAILY olmesartan 40 mg PO DAILY omeprazole 20 mg PO BID 90 days HPI HPI f/u ct review: Details: GI CLINIC VISIT FOR THIS 84-YEAR-OLD MALE FOR FOLLOW-UP OF UPPER ABD PAIN. PT WAS HOSPTALIZED AT [facility] [place] WITH GI BLEEDING. CHRONIC ILLNESSES:?anxiety, hypertension, SHELLIE, aortic root dilation, thoracic aortic aneurysm without rupture, renal cyst, CKD stage 3, elevated LFTs, fatty liver. TODAY'S VISIT: Patient follow up for Abnormal CT scan, the patient did not have the ordered results done and also no show to his CT scan s/c for 01/08/2025. Patient cc: abdominal pain with bloating after eating, gasses all day, acid reflux( Omeprazole 20 mg) not working, chronic Constipation( 3 days with out any BM), and some swallowing. Complains of post prandial abdominal pain, excessive gas and constipation. Taking Omeprazole and is not helpful Complains of constipation and has a BM every 3-4 days Not taking any medications at present - tried a lot of things and did not work States he or his daughter were not called about the appt for the CT scan Pain is intermittent Continues to have post prandial squeezing upper abdominal pain 15 to 20 min after eating and last for half an hour - 3-4 times a week Takes peptobismol (1 bottle every 2 weeks) Taking Miralax for constipation - has a BM daily Denies heartburn or dysphagia Appetite is good and denies wt loss Diagnosed with DM several yrs ago. PAST VISIT: UGISBFT results were reviewed with the patient. Continues to have intermittent 10/10 lower abdominal pain once in a while lasting 1-2 min and resolves spontaneously. I have a lot of gasses Complains of constipation.? Has to fight to have a BM. Takes peptobismol twice a day and takes pills for gas as needed. Denies diarrhea and complains of constipation and painful hemorrhoids Has a BM mostly every day ? Completed vaccination for COVID last week. ? Doing well - not taking any acid reducing medications. ? Complains of intermittent lower abdominal pain after eating ? Notes mild pain in the stomach when he eats lasting for a few days. ? Denies heartburn, black stools or rectal bleeding. ? Lost 30 lbs during his hospitalization and gained 20 lbs back. ? Appetite is good. ? Denies dysphagia, heartburn. ? Was taking Omeprazole and stopped 2 months ago. ? Takes peptobismol prn ?LABS:? Reviewed From [facility] 05/02/21 ? HEMOGLOBIN 14.9, HEMATOCRIT 45.8, PLATELET COUNT 232, WBC 6.3. ? BILIRUBIN 1.1, AST 22, ALT 28, ALKALINE PHOSPHATASE 72, ALBUMIN 4.4, CREATININE 1.52, GLUCOSE IS 214, POTASSIUM 4.4. ? CHOLESTEROL 116, HDL 46, LDL 45, TRIGLYCERIDES 172, HEMOGLOBIN A1C 8.3 ? LABS IN [place]: 10/09/19 reviewed. 09/17 H Pylori Breath test was negative ? Sep, 2017 hepatitis-B and C serologies were negative. ?IMAGING STUDIES: 04/2022 UGISBFT SHOWED: Nonspecific thickening gastric folds fundus and proximal to mid body. -No visible gastric ulcer, mass, or gastric outlet obstruction. -Small bowel transit time between 3. 5-6 hours. No small bowel obstruction or thickening of folds. 04/21/[address] scan showed: ? IMPRESSION: ? No evidence for acute abdominal or pelvic inflammatory or infectious processes. No CT evidence for pneumonia. ? Hepatic steatosis. ?ENDOSCOPIC STUDIES: 05/10/20 EGD and colonoscopy showed: ?STOMACH: Moderate diffuse gastric erythema with nodular appearing gastric mucosa and prominent gastric folds -. Biopsies were obtained from the gastric folds and antrum. Grade 2 flap valve on retroflexed examination of the cardia. DUODENUM: Scar of healed ulcer in the bulb and apex and normal descending duodenum Colonoscopy Findings: Three polyps removed Moderate diverticulosis seen in the left colon Moderate hemorrhoids on retroflexed exam. Plan: Patient has an appointment on 05/26/20 in the GI Clinic with Gissel Roman M.D. Repeat Colonoscopy interval based on path results - in 3 years if polyps are adenomatous and 10 years if polyps are hyperplastic. BIOPSIES SHOWED: A. Stomach, antrum, biopsy: Antral-type with moderate chronic inactive inflammation; no Helicobacter organisms seen. B. Stomach fold, biopsy: Oxyntic mucosa with moderate chronic inactive inflammation; no Helicobacter organisms seen. C. Cecum, polypectomy: Tubular adenoma; no high grade dysplasia or carcinoma seen. D. Colon, ascending, polypectomy: Fragments of tubular adenoma; no high grade dysplasia or carcinoma seen. E. Colon, transverse, polypectomy: Fragments of tubular adenoma; no high grade dysplasia or carcinoma seen [facility] Medical History GI (gastrointestinal bleed) CKD stage 3 due to type 1 diabetes mellitus Aortic root dilatation HTN (hypertension) Anxiety History of colon polyps Balanitis Primary osteoarthritis of knees, bilateral Chondrocalcinosis articularis Diabetes Surgical History History of esophagogastroduodenoscopy (EGD) Hx of colonoscopy (~03/2019) History of arthroplasty of right knee (~03/2019) History of cholecystectomy Family History Father No problems noted. Mother No problems noted. Social History Alcohol intake: never Patient Tobacco Use Status: Former Tobacco user Tobacco use type: Cigarette Years Smoked: 35 Advance Directives Date on File: 01/07/23 Review of Systems Const All systems reviewed & are unremarkable except as noted in HPI and below Physical Exam Vital Signs: Last Vital Signs Pulse 65 03/11/25 10:19 BP 122/59 L 03/11/25 10:19 Pulse Ox 97 03/11/25 10:19 Oxygen Delivery Method Room Air 03/11/25 10:19 BMI result Body Mass Index 31.2 Const General: no acute distress Nutritional Appearance: obese Orientation/consciousness: patient oriented x3 HEENT Head: Yes normal to inspection Ears: hearing grossly normal bilaterally Eyes Sclerae: sclerae normal Pupils: Equal, round and reactive pupils present Neck Neck: Yes normal visual inspection Chest Chest palpation & inspection: normal inspection of the chest Resp Effort & Inspection: normal respiratory effort Auscultation: clear to auscultation bilaterally Cardio Palpation: normal PMI Rate: regular rate Rhythm: regular rhythm Heart sounds: S1 normal heart sound present, S2 normal heart sound present and no murmurs GI Palpation (GI): Soft to palpation, Tenderness to palpation present (GI) (Mild epigastric tenderness without rebound) and No hepatosplenomegaly present Auscultation: normal bowel sounds Rectal Exam - Male: Yes deferred Skin General skin exam: no rashes or lesions noted Neuro General: patient oriented x3, gait normal and moves all extremities Cranial nerves: Yes Equal, round and reactive pupils present Psych Appearance: grossly normal Mental Status: mental status grossly normal Assessment & Plan Assessment & Plan (1) NAFL (nonalcoholic fatty liver): Code(s): K76.0 - Fatty (change of) liver, not elsewhere classified Category: Medical (2) Elevated LFTs: Code(s): R79.89 - Other specified abnormal findings of blood chemistry Category: Medical (3) Chronic constipation: Code(s): K59.09 - Other constipation Category: Medical (4) Hemorrhoids: Code(s): K64.9 - Unspecified hemorrhoids Category: Medical (5) Upper abdominal pain: Code(s): R10.10 - Upper abdominal pain, unspecified Category: Medical (6) Abnormal CT scan, stomach: Code(s): R93.3 - Abnormal findings on diagnostic imaging of other parts of digestive tract Category: Medical Plan 84 year-old M with DM, hypertension, hypercholesterolemia hospitalized at [facility] [place] in [place], with recurrent GI Bleeding from a duodenal ulcer associated with H Pylori infection. Pt was treated with Bismuth, doxycycline, metronidazole x 14 days at discharge from the hospital and has been doing well. An H Pylori breath test was negative post treatment. Patient complains of intermittent mild postprandial abdominal discomfort and bloating and was prescribed simethicone chewable tablets. Senna prescribed for constipation and hydrocortisone cream for painful hemorrhoids without rectal bleeding Patient was advised to increase omeprazole to 20 mg twice daily. 04/2022 UGISBFT showed Nonspecific thickening gastric folds fundus and proximal to mid body. Pt was advised further evaluation with abdominal CT scan to rule out mesenteric ischemia and to follow up on thickened gastric folds On 01/07/23 @ 10:03 Gissel Roman Wrote To Gissel Roman (2) Pt came for his EGD and colon appt today. BP was high 220/100 (pt did not take his morning medications and brought them with him) Pt had a 4.8 cms aneurysm of the thoracic aorta Procedure was canceled by Anesthesia due to risk aneurysm rupture during the procedure. Pt was asked to take his morning medications and BP was monitored in the discharge area. Pt's daughter, Fabiola, was called and updated. Pt is scheduled for a CT scan and a FU with scheduling agent next month. Head Of Mobile is Daniel Hall at [address] [place] [address]. Please keep FU appt in GI as scheduled. Pt needs to have surgery for the aneurysm prior to rescheduling his procedures. 11/13/24 Complains of post prandial squeezing upper abdominal pain 15 to 20 min after eating and pain lasts for half an hour Takes peptobismol (1 bottle every 2 weeks) Taking Miralax for constipation - has a BM daily Patient advise labs and to schedule an abdominal CT scan for further evaluation of abdominal pain. He was prescribed omeprazole 20 mg twice daily. 03/11/25 Complains of post prandial abdominal pain, excessive gas and constipation. Taking Omeprazole and is not helpful Complains of constipation and has a BM every 3-4 days Not taking any medications at present - tried a lot of things and did not work Patient was advised to re-schedule an Abd CT scan. FU in 3 months - Orders: Orders CT abdomen pelvis wo IV con 03/11/25 R10.10 - Upper abdominal pain, unspecified Medications: New linaclotide (Linzess) 145 mcg PO QAM 60 caps 3RF 60 days R10.10 - Upper abdominal pain, unspecified pantoprazole 40 mg PO DAILY 60 tabs 3RF 60 days R10.10 - Upper abdominal pain, unspecified Discontinued omeprazole Discontinued Reason: Ancillary Entered New Order 20 mg PO BID 90 days 180 caps 1RF R10.10 - Upper abdominal pain, unspecified Coding Level of Care Code Est Pt Level 4 (68615) Diagnoses NAFL (nonalcoholic fatty liver) K76.0 Elevated LFTs R79.89 Chronic constipation K59.09 Hemorrhoids K64.9 Upper abdominal pain R10.[address] scan, stomach R93.3 Time Spent (min) 20
[2025-03-11 10:19] VITALS: BP 122/59; PULSE 65; O2SAT 97; BMI 31.2
--- OUTSIDE RECORDS SUMMARY | 2025-03-11 11:30 | XMS_ITS | Encounter Summary ---
Author Organization [facility] Address [address] [place] [address] 7[address] [place] [address] Care Team Providers Care Project Facilitator Name Role Phone Name, Isai ARZATE Primary Care Provider [phone] Reason for Referral * Consultation (Urgent) - Closed Specialty Diagnoses / Procedures Referred By Contac t Referred To Contact Physical Therapy Diagnoses Stress fracture of sacrococcygeal region with routine healing Roxanna Nichole MD [address] [place] [address] Phone: tel: fax: [facility] [address] [place] [address] Phone: tel: fax: Referral ID Status Reason Start Date Expiration Date V isits Requested Visits Authorized [id number] Closed Specialty Services Required 04/20/2024 04/20/2025 1 1 Encounter Details Date Type Department Care Team (Late st Contact Info) Description 04/20/2024 Orders Only [facility] [address] [place] [address] [phone] Roxanna Nichole MD [address] [place], [place] [phone] Stress fracture of sacrococcygeal region with routine [...] Care Team (Late st Contact Info) Description 04/13/2025 11:15 AM EDT Office Visit [facility] [address] [place] [address] Name, MD Isai [address] [place] [address] Scheduled Referrals Name Type Priority Associated Diagnoses [...] documented as of this encounter Care Teams Project Facilitator Relationship Specialty Start Date End Date Name, MD Isai [address] [place] [address] PCP - General Family Medicine 09/30/18 documented as of this encounter
== END 2025-03-11 11:17 | disposition home or self-care (01) ==
LOC: HO.HGI 10:04
PROVIDERS: PCP Internal Medicine Geriatric Medicine; Visit Provider Internal Medicine Gastroenterology
DX: K76.0 Fatty (change of) liver, not elsewhere classified (principal); R79.89 Other specified abnormal findings of blood chemistry; K59.09 Other constipation; K64.9 Unspecified hemorrhoids; R10.10 Upper abdominal pain, unspecified; R93.3 Abnormal findings on diagnostic imaging of other parts of digestive tract
CPT/HCPCS: 99499

== ENCOUNTER → 2025-03-11 10:04 | Outpatient (BNVA) | payer OTHER, SELFPAY | PROVIDERS: PCP Internal Medicine Geriatric Medicine; Visit Provider Internal Medicine Gastroenterology ==

== ENCOUNTER 2025-04-15 09:09 | Outpatient (REF) | payer OTHER, SELFPAY ==
--- OUTSIDE RECORDS SUMMARY | 2025-04-15 09:30 | XMS_ITS | Patient Health Record ---
Author Organization [facility] Address [address] [place] [address] Care Team Providers Care Engineering Group Leader Name Role Phone Name Isai ARZATE Primary Care Provider Rodrick Li Unavailable [phone] Allergies No Known Allergies Results Component Value Reference Range Notes HEMOGLOBIN A1C (GLYCOHEMOGLO BIN) Reviewed date:09/28/2024 03:04:52 PM Interpretation: Performing Lab: Notes/Report: TOTAL HEMOGLOBIN (HGBA1C) 7.0 HEMOGLOBIN A1C (GLYCOHEMOGLO BIN) Reviewed date:10/17/2024 04:45:03 PM Interpretation: Performing Lab: Notes/Report: HEMOGLOBIN A1C % (HH) 7.0 HEMOGLOBIN A1C (GLYCOHEMOGLO BIN) Reviewed date:12/31/2024 01:16:44 PM Interpretation: Performing Lab: Notes/Report: HEMOGLOBIN A1C % (HH) 7.0 HEMOGLOBIN A1C (GLYCOHEMOGLO BIN) Reviewed date:03/31/2025 02:40:09 PM Interpretation: Performing Lab: Notes/Report: HEMOGLOBIN A1C % (HH) 7.0 Reason For Referral No Information Medications Medication SIG (Take, Route, Frequency, Duration) Notes Start Date End Date Status amLODIPine Besylate 10 MG 1 tablet Orally Once a day Active Extra Depth Orthopedic Shoes, (1) Pair With (3) Pair Custom Heat Molded Multidensity Innersoles Dx: NIDDM/PVD(E11.51), Hammertoe Foot Deformity(M20.41,M20.42), Preulcerative Skin Lesion(s)(L85.1) Wear Daily; Duration: 365 days Active Ciclopirox Olamine 0.77 % 1 application Externally Twice a day to feet including between the toes; Duration: 30 days Active hydrALAZINE HCl 50 MG 1 tablet with food Orally Three times a day Active Glimepiride 2 MG 1 tablet with breakf ast or the first main meal of the day Orally Once a day Active Atorvastatin Calcium 20 MG 1 tablet Orally Once a day Active Trulicity 3 MG/0.5ML as directed Subcutaneous Active Potassium Active metFORMIN HCl 500 MG 1 tablet with a brisa l Orally Once a day Active Social History Tobacco Use: Social History Observation Description Date Details (start date - stop date) Never Smoker NA - NA Tobacco use other than smoking: Question Answer Notes Are you an other tobacco user? No Tobacco Control (Standard) Question Answer Notes Tobacco use: Nonsmoker Additional Findings: Tobacco non-user Current no nsmoker AUDIT-C (Standard) Question Answer Notes Did you have a drink containing alcohol in the p ast year? No Points 0 Interpretation Negative Problems Problem Type SNOMED Code ICD Code Onset Dates Problem Status W/U Status Risk Notes Problem Acquired hammer toe of right foot (3486603461515 105) Other hammer toe(s) (acquired), right foot (M20.41) Active confirmed Response to treatment,I mprovement Problem Type 2 diabetes mellitus with peripheral angiopathy (775023596) Type 2 diabetes mellitus with diabetic peripheral angiopathy without gangrene (E11.51) Active confirmed Q7(A), Q8(2B), Q9(1B,2C) Problem Acquired hammer toe of left foot (2353138027804 103) Other hammer toe(s) (acquired), left foot (M20.42) Active confirmed Response to treatment,I mprovement Vital Signs Blood pressure diastolic 80 mm Hg 03/31/2025 Height 5ft 7in in 03/31/2025 Blood pressure systolic 135 mm Hg 03/31/2025 Weight 196 lbs 03/31/2025 BMI 30.69 kg/m2 03/31/2025 Procedures Procedure Date Ordered Date Performed Result Body Sit e 66295-SMYKNPN NAIL, 6 OR MORE 04/15/2024 N/A 46374-PGEA SKIN LESIONS, OVER 4 04/15/2024 N/A 85438-Yzvr. Subungual Hematoma 04/15/2024 N/A 75105-KSCMRZC NAIL, 6 OR MORE 06/29/2024 N/A 40639-OTUW SKIN LESIONS, OVER 4 06/29/2024 N/A 04317-MSHGDYC NAIL, 6 OR MORE 09/28/2024 N/A 49652-OPMJ SKIN LESIONS, OVER 4 09/28/2024 N/A 57325-HYGOCVJ NAIL, 6 OR MORE 12/31/2024 N/A 04977-SMPL SKIN LESIONS, OVER 4 12/31/2024 N/A 46248-JCMBVSD NAIL, 6 OR MORE 03/31/2025 N/A 09151-MONL SKIN LESIONS, OVER 4 03/31/2025 N/A Encounters Encounter Location Date Provider Diagnosis [address] [address] 04/15/2024 Rodrick Hill Type 2 diabetes mellitus with diabetic peripheral angiopathy without gangrene E11.51 ; Tinea unguium B35.1 ; Pain in right toe(s) M79.674 ; Pain in left toe(s) M79.675 ; Other hammer toe(s) (acquired), left foot M20.42 ; Other hammer toe(s) (acquired), right foot M20.41 and Subungual hematoma of left foot, initial encounter S90.222A [address] [address] 06/29/2024 Rodrick Hill Type 2 diabetes mellitus with diabetic peripheral angiopathy without gangrene E11.51 ; Tinea unguium B35.1 ; Pain in right toe(s) M79.674 ; Pain in left toe(s) M79.675 ; Other hammer toe(s) (acquired), right foot M20.41 ; Other hammer toe(s) (acquired), left foot M20.42 and Tinea pedis of both feet B35.[address] [address] 09/28/2024 Rodrick Hill Type 2 diabetes mellitus with diabetic peripheral angiopathy without gangrene E11.51 ; Tinea unguium B35.1 ; Pain in right toe(s) M79.674 ; Pain in left toe(s) M79.675 and Tinea pedis of both feet B35.3 [facility] [address] [address] 12/31/2024 Rodrick Hill Type 2 diabetes mellitus with diabetic peripheral angiopathy without gangrene E11.51 ; Tinea unguium B35.1 ; Pain in right toe(s) M79.674 ; Pain in left toe(s) M79.675 and Tinea pedis of both feet B35.3 [facility] [address] [address] 03/31/2025 Rodrick Hill Type 2 diabetes mellitus with diabetic peripheral angiopathy without gangrene E11.51 ; Other hammer toe(s) (acquired), right foot M20.41 ; Tinea unguium B35.1 ; Pain in right toe(s) M79.674 ; Pain in left toe(s) M79.675 and Other hammer toe(s) (acquired), left foot M20.42 Assessments Encounter Date Diagnosis (ICD Code) Assessment [...] Q9(1B,2C) 09/28/2024 Tinea unguium (ICD-10 - B35.1) 12/31/2024 Type 2 diabetes mellitus with diabetic peripheral angiopathy without gangrene (ICD-10 - E11.51) Q7(A), Q8(2B), Q9(1B,2C) 12/31/2024 Tinea unguium (ICD-10 - B35.1) 03/31/2025 Other hammer toe(s) (acquired), right foot (ICD-10 - M20.41) Patient Educated with: DIABETIC FOOT CARE INSTRUCTIONS.p df (DIABETIC FOOT CARE INSTRUCTIONS.p df) 03/31/2025 Type 2 diabetes mellitus with diabetic peripheral angiopathy without gangrene (ICD-10 - E11.51) 12/31/2024 Pain in right toe(s) (ICD-10 - M79.674) 09/28/2024 Pain in right toe(s) (ICD-10 - M79.674) 03/31/2025 Tinea unguium (ICD-10 - B35.1) 06/29/2024 Pain in right toe(s) (ICD-10 - M79.674) 04/15/2024 Tinea unguium (ICD-10 - B35.1) 04/15/2024 Pain in right toe(s) (ICD-10 - M79.674) 09/28/2024 Pain in left toe(s) (ICD-10 - M79.675) 06/29/2024 Pain in left toe(s) (ICD-10 - M79.675) 03/31/2025 Pain in right toe(s) (ICD-10 - M79.674) 12/31/2024 Pain in left toe(s) (ICD-10 - M79.675) 09/28/2024 Tinea pedis of both feet (ICD-10 - B35.3) 12/31/2024 Tinea pedis of both feet (ICD-10 - B35.3) 03/31/2025 Pain in left toe(s) (ICD-10 - M79.675) 06/29/2024 Other hammer toe(s) (acquired), right foot (ICD-10 - M20.41) Response to treatment,Impro vement 04/15/2024 Pain in left toe(s) (ICD-10 - M79.675) 04/15/2024 Other hammer toe(s) (acquired), left foot (ICD-10 - M20.42) 06/29/2024 Other hammer toe(s) (acquired), left foot (ICD-10 - M20.42) Response to treatment,Impro vement 03/31/2025 Other hammer toe(s) (acquired), left foot (ICD-10 - M20.42) 06/29/2024 Tinea pedis of both feet (ICD-10 - B35.3) 04/15/2024 Other hammer toe(s) (acquired), right foot (ICD-10 - M20.41) Patient Educated with: DIABETIC FOOT CARE INSTRUCTIONS.p df (DIABETIC FOOT CARE INSTRUCTIONS.p df) 04/15/2024 Subungual hematoma of left foot, initial encounter (ICD-10 - S90.222A) Plan Of Treatment Pending Test Test Name Order Date 90408-NUANEQM NAIL, 6 OR MORE 04/15/2024 16809-LDLGAOO NAIL, 6 OR MORE 06/29/2024 92362-DFGHODZ NAIL, 6 OR MORE 09/28/2024 69272-MTNYAHL NAIL, 6 OR MORE 12/31/2024 45275-ENEZGCR NAIL, 6 OR MORE 03/31/2025 29908-TGMT SKIN LESIONS, OVER 4 03/31/20 25 51357-ALXT SKIN LESIONS, OVER 4 04/15/20 24 49331-XCZM SKIN LESIONS, OVER 4 01/01/20 25 59156-OSZO SKIN LESIONS, OVER 4 09/28/20 24 04842-AMEP SKIN LESIONS, OVER 4 06/29/20 24 39685-Obam. Subungual Hematoma 4 Next Appt Details Provider Name:Rodrick Hill , 06/24/2025 02:00:00 PM, [address] [facility], [address], [place], [address], Insurance Providers Payer Name Payer Address Payer Phone Subscriber Number Group Number Insured Name Patient Relationship to Insured Coverage Start Date Coverage End Date [facility] [employer] Claims [address] [place] [address] [id number] Nelson Vela Self - patient is the insured Medical (General) History Medical History History ICD Code Arthritis Back,Hip,and Knee pain Diabetic High blood pressure Stomach ulcer Joint implants/screws Bone implants/screws Transfusions Surgical History Surgery Date(Month/Year) 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
--- OUTSIDE RECORDS SUMMARY | 2025-04-15 09:30 | XMS_ITS | Clinical Summary ---
Author Organization [facility] Address [address] [place] [address] [place] [address] Phone Care Team Providers Care Supervisor Slate Splitting Name Role Phone Name, Isai ARZATE Primary Care Provider [phone] Allergies Active Allergy Reactions Criticality Noted Date [...] Overview (05/09/2023): Mild, barium swallow 08/11 Immunizations Immunization Administration Dates Next Due PPD Test 04/07/2019 [...] 10/17/2022, Additional history exists Influenza Vaccine (#1) 2025 08/28/2021, 2019 Pneumococcal Vaccine: 50+ Years Completed 09/26/2016, 07/29/2012 Pneumococcal Vaccine: Peds (0 to 5 Years) and At-Risk Patients (6 to 49 Years) Discontinued 09/26/2016, 07/29/2012 Hepatitis B Vaccine Aged Out [...] Most Recently Relevant to Health Maintenance Insurance [facility] ([id number]) [facility] ([id number]) Care Teams Supervisor Slate Splitting Relationship Specialty Start Date End Date Name, MD Isai [address] [place] [address] PCP - General 10/10/20
--- OUTSIDE RECORDS SUMMARY | 2025-04-15 09:30 | XMS_ITS | Encounter Summary ---
Author Organization [facility] Address [address] [place] [address] 7t [place] [address] Care Team Providers Care Radioactivity Technician Name Role Phone Name, Isai ARZATE Primary Care Provider [phone] Reason for Referral * Consultation (Urgent) - Closed Specialty Diagnoses / Procedures Referred By Contac t Referred To Contact Physical Therapy Diagnoses Stress fracture of sacrococcygeal region with routine healing Roxanna Nichole MD [address] [place] [address] Phone: tel: fax: [facility] [address] [place] [address] Phone: tel: fax: Referral ID Status Reason Start Date Expiration Date V isits Requested Visits Authorized [id number] Closed Specialty Services Required 04/20/2024 04/20/2025 1 1 Encounter Details Date Type Department Care Team (Late st Contact Info) Description 04/20/2024 Orders Only [facility] [address] [place] [address] [phone] Roxanna Nichole MD [address] [place], [place] [phone] Stress fracture of sacrococcygeal region with routine [...] as of this encounter Plan of Treatment Scheduled Referrals Name Type Priority Associated Diagnoses [...] documented as of this encounter Care Teams Radioactivity Technician Relationship Specialty Start Date End Date Name, MD Isai [address] [place] [address] PCP - General Family Medicine 09/30/18 documented as of this encounter
[2025-04-15 11:10] LABS: MANUAL DIFF FLAG NO
[2025-04-15 11:15] LABS: Hematocrit 48.5 % (42.0-52.0); Hemoglobin 15.7 g/dl (14.0-18.0); Imm Gran Abs Auto 0.03 X10*3/uL (0.00-0.03); Imm Gran Pct Auto 0.6 % (0.0-0.4); Lymphocytes Absolute Auto 1.7 X10*3/uL (1.2-4.9); Mean Corpuscular HGB Conc 32.4 g/dl (31.0-36.0); Mean Corpuscular Hemoglobin 29.0 pg (27.0-33.0); Mean Corpuscular Volume 89.6 fL (80.0-98.0); NRBC Abs Auto 0.000 X10*3/uL (0.0-0.012); NRBC Pct Auto 0.0 /100WBC (0.0-0.2); Platelet Count 242 X10*3/uL (160-400); Red Blood Count 5.41 X10*6/uL (4.60-5.80); White Blood Count 5.5 X10*3/uL (4.8-10.8)
[2025-04-15 11:22] LABS: INTERNATIONAL NORM RATIO 1.0 (0.9-1.1); Prothrombin Time 12.0 SEC (10.9-12.4)
[2025-04-15 11:30] LABS: Alanine Aminotransferase 30 U/L (0-40); Albumin Level 4.3 g/dL (3.5-5.0); Alkaline Phosphatase 79 U/L (39-117); Anion Gap 14 (12-20); Aspartate Amino Transferase 31 U/L (5-37); Blood Urea Nitrogen 20 mg/dL (9-16); Calcium 8.9 mg/dL (8.4-10.2); Carbon Dioxide 26 mmol/L (22-29); Chloride 105 mmol/L (96-108); Cholesterol 112 mg/dL (<200); Estimated Glomerular Filt Rate 35; HDL Cholesterol 27 mg/dL (>40); Lipase 69 U/L (8-78); Potassium 3.9 mmol/L (3.3-5.1); Sodium 141 mmol/L (135-145); Total Protein 7.0 g/dL (6.5-8.0); Triglycerides 205 mg/dL (<150)
[2025-04-15 12:02] LABS: Folate 13.2 ng/mL (> or = 4.0); Vitamin B12 810 pg/mL (200-900)
[2025-04-15 12:10] LABS: Microalbum/Creatinine Ratio Ur 320.2 ug/mg cr (<30)
== END 2025-04-15 09:10 | disposition home or self-care (01) ==
LOC: HO.HHCL 09:09
PROVIDERS: Internal Medicine Gastroenterology; PCP Internal Medicine Geriatric Medicine; Visit Provider Internal Medicine Geriatric Medicine
DX: E11.22 Type 2 diabetes mellitus with diabetic chronic kidney disease (principal); R10.10 Upper abdominal pain, unspecified; E11.65 Type 2 diabetes mellitus with hyperglycemia; N18.30 Chronic kidney disease, stage 3 unspecified; I12.9 Hypertensive chronic kidney disease with stage 1 through stage 4 chronic kidney disease, or unspecified chronic kidney disease
CPT/HCPCS: 36415; 80053; 80061; 82043; 82570; 82607; 82746; 83690; 85025; 85610

== ENCOUNTER 2025-06-25 10:03 | Outpatient (REF) | payer OTHER, SELFPAY ==
--- OUTSIDE RECORDS SUMMARY | 2025-06-24 10:00 | XMS_ITS ---
Author Organization [facility] Address [address] [facility] [place] [address] Care Team Providers Care Solution Mixer Name Role Phone Name Isai ARZATE Primary Care Provider Rodrick Li Unavailable [phone] Allergies No Known Allergies REASON FOR VISIT At Risk Footcare, Painful Nail(s) aggravated by shoes and causing difficulty standing/walking Medications Medication SIG (Take, Route, Frequency, Duration) [...] Lesion(s)(L85.1) Wear Daily; Duration: 365 days Active hydrALAZINE HCl 50 MG 1 tablet with food Orally Three times a day Active metFORMIN HCl 500 MG 1 tablet [...] ast year? No Points 0 Interpretation Negative Vital Signs Height 5ft 7in in 06/24/2025 Weight 195 lbs 06/24/2025 BMI 30.54 kg/m2 06/24/2025 Blood pressure systolic 151 mm Hg 06/24/20 Blood pressure diastolic 86 R mm Hg 025 Heart Rate 68 /min 06/24/2025 Procedures Procedure Date Ordered Date Performed Result Body Sit e 84771-WCSXJNT NAIL, 6 OR MORE 06/24/2025 N/A 28958-IDLV SKIN LESIONS, OVER 4 06/24/2025 N/A Encounters Encounter Location Date Provider Diagnosis [facility] [place] [address] [place] [address] [place] [address] 06/24/2025 Rodrick Hill Type 2 diabetes mellitus with diabetic peripheral angiopathy without gangrene E11.51 ; Tinea unguium B35.1 ; Pain in right toe(s) M79.674 and Pain in left toe(s) M79.675 Assessments Encounter Date Diagnosis (ICD Code) Assessment Notes Treatment Notes Treatment Clinical Notes Section Notes 06/24/2025 Type 2 diabetes mellitus with diabetic peripheral angiopathy without gangrene (ICD-10 - E11.51) 06/24/2025 Tinea unguium (ICD-10 - B35.1) 06/24/2025 Pain in right toe(s) (ICD-10 - M79.674) 06/24/2025 Pain in left toe(s) (ICD-10 - M79.675) Plan Of Treatment Pending Test Test Name Order Date 50333-AYMHPYJ NAIL, 6 OR MORE 06/24/2025 39871-KGSH SKIN LESIONS, OVER 4 06/24/20 Next Appt Details Follow Up: 2 Months, Reason: Provider Name:Rodrick Hill , 10/11/2025 02:30:00 PM, [address] [facility], [address] [facility], [place], [address], Procedure Notes * Category Sub-Category Detail Notes [...] T2, T3, T4, T5 , T8 , T9 ), was performed exclusively by the physician of record to reduce/remove overall nail length, girth, thickness, subungual debris, and necrotic tissue, by manual and/or electrical means through the use of a nail nipper and/or dremel-type track grinder, to a more viable healthy nail [...] to maintain effectiveness in symptomatic relief - 64672 Keratoma Treatment Parring or Cutting o f [...] , B/L , Plantar, Heel(s) , B/L ), were pared, and/or cut utilizing a sterile 15 blade, tissue nippers, and/or power dremel instrumentation by the physician of record - 84975, Q7 Progress Notes * Nelson FERNANDEZDOB:1940 (84 yo M)Acc No.[id number]:06/24/2025 Progress Note Patient: Nelson DEVINE Provider: Sunita Hill DPM :1940 A ge:84 Y S ex:Male Date:06/24/2025 Address:[address] [place] [id number] Pcp:Isai Resendez MD Subjective: * Chief Complaints: * A t Risk FootcarePainful Nail(s) aggravated by shoes and causing difficulty standing/walking * HPI: A t Risk footcare: Pt States Last PCP Visit: D ate 0 04/08/2025 * ROS: G eneral/Constitutional: Nausea d enies. V omiting d enies. H sadie Thirst d enies. L oss appetite d enies. C hills d enies. F atigue d enies.?Fever d enies. N ight Sweats d enies. U nexplained weight loss d enies. U nexplained weight gain d enies. H EENTM: Dentures d enies. D izziness d enies. G lasses/contacts a dmits. R etinopathy d enies. B lurred/double vision d enies. T MJ?denies. D ischarge/drainage d enies. I mplants d enies. S ore throat d enies. D ental implants d enies. H yamila of hearing d enies. D ifficulty chewing/swallowing/speaking d enies. N ose bleeds d enies. S ore mouth d enies. ? R espiratory: On Oxygen d enies. P neumonia/pleurisy d enies.?Bronchitis d enies. E mphysema d enies. C oughing d enies. C ough blood?denies. S hortness of breath d enies. W heezing d enies. C ardiovascular: Pacemaker d enies. M ELECTRONICS MECHANIC APPRENTICE d enies. W PW d enies. C HF d enies. H eart attack d enies. S eptal defect d enies. R apid beat d enies. C hest pain d enies. A trial Fib. d enies. M urmur/Palpitations d enies. G astrointestinal: Hemorrhoids d enies. S tomach/Abdominal pain d enies. D ark blood stool d enies. I rritable bowel d enies. C onstipation d enies. D iarrhea d enies. H ematology: Swelling d enies. C lots d enies. V aricose Veins d enies. B ruising d enies. B leeding problem d enies. G enitourinary: Blood urine d enies. F requent/Painfu/urination/bladder control d enies. K idney stones d enies. I nfection (UTI) d enies. N ephropathy d enies. s ex trans dis (STD) d enies. P rostate d enies. M usculoskeletal: Hammertoes a dmits. B unions d enies. B ack Pain a dmits. M uscle Cramps/ Resting d enies. M uscle cramps / walking d enies.?Generalized aches and pains d enies. W eakness d enies. I nteg.: Goff d enies. S cars d enies. C orns/calluses?admits. I ngrown nails a dmits. P ainful nails a dmits. O pen Sores d enies. R ashes d enies. N eurologic: Difficulty sleeping d enies. B rain disorder d enies. N umbness d enies. B alance trouble d enies. C onfusion d enies. F ainting/blackouts d enies. T ingling d enies. T remors d enies. * Medical History: * Surgical History: r ight knee replacement 03/2019right hip replacement 02/2023 * Hospitalization/Major Diagno stic Procedure: D enies Past Hospitalization * Family History: M other: . F ather: . S pouse: . * Social History: T obacco Use: T obacco use other than smoking A re you an other tobacco user? N o Tobacco Control (Standard) T obacco use: N onsmoker A dditional Findings: Tobacco non-user C urrent nonsmoker D rugs/Alcohol: D rugs H ave you used drugs other than those for medical reasons in the past 12 months? N o D rug/Alcohol: A KALYAN-C (Standard) D id you have a drink containing alcohol in the past year? N o P oints 0 I nterpretation N egative * Medications: T akingamLODIPine Besylate 10 MG Tablet 1 tablet Orally [...] reviewed and reconciled with the patient * Allergies: N .K.D.A.yes[Allergies Verified] Objective: * Vitals: H t: 5ft 7in, Wt:195, BMI: 30.54, Shoe size:10, BP:sittin/86 R, HR:68/min, BS:145, Ht-cm: 170.18 cm, Wt-k.45 kg. * P ast Orders: L ab:HEMOGLOBIN A1C (GLYCOHEMOGLOBIN) (Order Date - 01/01/2025) (Collection Date & Time - 01/01/2025 02:17 PM) Value Reference Range HEMOGLOBIN A1C % (HH) 7.0 * Examination: O phthalmology Referral: DIABETES EYE EXAM P rocedure Performed: Y es D ate of Exam Performed 0 10/07/2024 D iabetic Retinopathy Screening: Y es R etinal Screening Performed: Y es F indings of Diabetic Eye Exam: n o retinopathy V ascular: AMPUTATION, NON-TRAUMATIC (A): D istal T6, T7. DP PULSES (B): 0/4, B/L. PT PULSES (B): 0/4, B/L. CAPILLARY FILL TIME: delayed, all digits, B/L. TROPHIC CONDITION-TEXTURE/ELASTICITY/TURGOR/HAIR GROWTH (B):? decreased, fragile, thin, shiny skin, with sparse to absent hair growth, B/L. TEMPERTURE GRADIENT (C): decreased, cool to cool, proximal to distal, B/L. PIGMENTATION: b rawny , B/L. EDEMA (C): a bsent, B/L. CLAUDICATION (C): d enies, B/L. REST PAIN: d enies, B/L. N ails: NAILS are: E longated, overgrown, dystrophic, lytic, greater than 3mm thick, discolored and friable with crumbly malodorous subungual debris, with pain on palpation, TA, T1, T2, T3, T4, T5 , T8 , T9. D ermatologic: SKIN FINDINGS: S kin exam reveals Keratotic lesion(s) located at , SUB MTH (s) , 1 , B/L , SUB MTH (s) , 5 , B/L , Plantar, Heel(s) , B/L. ? Assessment: * Assessment: 1. T ype 2 diabetes mellitus with diabetic peripheral angiopathy without gangrene - E11.51 (Primary) S pecify :Q7 2 . T inea unguium - B35.1 3 . P ain in right toe(s) - M79.674 4 . P ain in left toe(s) - M79.675 Plan: * Treatment: 2. T inea unguium P rocedure: 23895-RMABXWO NAIL, 6 OR MORE * Procedures: D ebride Nail 6-10: Nail debridement D ue to the clinical pathology outlined in the exam findings, performance of this nail treatment is medically necessary as its management by an unskilled/untrained nonprofessional would put this patients foot and overall health at risk. Therefore, debridement to affected nail(s), as described in exam ( T A, T1, T2, T3, T4, T 5 , T 8 , T 9 ) , was performed exclusively by the physician of record to reduce/remove overall nail length, girth, thickness, subungual debris, and necrotic tissue, by manual and/or electrical means through the use of a nail nipper and/or dremel-type track grinder, to a more viable healthy nail [...] to maintain effectiveness in symptomatic relief - 71530. K eratoma Treatment: Parring or Cutting of Benign Hyperkeratotic Lesion(s) ( -57) More than 4 Lesions - Due to [...] stated and described in the exam ( S UB MTH (s) , 1 , B /L , S UB MTH (s) , 5 , B /L , P lantar, H eel(s) , B /L ) , were pared, and/or cut utilizing a sterile 15 blade, tissue nippers, and/or power dremel instrumentation by the physician of record - 63590, Q7. * Procedure Codes: 1 1721 DEBRIDE NAIL, 6 OR MORE, Modifiers: XS 98981 TRIM SKIN LESIONS, OVER 4, Modifiers: XS , Q7 * Follow Up: 2 Months * Images: * Sign off status: Completed true * Provider: Sunita Hill DPM Date: 06/24/2025 Generated for Rodrigo pritchett/Deja/Tim on: 06/25/2025 11:14 AM EDT History and Physical Notes * HPI (History of Present Illness) Category Sub-Category Detail Notes Category Not es At Risk footcare Pt States Last PCP Visit: Date: 5 Examination Category Sub-Category Detail Notes Category Not es Dermatologic SKIN FINDINGS: Skin exam reveal s Keratotic lesion(s) located at , SUB MTH (s) , 1 , B/L , SUB MTH (s) , 5 , B/L , Plantar, Heel(s) , B/L Ophthalmology Referral DIABETES EYE EXAM Procedu re Performed:: Yes Date of Exam Performed: 10/07/2024 Diabetic Retinopathy Screening:: Yes Retinal Screening Performed:: Yes Findings of Diabetic Eye Exam:: no [...] T2, T3, T4, T5 , T8 , T9
--- NOTE | ~2025-06-25 | CT_ITS ---
CLINICAL HISTORY: R10.10 - Upper abdominal pain, unspecified --- Additional Notes or Special Instructions: Post prandial abdominal pain CT abdomen and pelvis without contrast Comparison: 04/21/2019 Findings: The lung bases are clear. Coronary artery calcifications. Prominent/enlarged left cardiac atrium may be mildly more conspicuous than prior. Mild calcifications versus postsurgical changes in the gastroesophageal junction wall. Rvjx-qy-evqxgeub pancreatic atrophy. Small calcified hepatic granuloma. New too small to characterize right hepatic dome hypodensity. Gallbladder not seen and likely surgically absent. Exophytic left renal simple cyst measuring up to 8 mm in the axial plane. Simple inferior polar left renal parapelvic cyst. No hydronephrosis. No bowel obstruction, pneumoperitoneum, or pneumatosis. Atherosclerotic calcifications. Enlarged prostate measuring 66 mm in width versus 58 mm previously. Nonprogressive benign up to 5 mm thickening of portions of the urinary bladder wall. Mild colonic diverticulosis without diverticulitis. Borderline distention of portion of the appendix without surrounding fat stranding, likely incidental. Nevertheless correlate clinically for presence or absence of right lower quadrant pain. Partially evaluated right proximal femoral hardware. Spinal degenerative changes. No acute fracture. Rest of the abdominopelvic viscera are unremarkable. IMPRESSION: 1. Coronary artery calcifications. Prominent/enlarged left cardiac atrium may be mildly more conspicuous than prior. 2. Borderline distention of portion of the appendix without surrounding fat stranding, likely incidental. Nevertheless correlate clinically for presence or absence of right lower quadrant pain. 3. Prostatomegaly. This document has been electronically signed by: Bonnie Haney MD on 06/28/2025 12:08:55
--- OUTSIDE RECORDS SUMMARY | 2025-06-25 11:14 | XMS_ITS | Encounter Summary ---
Author Organization [employer] [facility] Address [address] [place] [address] [address] [place] [address] Care Team Providers Care Training Instructor Name Role Phone NameIsai MD Primary Care Provider [phone] Encounter Details Date Type Department Care Team (Late st Contact Info) Description 10/08/2022 Orders Only [facility] [address] [place], [place] [phone] Asia Duffy LPN Social History Tobacco Use [...] Care Team (Late st Contact Info) Description 08/02/2025 1:45 PM EST Office Visit [facility] MED[facility] [address] [place], [place] [phone] NameIsai MD [address] [place] [address] documented as of this encounter Procedures Procedure [...] 10:30 AM EDT) Creatinine, Urine 81.71 mg/dL [facility] Microalbumin Urine 468.0 mg/L [facility] Microalbum Creatinine Ratio Ur 572.7(H) <30 ug/mg cr [facility] Comment:Albumin/Creatinine R atio Reference Ranges: Normal: < 30 ug/mg creatinine Microalbuminuria: 30 - 300 ug/mg creatinineClinical Albuminuria: > 300 ug/mg creatinine 07/09/2023 10:3 0 AM EDT 07/09/2023 12:39 PM EDT us Isai Resendez MD LAB URINE ORDERABLES Final Resul t [facility] [address] [place] [phone] * PSA,Total (05/09/2023 2:57 PM EDT) Prostate Specific Antigen 2.90 <0.05 - 4.0 ng/mL [facility] Comment:PSA methodology: Abb mathew Alinity i ChemiluminescentMicroparticle Immunoassay (CMIA) 05/09/2023 2:57 PM EDT 05/09/2023 2:57 PM EDT [facility] External Provider LAB BLO OD ORDERABLES Final Result [facility] [address] [place] [address] [phone] * (ABNORMAL) CBC auto differential (04/09/2023 2:45 PM EDT) White Blood Count 5.4 4.8 - 10.8 X10*3/uL [facility] Red Blood Count 3.86(L) 4.60 - 5.80 X10*6/uL [facility] Hemoglobin 11.5(L) 14.0 - 18.0 g/dl [facility] Hematocrit 37.0(L) 42.0 - 52.0 % [facility] Mean Corpuscular Volume 95.9 80.0 - 98.0 fL [facility] Mean Corpuscular Hemoglobin 29.8 27.0 - 33.0 pg [facility] Mean Corpuscular HGB Conc 31.1 31.0 - 36.0 g/dl [facility] Red Cell Distribution Width 13.5 11.0 - 16.0 % [facility] Platelet Count 322 160 - 400 X10*3/uL [facility] Mean Platelet Volume 10.3 9.4 - 12.4 fL [facility] Neutrophils Percent Auto 61.5 45 - 73 % [facility] Imm Gran Pct Auto 0.6(H) 0.0 - 0.4 % [facility] Lymphocytes Percent Auto 22.4 20 - 40 % [facility] Monocytes Percent Auto 11.9(H) 2 - 11 % [facility] Eosinophils Percent Auto 2.9 0 - 4 % [facility] Basophils Percent Auto 0.7 0 - 2 % [facility] NRBC Pct Auto 0.0 0.0 - 0.2 /100WBC [facility] Neutrophils Absolute Auto 3.3 2.0 - 8.3 x10*3/uL [facility] Imm Gran Abs Auto 0.03 0.00 - 0.03 X10*3/uL [facility] Lymphocytes Absolute Auto 1.2 1.2 - 4.9 X10*3/uL [facility] Monocytes Absolute Auto 0.7 0.1 - 1.2 X10*3/uL [facility] Eosinophils Absolute Auto 0.2 0.0 - 0.4 X10*3/uL [facility] Basophils Absolute Auto 0.0 0.0 - 0.2 X10*3/uL [facility] NRBC Abs Auto 0.000 0.0 - 0.012 X10*3/uL [facility] 04/09/2023 2:45 PM EDT 04/09/2023 4:13 PM EDT us [facility] External Provider LAB BLO OD ORDERABLES Final Result [facility] [address] [place] [address] [phone] * (ABNORMAL) Basic Metabolic Panel (04/09/2023 2:45 PM EDT) Sodium 136 135 - 145 mmol/L [facility] Potassium 4.4 3.3 - 5.1 mmol/L [facility] Chloride 103 96 - 108 mmol/L [facility] Carbon Dioxide 25 22 - 29 mmol/L [facility] Anion Gap 12 12 - 20 [facility] Urea Nitrogen (BUN) 17(H) 9 - 16 mg/dL [facility] Creatinine, Serum 1.36 0.5 - 1.4 mg/dL [facility] Estimated Glomerular Filt Rate 50 [facility] Comment:NOTE: For -Am erican individuals, multiply the result by 1.210.Chronic Kidney Disease: Estimated GFR < 60 mL/min/1.90r2Zpuznn Kidney Disease: Estimated GFR < 15 mL/min/1.73m2 Glucose 180(H) 60 - 115 mg/dL [facility] Calcium 9.7 8.4 - 10.2 mg/dL [facility] 04/09/2023 2:45 PM EDT 04/09/2023 4:13 PM EDT [facility] External Provider LAB BLO OD ORDERABLES Final Result Performing Organization Address [facility] Co de Phone Number [facility] [address] [place] [phone] * Calcium (01/08/2023 9:38 AM EDT) Calcium 9.2 8.4 - 10.2 mg/dL [facility] 01/08/2023 9:38 AM EDT 01/08/2023 9:38 AM EDT [facility] External Provider LAB BLO OD ORDERABLES Final Result Performing Organization Address [facility] Phone Number [facility] [address] [place] [phone] * (ABNORMAL) Creatinine, Serum (01/08/2023 9:38 AM EDT) Creatinine, Serum 1.77(H) 0.5 - 1.4 mg/dL [facility] Estimated Glomerular Filt Rate 37 [facility] Comment:NOTE: For -Am erican individuals, multiply the result by 1.210.Chronic Kidney Disease: Estimated GFR < 60 mL/min/1.70m1Amrdvq Kidney Disease: Estimated GFR < 15 mL/min/1.73m2 01/08/2023 9:38 AM EDT 01/08/2023 9:38 AM EDT [facility] External Provider LAB BLO OD ORDERABLES Final Result Performing Organization Address [facility] Co de Phone Number [facility] [address] [place] [phone] * (ABNORMAL) BUN (Blood Urea Nitrogen) (01/08/2023 9:38 AM EDT) Urea Nitrogen (BUN) 23(H) 9 - 16 mg/dL [facility] 01/08/2023 9:38 AM EDT 01/08/2023 9:38 AM EDT [facility] External Provider LAB BLO OD ORDERABLES Final Result Performing Organization Address [facility] de Phone Number [facility] [address] [place] [address] [phone] * Electrolyte Panel (01/08/2023 9:38 AM EDT) Sodium 136 135 - 145 mmol/L [facility] Potassium 4.0 3.3 - 5.1 mmol/L [facility] Chloride 102 96 - 108 mmol/L [facility] Carbon Dioxide 26 22 - 29 mmol/L [facility] Anion Gap 12 12 - 20 [facility] 01/08/2023 9:38 AM EDT 01/08/2023 9:38 AM EDT [facility] External Provider LAB BLO OD ORDERABLES Final Result Performing Organization Address [facility] de Phone Number [facility] [address] [place] [address] [phone] * (ABNORMAL) GLUCOSE, WHOLE BLOOD (01/07/2023 9:20 AM EDT) Glucose, Whole Blood 169(H) 60 - 115 mg/dL [facility] Comment:METER #: [id number] 01/07/2023 9:20 AM EDT 01/07/2023 9:23 AM EDT [facility] External Provider LAB BLO OD ORDERABLES Final Result Performing Organization Address [facility] Co de Phone Number [facility] [address] [place] [address] [phone] documented in this encounter Visit Diagnoses Not on filedocumented in this encounter Care Teams Training Instructor Relationship Specialty Start Date End Date Name, MD Isai [address] [place] [address] PCP - General Family Medicine 09/30/18 documented as of this encounter
--- OUTSIDE RECORDS SUMMARY | 2025-06-25 11:14 | XMS_ITS | Patient Health Record ---
Author Organization [facility] Address [address] [facility] [place] [address] Care Team Providers Care Facilities Administrator Name Role Phone Name Isai ARZATE Primary Care Provider Rodrick Li Unavailable [phone] Allergies No Known Allergies Results Component Value [...] (HH) 7.0 HEMOGLOBIN A1C (GLYCOHEMOGLO BIN) Reviewed date:06/24/2025 02:17:48 PM Interpretation: Performing Lab: Notes/Report: HEMOGLOBIN A1C % (HH) 7.0 Reason For Referral No Information Medications Medication SIG (Take, Route, Frequency, Duration) Notes Start Date End Date Status hydrALAZINE HCl 50 MG 1 tablet with food Orally Three times a day Active Glimepiride 2 MG 1 tablet with breakf ast or the first main meal of the day Orally Once a day Active Atorvastatin Calcium 20 MG 1 tablet Orally Once a day Active amLODIPine Besylate 10 MG 1 tablet Orally Once a day Active metFORMIN HCl 500 MG 1 tablet with a brisa l Orally Once a day Active Trulicity 3 MG/0.5ML as directed Subcutaneous Active Potassium Active Extra Depth Orthopedic Shoes, (1) Pair With (3) Pair Custom Heat Molded Multidensity Innersoles Dx: NIDDM/PVD(E11.51), Hammertoe Foot Deformity(M20.41,M20.42), Preulcerative Skin Lesion(s)(L85.1) Wear Daily; Duration: 365 days Active Immunizations Vaccine Route Administration Date Status Comme nts Influenza Unknown 06/16/2024 Administered Pneumococcal Unknown 06/16/2024 Administered COVID-19 Anton & Anton/Alexander Unknown 06/16/2024 A dministered Social History Tobacco Use: Social History Observation [...] Problem Acquired hammer toe of right foot (2105897875398 105) Other hammer toe(s) (acquired), right foot (M20.41) Active confirmed Response to treatment,I mprovement Problem Type 2 diabetes mellitus with peripheral angiopathy (667797320) Type 2 diabetes mellitus with diabetic peripheral angiopathy without gangrene (E11.51) Active confirmed Q7(A), Q8(2B), Q9(1B,2C) Problem Acquired hammer toe of left foot (8633935204952 103) Other hammer toe(s) (acquired), left foot (M20.42) Active confirmed Response to treatment,I mprovement Vital Signs Heart Rate 68 /min 06/24/2025 Blood pressure diastolic 86 R mm Hg 06/24/2025 Height 5ft 7in in 06/24/2025 Blood pressure systolic 151 mm Hg 06/24/2025 Weight 195 lbs 06/24/2025 BMI 30.54 kg/m2 06/24/2025 Procedures Procedure Date Ordered Date Performed Result Body Sit e 64107-OFCQTVP NAIL, 6 OR MORE 06/29/2024 N/A 41956-TMHG SKIN LESIONS, OVER 4 06/29/2024 N/A 82884-NSXDZFO NAIL, 6 OR MORE 09/28/2024 N/A 92808-ECRU SKIN LESIONS, OVER 4 09/28/2024 N/A 96468-QOWSNBD NAIL, 6 OR MORE 12/31/2024 N/A 69528-JHML SKIN LESIONS, OVER 4 12/31/2024 N/A 74319-WMVIHCC NAIL, 6 OR MORE 03/31/2025 N/A 81442-OBZV SKIN LESIONS, OVER 4 03/31/2025 N/A 18090-JRUNOYC NAIL, 6 OR MORE 06/24/2025 N/A 34936-NDWA SKIN LESIONS, OVER 4 06/24/2025 N/A Encounters Encounter Location Date Provider Diagnosis [address] [address] 06/29/2024 Rodrick Hill Type 2 diabetes mellitus with diabetic peripheral angiopathy without gangrene E11.51 ; Tinea unguium B35.1 ; Pain in right toe(s) M79.674 ; Pain in left toe(s) M79.675 ; Other hammer toe(s) (acquired), right foot M20.41 ; Other hammer toe(s) (acquired), left foot M20.42 and Tinea pedis of both feet B35.[address] [address] 09/28/2024 Rodrick Hill Type 2 diabetes mellitus with diabetic peripheral angiopathy without gangrene E11.51 ; Tinea unguium B35.1 ; Pain in right toe(s) M79.674 ; Pain in left toe(s) M79.675 and Tinea pedis of both feet B35.[address] [address] 12/31/2024 Rodrick Hill Type 2 diabetes mellitus with diabetic peripheral angiopathy without gangrene E11.51 ; Tinea unguium B35.1 ; Pain in right toe(s) M79.674 ; Pain in left toe(s) M79.675 and Tinea pedis of both feet B35.[address] [address] 03/31/2025 Rodrick Hill Type 2 diabetes mellitus with diabetic peripheral angiopathy without gangrene E11.51 ; Other hammer toe(s) (acquired), right foot M20.41 ; Tinea unguium B35.1 ; Pain in right toe(s) M79.674 ; Pain in left toe(s) M79.675 and Other hammer toe(s) (acquired), left foot M20.[address] [address] 06/24/2025 Rodrick Hill Type 2 diabetes mellitus [...] angiopathy without gangrene (ICD-10 - E11.51) 06/24/2025 Type 2 diabetes mellitus with diabetic peripheral angiopathy without gangrene (ICD-10 - E11.51) 06/24/2025 Tinea unguium (ICD-10 - B35.1) 03/31/2025 Tinea unguium (ICD-10 - B35.1) 12/31/2024 Pain in right toe(s) (ICD-10 - M79.674) 09/28/2024 Pain in right toe(s) (ICD-10 - M79.674) 06/29/2024 Pain in right toe(s) (ICD-10 - M79.674) 09/28/2024 Pain in left toe(s) (ICD-10 - M79.675) 06/29/2024 Pain in left toe(s) (ICD-10 - M79.675) 12/31/2024 Pain in left toe(s) (ICD-10 - M79.675) 03/31/2025 Pain in right toe(s) (ICD-10 - M79.674) 06/24/2025 Pain in right toe(s) (ICD-10 - M79.674) 03/31/2025 Pain in left toe(s) (ICD-10 - M79.675) 06/24/2025 Pain in left toe(s) (ICD-10 - M79.675) 09/28/2024 Tinea pedis of both feet (ICD-10 - B35.3) 12/31/2024 Tinea pedis of both feet (ICD-10 - B35.3) 06/29/2024 Other hammer toe(s) (acquired), right foot (ICD-10 - M20.41) Response to treatment,Impro vement 06/29/2024 Other hammer toe(s) (acquired), left foot (ICD-10 - M20.42) Response to treatment,Impro vement 03/31/2025 Other hammer toe(s) (acquired), left foot (ICD-10 - M20.42) 06/29/2024 Tinea pedis of both feet (ICD-10 - B35.3) Plan Of Treatment Pending Test Test Name Order Date 21510-BSLXOLD NAIL, 6 OR MORE 04/15/2024 50579-AMEORUF NAIL, 6 OR MORE 06/29/2024 62610-JMOXDMZ NAIL, 6 OR MORE 09/28/2024 61090-NEQIUVK NAIL, 6 OR MORE 12/31/2024 73837-YCEKQMX NAIL, 6 OR MORE 03/31/2025 74767-RPCYSLG NAIL, 6 OR MORE 06/24/2025 08552-QSUA SKIN LESIONS, OVER 4 06/24/20 25 21876-YVFK SKIN LESIONS, OVER 4 03/31/20 25 04530-USKA SKIN LESIONS, OVER 4 04/15/20 24 93398-ORCM SKIN LESIONS, OVER 4 01/01/20 25 53697-JMUG SKIN LESIONS, OVER 4 09/28/20 24 65431-CNAI SKIN LESIONS, OVER 4 06/29/20 24 53701-Mgzj. Subungual Hematoma Next Appt Details Provider Name:Rodrick Hill , 10/11/2025 02:30:00 PM, [address] [facility] [address], [place], [address], Insurance Providers Payer Name Payer Address Payer Phone Subscriber Number Group Number Insured Name Patient Relationship to Insured Coverage Start Date Coverage End Date [facility] [employer] Claims [address] [place] [id number] [phone] [id number] Nelson Vela Self - patient is the insured Medical (General) History Medical History History ICD Code Arthritis Back,Hip,and Knee pain Diabetic High blood pressure Stomach ulcer Joint implants/screws Bone implants/screws Transfusions Surgical History Surgery Date(Month/Year) 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
--- OUTSIDE RECORDS SUMMARY | 2025-06-25 11:14 | XMS_ITS ---
Author Organization [facility] Care Team Providers Care Dumpling Machine Operator Name Role Phone Dwaine Andrade Unavailable Unavailable Huber Soares Unavailable Unavailable Jennifer Acosta Unavailable Unavailable Alvaro Castellanos Unavailable Unavailable Allergies and adverse reactions No Known Allergies Care Team Name Role Address Phone Organization Dates Alvaro Castellanos PCP [address], [address], [place] (Office): : [facility] 02/28/2023 - 04/04/2023 Dwaine Andrade [address] [place] [address], [address], [place] (Office): : [facility] 02/28/2023 - 04/04/2023 Huber Soares [address] [facility] [address] [place] [address], [address], [place] (Office): : : [facility] 02/28/2023 - 04/04/2023 Jennifer Acosta [address] [facility] [address], [place], [address], [facility] ([facility] : [facility] 02/28/2023 - 04/04/2023 Immunizations Immunization Status Vaccine Details Vaccine Code CodeSystem Date Notes Pneumovax Dose 1 completed pneumococcal polysaccharide vaccine, 23 valent 33 CVX created date: 03/12/2023 administer ed date: 09/26/2016 TB 2 Step Mantoux Skin Test completed tuberculin skin test; purified protein derivative solution, intradermal lotNumber: [id number] expiry: 02/28/2024 Mfg: [employer]pis[employer] Given 0.1 ml Right Forearm intradermally Step 1 of Multi-step with next step required 96 CVX created date: 03/04/2023 consent date: 03/04/2023 administer ed date: 03/01/2023 PCV13 (Pneumococcal Conjugate Vaccine) completed pneumococcal conjugate vaccine, 13 valent 133 CVX created date: 03/12/2023 administer ed date: 07/29/2012 PCV13 (Pneumococcal Conjugate Vaccine) completed pneumococcal conjugate vaccine, 13 valent 133 CVX created date: 03/04/2023 consent date: 03/04/2023 administer ed date: 07/29/2012 Influenza (high dose) completed Influenza, high-dose, split virus, trivalent, injectable, preservative free 135 CVX created date: 03/04/2023 consent date: 03/04/2023 administer ed date: 08/14/2022 COVID-19 Vaccine Dose 1 completed unknown vaccine or immune globulin 999 CVX created date: 03/12/2023 administer ed date: 01/02/2021 COVID-19 Vaccine Dose 2 completed unknown vaccine or immune globulin 999 CVX created date: 03/12/2023 administer ed date: 01/30/2021 PCV20 completed Pneumococcal conjugate vaccine 20-valent (PCV20), polysaccharide [id number] conjugate, adjuvant, preservative free lotNumber: [id number] expiry: 06/29/2023 Mfg: [employer] Given 0.5 mg Left Deltoid intramuscularly 216 CVX created date: 03/12/2023 consent date: 03/12/2023 administer ed date: 03/12/2023 Educated by nurse on 03/12/2023 Mental Status Section Date Assessment Total Score Description 04/04/2023 BIMS 15 cognitively int act CAM 0 No delirium ind icated PHQ-9 07 mild depression 03/06/2023 BIMS 15 cognitively int act CAM 0 No delirium ind icated PHQ-9 06 mild depression Problems Problem # Description Date of onset Resolved Date Code CodeSystem Concern Status 1 CHRONIC KIDNEY DISEASE, STAGE 3 UNSPECIFIED [address] active 2 DISPLACED INTERTROCHANTERIC FRACTURE OF RIGHT FEMUR, SUBSEQUENT ENCOUNTER FOR CLOSED FRACTURE WITH ROUTINE HEALING [address] active 3 ENCOUNTER FOR OTHER ORTHOPEDIC AFTERCARE [address] active 4 ESSENTIAL (PRIMARY) HYPERTENSION [address] active 5 HYPERLIPIDEMIA, UNSPECIFIED [address] active 6 OTHER REDUCED MOBILITY [address] active 7 TYPE 2 DIABETES MELLITUS WITHOUT COMPLICATIONS [address] active 8 UNSPECIFIED FALL, SUBSEQUENT ENCOUNTER [address] active 9 WE[address] active Reason for Referral No Reasons for Referral Entered Social History Social History Observation Description Start Date End Date Code Code System Current Smoking Status Tobacco smoking consumption unknown 435208683 SNOMED CT Sex Assigned At Male 1940 [facility] Identity Sexual Orientation Vital Signs Code Code System Vitals Name Values and Units Timing Information 47537-7 LOINC Pain Level Value=3.0 04/04/2023 9279-1 LOINC Respiratory Rate Value=18.0 Units=/m in 04/04/2023 8462-4 LOINC Blood Pressure-Diastolic Value=74 Un its=mmHg 04/04/2023 8480-6 LOINC Blood Pressure-Systolic Rgrco=945 Un its=mmHg 04/04/2023 8310-5 [facility] Body Temperature Value=98.3 Units= F 04/04/2023 8867-4 [facility] Heart rate Value=63.0 Units=/min 02/2023 96200-8 [facility] O2 % BldC Oximetry Value=99.0 Units= % 04/04/2023 2339-0 [facility] Blood Sugar Evdlt=678.0 Units=mg/dL 04/04/2023 63413-9 [facility] Weight Nxuwn=550.3 Units=Lbs 8302-2 [facility] Height Value=72.0 Units=Inches 02/28/2023
--- OUTSIDE RECORDS SUMMARY | 2025-06-25 11:14 | XMS_ITS | Encounter Summary ---
Author Organization [employer] [facility] Address [address] [place] [address] [address] [place] [address] Care Team Providers Care Mixer Machine Feeder Name Role Phone Name, Isai ARZATE Primary Care Provider [phone] Reason for Referral * Consultation (Urgent) - Closed Specialty Diagnoses / Procedures Referred By Contac t Referred To Contact Physical Therapy Diagnoses Stress fracture of sacrococcygeal region with routine healing Roxanna Nichole MD [address] [place] [address] Phone: tel: fax: [facility] Physical Therapy [address] [place] [address] Phone: tel: fax: Referral ID Status Reason Start Date Expiration Date V isits Requested Visits Authorized [id number] Closed Specialty Services Required 04/20/2024 04/20/2025 1 1 Encounter Details Date Type Department Care Team (Late st Contact Info) Description 04/20/2024 Orders Only [facility] [address] [place] [address] [phone] oRxanna Nichole MD [address] [place], [place] [phone] Stress fracture of sacrococcygeal region with routine [...] Description 08/02/2025 1:45 PM EST Office Visit [facility] [address] [place] [address] Name, MD Isai [address] [place] [address] Scheduled Referrals Name Type Priority Associated Diagnoses [...] documented as of this encounter Care Teams Mixer Machine Feeder Relationship Specialty Start Date End Date Name, MD Isai [address] [place] [address] PCP - General Family Medicine 09/30/18 documented as of this encounter
--- OUTSIDE RECORDS SUMMARY | 2025-06-25 11:14 | XMS_ITS | Encounter Summary ---
Author Organization [employer] [facility] Address [address] [place] [address] [address] [place] [address] Care Team Providers Care Log Chipper Name Role Phone Name, Isai ARZATE Primary Care Provider [phone] Reason for Visit * Reason Onset Date Comments Appointment Request 10/25/2022 Encounter Details Date Type Department Care Team ([facility] st Contact Info) Description 10/25/2022 Telephone [facility] [address] [place], [place] [phone] Name, MD Isai [address] [place] [address] Appointment Request Social History Tobacco Use Types [...] Miscellaneous Notes * Telephone Encounter - Ramirez Eller - 10/25/2022 11:47 AM EST Tc from daughter requesting a call back regarding appt on 11/26/22 at 2:30 ( NEW DERM seborrheic keratosis and scalp wart) Daughter is looking to r/s appt Please contact daughter at [phone] documented in this encounter Plan of Treatment Upcoming Encounters Date Type Department Care Team (Late st Contact Info) Description 08/02/2025 1:45 PM EST Office Visit [facility] [address] [place] [address] Name, MD Isai [address] [place] [address] documented as of this encounter Visit Diagnoses Not on filedocumented in this encounter Care Teams Log Chipper Relationship Specialty Start Date End Date Name, MD Isai [address] [place] [address] PCP - General Family Medicine 09/30/18 documented as of this encounter
--- OUTSIDE RECORDS SUMMARY | 2025-06-25 11:14 | XMS_ITS | Clinical Summary ---
Author Organization [employer] Address [address] [place] [address] [address] [place] [address] Care Team Providers Care Advanced Quality Engineer Name Role Phone Name, Isai ARZATE Primary Care Provider [phone] Allergies No known active allergies Medications Blood Glucose Monitoring Suppl (FreeStyle Drake Lite) w/Device kit TEST BLOOD SUGAR TWICE DAILY 08/14/20 22 Active finasteride (Proscar) 5 MG tablet 10/16/19 23 Active Multiple Vitamins-Minera ls (Sentry Senior) tablet OTC 1 tablet daily Active Blood Pressure Monitor kit Check BP at home once a day 1 kit 05/23/20 23 Active lidocaine (Lidoderm) 5 % patchIndication s:Pain of right upper extremity Apply 1 patch topically in the morning. Remove & discard patch within 12 hours or as directed by MD. 15 patch 2 08/16/20 23 Active tamsulosin (Flomax) 0.4 MG 24 hr capsule Take 1 capsule by mouth Once daily. 06/19/20 23 Active metoprolol tartrate (Lopressor) 100 MG tablet TAKE 1 TABLET BY MOUTH TWICE DAILY IN THE MORNING AND IN THE EVENING 60 tablet 11 07/08/20 24 Active tretinoin (Retin-A) 0.025 % cream Apply topically at bedtime. 45 g 2 07/28/20 24 025 Active glucose blood (FREESTYLE LITE) test strip TEST BLOOD SUGAR THREE TIMES DAILY 100 strip 11 08/13/20 24 Active TRUEplus Lancets 33G misc Apply 1 each topically 3 times daily. TEST BLOOD SUGAR THREE TIMES DAILY DIRECTED 100 each 11 08/13/20 24 Active hydrALAZINE (Apresoline) 50 MG tabletIndicatio ns:Hypertension , unspecified type TAKE 2 TABLETS BY MOUTH THREE TIMES DAILY IN THE MORNING, EVENING AND BEDTIME 180 tablet 3 09/07/20 24 Active olmesartan (BENIcar) 40 MG tabletIndicatio ns:Hypertension , unspecified type TAKE 1 TABLET BY MOUTH EVERY MORNING 30 tablet 11 12/08/19 25 Active Dulaglutide (Trulicity) 3 MG/0.5ML solution auto-injectorIn dications:Type 2 diabetes mellitus with hyperglycemia, unspecified whether usp insulin use ([facility]) Inject 3 mg under the skin 1 (one) time per week. 2 mL 11 12/31/19 25 026 Active omeprazole (PriLOSEC) [address] capsuleIndicati ons:Epigastric pain Take 1 capsule (20 mg) by mouth before breakfast and before evening meal for 28 days. Do not crush or chew. 56 capsule 12/31/19 25 Active amLODIPine (Norvasc) 10 MG tablet TAKE 1 TABLET BY MOUTH EVERY MORNING 90 tablet 1 01/07/20 25 Active Emollient (Moisturizing Creme) cream Apply 1 each topically if needed in the morning and at bedtime (rash). 454 g 3 03/09/20 25 Active hydrocortisone 0.5 % cream Apply topically 2 times daily. 30 g 1 03/09/20 25 Active cloNIDine (Catapres) 0.1 MG tabletIndicatio ns:Hypertension , unspecified type TAKE 1 TABLET BY MOUTH TWICE DAILY IN THE MORNING AND IN THE EVENING 60 tablet 3 04/08/20 25 Active atorvastatin (Lipitor) 20 MG tablet TAKE 1 TABLET BY MOUTH EVERY EVENING 90 tablet 1 06/08/20 25 Active glimepiride (Amaryl) 2 MG tabletIndicatio ns:Elevated blood sugar TAKE 1 TABLET BY MOUTH EVERYDAY AT NOON 90 tablet 1 06/08/20 25 Active metFORMIN (Glucophage) 500 MG tablet TAKE 1 TABLET BY MOUTH EVERYDAY AT NOON 90 tablet 1 06/08/20 25 Active Jardiance 25 MG TAKE 1 TABLET BY MOUTH EVERY MORNING 30 tablet 1 06/09/20 25 Active atorvastatin (Lipitor) 20 MG tablet TAKE 1 TABLET BY MOUTH EVERY EVENING 90 tablet 1 12/09/19 25 025 Discontinued glimepiride (Amaryl) 2 MG tabletIndicatio ns:Elevated blood sugar TAKE 1 TABLET BY MOUTH EVERYDAY AT NOON 90 tablet 1 12/09/19 25 025 Discontinued metFORMIN (Glucophage) 500 MG tablet TAKE 1 TABLET BY MOUTH EVERYDAY AT NOON 90 tablet 1 12/09/19 25 025 Discontinued Jardiance 25 MG TAKE 1 TABLET BY MOUTH EVERY MORNING 30 tablet 1 04/08/20 25 025 Discontinued Active Problems Problem Noted Date Diagnosed Date [...] to be compliant w all meds- 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 He is well managed. Medications will not be altered. Patient is to continue current therapies. F/up in 2 months. Patient completed BMP on 12/07 Creatinine 0.70 - 1.22 mg/dL 1.49 High EGFR > OR = 60 mL/min/1.73m2 47 Low Ed precautions discussed. Call clinic for high [...] Encounters Date Type Department Care Team Description 06/09/2025 Refill [facility]IC[facility] [address] [place] [address] NameIsai MD 06/07/2025 Refill [facility] DIABETES/NUTRITION [address] [place] [address] NameIsai MD Elevated blood sugar 05/14/2025 Telephone [facility] [address] [place] [address] Naheed Nance [place] june recalls 04/15/2025 Orders Only GENERIC EXTERNAL DATA DEPARTMENT Provider, Generic External Data 04/08/2025 3:30 PM EDT Office Visit [facility] [address] [place] [phone] Isai Resendez MD Type 2 diabetes mellitus with hyperglycemia, unspecified whether watcher automat long goods insulin use (CMS/[facility]) (Primary Dx); Hypertension, unspecified type; Stage 3 chronic kidney disease, unspecified whether stage 3a or 3b CKD (CMS/HCC); Primary osteoarthritis of both knees 04/08/2025 Travel 04/08/2025 Refill [facility] [address] [place] [address] NameIsai MD Hypertension, unspecified type from Last 3 Months Immunizations Immunization Administration Dates Next Due Influenza High-dose Quadriva [...] Answer Date Recorded Patient Health Questionnaire-9 Score 2 04/08/2025 Patient Health Questionnaire-9 Score 2 04/08/2025 Last PHQ-9: Questionnaire Data Not on file 0 04/08/2025 Housing Stability Answer Date Recorded What is your housing situation today? I have tessa ch 04/08/[address] you li ve. Do you have problems with any of the following? None of the above 04/08/2025 Food Insecurity Answer Date Recorded Within the past 12 months, y ou worried that your food would run out before you got money to buy more: Never True 04/08/2025 Within the past 12 months,th e food you bought just didn't last and you didn't have enough money to get more: Never True 06/2025 Transportation Answer Date Recorded In the past 12 months, has l ack of transportation kept you from medical appts, meetings, work or from getting things needed for daily living? No 04/08/2025 Utilities Answer Date Recorded In the past 12 months, has t he electric, gas, oil or water company threatened to shut off services in your home? No 04/08/2025 Depression Answer Date Recorded Patient Health Questionnaire-2 Score 0 04/08/2025 Internet Access Answer Date Recorded Internet Access Q1 Yes 04/08/2025 Internet Access Q2 Not on file 04/08/2025 Sex and Gender Information Value Date Recorded Sex Assigned at Male 07/30/2022 10:29 AM EDT Legal Sex Male 10:29 AM EDT Gender Identity Male 07/30/2022 10:29 AM EDT Sexual Orientation Straight 07/30/2022 10 :29 AM EDT Last Filed Vital Signs Vital Sign Reading Time Taken Comments Blood Pressure 120/76 04/08/2025 3:41 PM EDT Pulse 73 04/08/2025 3:41 PM EDT Temperature 36.9 C (98.5 F) 04/08/2025 3:41 PM EDT Respiratory Rate 18 04/08/2025 3:41 PM EDT Oxygen Saturation 96% 04/08/2025 3:41 PM EDT Inhaled Oxygen Concentration - - Weight 86.2 kg (190 lb) 04/08/2025 3:41 PM EDT Height 170.2 cm (5' 7 ) 04/08/2025 3:41 PM EDT Body Mass Index 29.76 04/08/2025 3:41 PM EDT Plan of Treatment Upcoming Encounters Date Type Department Care Team (Late st Contact Info) Description 08/02/2025 1:45 PM EST Office Visit [facility] [address] [place] [address] Name, MD Isai [address] [place] [address] Health Maintenance Due Date Last Done Comments Hepatitis A Vaccines (1 of 2 - Risk 2-dose series) 1960 Zoster Vaccines (1 of 2) 1991 Hepatitis B Vaccines (1 of 3 - Risk 3-dose series) 2001 DTaP/Tdap/Td Vaccines (1 - Tdap) 07/10/2014 07/09/2014, 07/09/2014 RSV Patients and Patients Aged 60 years or older (1 - 1-dose 75+ series) 2016 Diabetes: Foot Exam 07/05/2024 07/05/2023, 07/05/2023, 07/05/2023 COVID-19 Vaccine (3 - season) 2025 01/30/2021, 01/02/2021 Influenza Vaccine (#1) 2025 2, 08/28/2021, 11/30/2019, Additional history exists Diabetes: Hemoglobin A1C 07/09/2025 025, 10/22/2024, 07/28/2024, Additional history exists Alcohol/Substance Use Screening 07/28/2025 07/28/2024 Eye Exam 10/10/2025 10/10/2023 Tobacco Screening 03/09/2026 03/09/2025 Depression Screening 04/08/2026 04/08/2025, 04/08/20 25 SDOH Screening 04/08/2026 04/08/2025 Diabetes: Urine Protein Screening 04/15/2026 04/15/2025, 02/04/2024, 07/09/2023, Additional history exists Lipid Panel 04/15/2026 04/15/2025, 06/30, 05/02/2021, Additional history exists Pneumococcal Vaccine: 50+ Years Completed 09/26/2016, 07/29/2012 HIB Vaccines Aged Out No longer eligi ble based on patient's age to complete this topic HPV Vaccines Aged Out No longer eligi ble based on patient's age to complete this topic IPV Vaccines Aged Out No longer eligi ble based on patient's age to complete this topic Meningococcal B Vaccine Aged Out No l onger eligible based on patient's age to complete [...] Procedure Name Priority Date/Time Associated Diagnosis Comments VITAMIN B12/FOLATE, SERUM PANEL Routine 04/15/2025 9:13 AM EDT LIPASE Routine 04/15/2025 9:13 AM EDT COMPREHENSIVE METABOLIC PANEL Routine 04/15/2025 9:13 AM EDT PROTHROMBIN TIME-INR Routine 04/15/2025 9:13 AM EDT CBC WITH AUTO DIFFERENTIAL Routine 04/15/2025 9:13 AM EDT ALBUMIN, RANDOM URINE W/CREATININE Routine 04/15/2025 9:13 AM EDT Type 2 diabetes mellitus with hyperglycemia, unspecified whether watcher automat long goods insulin use (CMS/[facility]) Hypertension, unspecified type Stage 3 chronic kidney disease, unspecified whether stage 3a or 3b CKD (CMS/HCC) LIPID PANEL, STANDARD Routine 04/15/2025 9:13 AM EDT Type 2 diabetes mellitus with hyperglycemia, unspecified whether usp insulin use (CMS/[facility]) Hypertension, unspecified type Stage 3 chronic kidney disease, unspecified whether stage 3a or 3b CKD (CMS/HCC) POCT GLYCATED HEMOGLOBIN, TOTAL Routine 04/08/2025 3:47 PM EDT Type 2 diabetes mellitus with hyperglycemia, unspecified whether usp insulin use (CMS/[facility]) POCT GLUCOSE Routine 04/08/2025 3:43 PM EDT Type 2 diabetes mellitus with hyperglycemia, unspecified whether watcher automat long goods insulin use ([facility]) from Last 3 Months Results * Vitamin B12 (Cobalamin) and Folate Panel, Serum (04/15/2025 9:13 AM EDT) Vitamin B12 810 200 - 900 pg/mL [facility] Comment:NORMAL 200-900 PG/ML INDETERMINATE 160-199 PG/ML DEFICIENT < 160 PG/ML Folate 13.2 > or = 4.0 ng/mL [facility] Comment:Reference Values:> o r = 4.0 ng/mL< 4.0 ng/mL suggests folate deficiency Methotrexate, aminopterin and folinic acid(leucovorin) are chemotherapeutic agents whose molecularstructures are similar to folate; therefore, the Architectfolate assay cannot be used for patients using these drugs. 04/15/2025 9:13 AM EDT 04/15/2025 11:06 AM EDT us Generic External Data Provider LAB BLOOD ORDERAB LES Final Result [facility] [address] [place] [phone] * (ABNORMAL) Albumin, Random Urine W/Creatinine (04/15/2025 9:13 AM EDT) Creatinine, Urine 60.89 mg/dL [facility] Microalbumin Urine 195.0 mg/L [facility] Microalbum Creatinine Ratio Ur 320.2(H) <30 ug/mg cr [facility] Comment:Albumin/Creatinine R atio Reference Ranges: Normal: < 30 ug/mg creatinine Microalbuminuria: 30 - 300 ug/mg creatinineClinical Albuminuria: > 300 ug/mg creatinine Urine (Urine, Random) 04/15/2025 9:13 AM EDT 04/15/2025 11:17 AM EDT us Isai Resendez MD LAB URINE ORDERABLES Final Resul t [facility] [address] [place] [phone] * (ABNORMAL) CBC auto differential (04/15/2025 9:13 AM EDT) White Blood Count 5.5 4.8 - 10.8 X10*3/uL [facility] Red Blood Count 5.41 4.60 - 5.80 X10*6/uL [facility] Hemoglobin 15.7 14.0 - 18.0 g/dl [facility] Hematocrit 48.5 42.0 - 52.0 % [facility] Mean Corpuscular Volume 89.6 80.0 - 98.0 fL [facility] Mean Corpuscular Hemoglobin 29.0 27.0 - 33.0 pg [facility] Mean Corpuscular HGB Conc 32.4 31.0 - 36.0 g/dl [facility] Red Cell Distribution Width 13.2 11.0 - 16.0 % [facility] Platelet Count 242 160 - 400 X10*3/uL [facility] Mean Platelet Volume 10.0 9.4 - 12.4 fL [facility] Neutrophils Percent Auto 54.5 45 - 73 % [facility] Imm Gran Pct Auto 0.6(H) 0.0 - 0.4 % [facility] Lymphocytes Percent Auto 31.0 20 - 40 % [facility] Monocytes Percent Auto 10.5 2 - 11 % [facility] Eosinophils Percent Auto 2.8 0 - 4 % [facility] Basophils Percent Auto 0.6 0 - 2 % [facility] NRBC Pct Auto 0.0 0.0 - 0.2 /100WBC [facility] Neutrophils Absolute Auto 3.0 2.0 - 8.3 x10*3/uL [facility] Imm Gran Abs Auto 0.03 0.00 - 0.03 X10*3/uL [facility] Lymphocytes Absolute Auto 1.7 1.2 - 4.9 X10*3/uL [facility] Monocytes Absolute Auto 0.6 0.1 - 1.2 X10*3/uL [facility] Eosinophils Absolute Auto 0.2 0.0 - 0.4 X10*3/uL [facility] Basophils Absolute Auto 0.0 0.0 - 0.2 X10*3/uL [facility] NRBC Abs Auto 0.000 0.0 - 0.012 X10*3/uL [facility] 04/15/2025 9:13 AM EDT 04/15/2025 11:06 AM EDT us Generic External Data Provider LAB BLOOD ORDERAB LES Final Result [facility] [address] [place] [phone] * Prothrombin Time-INR (04/15/2025 9:13 AM EDT) Prothrombin Time 12.0 10.9 - 12.4 SEC [facility] INTERNATIONAL NORM RATIO 1.0 0.9 - 1.1 [facility] Comment:INTERNATIONAL NORMAL IZED RATIO (INR) REFERENCE RANGES Reference RangeFor patients not on anticoagulant therapy: 0.9 - 1.1INR ranges for oral anticoagulanttherapy:For prevention and treatment of venous thrombosis and pulmonary embolism: 2.0 - 3.0For acute myocardial infarction with aspirin therapy: 2.0 - 3.0For acute myocardial infarction without aspirin therapy: 3.0 - 4.0For patients with mechanical prosthetic heart valves: 2.5 - 3.5 04/15/2025 9:13 AM EDT 04/15/2025 11:06 AM EDT Generic External Data Provider LAB BLOOD ORDERAB LES Final Result Performing Organization Address City/[facility]/ZIP Co de Phone Number [facility] [address] [place] [phone] * Lipase (04/15/2025 9:13 AM EDT) Pathologist [facility] Lipase 69 8 - 78 U/L [facility] 04/15/2025 9:13 AM EDT 04/15/2025 11:06 AM EDT Generic External Data Provider LAB BLOOD ORDERAB LES Final Result Performing Organization Address City/[facility] Co de Phone Number [facility] [address] [place] [phone] * (ABNORMAL) Lipid Panel, Standard (04/15/2025 9:13 AM EDT) Triglycerides 205(H) <150 mg/dL [facility] Comment:Desirable Triglyceri de: less than 150 mg/dLBorderline High Triglyceride 150-199 mg/dLHigh Triglyceride: 200-499 mg/dLVery High Triglyceride: greater than or equal to 5OO mg/dL Cholesterol 112 <200 mg/dL [facility] Comment:Desirable Cholestero l: less than 200 mg/dLBorderline High Cholesterol: 200-239 mg/dLHigh Cholesterol: greater than 239 mg/dL LDL Cholesterol Calculated 44 <100 mg/dL [facility] Comment:Desirable LDL: less than 100 mg/dLNear Optimal/Above Optimal LDL: 110- 129 mg/dLBorderline High LDL: 130-159 mg/dLHigh LDL: 160-189 mg/dLVery High LDL: greater than or equal to 190 mg/dL HDL Cholesterol 27(L) >40 mg/dL [facility] Comment:Desirable HDL: great er than 40 mg/dL Note: This HDL assay may give artificially low results in patients with liver disease. Blood Venous blood specimen / Unknown 04/15/2025 9:13 AM EDT 04/15/2025 11:06 AM EDT us Isai Name MD LAB BLOOD ORDERABLES Final Resul t [facility] [address], [place] [phone] * (ABNORMAL) Comprehensive Metabolic Panel (04/15/2025 9:13 AM EDT) Sodium 141 135 - 145 mmol/L [facility] Potassium 3.9 3.3 - 5.1 mmol/L [facility] Chloride 105 96 - 108 mmol/L [facility] Carbon Dioxide 26 22 - 29 mmol/L [facility] Anion Gap 14 12 - 20 [facility] Urea Nitrogen (BUN) 20(H) 9 - 16 mg/dL [facility] Creatinine, Serum 1.86(H) 0.5 - 1.4 mg/dL [facility] Estimated Glomerular Filt Rate 35 [facility] Comment:Chronic Kidney Disea se: Estimated GFR < 60 mL/min/1.74f0Mocnzy Kidney Disease: Estimated GFR < 15 mL/min/1.73m2 Glucose 183(H) 60 - 115 mg/dL [facility] Calcium 8.9 8.4 - 10.2 mg/dL [facility] Bilirubin, Total 0.8 0.0 - 1.0 mg/dL [facility] Aspartate Amino Transferase 31 5 - 37 U/L [facility] Alanine Aminotransferase 30 0 - 40 U/L [facility] Total Protein 7.0 6.5 - 8.0 g/dL [facility] Albumin Level 4.3 3.5 - 5.0 g/dL [facility] Alkaline Phosphatase 79 39 - 117 U/L [facility] 04/15/2025 9:13 AM EDT 04/15/2025 11:06 AM EDT Generic External Data Provider LAB BLOOD ORDERAB LES Final Result [facility] [address] [place] [phone] * (ABNORMAL) POCT HGB A1C (04/08/2025 3:47 PM EDT) Hemoglobin A1C 8.1(A) 4.0 - 5.7 % QC Media Lot # [id number] Lot# Expiration Date Blood 04/08/2025 3:47 PM EDT Isai Name POINT OF CARE TEST ENTER/EDIT OR DERABLES Final Result * POCT Glucose (04/08/2025 3:43 PM EDT) Glucose Blood, POC 163 60 - 200 mg/dL [employer] Lot # [id number] Lot# Expiration Date 025 Blood Capillary blood specimen / Unknown 04/08/2025 3:43 PM EDT Isai Name POINT OF CARE TEST ENTER/EDIT OR DERABLES Final Result from Last 3 Months Insurance [facility] [employer] (HMO D-SNP) * Guarantor: Nelson Mandujano Account Type Relation to Patient Date of Phone Billing Address Personal/Family Self Faithyessi Rhodes [place] * Guarantor: Nelson Mandujano Account Type Relation to Patient Date of Phone Billing Address Personal/Family Self Faithyessi Rhodes MD * Guarantor: Nelson Mandujano Account Type Relation to Patient Date of Phone Billing Address Personal/Family Self Faith Tone Rhodes MD Care Teams Advanced Quality Engineer Relationship Specialty Start Date End Date Name, MD Isai [address] [place] [address] PCP - General Family Medicine 09/30/18
--- OUTSIDE RECORDS SUMMARY | 2025-06-25 11:14 | XMS_ITS | Clinical Summary ---
Author Organization [facility] Address [address] [place] [address] [place] [address] Phone Care Team Providers Care Applications Engineer Name Role Phone Name, Isai ARZATE Primary Care Provider [phone] Allergies Active Allergy Reactions Criticality Noted Date [...] Most Recently Relevant to Health Maintenance Insurance [facility] ([id number]) [facility] ([id number]) Care Teams Applications Engineer Relationship Specialty Start Date End Date Name, MD Isai [address] [place] [phone] PCP - General 10/10/20
[2025-06-25] MEDS: Barium Sulfate Oral (Berry) 450 ML ORAL.SUSP 900 ML PO (12:05)
== END 2025-06-25 10:04 | disposition home or self-care (01) ==
LOC: HO.CT 10:03
PROVIDERS: PCP Internal Medicine Geriatric Medicine; Visit Provider Internal Medicine Gastroenterology
DX: R10.10 Upper abdominal pain, unspecified (principal)
CPT/HCPCS: 74176

== ENCOUNTER → 2025-06-25 10:06 | Outpatient (BNV) | payer OTHER, SELFPAY | PROVIDERS: PCP Internal Medicine Geriatric Medicine; Visit Provider Radiology Diagnostic Radiology | DX: N40.0 Benign prostatic hyperplasia without lower urinary tract symptoms (principal); K86.89 Other specified diseases of pancreas; N28.1 Cyst of kidney, acquired | CPT/HCPCS: 74176 ==

== ENCOUNTER 2025-07-01 12:32 | Outpatient (AMB) | payer OTHER, SELFPAY ==
[2025-07-01 13:45] VITALS: BP 178/70; BMI 31.1
--- NOTE | 2025-07-01 13:45 | A.OFFVIS_ITS ---
Vital Signs 07/01/25 13:45 Height 5 ft 7 in Weight 198 lb 13.711 oz BMI 31.1 BP 178/70 H Blood Pressure Location Lt brachial Position Sitting Intake Visit Reasons: CT scan results Intake Note: Patient in office today in follow up of CT scan. CC: Patient reports that he has been doing better with the doctors hospital Outside Energy Sales Representatives Required: Yes Outside Energy Sales Representatives Language: English Accompanied by: Self / Same As Patient Allergies No Known Allergies (No Known Allergies*) Allergy (Verified 07/01/25 13:53) Medication List - Last Reconciled 07/01/25 by Gissel Roman MD amlodipine 10 mg PO DAILY atorvastatin 20 mg PO DAILY blood sugar diagnostic As directed clonidine HCl 1 tab PO BID dulaglutide (Trulicity) mg subcut empagliflozin (Jardiance) 25 mg PO DAILY finasteride 5 mg PO DAILY 90 days glimepiride 2 mg PO DAILY hydralazine mg PO lancets (TRUEplus Lancets) As directed linaclotide (Linzess) 145 mcg PO QAM 60 days metformin 1,000 mg PO DAILY metoprolol tartrate 100 mg PO BID multivitamin 1 tab PO DAILY olmesartan 40 mg PO DAILY pantoprazole 40 mg PO DAILY 60 days tamsulosin 0.4 mg PO BEDTIME [address] scan results: Details: GI CLINIC VISIT FOR THIS 84-YEAR-OLD MALE FOR FOLLOW-UP OF UPPER ABD PAIN. [place] [facility] [place] B[place]ED[place]. CHRONIC ILLNESSES:?anxiety, hypertension, SHELLIE, aortic root dilation, thoracic aortic aneurysm without rupture, renal cyst, CKD stage 3, elevated LFTs, fatty liver. [place]'S VIS[place] [facility] [place] English speech language pathologistSolange Patient here for FU up after ABD CT scan. CT results were reviewed with the patient: 1. Coronary artery calcifications. Prominent/enlarged left cardiac atrium may be mildly more conspicuous than prior. 2. Borderline distention of portion of the appendix without surrounding fat stranding, likely incidental. Nevertheless correlate clinically for presence or absence of right lower quadrant pain. 3. Prostatomegaly. PAST VISITS: CT scan, the patient did not have the ordered results done and also no show to his CT scan s/c for 01/08/2025. Patient cc: abdominal pain with bloating after eating, gasses all day, acid reflux( Omeprazole 20 mg) not working, chronic Constipation( 3 days with out any BM), and some swallowing. Complains of post prandial abdominal pain, excessive gas and constipation. Taking Omeprazole and is not helpful Complains of constipation and has a BM every 3-4 days Not taking any medications at present - tried a lot of things and did not work States he or his daughter were not called about the appt for the CT scan Pain is intermittent Continues to have post prandial squeezing upper abdominal pain 15 to 20 min after eating and last for half an hour - 3-4 times a week Takes peptobismol (1 bottle every 2 weeks) Taking Miralax for constipation - has a BM daily Denies heartburn or dysphagia Appetite is good and denies wt loss Diagnosed with DM several yrs ago. PAST VISIT: UGISBFT results were reviewed with the patient. Continues to have intermittent 10/10 lower abdominal pain once in a while lasting 1-2 min and resolves spontaneously. I have a lot of gasses Complains of constipation.? Has to fight to have a BM. Takes peptobismol twice a day and takes pills for gas as needed. Denies diarrhea and complains of constipation and painful hemorrhoids Has a BM mostly every day ? Completed vaccination for COVID last week. ? Doing well - not taking any acid reducing medications. ? Complains of intermittent lower abdominal pain after eating ? Notes mild pain in the stomach when he eats lasting for a few days. ? Denies heartburn, black stools or rectal bleeding. ? Lost 30 lbs during his hospitalization and gained 20 lbs back. ? Appetite is good. ? Denies dysphagia, heartburn. ? Was taking Omeprazole and stopped 2 months ago. ? Takes peptobismol prn ?LABS:? Reviewed From [facility] [place] 05/02/21 ? HEMOGLOBIN 14.9, HEMATOCRIT 45.8, PLATELET COUNT 232, WBC 6.3. ? BILIRUBIN 1.1, AST 22, ALT 28, ALKALINE PHOSPHATASE 72, ALBUMIN 4.4, CREATININE 1.52, GLUCOSE IS 214, POTASSIUM 4.4. ? CHOLESTEROL 116, HDL 46, LDL 45, TRIGLYCERIDES 172, HEMOGLOBIN A1C 8.3 ? LABS IN [facility]: 10/09/19 reviewed. 09/17 H Pylori Breath test was negative ? Sep, 2017 hepatitis-B and C serologies were negative. ?IMAGING STUDIES: 04/2022 UGISBFT SHOWED: Nonspecific thickening gastric folds fundus and proximal to mid body. -No visible gastric ulcer, mass, or gastric outlet obstruction. -Small bowel transit time between 3. 5-6 hours. No small bowel obstruction or thickening of folds. 04/21/[address] scan showed: ? IMPRESSION: ? No evidence for acute abdominal or pelvic inflammatory or infectious processes. No CT evidence for pneumonia. ? Hepatic steatosis. ?ENDOSCOPIC STUDIES: 05/10/20 EGD and colonoscopy showed: ?STOMACH: Moderate diffuse gastric erythema with nodular appearing gastric mucosa and prominent gastric folds -. Biopsies were obtained from the gastric folds and antrum. Grade 2 flap valve on retroflexed examination of the cardia. DUODENUM: Scar of healed ulcer in the bulb and apex and normal descending duodenum Colonoscopy Findings: Three polyps removed Moderate diverticulosis seen in the left colon Moderate hemorrhoids on retroflexed exam. Plan: Patient has an appointment on 05/26/20 in the GI Clinic with Gissel Roman M.D. Repeat Colonoscopy interval based on path results - in 3 years if polyps are adenomatous and 10 years if polyps are hyperplastic. BIOPSIES SHOWED: A. Stomach, antrum, biopsy: Antral-type with moderate chronic inactive inflammation; no Helicobacter organisms seen. B. Stomach fold, biopsy: Oxyntic mucosa with moderate chronic inactive inflammation; no Helicobacter organisms seen. C. Cecum, polypectomy: Tubular adenoma; no high grade dysplasia or carcinoma seen. D. Colon, ascending, polypectomy: Fragments of tubular adenoma; no high grade dysplasia or carcinoma seen. E. Colon, transverse, polypectomy: Fragments of tubular adenoma; no high grade dysplasia or carcinoma seen [facility] Medical History GI (gastrointestinal bleed) CKD stage 3 due to type 1 diabetes mellitus Aortic root dilatation HTN (hypertension) Anxiety History of colon polyps Balanitis Primary osteoarthritis of knees, bilateral Chondrocalcinosis articularis Diabetes Surgical History History of esophagogastroduodenoscopy (EGD) Hx of colonoscopy (~03/2019) History of arthroplasty of right knee (~03/2019) History of cholecystectomy Family History Father No problems noted. Mother No problems noted. Social History Alcohol intake: never Patient Tobacco Use Status: Former Tobacco user Tobacco use type: Cigarette Years Smoked: 35 Advance Directives Date on File: 01/07/23 Review of Systems Const All systems reviewed & are unremarkable except as noted in HPI and below Physical Exam Vital Signs: Last Vital Signs BP 178/70 H 07/01/25 13:45 BMI result Body Mass Index 31.1 Const General: no acute distress Nutritional Appearance: obese Orientation/consciousness: patient oriented x3 HEENT Head: Yes normal to inspection Ears: hearing grossly normal bilaterally Eyes Sclerae: sclerae normal Pupils: Equal, round and reactive pupils present Neck Neck: Yes normal visual inspection Chest Chest palpation & inspection: normal inspection of the chest Resp Effort & Inspection: normal respiratory effort Auscultation: clear to auscultation bilaterally Cardio Palpation: normal PMI Rate: regular rate Rhythm: regular rhythm Heart sounds: S1 normal heart sound present, S2 normal heart sound present and no murmurs GI Palpation (GI): Soft to palpation, Tenderness to palpation present (GI) (Mild epigastric tenderness without rebound) and No hepatosplenomegaly present Auscultation: normal bowel sounds Rectal Exam - Male: Yes deferred Skin General skin exam: no rashes or lesions noted Neuro General: patient oriented x3, gait normal and moves all extremities Cranial nerves: Yes Equal, round and reactive pupils present Psych Appearance: grossly normal Mental Status: mental status grossly normal Assessment & Plan Assessment & Plan (1) History of duodenal ulcer: Code(s): Z87.19 - Personal history of other diseases of the digestive system Category: Medical (2) Abnormal CT scan, stomach: Code(s): R93.3 - Abnormal findings on diagnostic imaging of other parts of digestive tract Category: Medical (3) NAFL (nonalcoholic fatty liver): Code(s): K76.0 - Fatty (change of) liver, not elsewhere classified Category: Medical (4) Elevated LFTs: Code(s): R79.89 - Other specified abnormal findings of blood chemistry Category: Medical (5) History of colon polyps: Comment: 05/19 Three medium sized polyps were removed. Repeat colonoscopy is advised in 2 years (due in 05/21) Code(s): Z86.010 - Personal history of colon polyps Category: Medical (6) Chronic constipation: Code(s): K59.09 - Other constipation Category: Medical (7) Upper abdominal pain: Code(s): R10.10 - Upper abdominal pain, unspecified Category: Medical (8) Atrophy of pancreas: Code(s): K86.89 - Other specified diseases of pancreas Category: Medical Plan 84 year-old M with DM, hypertension, hypercholesterolemia [place] [facility] [place] with recurrent GI Bleeding from a duodenal ulcer associated with H Pylori infection. Pt was treated with Bismuth, doxycycline, metronidazole x 14 days at discharge from the hospital and has been doing well. An H Pylori breath test was negative post treatment. Patient complains of intermittent mild postprandial abdominal discomfort and bloating and was prescribed simethicone chewable tablets. Senna prescribed for constipation and hydrocortisone cream for painful hemorrhoids without rectal bleeding Patient was advised to increase omeprazole to 20 mg twice daily. 04/2022 UGISBFT showed Nonspecific thickening gastric folds fundus and proximal to mid body. Pt was advised further evaluation with abdominal CT scan to rule out mesenteric ischemia and to follow up on thickened gastric folds On 01/07/23 @ 10:03 Gissel Roman Wrote To Gissel Roman (2) Pt came for his EGD and colon appt today. BP was high 220/100 (pt did not take his morning medications and brought them with him) Pt had a 4.8 cms aneurysm of the thoracic aorta Procedure was canceled by Anesthesia due to risk aneurysm rupture during the procedure. Pt was asked to take his morning medications and BP was monitored in the discharge area. Pt's daughter, Fabiola, was called and updated. Pt is scheduled for a CT scan and a FU with lamination assembler next month. Merchandise Deliverer is Daniel Hall at [address] [place] [id number]. Please keep FU appt in GI as scheduled. Pt needs to have surgery for the aneurysm prior to rescheduling his procedures. 11/13/24 Complains of post prandial squeezing upper abdominal pain 15 to 20 min after eating and pain lasts for half an hour Takes peptobismol (1 bottle every 2 weeks) Taking Miralax for constipation - has a BM daily Patient advise labs and to schedule an abdominal CT scan for further evaluation of abdominal pain. He was prescribed omeprazole 20 mg twice daily. 03/11/25 Complains of post prandial abdominal pain, excessive gas and constipation. Taking Omeprazole and is not helpful Complains of constipation and has a BM every 3-4 days Not taking any medications at present - tried a lot of things and did not work 07/01/25 CT results were reviewed with the patient: 1. Coronary artery calcifications. Prominent/enlarged left cardiac atrium may be mildly more conspicuous than prior. 2. Borderline distention of portion of the appendix without surrounding fat stranding, likely incidental. Nevertheless correlate clinically for presence or absence of right lower quadrant pain. 3. Prostatomegaly. A copy of the CT report was given to the patient to take to his Cardiology appt next month and review with cardiology Pancreatic elastase to follow-up on pancreatic atrophy noted on abdominal CT scan. Continue pantoprazole 40 mg daily for GERD since patient notes improvement in his symptoms. FU in 6 months Orders: Orders Pancreatic Elastase-1 07/01/25 K86.89 - Other specified diseases of pancreas Medications: Changed From pantoprazole 40 mg PO DAILY 60 days 60 tabs 3RF R10.10 - Upper abdominal pain, unspecified To pantoprazole 40 mg PO DAILY 90 tabs 1RF 90 days R10.10 - Upper abdominal pain, unspecified Coding Level of Care Code Est Pt Level 4 (58447) Diagnoses History of duodenal ulcer Z87.[address] scan, stomach R93.3 NAFL (nonalcoholic fatty liver) K76.0 Elevated LFTs R79.89 History of colon polyps Z86.010 Chronic constipation K59.09 Upper abdominal pain R10.10 Atrophy of pancreas K86.89 Time Spent (min) 22
--- OUTSIDE RECORDS SUMMARY | 2025-07-01 14:00 | XMS_ITS | Clinical Summary ---
Author Organization [facility] Address [address] [place] [address] [place] [address] Phone Care Team Providers Care Defensive Secondary Coach Name Role Phone Name, Isai ARZATE Primary Care Provider [phone] Allergies Active Allergy Reactions Criticality Noted Date [...] Most Recently Relevant to Health Maintenance Insurance [facility] ([id number]) [facility] ([id number]) Care Teams Defensive Secondary Coach Relationship Specialty Start Date End Date Name, MD Isai [address] [place] [id number] PCP - General 10/10/20
--- OUTSIDE RECORDS SUMMARY | 2025-07-01 14:00 | XMS_ITS | Patient Health Record ---
Author Organization [facility] Address [address] [address] Care Team Providers Care Orchestra Leader Name Role Phone Name Isai ARZATE Primary Care Provider Rodrick Li Unavailable [phone] Allergies No Known Allergies Results Component Value Reference Range Notes HEMOGLOBIN A1C (GLYCOHEMOGLO BIN) Reviewed date:12/31/2024 01:16:44 [...] Problem Acquired hammer toe of right foot (8617724759692 105) Other hammer toe(s) (acquired), right foot (M20.41) Active confirmed Response to treatment,I mprovement Problem Type 2 diabetes mellitus with peripheral angiopathy (054445421) Type 2 diabetes mellitus with diabetic peripheral angiopathy without gangrene (E11.51) Active confirmed Q7(A), Q8(2B), Q9(1B,2C) Problem Acquired hammer toe of left foot (3075768706706 103) Other hammer toe(s) (acquired), left foot (M20.42) Active confirmed Response to treatment,I mprovement Vital Signs Heart Rate 68 /min 06/24/2025 Blood pressure diastolic 86 R mm Hg 06/24/2025 Height 5ft 7in in 06/24/2025 Blood pressure systolic 151 mm Hg 06/24/2025 Weight 195 lbs 06/24/2025 BMI 30.54 kg/m2 06/24/2025 Procedures Procedure Date Ordered Date Performed Result Body Sit e 92341-MKASYJF NAIL, 6 OR MORE 09/28/2024 N/A 98926-IISD SKIN LESIONS, OVER 4 09/28/2024 N/A 50013-DROWYFU NAIL, 6 OR MORE 12/31/2024 N/A 54039-HAOQ SKIN LESIONS, OVER 4 12/31/2024 N/A 96623-WFPYAZR NAIL, 6 OR MORE 03/31/2025 N/A 19222-OHUH SKIN LESIONS, OVER 4 03/31/2025 N/A 88394-XPUANON NAIL, 6 OR MORE 06/24/2025 N/A 25889-VLFH SKIN LESIONS, OVER 4 06/24/2025 N/A Encounters Encounter Location Date Provider Diagnosis [address] [address] 09/28/2024 Rodricktianna PhanSergio Type 2 diabetes mellitus with diabetic peripheral angiopathy without gangrene E11.51 ; Tinea unguium B35.1 ; Pain in right toe(s) M79.674 ; Pain in left toe(s) M79.675 and Tinea pedis of both feet B35.[address] [address] 12/31/2024 Rodricktianna PhanSergio Type 2 diabetes mellitus with diabetic peripheral angiopathy without gangrene E11.51 ; Tinea unguium B35.1 ; Pain in right toe(s) M79.674 ; Pain in left toe(s) M79.675 and Tinea pedis of both feet B35.[address] [address] 03/31/2025 Rodricktianna Hill Type 2 diabetes mellitus with diabetic peripheral angiopathy without gangrene E11.51 ; Other hammer toe(s) (acquired), right foot M20.41 ; Tinea unguium B35.1 ; Pain in right toe(s) M79.674 ; Pain in left toe(s) M79.675 and Other hammer toe(s) (acquired), left foot M20.[address] [address] 06/24/2025 Rodrick Sergio Type 2 diabetes mellitus with diabetic peripheral [...] of both feet (ICD-10 - B35.3) 03/31/2025 Other hammer toe(s) (acquired), left foot (ICD-10 - M20.42) Plan Of Treatment Pending Test Test Name Order Date 69425-SVGVVAR NAIL, 6 OR MORE 04/15/2024 70856-ZDCBDCD NAIL, 6 OR MORE 06/29/2024 20323-VRFCYQG NAIL, 6 OR MORE 09/28/2024 76020-FLYIWVH NAIL, 6 OR MORE 12/31/2024 78773-JHACXIJ NAIL, 6 OR MORE 03/31/2025 38365-VVSTWEZ NAIL, 6 OR MORE 06/24/2025 34776-SNGH SKIN LESIONS, OVER 4 06/24/20 25 20135-XAJS SKIN LESIONS, OVER 4 03/31/20 25 12697-MNLI SKIN LESIONS, OVER 4 04/15/20 24 73137-JPCY SKIN LESIONS, OVER 4 01/01/20 25 92410-JRNF SKIN LESIONS, OVER 4 09/28/20 24 99380-FKVJ SKIN LESIONS, OVER 4 06/29/20 24 10532-Lpgn. Subungual Hematoma Next Appt Details Provider Name:Rodrick Lucia Hill , 10/11/2025 02:30:00 PM, [address], [place] [address], [place], [address], Insurance Providers Payer Name Payer Address Payer Phone Subscriber Number Group Number Insured Name Patient Relationship to Insured Coverage Start Date Coverage End Date [facility] [employer] Claims [address] [place] [id number] Harrison bellamyNelson Self - patient is the insured Medical (General) History Medical History History ICD Code Arthritis Back,Hip,and Knee pain Diabetic High blood pressure Stomach ulcer Joint implants/screws Bone implants/screws Transfusions Surgical History Surgery Date(Month/Year) 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
--- OUTSIDE RECORDS SUMMARY | 2025-07-01 14:00 | XMS_ITS | Clinical Summary ---
Author Organization [employer] Address [address] [place] [address] [address] [place] [address] Care Team Providers Care Malariologist Name Role Phone Name, Isai ARZATE Primary Care Provider [phone] Allergies No known active allergies Medications Blood Glucose Monitoring Suppl (FreeStyle Verona Lite) w/Device kit TEST BLOOD SUGAR TWICE [...] 2 diabetes mellitus with hyperglycemia, unspecified whether press tender long goods insulin use (HCC) Inject 3 mg under the skin 1 [...] on eye exam 02/06/13 History of alcoholism ([facility]) 03/11/2013 Esophageal dysmotility 12/30/2012 Overview (03/14/2023): Mild, barium swallow 08/11 CKD (chronic kidney disease) stage 3, GFR 30-59 ml/min ([facility]) 07/29/2012 Hypertension 01/16/2012 Assessment & Plan (08/18/2023 9:02 AM EST): Here BP 156/78 -states at home BP < 150 Systolic ,not took BP med this am -advised to be compliant w all meds- pt black pickler today his medbox -to f w PCP [...] 05/23/2023 Type 2 diabetes mellitus without complication 04/06/2010/17/2022 Balanitis 03/06/2019 05/23/2023 Acute situational disturbance 11/28/2015 05/23/2023 DM (diabetes mellitus), type 2, uncontrolled, with renal complications 09/20/2015 05/23/2023 Encounters Date Type Department Care Team Description 06/25/2025 Orders Only [facility] External Provider, [facility] 06/09/2025 Refill [facility] [address] [place] [address] [phone] Isai Resendez MD 06/07/2025 Refill [facility] [address] [place] [address] [phone] Isai Resendez MD Elevated blood sugar 05/14/2025 Telephone [facility] [address] [place] [address] [phone] Naheed Nance [place] june recalls 04/15/2025 Orders Only GENERIC EXTERNAL DATA DEPARTMENT Provider, Generic External Data 04/08/2025 3:30 PM EDT Office Visit [facility] [address] [place] [address] [phone] NameIsai MD Type 2 diabetes mellitus with hyperglycemia, unspecified whether fdc insulin use ([facility]) (Primary Dx); Hypertension, unspecified type; Stage 3 chronic kidney disease, unspecified whether stage 3a or 3b CKD (CMS/HCC); Primary osteoarthritis of both knees 04/08/2025 Travel 04/08/2025 Refill [facility] [address] [place] [address] [phone] Isai Resendez MD Hypertension, unspecified type from Last 3 [...] Description 08/02/2025 1:45 PM EST Office Visit [facility] [address] [place] [address] [phone] Name, MD [address]ai [address] [place] [address] Health Maintenance Due Date Last Done Comments [...] Procedure Name Priority Date/Time Associated Diagnosis Comments CT ABDOMEN PELVIS WO CONTRAST Routine 06/28/2025 12:08 PM EDT VITAMIN B12/FOLATE, SERUM PANEL Routine 04/15/2025 9:13 AM EDT LIPASE Routine 04/15/2025 9:13 AM EDT COMPREHENSIVE METABOLIC PANEL Routine 04/15/2025 9:13 AM EDT PROTHROMBIN TIME-INR Routine 04/15/2025 9:13 AM EDT CBC WITH AUTO DIFFERENTIAL Routine 04/15/2025 9:13 AM EDT ALBUMIN, RANDOM URINE W/CREATININE Routine 04/15/2025 9:13 AM EDT Type 2 diabetes mellitus with hyperglycemia, unspecified whether fdc insulin use (CMS/[facility]) Hypertension, unspecified type Stage 3 chronic kidney disease, unspecified whether stage 3a or 3b CKD (CMS/HCC) LIPID PANEL, STANDARD Routine 04/15/2025 9:13 AM EDT Type 2 diabetes mellitus with hyperglycemia, unspecified whether fdc insulin use (CMS/HCC) Hypertension, unspecified type Stage 3 chronic kidney disease, unspecified whether stage 3a or 3b CKD (CMS/HCC) POCT GLYCATED HEMOGLOBIN, TOTAL Routine 04/08/2025 3:47 PM EDT Type 2 diabetes mellitus with hyperglycemia, unspecified whether fdc insulin use (CMS/[facility]) POCT GLUCOSE Routine 04/08/2025 3:43 PM EDT Type 2 diabetes mellitus with hyperglycemia, unspecified whether press tender long goods insulin use (CMS/[facility]) from Last 3 Months Results * CT Abdomen Pelvis w/o Contrast (06/28/2025 12:08 PM EDT) Anatomical Region Laterality Modality Body, Pelvis, Abdomen Computed T omography 06/28/2025 12:0 8 PM EDT Narrative 06/28/2025 12:09 PM EDT [place] [address] CT Scan Report Signed Patient: Nelson Mandujano MR#: [id number] : 1940 Acct:[id number] Age/Sex: 84 / M ADM Date: 06/25/25 Loc: HO.CT Attending Dr: Gissel Roman MD Ordering Physician: Gissel Roman MD Date of Service: 06/25/25 Procedure(s): CT abdomen pelvis wo IV con Accession Number(s): [id number] cc: Gissel Roman MD; Name,Isai Report Number: [id number]: Total DLP = 574.00 mGy-cm Reason for Exam: R10.10 - Upper abdominal pain, unspecified CLINICAL HISTORY: R10.10 - Upper abdominal pain, unspecified --- Additional Notes or Special Instructions: Post prandial abdominal pain CT abdomen and pelvis without contrast Comparison: 04/21/2019 Findings: The lung bases are clear. Coronary artery calcifications. Prominent/enlarged left cardiac atrium may be mildly more conspicuous than prior. Mild calcifications versus postsurgical changes in the gastroesophageal junction wall. Ftix-xj-vvuhskky pancreatic atrophy. Small calcified hepatic granuloma. New too small to characterize right hepatic dome hypodensity. Gallbladder not seen and likely surgically absent. Exophytic left renal simple cyst measuring up to 8 mm in the axial plane. Simple inferior polar left renal parapelvic cyst. No hydronephrosis. No bowel obstruction, pneumoperitoneum, or pneumatosis. Atherosclerotic calcifications. Enlarged prostate measuring 66 mm in width versus 58 mm previously. Nonprogressive benign up to 5 mm thickening of portions of the urinary bladder wall. Mild colonic diverticulosis without diverticulitis. Borderline distention of portion of the appendix without surrounding fat stranding, likely incidental. Nevertheless correlate clinically for presence or absence of right lower quadrant pain. Partially evaluated right proximal femoral hardware. Spinal degenerative changes. No acute fracture. Rest of the abdominopelvic viscera are unremarkable. IMPRESSION: 1. Coronary artery calcifications. Prominent/enlarged left cardiac atrium may be mildly more conspicuous than prior. 2. Borderline distention of portion of the appendix without surrounding fat stranding, likely incidental. Nevertheless correlate clinically for presence or absence of right lower quadrant pain. 3. Prostatomegaly. This document has been electronically signed by: Bonnie Haney MD on 06/28/2025 12:08:55 Dictated By: Bonnie Haney MD Signed By: <Electronically signed by Bonnie Haney MD in OV> 06/28/25 1209 DD/ 1208 TD/TT: 06/28/25 120 Desk Attendant: Procedure Note Donotuseinterpreter, Image - 06/28/[address] [address] [address] Scan Report Signed Patient: Crista Mandujano#: [id number] : 2Acct:[id number] Age/Sex: 84 / MADM Date: 06/25/25 Loc: HO.CT Attending Dr: Gissel Roman MD Ordering Physician: Gissel Roman MD Date of Service: 06/25/25 Procedure(s): CT abdomen pelvis wo IV con Accession Number(s): [id number] cc: Gissel Roman MD; Name,Isai ARZATE Report Number: [id number]: Total DLP = 574.00 mGy-cm Reason for Exam: R10.10 - Upper abdominal pain, unspecified CLINICAL HISTORY: R10.10 - Upper abdominal pain, unspecified ---Additional Notes or Special Instructions: Post prandial abdominal pain CT abdomen and pelvis without contrast Comparison: 04/21/2019 Findings: The lung bases are clear. Coronary artery calcifications. Prominent/enlarged left cardiac atrium may be mildly more conspicuous than prior. Mild calcifications versus postsurgical changes in the gastroesophageal junction wall. Jbvc-xk-fgomvtpy pancreatic atrophy. Small calcified hepatic granuloma. New too small to characterize right hepatic dome hypodensity. Gallbladder not seen and likely surgically absent. Exophytic left renal simple cyst measuring up to 8 mm in the axial plane. Simple inferior polar left renal parapelvic cyst. No hydronephrosis. No bowel obstruction, pneumoperitoneum, or pneumatosis. Atherosclerotic calcifications. Enlarged prostate measuring 66 mm in width versus 58 mm previously. Nonprogressive benign up to 5 mm thickening of portions of the urinary bladder wall. Mild colonic diverticulosis without diverticulitis. Borderline distention of portion of the appendix without surrounding fat stranding, likely incidental. Nevertheless correlate clinically for presence or absence of right lower quadrant pain. Partially evaluated right proximal femoral hardware. Spinal degenerative changes. No acute fracture. Rest of the abdominopelvic viscera are unremarkable. IMPRESSION: 1. Coronary artery calcifications. Prominent/enlarged left cardiac atrium may be mildly more conspicuous than prior. 2. Borderline distention of portion of the appendix without surrounding fat stranding, likely incidental. Nevertheless correlate clinically for presence or absence of right lower quadrant pain. 3. Prostatomegaly. This document has been electronically signed by: Bonnie Haney MD on 06/28/2025 12:08:55 Dictated By: Bonnie Haney MD Signed By: <Electronically signed by Bonnie Haney MD in OV> 06/28/25 1209 DD/ 1208 TD/TT: 06/28/25 120 Desk Attendant: [facility] External Provider IMG CT PROCEDURES Final Result * Vitamin B12 (Cobalamin) and Folate Panel, Serum (04/15/2025 9:13 AM EDT) Vitamin B12 810 200 - 900 pg/mL [facility] Comment:NORMAL 200-900 PG/ML INDETERMINATE 160-199 PG/ML DEFICIENT < 160 PG/ML Folate 13.2 > or = 4.0 ng/mL [facility] Comment:Reference Values:> o r = 4.0 ng/mL< 4.0 ng/mL suggests folate deficiency Methotrexate, aminopterin and folinic acid(leucovorin) are chemotherapeutic agents whose molecularstructures are similar to folate; therefore, the Architectfolate assay cannot be used for patients using these drugs. 04/15/2025 9:13 AM EDT 04/15/2025 11:06 AM EDT Generic External Data Provider LAB BLOOD ORDERAB LES Final Result [facility] [address] [place] [address] [phone] * (ABNORMAL) Albumin, Random Urine W/Creatinine (04/15/2025 9:13 AM EDT) Creatinine, Urine 60.89 mg/dL [facility] Microalbumin Urine 195.0 mg/L [facility] Microalbum Creatinine Ratio Ur 320.2(H) <30 ug/mg cr [facility] Comment:Albumin/Creatinine R atio Reference Ranges: Normal: < 30 ug/mg creatinine Microalbuminuria: 30 - 300 ug/mg creatinineClinical Albuminuria: > 300 ug/mg creatinine Urine (Urine, Random) 04/15/2025 9:13 AM EDT 04/15/2025 11:17 AM EDT us Isai Name MD LAB URINE ORDERABLES Final Resul t [facility] [address] [place] [phone] * (ABNORMAL) CBC auto differential (04/15/2025 9:13 AM EDT) White Blood Count 5.5 4.8 - 10.8 X10*3/uL [facility] Red Blood Count 5.41 4.60 - 5.80 X10*6/uL [facility] Hemoglobin 15.7 14.0 - 18.0 g/dl [facility] Hematocrit 48.5 42.0 - 52.0 % [facility] Mean Corpuscular Volume 89.6 80.0 - 98.0 fL [facility] Mean Corpuscular Hemoglobin 29.0 27.0 - 33.0 pg [facility] Mean Corpuscular HGB Conc 32.4 31.0 - 36.0 g/dl [facility] Red Cell Distribution Width 13.2 11.0 - 16.0 % [facility] Platelet Count 242 160 - 400 X10*3/uL [facility] Mean Platelet Volume 10.0 9.4 - 12.4 fL [facility] Neutrophils Percent Auto 54.5 45 - 73 % [facility] Imm Gran Pct Auto 0.6(H) 0.0 - 0.4 % [facility] Lymphocytes Percent Auto 31.0 20 - 40 % [facility] Monocytes Percent Auto 10.5 2 - 11 % [facility] Eosinophils Percent Auto 2.8 0 - 4 % [facility] Basophils Percent Auto 0.6 0 - 2 % [facility] NRBC Pct Auto 0.0 0.0 - 0.2 /100WBC [facility] Neutrophils Absolute Auto 3.0 2.0 - 8.3 x10*3/uL [facility] Imm Gran Abs Auto 0.03 0.00 - 0.03 X10*3/uL [facility] Lymphocytes Absolute Auto 1.7 1.2 - 4.9 X10*3/uL [facility] Monocytes Absolute Auto 0.6 0.1 - 1.2 X10*3/uL [facility] Eosinophils Absolute Auto 0.2 0.0 - 0.4 X10*3/uL [facility] Basophils Absolute Auto 0.0 0.0 - 0.2 X10*3/uL [facility] NRBC Abs Auto 0.000 0.0 - 0.012 X10*3/uL [facility] 04/15/2025 9:13 AM EDT 04/15/2025 11:06 AM EDT Generic External Data Provider LAB BLOOD ORDERAB LES Final Result Performing Organization Address [facility] Co de Phone Number [facility] [address] [place] [phone] * Prothrombin Time-INR (04/15/2025 9:13 AM EDT) Prothrombin Time 12.0 10.9 - 12.4 SEC [facility] INTERNATIONAL NORM RATIO 1.0 0.9 - 1.1 [facility] Comment:INTERNATIONAL NORMAL IZED RATIO (INR) [...] ORDERAB LES Final Result Performing Organization Address [facility] Co de Phone Number [facility] [address] [place] [address] [phone] * Lipase (04/15/2025 9:13 AM EDT) Lipase 69 8 - 78 U/L [facility] 04/15/2025 9:13 AM EDT 04/15/2025 11:06 AM EDT us Generic External Data Provider LAB BLOOD ORDERAB LES Final Result Performing Organization Address [facility] Co de Phone Number [facility] [address] [place] [address] [phone] * (ABNORMAL) Lipid Panel, Standard (04/15/2025 9:13 AM EDT) Triglycerides 205(H) <150 mg/dL [facility] Comment:Desirable Triglyceri de: less than 150 mg/dLBorderline High Triglyceride 150-199 mg/dLHigh Triglyceride: 200-499 mg/dLVery High Triglyceride: greater than or equal to 5OO mg/dL Cholesterol 112 <200 mg/dL [facility] Comment:Desirable Cholestero l: less than 200 mg/dLBorderline High Cholesterol: 200-239 mg/dLHigh Cholesterol: greater than 239 mg/dL LDL Cholesterol Calculated 44 <100 mg/dL [facility] Comment:Desirable LDL: less than 100 mg/dLNear Optimal/Above Optimal LDL: 110- 129 mg/dLBorderline High LDL: 130-159 mg/dLHigh LDL: 160-189 mg/dLVery High LDL: greater than or equal to 190 mg/dL HDL Cholesterol 27(L) >40 mg/dL [facility] Comment:Desirable HDL: great er than 40 mg/dL Note: This HDL assay may give artificially low results in patients with liver disease. Blood Venous blood specimen / Unknown 04/15/2025 9:13 AM EDT 04/15/2025 11:06 AM EDT us Isai Resendez MD LAB BLOOD ORDERABLES Final Resul t Performing Organization Address City/[facility]/ZIP Co de Phone Number [facility] [address] [place] [phone] * (ABNORMAL) Comprehensive Metabolic Panel (04/15/2025 9:13 AM EDT) [facility] Sodium 141 135 - 145 mmol/L [facility] Potassium 3.9 3.3 - 5.1 mmol/L [facility] Chloride 105 96 - 108 mmol/L [facility] Carbon Dioxide 26 22 - 29 mmol/L [facility] Anion Gap 14 12 - 20 [facility] Urea Nitrogen (BUN) 20(H) 9 - 16 mg/dL [facility] Creatinine, Serum 1.86(H) 0.5 - 1.4 mg/dL [facility] Estimated Glomerular Filt Rate 35 [facility] Comment:Chronic Kidney Disea se: Estimated GFR < 60 mL/min/[id number] Kidney Disease: Estimated GFR < 15 mL/min/1.73m2 Glucose 183(H) 60 - 115 mg/dL [facility] Calcium 8.9 8.4 - 10.2 mg/dL [facility] Bilirubin, Total 0.8 0.0 - 1.0 mg/dL [facility] Aspartate Amino Transferase 31 5 - 37 U/L [facility] Alanine Aminotransferase 30 0 - 40 U/L [facility] Total Protein 7.0 6.5 - 8.0 g/dL [facility] Albumin Level 4.3 3.5 - 5.0 g/dL [facility] Alkaline Phosphatase 79 39 - 117 U/L [facility] 04/15/2025 9:13 AM EDT 04/15/2025 11:06 AM EDT us Generic External Data Provider LAB BLOOD ORDERAB LES Final Result [facility] [address] [place] [phone] * (ABNORMAL) POCT HGB A1C (04/08/2025 [...] Media Lot # [id number] Lot# Expiration Date [id number] Blood Capillary blood specimen / Unknown 04/08/2025 3:43 PM EDT Isai Name POINT OF CARE TEST ENTER/EDIT OR DERABLES Final Result from Last 3 Months Insurance Mandie Rhodes MA [facility] OPTIONS (O D-SNP) HATTIE DANIELSON [id number] Care Teams Malariologist Relationship Specialty Start Date End Date Name, MD Isai [address] [place] [address] PCP - General Family Medicine 09/30/18
--- OUTSIDE RECORDS SUMMARY | 2025-07-01 14:00 | XMS_ITS | Encounter Summary ---
Author Organization [employer] Address [address] [place] [address] [address] [place] [address] Care Team Providers Care Community Planner Name Role Phone NameIsai MD Primary Care Provider [phone] Encounter Details Date Type Department Care Team (Late st Contact Info) Description 10/08/2022 Orders Only [facility] P[facility]S [address] [place], [place] [phone] Asia Duffy LPN Social History Tobacco Use [...] Description 08/02/2025 1:45 PM EST Office Visit [facility] MEDICINE [address] [place], [place] [phone] NameIsai MD [address] [place] [address] documented as of this encounter Procedures Procedure [...] 10:30 AM EDT) Creatinine, Urine 81.71 mg/dL [facility] Microalbumin Urine 468.0 mg/L [facility] Microalbum Creatinine Ratio Ur 572.7(H) <30 ug/mg cr [facility] Comment:Albumin/Creatinine R atio Reference Ranges: Normal: < 30 ug/mg creatinine Microalbuminuria: 30 - 300 ug/mg creatinineClinical Albuminuria: > 300 ug/mg creatinine 07/09/2023 10:3 0 AM EDT 07/09/2023 12:39 PM EDT us Isai Resendez MD LAB URINE ORDERABLES Final Resul t [facility] [address] [place] [phone] * PSA,Total (05/09/2023 2:57 PM EDT) Prostate Specific Antigen 2.90 <0.05 - 4.0 ng/mL [facility] Comment:PSA methodology: Abb mathew Alinity i ChemiluminescentMicroparticle Immunoassay (CMIA) 05/09/2023 2:57 PM EDT 05/09/2023 2:57 PM EDT [facility] External Provider LAB BLO OD ORDERABLES Final Result [facility] [address] [place] [phone] * (ABNORMAL) CBC auto differential (04/09/2023 2:45 PM EDT) White Blood Count 5.4 4.8 - 10.8 X10*3/uL [facility] Red Blood Count 3.86(L) 4.60 - 5.80 X10*6/uL [facility] Hemoglobin 11.5(L) 14.0 - 18.0 g/dl [facility] Hematocrit 37.0(L) 42.0 - 52.0 % [facility] Mean Corpuscular Volume 95.9 80.0 - 98.0 fL [facility] Mean Corpuscular Hemoglobin 29.8 27.0 - 33.0 pg [facility] Mean Corpuscular HGB Conc 31.1 31.0 - 36.0 g/dl [facility] Red Cell Distribution Width 13.5 11.0 - 16.0 % [facility] Platelet Count 322 160 - 400 X10*3/uL [facility] Mean Platelet Volume 10.3 9.4 - 12.4 fL [facility] Neutrophils Percent Auto 61.5 45 - 73 % [facility] Imm Gran Pct Auto 0.6(H) 0.0 - 0.4 % [facility] Lymphocytes Percent Auto 22.4 20 - 40 % [facility] Monocytes Percent Auto 11.9(H) 2 - 11 % [facility] Eosinophils Percent Auto 2.9 0 - 4 % [facility] Basophils Percent Auto 0.7 0 - 2 % [facility] NRBC Pct Auto 0.0 0.0 - 0.2 /100WBC [facility] Neutrophils Absolute Auto 3.3 2.0 - 8.3 x10*3/uL [facility] Imm Gran Abs Auto 0.03 0.00 - 0.03 X10*3/uL [facility] Lymphocytes Absolute Auto 1.2 1.2 - 4.9 X10*3/uL [facility] Monocytes Absolute Auto 0.7 0.1 - 1.2 X10*3/uL [facility] Eosinophils Absolute Auto 0.2 0.0 - 0.4 X10*3/uL [facility] Basophils Absolute Auto 0.0 0.0 - 0.2 X10*3/uL [facility] NRBC Abs Auto 0.000 0.0 - 0.012 X10*3/uL [facility] 04/09/2023 2:45 PM EDT 04/09/2023 4:13 PM EDT us [facility] External Provider LAB BLO OD ORDERABLES Final Result [facility] [address] [place] [phone] * (ABNORMAL) Basic Metabolic Panel (04/09/2023 2:45 PM EDT) Sodium 136 135 - 145 mmol/L [facility] Potassium 4.4 3.3 - 5.1 mmol/L [facility] Chloride 103 96 - 108 mmol/L [facility] Carbon Dioxide 25 22 - 29 mmol/L [facility] Anion Gap 12 12 - 20 [facility] Urea Nitrogen (BUN) 17(H) 9 - 16 mg/dL [facility] Creatinine, Serum 1.36 0.5 - 1.4 mg/dL [facility] Estimated Glomerular Filt Rate 50 [facility] Comment:NOTE: For -Am erican individuals, multiply the result by 1.210.Chronic Kidney Disease: Estimated GFR < 60 mL/min/1.42h6Inyieb Kidney Disease: Estimated GFR < 15 mL/min/1.73m2 Glucose 180(H) 60 - 115 mg/dL [facility] Calcium 9.7 8.4 - 10.2 mg/dL [facility] 04/09/2023 2:45 PM EDT 04/09/2023 4:13 PM EDT [facility] External Provider LAB BLO OD ORDERABLES Final Result Performing Organization Address [facility] Co de Phone Number [facility] [address] [place] [phone] * Calcium (01/08/2023 9:38 AM EDT) Calcium 9.2 8.4 - 10.2 mg/dL [facility] 01/08/2023 9:38 AM EDT 01/08/2023 9:38 AM EDT [facility] External Provider LAB BLO OD ORDERABLES Final Result Performing Organization Address [facility] Phone Number [facility] [address] [place] [phone] * (ABNORMAL) Creatinine, Serum (01/08/2023 9:38 AM EDT) Creatinine, Serum 1.77(H) 0.5 - 1.4 mg/dL [facility] Estimated Glomerular Filt Rate 37 [facility] Comment:NOTE: For -Am erican individuals, multiply the result by 1.210.Chronic Kidney Disease: Estimated GFR < 60 mL/min/1.98b4Yiembm Kidney Disease: Estimated GFR < 15 mL/min/1.73m2 01/08/2023 9:38 AM EDT 01/08/2023 9:38 AM EDT [facility] External Provider LAB BLO OD ORDERABLES Final Result Performing Organization Address [facility] Co de Phone Number [facility] [address] [place] [phone] * (ABNORMAL) BUN (Blood Urea Nitrogen) (01/08/2023 9:38 AM EDT) Urea Nitrogen (BUN) 23(H) 9 - 16 mg/dL [facility] 01/08/2023 9:38 AM EDT 01/08/2023 9:38 AM EDT [facility] External Provider LAB BLO OD ORDERABLES Final Result Performing Organization Address [facility] de Phone Number [facility] [address] [place] [address] [phone] * Electrolyte Panel (01/08/2023 9:38 AM EDT) Sodium 136 135 - 145 mmol/L [facility] Potassium 4.0 3.3 - 5.1 mmol/L [facility] Chloride 102 96 - 108 mmol/L [facility] Carbon Dioxide 26 22 - 29 mmol/L [facility] Anion Gap 12 12 - 20 [facility] 01/08/2023 9:38 AM EDT 01/08/2023 9:38 AM EDT [facility] External Provider LAB BLO OD ORDERABLES Final Result Performing Organization Address [facility] de Phone Number [facility] [address] [place] [address] [phone] * (ABNORMAL) GLUCOSE, WHOLE BLOOD (01/07/2023 9:20 AM EDT) Glucose, Whole Blood 169(H) 60 - 115 mg/dL [facility] Comment:METER #: [id number] 01/07/2023 9:20 AM EDT 01/07/2023 9:23 AM EDT [facility] External Provider LAB BLO OD ORDERABLES Final Result Performing Organization Address [facility] Co de Phone Number [facility] [address] [place] [phone] documented in this encounter Visit Diagnoses Not on filedocumented in this encounter Care Teams Community Planner Relationship Specialty Start Date End Date Name, MD Isai [address] [place] [address] PCP - General Family Medicine 09/30/18 documented as of this encounter
--- OUTSIDE RECORDS SUMMARY | 2025-07-01 14:00 | XMS_ITS | Encounter Summary ---
Author Organization [employer] [facility] Address [address] [place] [address] [address] [place] [address] Care Team Providers Care Grain Blender Name Role Phone Name, Isai ARZATE Primary Care Provider [phone] Reason for Visit * Reason Onset Date Comments Appointment Request 10/25/2022 Encounter Details Date Type Department Care Team ([facility] st Contact Info) Description 10/25/2022 Telephone [facility] MEDICINE [address] [place], [place] [phone] Name, MD Isai [address] [place] [address] Appointment Request Social History Tobacco Use Types [...] to r/s appt Please contact daughter at [phone] documented in this encounter Plan of Treatment Upcoming Encounters Date Type Department Care Team (Late st Contact Info) Description 08/02/2025 1:45 PM EST Office Visit [facility] MEDICINE [address] [place] [phone] Name, MD Isai [address] [place] [phone] documented as of this encounter Visit Diagnoses Not on filedocumented in this encounter Care Teams Grain Blender Relationship Specialty Start Date End Date Name, MD Isai [address] [place] [phone] PCP - General Family Medicine 09/30/18 documented as of this encounter
--- OUTSIDE RECORDS SUMMARY | 2025-07-01 14:00 | XMS_ITS | Encounter Summary ---
Author Organization [employer] [facility] Address [address] [place] [address] [address] [place] [address] Care Team Providers Care Magazine Publisher Name Role Phone Name, Isai ARZATE Primary Care Provider Reason for Referral * Consultation (Urgent) - Closed Specialty Diagnoses / Procedures Referred By Contac t Referred To Contact Physical Therapy Diagnoses Stress fracture of sacrococcygeal region with routine healing Roxanna Nichole MD [address] [place] [phone] Phone: tel: fax: [facility] Physical Therapy [address] [place] [address] Phone: tel: fax: Referral ID Status Reason Start Date Expiration Date V isits Requested Visits Authorized [id number] Closed Specialty Services Required 04/20/2024 04/20/2025 1 1 Encounter Details Date Type Department Care Team (Late st Contact Info) Description 04/20/2024 Orders Only [facility] MEDICINE [address] [place] [phone] Roxanna Nichole MD [address] [place], [place] [phone] Stress fracture of sacrococcygeal region with routine [...] Description 08/02/2025 1:45 PM EST Office Visit [facility] MED[facility] [address] [place] [address] Name, MD Isai [address] [place] [address] Scheduled Referrals Name Type Priority Associated Diagnoses [...] documented as of this encounter Care Teams Magazine Publisher Relationship Specialty Start Date End Date Name, MD Isai [address] [place] [address] PCP - General Family Medicine 09/30/18 documented as of this encounter
--- OUTSIDE RECORDS SUMMARY | 2025-07-01 14:00 | XMS_ITS | Encounter Summary ---
Author Organization [employer] Address [address] [facility] [address] [place] [address] Care Team Providers Care Laboratory Equipment Cleaner Name Role Phone Name, Isai ARZATE Primary Care Provider [phone] Encounter Details Date Type Department Care Team (Late st Contact Info) Description 06/25/2025 Orders Only [facility] External Provider, [facility] Social History Tobacco Use Types Packs/Day Years [...] 08/02/2025 1:45 PM EST Office Visit [facility] MEDICINE [address] [place] [phone] Name, MD Isai [address] [place] [phone] documented as of this encounter Procedures Procedure Name Priority Date/Time Associated Diagnosis Comments CT ABDOMEN PELVIS WO CONTRAST Routine 06/28/2025 12:08 PM EDT documented in this encounter Results * CT Abdomen Pelvis w/o Contrast (06/28/2025 12:08 PM EDT) Anatomical Region Laterality Modality Body, Pelvis, Abdomen Computed T omography 06/28/2025 12:0 8 PM EDT Narrative 06/28/2025 12:09 PM EDT [address] [address] [address] Scan Report Signed Patient: Nelson Mandujano MR#: [id number] : 1940 Acct:[id number] Age/Sex: 84 / M ADM Date: 06/25/25 Loc: HO.CT Attending Dr: Gissel Roman MD Ordering Physician: Gissel Roman MD Date of Service: 06/25/25 Procedure(s): CT abdomen pelvis wo IV con Accession Number(s): [id number] cc: Gissel Roman MD; Name,Isai Report Number: [id number]: Total DLP = 574.00 mGy-cm Reason for [...] postsurgical changes in the gastroesophageal junction wall. Tlmz-sk-uatinnem pancreatic atrophy. Small calcified hepatic granuloma. New [...] OV> 06/28/25 1209 DD/ 1208 TD/TT: 06/28/25 1208 Nicker And Breaker: Procedure Note Donotuseinterpreter, Image - 06/28/[address] [address] [address] Scan Report Signed Patient: Crista Mandujano#: [id number] : 2Acct:[id number] Age/Sex: 84 / MADM Date: 06/25/25 Loc: HO.CT Attending Dr: Gissel Roman MD Ordering Physician: Gissel Roman MD Date of Service: 06/25/25 Procedure(s): CT abdomen pelvis wo IV con Accession Number(s): [id number] cc: Gissel Roman MD; Name,Isai ARZATE Report Number: [id number]: Total DLP = 574.00 mGy-cm Reason for [...] postsurgical changes in the gastroesophageal junction wall. Lkoi-ck-rgivggeu pancreatic atrophy. Small calcified hepatic granuloma. New [...] MD on 06/28/2025 12:08:55 Dictated By: Bonnie aHney MD Signed By: <Electronically signed by Bonnie Haney MD in OV> 06/28/25 1209 DD/ 1208 TD/TT: 06/28/25 1208 Nicker And Breaker: [facility] External Provider IMG CT PROCEDURES Final Result documented in this encounter Visit Diagnoses Not on filedocumented in this encounter Additional Health Concerns Assessment Noted Time PHQ-9 Depression Total Score: 2 04/08/20 25 3:44 PM EDT documented as of this encounter Care Teams Laboratory Equipment Cleaner Relationship Specialty Start Date End Date Name, MD Isai [address] [place] [address] PCP - General Family Medicine 09/30/18 documented as of this encounter
== END 2025-07-01 14:23 | disposition home or self-care (01) ==
LOC: HO.HGI 12:33
PROVIDERS: PCP Internal Medicine Geriatric Medicine; Visit Provider Internal Medicine Gastroenterology
DX: Z87.19 Personal history of other diseases of the digestive system (principal); R93.3 Abnormal findings on diagnostic imaging of other parts of digestive tract; K76.0 Fatty (change of) liver, not elsewhere classified; R79.89 Other specified abnormal findings of blood chemistry; Z86.0100 Personal history of colon polyps, unspecified; K59.09 Other constipation; R10.10 Upper abdominal pain, unspecified; K86.89 Other specified diseases of pancreas
CPT/HCPCS: 99214

== ENCOUNTER → 2025-07-01 12:32 | Outpatient (BNVA) | payer OTHER, SELFPAY | PROVIDERS: PCP Internal Medicine Geriatric Medicine; Visit Provider Internal Medicine Gastroenterology | DX: K76.0 Fatty (change of) liver, not elsewhere classified (principal); K59.09 Other constipation; K86.89 Other specified diseases of pancreas; R93.3 Abnormal findings on diagnostic imaging of other parts of digestive tract; R79.89 Other specified abnormal findings of blood chemistry; R10.10 Upper abdominal pain, unspecified; Z86.0100 Personal history of colon polyps, unspecified; Z87.19 Personal history of other diseases of the digestive system | CPT/HCPCS: 99212 ==

== ENCOUNTER 2025-08-05 09:51 | Outpatient (REF) | payer OTHER, SELFPAY ==
--- OUTSIDE RECORDS SUMMARY | 2025-08-02 10:15 | XMS_ITS | Encounter Summary ---
Author Organization [employer] [facility] Address [address] [place] [address] 7 [place] [address] Care Team Providers Care Assistant Unit Forester Name Role Phone Isai Resendez MD Primary Care Provider [phone] Reason for Referral * Medications - Closed Specialty Diagnoses / Procedures Referred By Contac t Referred To Contact Diagnoses Lumbar spondylosis Isai Resendez MD [address] [place] [address] Phone: tel: fax: Referral ID Status Reason Start Date Expiration Date Visits Re quested Visits Authorized [id number] Closed 1 1 Reason for Visit * Reason Comments Follow-up Encounter Details Date Type Department Care Team (Late st Contact Info) Description 08/02/2025 10:15 AM EST Office Visit [facility] [address] [place] [address] [phone] Isai Resendez MD [address] [place] [address] [phone] Type 2 diabetes mellitus with hyperglycemia, unspecified whether longterm insulin use (HCC) (Primary Dx); Type 2 diabetes mellitus with stage 3 chronic kidney disease, unspecified whether commercial art instructor insulin use, unspecified whether stage 3a or 3b CKD (HCC); Type 2 diabetes mellitus with diabetic polyneuropathy, unspecified whether commercial art instructor insulin use (HCC); Hypertension, unspecified type; Encounter for immunization; Lumbar spondylosis Social History Tobacco Use Types Packs/Day Years [...] Sign Reading Time Taken Comments Blood Pressure 170/64 08/02/2025 10:26 AM EST Pulse 66 08/02/2025 10:26 AM EST Temperature 36.7 C (98.1 F) 08/02/2025 10:26 AM EST Respiratory Rate 18 08/02/2025 10:26 AM EST Oxygen Saturation 97% 08/02/2025 10:26 AM EST Inhaled Oxygen Concentration - - Weight 91.2 kg (201 lb) 08/02/2025 10:26 AM EST Height 170.2 cm (5' 7 ) 08/02/2025 10:26 AM EST Body Mass Index 31.48 08/02/2025 10:26 AM EST documented in this encounter Progress Notes * Isai Resendez MD - 08/02/2025 10:15 AM EST , Subjective Patient ID: Nelson Doyle is a 84 y.o. male who presents for Follow-up. Patient comes for a follow-up visit. He complains today of exacerbation of chronic low back pain and bilateral knee pain precipitated by weightbearing activities. 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 He avoids the use of NSAIDs because of CKD and previous history of GI bleed.He denies any recent falls, no swelling or redness of the knees. He does not bring his glucose meter but there has been worsening of his hemoglobin A1c. He admits to a liberal diet. The patient mostly drinks Snapple that he buys by the case. BP is elevated today but he has not used his medications.He does not have any chest pains or shortness of breath. He refused flu and COVID vaccination today. He agreed to update his Tdap vaccination today. Review of Systems Constitutional: Negative for chills, fatigue and fever. HENT: Negative for sore throat. Respiratory: Negative for cough, chest tightness and shortness of breath. Cardiovascular: Negative for chest pain, palpitations and leg swelling. Gastrointestinal: Negative for abdominal pain and blood in stool. Musculoskeletal: See HPI Objective Vitals: 08/02/25 1026 BP: (!) 170/64 BP Location: Left arm Patient Position: Sitting BP Cuff Size: Adult Pulse: 66 Resp: 18 Temp: 98.1 ??F (36.7 ??C) TempSrc: Temporal SpO2: 97% Weight: 201 lb (91.2 kg) Height: 5' 7 (1.702 m) Physical Exam Constitutional: Appearance: Normal appearance. Cardiovascular: Rate and Rhythm: Normal rate and regular rhythm. Pulses: Dorsalis pedis pulses are 1+ on the right side and 1+ on the left side. Posterior tibial pulses are 1+ on the right side and 1+ on the left side. Heart sounds: No murmur heard. Pulmonary: Effort: Pulmonary effort is normal. No respiratory distress. Breath sounds: No wheezing, rhonchi or rales. Abdominal: Palpations: Abdomen is soft. Tenderness: There is no abdominal tenderness. Musculoskeletal: Right knee: No swelling. Decreased range of motion. Tenderness present. Left knee: No swelling. Decreased range of motion. Tenderness present. Right lower leg: No edema. Left lower leg: No edema. Right foot: Normal range of motion. Left foot: Normal range of motion. Feet: Right foot: Protective Sensation: 5 sites tested. 2 sites sensed. Skin integrity: Skin integrity normal. Toenail Condition: Right toenails are normal. Left foot: Protective Sensation: 5 sites tested. 2 sites sensed. Skin integrity: Skin integrity normal. Toenail Condition: Left toenails are normal. Neurological: General: No focal deficit present. Mental Status: He is alert. Motor: No weakness. Lab Results Component Value Date HGBA1C 9.0 (A) 08/02/2025 HGBA1C 8.1 (A) 04/08/2025 HGBA1C 8.4 (A) 10/22/2024 HGBA1C 8.6 (A) 07/28/2024 HGBA1C 10.0 (A) 04/28/2024 HGBA1C 8.8 (A) 01/14/2024 HGBA1C 9.5 (A) 10/08/2023 HGBA1C 8.5 (A) 07/05/2023 HGBA1C 7.2 (A) 04/09/2023 HGBA1C 8.7 (A) 10/17/2022 HGBA1C 8.3 (H) 05/02/2021 HGBA1C 9.0 (H) 10/19/2020 Latest Reference Range & Units 04/15/25 09:13 Glucose 60 - 115 mg/dL 183 (H) Urea Nitrogen (BUN) 9 - 16 mg/dL 20 (H) Creatinine, Serum 0.5 - 1.4 mg/dL 1.86 (H) Sodium 135 - 145 mmol/L 141 Potassium 3.3 - 5.1 mmol/L 3.9 Chloride 96 - 108 mmol/L 105 Carbon Dioxide 22 - 29 mmol/L 26 Calcium 8.4 - 10.2 mg/dL 8.9 Albumin Level 3.5 - 5.0 g/dL 4.3 Bilirubin, Total 0.0 - 1.0 mg/dL 0.8 AST 5 - 37 U/L 31 ALT 0 - 40 U/L 30 Anion Gap 12 - 20 14 Total Protein 6.5 - 8.0 g/dL 7.0 Lipase 8 - 78 U/L 69 Cholesterol <200 mg/dL 112 HDL Cholesterol >40 mg/dL 27 (L) LDL Cholesterol Calculated <100 mg/dL 44 Triglycerides <150 mg/dL 205 (H) Folate > or = 4.0 ng/mL 13.2 Vitamin B12 200 - 900 pg/mL 810 Red Blood Count 4.60 - 5.80 X10*6/uL 5.41 Hemoglobin 14.0 - 18.0 g/dl 15.7 Hematocrit 42.0 - 52.0 % 48.5 Mean Corpuscular Volume 80.0 - 98.0 fL 89.6 Mean Corpuscular Hemoglobin 27.0 - 33.0 pg 29.0 Mean Corpuscular HGB Conc 31.0 - 36.0 g/dl 32.4 Red Cell Distribution Width 11.0 - 16.0 % 13.2 Platelet Count 160 - 400 X10*3/uL 242 Eosinophils Percent Auto 0 - 4 % 2.8 Lymphocytes Absolute Auto 1.2 - 4.9 X10*3/uL 1.7 Basophils Absolute Auto 0.0 - 0.2 X10*3/uL 0.0 Monocytes Absolute Auto 0.1 - 1.2 X10*3/uL 0.6 Neutrophils Absolute Auto 2.0 - 8.3 x10*3/uL 3.0 Neutrophils Percent Auto 45 - 73 % 54.5 Basophils Percent Auto 0 - 2 % 0.6 Eosinophils Absolute Auto 0.0 - 0.4 X10*3/uL 0.2 Lymphocytes Percent Auto 20 - 40 % 31.0 Monocytes Percent Auto 2 - 11 % 10.5 Imm Gran Abs Auto 0.00 - 0.03 X10*3/uL 0.03 Imm Gran Pct Auto 0.0 - 0.4 % 0.6 (H) Prothrombin Time 10.9 - 12.4 SEC 12.0 Microalbumin Urine mg/L 195.0 Alkaline Phosphatase 39 - 117 U/L 79 Creatinine, Urine mg/dL 60.89 Estimated Glomerular Filt Rate 35 INTERNATIONAL NORM RATIO 0.9 - 1.1 1.0 Mean Platelet Volume 9.4 - 12.4 fL 10.0 Microalbum Creatinine Ratio Ur <30 ug/mg cr 320.2 (H) NRBC Abs Auto 0.0 - 0.012 X10*3/uL 0.000 NRBC Pct Auto 0.0 - 0.2 /100WBC 0.0 White Blood Count 4.8 - 10.8 X10*3/uL 5.5 (H): Data is abnormally high (L): Data is abnormally low Assessment/Plan Diagnoses and all orders for this visit: Type 2 diabetes mellitus with hyperglycemia, unspecified whether commercial art instructor insulin use (HCC) Comments: I did not change his medications today. I recommended the patient to stop drinking Snapple. I suggested to drink only water. I recommended to walk after meals. We discussed the importance of wearing cotton socks and athletic shoes. I recommended to avoid walking barefoot. Recheck BMP. Orders: - POCT Glucose - POCT Hgb A1c - Basic Metabolic Panel; Future Type 2 diabetes mellitus with stage 3 chronic kidney disease, unspecified whether longterm insulinuse, unspecified whether stage 3a or 3b CKD (HCC) - POCT Glucose - POCT Hgb A1c - Basic Metabolic Panel; Future Type 2 diabetes mellitus with diabetic polyneuropathy, unspecified whether commercial art instructor insulin use (HCC) Hypertension, unspecified type Comments: I recommended to use his medications as prescribed. He has a med box. Orders: - POCT Glucose - POCT Hgb A1c - Basic Metabolic Panel; Future Encounter for immunization Comments: Patient only agreed with Tdap vaccination today. Orders: - TDAP VACCINE 7 yrs + Lumbar spondylosis Comments: I recommended the patient to keep walking. Acetaminophen as needed for pain. I prescribed a short course of tramadol to use for more severe discomfort if needed. I prescribed the patient lidocaine patches. He is recommended to continue avoiding NSAIDs. Orders: - lidocaine (Lidoderm) 5 % patch; Apply 1 patch topically Once per day. Remove & discard patch within 12 hours or as directed by MD. - traMADol (Ultram) 50 MG tablet; Take 1 tablet (50 mg) by mouth if needed in the morning and at bedtime for severe pain or moderate pain for up to 20 days. documented in this encounter Plan of Treatment Scheduled Orders Name Type Priority Associated Diagnoses Orde r Schedule Basic Metabolic Panel Lab Routine Type 2 diabetes mellitus with hyperglycemia, unspecified whether longterm insulin use (HCC) Type 2 diabetes mellitus with stage 3 chronic kidney disease, unspecified whether longterm insulin use, unspecified whether stage 3a or 3b CKD (HCC) Hypertension, unspecified type Expected: 08/02/2025 (Approximate), Expires: 08/02/2026 documented as of this encounter Procedures Procedure Name Priority Date/Time Associated Diagnosis Comments POCT GLYCATED HEMOGLOBIN, TOTAL Routine 08/02/2025 10:30 AM EST Type 2 diabetes mellitus with hyperglycemia, unspecified whether commercial art instructor insulin use (HCC) Type 2 diabetes mellitus with stage 3 chronic kidney disease, unspecified whether longterm insulin use, unspecified whether stage 3a or 3b CKD (HCC) Hypertension, unspecified type POCT GLUCOSE Routine 08/02/2025 10:27 AM EST Type 2 diabetes mellitus with hyperglycemia, unspecified whether commercial art instructor insulin use (HCC) Type 2 diabetes mellitus with stage 3 chronic kidney disease, unspecified whether longterm insulin use, unspecified whether stage 3a or 3b CKD (HCC) Hypertension, unspecified type documented in this encounter Results * (ABNORMAL) POCT Hgb A1c (08/02/2025 10:30 AM EST) Pathologist [facility] Hemoglobin A1C 9.0(A) 4.0 - 5.7 % QC Media Lot # [id number] Lot# Expiration Date 51,227 Blood 08/02/2025 10:3 0 AM EST Isai Resendez MD POINT OF CARE TEST ENTER/EDIT OR DERABLES Final Result * (ABNORMAL) POCT Glucose (08/02/2025 10:27 AM EST) Glucose Blood, POC 231(A) 60 - 200 mg/dL QC Media Lot # [id number] Lot# Expiration Date 31,126 Blood Capillary blood specimen / Unknown 08/02/2025 10:27 AM EST Isai Resendez MD POINT OF CARE TEST ENTER/EDIT OR DERABLES Final Result documented in this encounter Visit Diagnoses Diagnosis Type 2 diabetes mellitus with hyperglycemia, unspecified whether commercial art instructor insulin use (HCC)- Primary Type 2 diabetes mellitus with stage 3 chronic kidney disease, unspecified whether commercial art instructor insulin use, unspecified whether stage 3a or 3b CKD (HCC) Type 2 diabetes mellitus with diabetic polyneuropathy, unspecified whether commercial art instructor insulin use (HCC) Hypertension, unspecified type Encounter for immunization Lumbar spondylosis Lumbosacral spondylosis without myelopathy documented in this encounter Additional Health Concerns Assessment Noted Time PHQ-9 Depression Total Score: 2 04/08/20 25 3:44 PM EDT documented as of this encounter Care Teams Assistant Unit Forester Relationship Specialty Start Date End Date Name, MD Isai [address] [place] [address] PCP - General Family Medicine 09/30/18 documented as of this encounter
--- OUTSIDE RECORDS SUMMARY | 2025-08-05 11:13 | XMS_ITS | Clinical Summary ---
Author Organization [employer] Address [address] [place] [address] [address] [place] [address] Care Team Providers Care Beef Specialist Name Role Phone Name, Isai ARZATE Primary Care Provider [phone] Allergies No known active allergies Medications Blood Glucose Monitoring Suppl (FreeStyle [place] Lite) w/Device kit TEST BLOOD SUGAR TWICE DAILY 08/14/20 22 Active finasteride (Proscar) 5 MG tablet 10/16/19 23 Active Multiple Vitamins-Minera ls (Sentry Senior) tablet OTC 1 tablet daily Active Blood Pressure Monitor kit Check BP at home once a day 1 kit 05/23/20 23 Active tamsulosin (Flomax) 0.4 MG 24 hr capsule Take 1 capsule by mouth Once daily. 06/19/20 23 Active glucose blood (FREESTYLE LITE) test strip TEST BLOOD SUGAR THREE TIMES DAILY 100 strip 11 08/13/20 24 Active TRUEplus Lancets 33G [facility] Apply 1 each topically 3 times daily. [...] 2 diabetes mellitus with hyperglycemia, unspecified whether terminal makeup operator insulin use (HCC) Inject 3 mg under the skin 1 (one) time per week. 2 mL 11 12/31/19 026 Active omeprazole (PriLOSEC) [address] capsuleIndicati ons:Epigastric pain Take 1 capsule (20 mg) by mouth before breakfast and before evening meal for 28 days. Do not crush or chew. 56 capsule 12/31/19 25 Active Emollient (Moisturizing Creme) cream Apply [...] MORNING 30 tablet 1 06/09/20 25 Active amLODIPine (Norvasc) 10 MG tablet TAKE 1 TABLET BY MOUTH EVERY MORNING 90 tablet 1 07/13/20 25 Active metoprolol tartrate (Lopressor) 100 MG tablet TAKE 1 TABLET BY MOUTH TWICE DAILY IN THE MORNING AND IN THE EVENING 60 tablet 11 07/15/20 25 Active lidocaine (Lidoderm) 5 % patchIndication s:Lumbar spondylosis Apply 1 patch topically Once per day. Remove & discard patch within 12 hours or as directed by . 30 patch 08/02/20 25 025 Active traMADol (Ultram) 50 MG tabletIndicatio ns:Lumbar spondylosis Take 1 tablet (50 mg) by mouth if needed in the morning and at bedtime for severe pain or moderate pain for up to 20 days. 40 tablet 08/02/20 25 025 Active lidocaine (Lidoderm) 5 % patchIndication s:Pain of right upper extremity Apply 1 patch topically in the morning. Remove & discard patch within 12 hours or as directed by . 15 patch 2 08/16/20 23 025 Discontinued(Du plicate order (will not trigger notification to Pharmacy)) metoprolol tartrate (Lopressor) 100 MG tablet TAKE 1 TABLET BY MOUTH TWICE DAILY IN THE MORNING AND IN THE EVENING 60 tablet 11 07/08/20 24 025 Discontinued tretinoin (Retin-A) 0.025 % cream Apply topically at bedtime. 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 08/02/2025 Personal history of surgery to other organs [...] on eye exam 02/06/13 History of alcoholism ([facility]) 03/11/2013 Esophageal dysmotility 12/30/2012 Overview (03/14/2023): Mild, barium swallow 08/11 CKD (chronic kidney disease) stage 3, GFR 30-59 ml/min ([facility]) 07/29/2012 Hypertension 01/16/2012 Assessment & Plan (08/18/2023 9:02 AM EST): Here BP 156/78 -states at home BP < 150 Systolic ,not took BP med this am -advised to be compliant w all meds- 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 -to f w PCP [...] Encounters Date Type Department Care Team Description 08/02/2025 10:15 AM EST Office Visit [facility] [address] [place] [phone] Name, MD Isai Type 2 diabetes mellitus with hyperglycemia, unspecified whether terminal makeup operator insulin use (HCC) (Primary Dx); Type 2 diabetes mellitus with stage 3 chronic kidney disease, unspecified whether longterm insulin use, unspecified whether stage 3a or 3b CKD (HCC); Type 2 diabetes mellitus with diabetic polyneuropathy, unspecified whether terminal makeup operator insulin use (HCC); Hypertension, unspecified type; Encounter for immunization; Lumbar spondylosis 08/02/2025 Travel 07/30/2025 Telephone [facility] [address] [place] [phone] NameIsai MD Chart Prep 07/14/2025 Refill [facility] [address] [place] [address] Isai Resendez MD 07/12/2025 Refill [facility] DIABETES/NUTRITION [address], [place] [phone] Isai Resendez MD 06/25/2025 Orders Only [facility] External Provider, [facility] 06/09/2025 Refill [facility] [address] [place] [address] Name, MD Isai 06/07/2025 Refill [facility] DIABETES/NUTRITION [address], [place] [phone] Name, MD Isai Elevated blood sugar 05/14/2025 Telephone [facility] [address], [place] [phone] Naheed Nance [place] june recalls from Last 3 Months Immunizations Immunization Administration Dates Next Due Influenza High-dose Quadriva lent Preservative Free 08/14/2022 Influenza injectable quadriv alent preservative free 08/28/2021 Influenza, High Dose Seasona l, Preservative Free 11/30/2019 Influenza, IIV3, injectable 07/09/2014, 3,07/29/2012 PPD Test 04/07/2019 Pneumococcal Conjugate PCV 13 09/26/2016 Pneumococcal Polysaccharide PPSV23 07/29/2012 TD (adult), 2 Lf tetanus tox oid, preservative free, adsorbed 07/09/2014 Td (adult) 07/09/2014 Tdap 08/02/2025 Social History Tobacco Use Types Packs/Day Years [...] Mass Index 31.48 08/02/2025 10:26 AM EST Plan of Treatment Health Maintenance Due Date Last Done Comments Hepatitis A Vaccines (1 of 2 - Risk 2-dose series) 1960 Zoster Vaccines (1 of 2) 1991 Hepatitis B Vaccines (1 of 3 - Risk 3-dose series) 2001 RSV Patients and Patients Aged 60 years or older (1 - 1-dose 75+ series) 2016 COVID-19 Vaccine ( season) 2025 06/16/2024, 01/30/2021, 01/02/2021 Influenza Vaccine (#1) 2025 , 08/14/2022, 08/14/2022, Additional history exists Eye Exam 10/10/2025 10/10/2023 Diabetes: Hemoglobin A1C 11/02/2025 025, 04/08/2025, 10/22/2024, Additional history exists Depression Screening 04/08/2026 04/08/2025, 04/08/20 25 SDOH Screening 04/08/2026 04/08/2025 Lipid Panel 04/15/2026 04/15/2025, 06/30, 05/02/2021, Additional history exists Alcohol/Substance Use Screening 08/02/2026 08/02/2025 Diabetes: Foot Exam 08/02/2026 08/02/2025, 08/02/2025, 08/02/2025, Additional history exists Tobacco Screening 08/02/2026 08/02/2025 DTaP/Tdap/Td Vaccines (2 - Td or Tdap) 08/02/2035 08/02/2025, 07/09/2014, 07/09/2014 Pneumococcal Vaccine: 50+ Years Completed 06/16/2024, 03/12/2023, 09/26/2016, Additional history exists HIB Vaccines Aged Out No longer eligi [...] 2 diabetes mellitus with hyperglycemia, unspecified whether terminal makeup operator insulin use (HCC) Type 2 diabetes mellitus with stage 3 chronic kidney disease, unspecified whether longterm insulin use, unspecified whether stage 3a or 3b CKD (HCC) Hypertension, unspecified type AMB REFERRAL TO DERMATOLOGY Routine 07/28/[address] ABDOMEN PELVIS WO CONTRAST Routine 06/28/2025 12:08 PM EDT LIPID PANEL, STANDARD Routine 04/15/2025 9:13 AM EDT Type 2 diabetes mellitus with hyperglycemia, unspecified whether longterm insulin use (CMS/HCC) Hypertension, unspecified type Stage 3 chronic kidney disease, unspecified whether stage 3a or 3b CKD (CMS/HCC) from Last 3 Months or Most Recently Relevant to Health Maintenance Results * (ABNORMAL) POCT Hgb A1c (08/02/2025 10:30 AM EST) Hemoglobin A1C 9.0(A) 4.0 - 5.7 % QC Media Lot # [id number] Lot# Expiration Date 51,227 Blood 08/02/2025 10:3 0 AM EST us Isai Resendez MD POINT OF CARE TEST ENTER/EDIT OR DERABLES Final Result * (ABNORMAL) POCT Glucose (08/02/2025 10:27 AM EST) Glucose Blood, POC 231(A) 60 - 200 mg/dL QC Media Lot # [id number] Lot# Expiration Date 31,126 Blood Capillary blood specimen / Unknown 08/02/2025 10:27 AM EST us Isai Resendez MD POINT OF CARE TEST ENTER/EDIT OR DERABLES Final Result * Referral to Dermatology (07/28/2025) us Dakota Sanchez MD OUTPATIENT REFERRAL ORDERABLES F inal Result * CT Abdomen Pelvis w/o Contrast (06/28/2025 12:08 PM EDT) Anatomical Region Laterality Modality Body, Pelvis, Abdomen Computed T omography 06/28/2025 12:0 8 PM EDT Narrative 06/28/2025 12:09 PM EDT [address] [address] [address] Scan Report Signed Patient: Nelson Mandujano MR#: [id number] : 1940 Acct:[id number] Age/Sex: 84 / M ADM Date: 06/25/25 Loc: HO.CT Attending Dr: Gissel Roman MD Ordering Physician: Gissel Roman MD Date of Service: 06/25/25 Procedure(s): CT abdomen pelvis wo IV con Accession Number(s): [id number] cc: Gissel Roman MD; Name,Isai ARZATE Report Number: [id number]: Total DLP = 574.00 mGy-cm Reason for [...] postsurgical changes in the gastroesophageal junction wall. Ekcw-xv-mndalxoo pancreatic atrophy. Small calcified hepatic granuloma. New [...] Haney MD in OV> 06/28/25 1209 DD/ 120 TD/TT: 06/28/25 120 Flight Paramedic: Procedure Note Donotuseinterpreter, Image - 06/28/[address] [place] [address] [address] Scan Report Signed Patient: Crista Mandujano#: [id number] : 1940cct:[id number] Age/Sex: 84 / MADM Date: 06/25/25 Loc: HO.CT Attending Dr: Gissel Roman MD Ordering Physician: Gissel Roman MD Date of Service: 06/25/25 Procedure(s): CT abdomen pelvis wo IV con Accession Number(s): [id number] cc: Gissel Roman MD; Name,Isai ARZATE Report Number: [id number]: Total DLP = 574.00 mGy-cm Reason for [...] postsurgical changes in the gastroesophageal junction wall. Ryok-pf-tddwnpwk pancreatic atrophy. Small calcified hepatic granuloma. New [...] 06/28/25 1209 DD/ 1208 TD/TT: 06/28/25 1208 Flight Paramedic: [facility] External Provider IMG CT PROCEDURES Final Result * (ABNORMAL) Lipid Panel, Standard (04/15/2025 9:13 AM EDT) Triglycerides 205(H) <150 mg/dL [facility] Comment:Desirable Triglyceri de: less than 150 mg/dLBorderline High Triglyceride 150-199 mg/dLHigh Triglyceride: 200-499 mg/dLVery High Triglyceride: greater than or equal to 5OO mg/dL Cholesterol 112 <200 mg/dL [facility] Comment:Desirable Cholestero l: less than 200 mg/dLBorderline High Cholesterol: 200-239 mg/dLHigh Cholesterol: greater than 239 mg/dL LDL Cholesterol Calculated 44 <100 mg/dL [facility] Comment:Desirable LDL: less than 100 mg/dLNear Optimal/Above Optimal LDL: 110- 129 mg/dLBorderline High LDL: 130-159 mg/dLHigh LDL: 160-189 mg/dLVery High LDL: greater than or equal to 190 mg/dL HDL Cholesterol 27(L) >40 mg/dL [facility] Comment:Desirable HDL: great er than 40 mg/dL Note: This HDL assay may give artificially low results in patients with liver disease. Blood Venous blood specimen / Unknown 04/15/2025 9:13 AM EDT 04/15/2025 11:06 AM EDT us Isai Name LAB BLOOD ORDERABLES Final Resul t [facility] [address] [place] [phone] from Last 3 Months or Most Recently Relevant to Health Maintenance [place] [address] [facility] LONG-TERM OPTIONS (HMO D-SNP) HATTIE DANIELSON [id number] Care Teams Beef Specialist Relationship Specialty Start Date End Date Name, MD Isai [address] [place] [address] PCP - General Family Medicine 09/30/18
--- OUTSIDE RECORDS SUMMARY | 2025-08-05 11:13 | XMS_ITS | Patient Health Record ---
Author Organization [facility] Address [address] [facility] [place] [address] Care Team Providers Care Annual Greenhouse Manager Name Role Phone Name Isai ARZATE Primary Care Provider Rodrick Li Unavailable [phone] Allergies No Known Allergies Results Component Value [...] Problem Acquired hammer toe of right foot (9119820721310 105) Other hammer toe(s) (acquired), right foot (M20.41) Active confirmed Response to treatment,I mprovement Problem Type 2 diabetes mellitus with peripheral angiopathy (064274908) Type 2 diabetes mellitus with diabetic peripheral angiopathy without gangrene (E11.51) Active confirmed Q7(A), Q8(2B), Q9(1B,2C) Problem Acquired hammer toe of left foot (0446773927296 103) Other hammer toe(s) (acquired), left foot (M20.42) Active confirmed Response to treatment,I mprovement Vital Signs Heart Rate 68 /min 06/24/2025 Blood pressure diastolic 86 R mm Hg 06/24/2025 Height 5ft 7in in 06/24/2025 Blood pressure systolic 151 mm Hg 06/24/2025 Weight 195 lbs 06/24/2025 BMI 30.54 kg/m2 06/24/2025 Procedures Procedure Date Ordered Date Performed Result Body Sit e 09255-XDLSOOU NAIL, 6 OR MORE 09/28/2024 N/A 79772-INWQ SKIN LESIONS, OVER 4 09/28/2024 N/A 65892-DIPNNDJ NAIL, 6 OR MORE 12/31/2024 N/A 76702-KOOT SKIN LESIONS, OVER 4 12/31/2024 N/A 78393-ANFXGCZ NAIL, 6 OR MORE 03/31/2025 N/A 93673-FIIR SKIN LESIONS, OVER 4 03/31/2025 N/A 04988-RUKOVDN NAIL, 6 OR MORE 06/24/2025 N/A 81259-HKBY SKIN LESIONS, OVER 4 06/24/2025 N/A Encounters Encounter Location Date Provider Diagnosis [address] [address] 09/28/2024 Rodricktianna PhanSergio Type 2 diabetes mellitus with diabetic peripheral angiopathy without gangrene E11.51 ; Tinea unguium B35.1 ; Pain in right toe(s) M79.674 ; Pain in left toe(s) M79.675 and Tinea pedis of both feet B35.[address] [address] 12/31/2024 Rodricktianna PhanSergio Type 2 diabetes mellitus with diabetic peripheral angiopathy without gangrene E11.51 ; Tinea unguium B35.1 ; Pain in right toe(s) M79.674 ; Pain in left toe(s) M79.675 and Tinea pedis of both feet B35.[address] [address] 03/31/2025 Rodricktianna Hill Type 2 diabetes mellitus with diabetic peripheral angiopathy without gangrene E11.51 ; Other hammer toe(s) (acquired), right foot M20.41 ; Tinea unguium B35.1 ; Pain in right toe(s) M79.674 ; Pain in left toe(s) M79.675 and Other hammer toe(s) (acquired), left foot M20.[address] [address] 06/24/2025 Rodrick Sergio Type 2 diabetes mellitus [...] Treatment Pending Test Test Name Order Date 99547-VQPVHUA NAIL, 6 OR MORE 04/15/2024 08734-CHROZUM NAIL, 6 OR MORE 06/29/2024 43169-QWVJREJ NAIL, 6 OR MORE 09/28/2024 87862-TQLRADW NAIL, 6 OR MORE 12/31/2024 28934-LTZANPE NAIL, 6 OR MORE 03/31/2025 36155-UNLBSDZ NAIL, 6 OR MORE 06/24/2025 17495-QKFD SKIN LESIONS, OVER 4 06/24/20 25 57893-MCJT SKIN LESIONS, OVER 4 03/31/20 25 80620-SCCP SKIN LESIONS, OVER 4 04/15/20 24 56077-LLRL SKIN LESIONS, OVER 4 01/01/20 25 92270-PJCD SKIN LESIONS, OVER 4 09/28/20 24 06131-PRXB SKIN LESIONS, OVER 4 06/29/20 24 88761-Beex. Subungual Hematoma Next Appt Details Provider Name:Rodrick Hill , 10/11/2025 02:30:00 PM, [address] [facility], [place] [address], [place], [address], Insurance Providers Payer Name Payer Address Payer Phone Subscriber Number Group Number Insured Name Patient Relationship to Insured Coverage Start Date Coverage End Date [facility] [employer] Claims [address] [place] [id number] Harrison Nelson bellamy Self - patient is the insured Medical (General) History Medical History History ICD Code Arthritis Back,Hip,and Knee pain Diabetic High blood pressure Stomach ulcer Joint implants/screws Bone implants/screws Transfusions Surgical History Surgery Date(Month/Year) 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
--- OUTSIDE RECORDS SUMMARY | 2025-08-05 11:13 | XMS_ITS | Encounter Summary ---
Author Organization [employer] [facility] Address [address] [place] [address] 7 [place] [address] Care Team Providers Care Speech Pathology Assistant Name Role Phone Name, Isai ARZATE Primary Care Provider [phone] Reason for Referral * Consultation (Urgent) - Closed Specialty Diagnoses / Procedures Referred By Contac t Referred To Contact Physical Therapy Diagnoses Stress fracture of sacrococcygeal region with routine healing Roxanna Nichole MD [address] [place] [address] Phone: tel: fax: [facility] Physical Therapy [address] [place] [address] Phone: tel: fax: Referral ID Status Reason Start Date Expiration Date V isits Requested Visits Authorized [id number] Closed Specialty Services Required 04/20/2024 04/20/2025 1 1 Encounter Details Date Type Department Care Team (Late st Contact Info) Description 04/20/2024 Orders Only [facility] [address] [place] [address] [phone] Roxanna Nichole MD [address] [place], [place] [phone] Stress fracture of sacrococcygeal region with routine [...] documented as of this encounter Care Teams Speech Pathology Assistant Relationship Specialty Start Date End Date Name, MD Isai [address] [place] [address] PCP - General Family Medicine 09/30/18 documented as of this encounter
--- OUTSIDE RECORDS SUMMARY | 2025-08-05 11:14 | XMS_ITS | Encounter Summary ---
Author Organization [employer] Address [address] [facility] 7t [place] [address] Care Team Providers Care Social Services Name Role Phone Name, Isai ARZATE Primary Care Provider [phone] Encounter Details Date Type Department Care Team (Latest Contact Info) Description 08/02/2025 Travel Social History Tobacco Use Types Packs/Day [...] as of this encounter Plan of Treatment Not on file documented as of this encounter Visit Diagnoses Not on filedocumented in this encounter Additional Health Concerns Assessment Noted Time PHQ-9 Depression Total Score: 2 04/08/20 25 3:44 PM EDT documented as of this encounter Care Teams Social Services Relationship Specialty Start Date End Date Name, MD Isai [address] [place] [address] PCP - General Family Medicine 09/30/18 documented as of this encounter
--- OUTSIDE RECORDS SUMMARY | 2025-08-05 11:14 | XMS_ITS | Encounter Summary ---
Author Organization [employer] Address [address] [place] [address] 7t [place] [address] Care Team Providers Care Functional Skills Tutor Name Role Phone Name, Isai ARZATE Primary Care Provider [phone] Encounter Details Date Type Department Care Team (Late st Contact Info) Description 10/08/2022 Orders Only [facility] [address] [place] [address] Asia Duffy LPN Social History Tobacco Use [...] on file documented as of this encounter Procedures Procedure [...] 10:30 AM EDT) Creatinine, Urine 81.71 mg/dL [facility] Microalbumin Urine 468.0 mg/L H [facility] Microalbum Creatinine Ratio Ur 572.7(H) <30 ug/mg cr [facility] Comment:Albumin/Creatinine R atio Reference Ranges: Normal: < 30 ug/mg creatinine Microalbuminuria: 30 - 300 ug/mg creatinineClinical Albuminuria: > 300 ug/mg creatinine 07/09/2023 10:3 0 AM EDT 07/09/2023 12:39 PM EDT Isai Resendez MD LAB URINE ORDERABLES Final Resul t Performing Organization Address City/[facility] Co de Phone Number [facility] [address] [place] [phone] * PSA,Total (05/09/2023 2:57 PM EDT) Prostate Specific Antigen 2.90 <0.05 - 4.0 ng/mL [facility] Comment:PSA methodology: Dhaval Ashby i ChemiluminescentMicroparticle Immunoassay (CMIA) 05/09/2023 2:57 PM EDT 05/09/2023 2:57 PM EDT [facility] External Provider LAB BLO OD ORDERABLES Final Result Performing Organization Address City/[facility]/ZIP Co de Phone Number [facility] [address] [place] [phone] * (ABNORMAL) CBC auto differential (04/09/2023 2:45 PM EDT) White Blood Count 5.4 4.8 - 10.8 X10*3/uL [facility] Red Blood Count 3.86(L) 4.60 - 5.80 X10*6/uL [facility] Hemoglobin 11.5(L) 14.0 - 18.0 g/dl [facility] Hematocrit 37.0(L) 42.0 - 52.0 % [facility] Mean Corpuscular Volume 95.9 80.0 - 98.0 fL [facility] Mean Corpuscular Hemoglobin 29.8 27.0 - 33.0 pg [facility] Mean Corpuscular HGB Conc 31.1 31.0 - 36.0 g/dl [facility] Red Cell Distribution Width 13.5 11.0 - 16.0 % [facility] Platelet Count 322 160 - 400 X10*3/uL [facility] Mean Platelet Volume 10.3 9.4 - 12.4 fL [facility] Neutrophils Percent Auto 61.5 45 - 73 % [facility] Imm Gran Pct Auto 0.6(H) 0.0 - 0.4 % [facility] Lymphocytes Percent Auto 22.4 20 - 40 % [facility] Monocytes Percent Auto 11.9(H) 2 - 11 % [facility] Eosinophils Percent Auto 2.9 0 - 4 % [facility] Basophils Percent Auto 0.7 0 - 2 % [facility] NRBC Pct Auto 0.0 0.0 - 0.2 /100WBC [facility] Neutrophils Absolute Auto 3.3 2.0 - 8.3 x10*3/uL [facility] Imm Gran Abs Auto 0.03 0.00 - 0.03 X10*3/uL [facility] Lymphocytes Absolute Auto 1.2 1.2 - 4.9 X10*3/uL [facility] Monocytes Absolute Auto 0.7 0.1 - 1.2 X10*3/uL [facility] Eosinophils Absolute Auto 0.2 0.0 - 0.4 X10*3/uL [facility] Basophils Absolute Auto 0.0 0.0 - 0.2 X10*3/uL [facility] NRBC Abs Auto 0.000 0.0 - 0.012 X10*3/uL [facility] 04/09/2023 2:45 PM EDT 04/09/2023 4:13 PM EDT [facility] External Provider LAB BLO OD ORDERABLES Final Result Performing Organization Address City/State/[facility] Co de Phone Number [facility] [address] [place] [phone] [phone] * (ABNORMAL) Basic Metabolic Panel (04/09/2023 2:45 PM EDT) Sodium 136 135 - 145 mmol/L [facility] Potassium 4.4 3.3 - 5.1 mmol/L [facility] Chloride 103 96 - 108 mmol/L [facility] Carbon Dioxide 25 22 - 29 mmol/L [facility] Anion Gap 12 12 - 20 [facility] Urea Nitrogen (BUN) 17(H) 9 - 16 mg/dL [facility] Creatinine, Serum 1.36 0.5 - 1.4 mg/dL [facility] Estimated Glomerular Filt Rate 50 [facility] Comment:NOTE: For -Am erican individuals, multiply the result by 1.210.Chronic Kidney Disease: Estimated GFR < 60 mL/min/1.71m3Enxkpw Kidney Disease: Estimated GFR < 15 mL/min/1.73m2 Glucose 180(H) 60 - 115 mg/dL [facility] Calcium 9.7 8.4 - 10.2 mg/dL [facility] 04/09/2023 2:45 PM EDT 04/09/2023 4:13 PM EDT [facility] External Provider LAB BLO OD ORDERABLES Final Result [facility] [address] [place] [address] [phone] * Calcium (01/08/2023 9:38 AM EDT) Calcium 9.2 8.4 - 10.2 mg/dL [facility] 01/08/2023 9:38 AM EDT 01/08/2023 9:38 AM EDT [facility] External Provider LAB BLO OD ORDERABLES Final Result Performing Organization Address [facility] Co de Phone Number [facility] [address] [place] [address] [phone] * (ABNORMAL) Creatinine, Serum (01/08/2023 9:38 AM EDT) Creatinine, Serum 1.77(H) 0.5 - 1.4 mg/dL [facility] Estimated Glomerular Filt Rate 37 [facility] Comment:NOTE: For -Am erican individuals, multiply the result by 1.210.Chronic Kidney Disease: Estimated GFR < 60 mL/min/1.11d6Onliqw Kidney Disease: Estimated GFR < 15 mL/min/1.73m2 01/08/2023 9:38 AM EDT 01/08/2023 9:38 AM EDT [facility] External Provider LAB BLO OD ORDERABLES Final Result Performing Organization Address [facility] Co de Phone Number [facility] [address] [place] [address] [phone] * (ABNORMAL) BUN (Blood Urea Nitrogen) (01/08/2023 9:38 AM EDT) Urea Nitrogen (BUN) 23(H) 9 - 16 mg/dL [facility] 01/08/2023 9:38 AM EDT 01/08/2023 9:38 AM EDT [facility] External Provider LAB BLO OD ORDERABLES Final Result Performing Organization Address [facility] de Phone Number [facility] [address] [place] [address] [phone] * Electrolyte Panel (01/08/2023 9:38 AM EDT) Sodium 136 135 - 145 mmol/L [facility] Potassium 4.0 3.3 - 5.1 mmol/L [facility] Chloride 102 96 - 108 mmol/L [facility] Carbon Dioxide 26 22 - 29 mmol/L [facility] Anion Gap 12 12 - 20 [facility] 01/08/2023 9:38 AM EDT 01/08/2023 9:38 AM EDT [facility] External Provider LAB BLO OD ORDERABLES Final Result Performing Organization Address [facility] de Phone Number [facility] [address] [place] [address] [phone] * (ABNORMAL) GLUCOSE, WHOLE BLOOD (01/07/2023 9:20 AM EDT) Glucose, Whole Blood 169(H) 60 - 115 mg/dL [facility] Comment:METER #: [id number] 01/07/2023 9:20 AM EDT 01/07/2023 9:23 AM EDT [facility] External Provider LAB BLO OD ORDERABLES Final Result Performing Organization Address [facility] de Phone Number [facility] [address] [place] [address] [phone] documented in this encounter Visit Diagnoses Not on filedocumented in this encounter Care Teams Functional Skills Tutor Relationship Specialty Start Date End Date Name, MD Isai [address] [place] [address] PCP - General Family Medicine 09/30/18 documented as of this encounter
--- OUTSIDE RECORDS SUMMARY | 2025-08-05 11:14 | XMS_ITS | Encounter Summary ---
Author Organization [facility] Address [address] [place] [address] [address] [place] [address] Care Team Providers Care Community Outreach Advocate Name Role Phone Name, Isai ARZATE Primary Care Provider [phone] Reason for Visit * Reason Onset Date Comments Appointment Request 10/25/2022 Encounter Details Date Type Department Care Team ([facility] st Contact Info) Description 10/25/2022 Telephone [facility] [address] [place], [place] [phone] Name, MD Isai [address] [place] [address] Appointment Request Social History Tobacco Use Types [...] to r/s appt Please contact daughter at [phone] documented in this encounter Plan of Treatment Not on file documented as of this encounter Visit Diagnoses Not on filedocumented in this encounter Care Teams Community Outreach Advocate Relationship Specialty Start Date End Date Name, MD Isai [address] [place] [address] PCP - General Family Medicine 09/30/18 documented as of this encounter
[2025-08-05 11:25] LABS: Prostate Specific Antigen 2.12 ng/mL (<0.05-4.0)
== END 2025-08-05 09:52 | disposition home or self-care (01) ==
LOC: HO.LAB 09:51
PROVIDERS: PCP Internal Medicine Geriatric Medicine; Visit Provider Urology
DX: Z12.5 Encounter for screening for malignant neoplasm of prostate (principal); N40.1 Benign prostatic hyperplasia with lower urinary tract symptoms; N13.8 Other obstructive and reflux uropathy
CPT/HCPCS: 36415; 84153

== ENCOUNTER 2025-08-11 09:59 | Outpatient (AMB) | payer OTHER, SELFPAY ==
--- NOTE | 2025-08-11 10:56 | MHC.OFFVIS ---
Intake Visit Reasons: PVR/PSA Follow Up(last seen 2022) Intake Note: Patient is present for PVR/PSA Urology Med: Tamsulosin, Finasteride Antibiotic Allergy: None Blood Thinner: None LAST PVR:0ML PVR: 0ml 08/05/25 PSA 2.12 Accompanied by: Self / Same As Patient Allergies No Known Allergies (No Known Allergies*) Allergy (Verified 08/11/25 11:01) HPI Comments Details: Nelson is a pleasant male. He is a patient of Dr. Resendez. He is seen for the following urologic issues. - lower urinary tract symptoms - hematuria with UTI Last seen 2 years ago Has remained on combination therapy for BPH Current PSA low Recurrent irritation on glans penis Responds well to topical steroid - prescription provided Lower urinary tract symptoms Here for follow-up evaluation of lower urinary tract symptoms Current therapy combination with tamsulosin 0.4 mg and finasteride Initial presentation to emergency room hematuria and UTI Has had weakness of stream, nocturia, hesitancy PSA 05/21 3.2, 06/22 2.9, 08/24 2.2 PFSH Medical History GI (gastrointestinal bleed) CKD stage 3 due to type 1 diabetes mellitus Aortic root dilatation HTN (hypertension) Anxiety History of colon polyps Balanitis Primary osteoarthritis of knees, bilateral Chondrocalcinosis articularis Diabetes Surgical History History of esophagogastroduodenoscopy (EGD) Hx of colonoscopy (~03/2019) History of arthroplasty of right knee (~03/2019) History of cholecystectomy Family History Father No problems noted. Mother No problems noted. Social History Alcohol intake: never Patient Tobacco Use Status: Former Tobacco user Tobacco use type: Cigarette Years Smoked: 35 Advance Directives Date on File: 01/07/23 Review of Systems Const Denies chills and Denies fever(s) Card Reports no additional complaints and Denies syncope Resp Denies cough GI Denies abdominal pain and Denies heartburn Reports as per HPI and Denies change in libido Neuro Denies syncope Psych Denies change in libido Endo Denies change in libido Physical Exam Const General: cooperative, healthy appearing, comfortable and no acute distress Orientation/consciousness: patient oriented x3 HEENT Face and sinus: Yes normal facial exam Mouth: moist mucous membranes Neck Neck: Yes normal visual inspection, Yes full ROM and Yes trachea midline Chest Chest palpation & inspection: normal inspection of the chest Resp Effort & Inspection: normal respiratory effort, able to speak in complete sentences and no respiratory distress GI Inspection: Yes normal to inspection Back/Spine/Pelvis Cervical Spine: normal cervical lordosis Thoracic/Lumbar Spine: thoracic and lumbar spine normal to inspection Skin General skin exam: no rashes or lesions noted Neuro General: patient oriented x3, gait normal, tone normal and moves all extremities Extrem General: Yes normal to inspection and Yes capillary refill normal Office Procedures Post Void Residual Post Residual Void Post Void Residual (PVR): 0 67025-Ntrs Void Residual by ultrasound Assessment & Plan Assessment & Plan (1) Balanitis: Comment: Secondary to diabetes Code(s): N48.1 - Balanitis Category: Medical (2) BPH w urinary obs/LUTS: Code(s): N40.1 - Benign prostatic hyperplasia with lower urinary tract symptoms; N13.8 - Other obstructive and reflux uropathy Category: Medical Plan Twelve month follow-up Orders: Orders Prostate Specific Antigen 08/05/25 N13.8 - Other obstructive and reflux uropathy, N40.1 - Benign prostatic hyperplasia with lower urinary tract symptoms AMB Post Void Residual by ultrasound Today N13.8 - Other obstructive and reflux uropathy, N40.1 - Benign prostatic hyperplasia with lower urinary tract symptoms Medications: Refilled clotrimazole-betamethasone 1-0.05 % Apply thin coat 2 times per day 1 appl topical BID 15 grams 0RF 1 week N48.1 - Balanitis Patient Instructions: This note is constructed using voice recognition software. While every effort has been made to ensure accuracy security guard supervisor errors may have been included. Imaging studies, laboratory and physical exam results were discussed and reviewed in detail. No major barriers to patient understanding were identified. An opportunity to ask questions regarding the treatment plan was provided. All questions were answered. The patient expressed understanding and agreement with the above treatment plan. The patient is aware they should contact our office by phone for worsening of their current condition or the appearance of new urologic symptoms. Compliance is encouraged with any medications and followup testing that is ordered. It is a privilege to participate in the urologic care of your patient. If you have any questions or concerns regarding treatment for the above conditions, or other urologic issues, please do not hesitate to contact me. The office telephone contact is [phone]. Sincerely, Dr Colby Tolbert MD, [facility] - Urology Compassionate Specialist Care for the Genitourinary System Coding Level of Care Code Est Pt Level 4 (39912) Complex EM visit Add On G2211 Diagnoses Balanitis N48.1 BPH w urinary obs/LUTS N40.1; N13.8 CPT Codes Post Residual Void - PVR CPT Code: 51026-Cyej Void Residual by ultrasound ([id number])
--- OUTSIDE RECORDS SUMMARY | 2025-08-11 11:41 | XMS_ITS | Encounter Summary ---
Author Organization [employer] Address [address] [place] [address] 7[address] [place] [address] Care Team Providers Care Bilingual Legal Assistant Name Role Phone Name, Isai ARZATE Primary Care Provider [phone] Reason for Visit * Reason Comments Med Refill Encounter Details Date Type Department Care Team ([facility] st Contact Info) Description 08/07/2025 Refill [facility] [address] [place], [place] [phone] Name, MD Isai [address] [place], [place] [phone] Hypertension, unspecified type Social History Tobacco Use Types Packs/Day Years [...] as of this encounter Visit Diagnoses Diagnosis Hypertension, unspecified type documented in this encounter Additional Health Concerns Assessment Noted Time PHQ-9 Depression Total Score: 2 04/08/20 25 3:44 PM EDT documented as of this encounter Care Teams Bilingual Legal Assistant Relationship Specialty Start Date End Date Name, MD Isai [address] [place] [address] PCP - General Family Medicine 09/30/18 documented as of this encounter
--- OUTSIDE RECORDS SUMMARY | 2025-08-11 11:41 | XMS_ITS | Clinical Summary ---
Author Organization [facility] Address [address] [place] [address] [place] [address] Phone Care Team Providers Care Auxiliary Engineer Name Role Phone Name, Isai ARZATE Primary Care Provider [phone] Allergies Active Allergy Reactions Criticality Noted Date [...] encounter for closed fracture 07/29/2021 05/09/2023 Pain of elbow region 07/29/2021 Biceps tendinitis 06/21/2021 05/09/2023 Carpal tunnel syndrome [...] Conversion LAB BLOOD ORDERABLES Final Resu lt PVNPR from Last 3 Months or Most Recently Relevant to Health Maintenance Insurance [facility] ([id number]) [facility] ([id number]) Care Teams Auxiliary Engineer Relationship Specialty Start Date End Date Name, MD Isai [address] [place] [phone] PCP - General 10/10/20
--- OUTSIDE RECORDS SUMMARY | 2025-08-11 11:41 | XMS_ITS | Clinical Summary ---
Author Organization [employer] Address [address] [place] [address] [address] [place] [address] Care Team Providers Care Exercise Instruct Name Role Phone Name, Isai ARZATE Primary Care Provider [phone] Allergies No known active allergies Medications Blood Glucose Monitoring Suppl (FreeStyle Troutman Lite) w/Device kit TEST BLOOD SUGAR TWICE [...] 11 08/13/20 24 Active TRUEplus Lancets 33G [facility] Apply 1 each topically 3 times daily. [...] 2 diabetes mellitus with hyperglycemia, unspecified whether intermodal dispatcher insulin use (HCC) Inject 3 mg under [...] daily. 30 g 1 03/09/20 25 Active atorvastatin (Lipitor) 20 MG tablet TAKE 1 TABLET BY MOUTH EVERY EVENING 90 tablet 1 06/08/20 25 Active glimepiride (Amaryl) 2 MG tabletIndicatio ns:Elevated blood sugar TAKE 1 TABLET BY MOUTH EVERYDAY AT NOON 90 tablet 1 06/08/20 25 Active metFORMIN (Glucophage) 500 MG tablet TAKE 1 TABLET BY MOUTH EVERYDAY AT NOON 90 tablet 1 06/08/20 25 Active amLODIPine (Norvasc) 10 MG tablet [...] 12 hours or as directed by MD. 30 patch 08/02/20 25 025 Active traMADol (Ultram) 50 MG tabletIndicatio ns:Lumbar spondylosis Take 1 tablet (50 mg) by mouth if needed in the morning and at bedtime for severe pain or moderate pain for up to 20 days. 40 tablet 08/02/20 25 025 Active cloNIDine (Catapres) 0.1 MG tabletIndicatio ns:Hypertension , unspecified type TAKE 1 TABLET BY MOUTH TWICE DAILY IN THE MORNING AND IN THE EVENING 60 tablet 3 08/10/20 25 Active Jardiance 25 MG TAKE 1 TABLET BY MOUTH EVERY MORNING 30 tablet 1 08/10/20 25 Active lidocaine (Lidoderm) 5 % patchIndication s:Pain [...] 90 tablet 1 01/07/20 25 025 Discontinued cloNIDine (Catapres) 0.1 MG tabletIndicatio ns:Hypertension , unspecified type TAKE 1 TABLET BY MOUTH TWICE DAILY IN THE MORNING AND IN THE EVENING 60 tablet 3 04/08/20 25 025 Discontinued Jardiance 25 MG TAKE 1 TABLET BY MOUTH EVERY MORNING 30 tablet 1 06/09/20 25 025 Discontinued Active Problems Problem Noted [...] on eye exam 02/06/13 History of alcoholism ([facility]) 03/11/2013 Esophageal dysmotility 12/30/2012 Overview (03/14/2023): Mild, barium swallow 08/11 CKD (chronic kidney disease) stage 3, GFR 30-59 ml/min ([facility]) 07/29/2012 Hypertension 01/16/2012 Assessment & Plan (08/18/2023 [...] Encounters Date Type Department Care Team Description 08/07/2025 Refill [facility]ICINE [address] [place] [address] Isai Resendez MD Hypertension, unspecified type 08/05/2025 Orders Only GENERIC EXTERNAL DATA DEPARTMENT Provider, Generic External Data 08/02/2025 10:15 AM EST Office Visit [facility] [address] [place] [address] Isai Resendez MD Type 2 diabetes mellitus with hyperglycemia, unspecified whether intermodal dispatcher insulin use (HCC) (Primary Dx); Type 2 diabetes mellitus with stage 3 chronic kidney disease, unspecified whether intermodal dispatcher insulin use, unspecified whether stage 3a or 3b CKD (HCC); Type 2 diabetes mellitus with diabetic polyneuropathy, unspecified whether fpc insulin use (HCC); Hypertension, unspecified type; Encounter for immunization; Lumbar spondylosis 08/02/2025 Travel 07/30/2025 Telephone [facility] [address] [place] [address] NameIsai MD Chart Prep 07/14/2025 Refill [facility] [address] [place] [address] NameIsai MD 07/12/2025 Refill [facility] DIABETES/NUTRITION [address] [place] [address] NameIsai MD 06/25/2025 Orders Only [facility] External Provider, [facility] 06/09/2025 Refill [facility] [address] [place] [address] NameIsai MD 06/07/2025 Refill [facility] DIABETES/NUTRITION [address] [place] [address] NameIsai MD Elevated blood sugar 05/14/2025 Telephone [facility] [address] [place] [address] Naheed Nance [place] june recalls from Last [...] is your housing situation today? I have etssa ch 04/08/[address] you [...] - 1-dose 75+ series) 2016 COVID-19 Vaccine (4 - season) 2025 06/16/2024, 01/30/2021, 01/02/2021 Influenza Vaccine [...] Procedure Name Priority Date/Time Associated Diagnosis Comments PSA, TOTAL Routine 08/05/2025 10:03 AM EST POCT GLYCATED HEMOGLOBIN, TOTAL Routine 08/02/2025 10:30 AM EST Type 2 diabetes mellitus with hyperglycemia, unspecified whether fpc insulin use (HCC) Type 2 diabetes mellitus with stage 3 chronic kidney disease, unspecified whether fpc insulin use, unspecified whether stage 3a or 3b CKD (HCC) Hypertension, unspecified type POCT GLUCOSE Routine 08/02/2025 10:27 AM EST Type 2 diabetes mellitus with hyperglycemia, unspecified whether intermodal dispatcher insulin use (HCC) Type 2 diabetes mellitus with stage 3 chronic kidney disease, unspecified whether fpc insulin use, unspecified whether stage 3a or 3b CKD (HCC) Hypertension, unspecified type AMB REFERRAL TO DERMATOLOGY Routine 07/28/[address] ABDOMEN PELVIS WO CONTRAST Routine 06/28/2025 12:08 PM EDT LIPID PANEL, STANDARD Routine 04/15/2025 9:13 AM EDT Type 2 diabetes mellitus with hyperglycemia, unspecified whether intermodal dispatcher insulin use (CMS/HCC) Hypertension, unspecified type Stage 3 chronic kidney disease, unspecified whether stage 3a or 3b CKD (CMS/HCC) from Last 3 Months or Most Recently Relevant to Health Maintenance Results * PSA,Total (08/05/2025 10:03 AM EST) Prostate Specific Antigen 2.12 <0.05 - 4.0 ng/mL [facility] Comment:PSA methodology: Dhaval Ashby i ChemiluminescentMicroparticle Immunoassay (CMIA) 08/05/2025 10:0 3 AM EST 08/05/2025 10:03 AM EST Generic External Data Provider LAB BLOOD ORDERAB LES Final Result [facility] [address] [place] [phone] * (ABNORMAL) POCT Hgb A1c (08/02/2025 10:30 [...] PM EDT Narrative 06/28/2025 12:09 PM EDT [address] [address] [address] Scan Report Signed Patient: Nelson Mandujano MR#: [id number] : 1940 Acct:[id number] Age/Sex: 84 / M ADM Date: 06/25/25 Loc: HO.CT Attending Dr: Gissel Roman MD Ordering Physician: Gissel Roman MD Date of Service: 06/25/25 Procedure(s): CT abdomen pelvis wo IV con Accession Number(s): [id number] cc: Gissel Roman MD; Name,Isai Report Number: [id number]: Total DLP = 574.00 mGy-cm Reason for [...] postsurgical changes in the gastroesophageal junction wall. Yvct-yu-bgfegxfy pancreatic atrophy. Small calcified hepatic granuloma. New [...] 06/28/25 1209 DD/ 1208 TD/TT: 06/28/25 1208 Personal Counselor: Procedure Note Donotuseinterpreter, Image - 06/28/[address] [address] [address] Scan Report Signed Patient: Crista Mandujano#: [id number] : 2Acct:[id number] Age/Sex: 84 / MADM Date: 06/25/25 Loc: HO.CT Attending Dr: Gissel Roman MD Ordering Physician: Gissel Roman MD Date of Service: 06/25/25 Procedure(s): CT abdomen pelvis wo IV con Accession Number(s): [id number] cc: Gisesl Roman MD; Name,Isai ARZATE Report Number: [id number]: Total DLP = 574.00 mGy-cm Reason for [...] postsurgical changes in the gastroesophageal junction wall. Bvoj-ow-kuamvmbx pancreatic atrophy. Small calcified hepatic granuloma. New [...] 06/28/25 1209 DD/ 1208 TD/TT: 06/28/25 120 Personal Counselor: [facility] External Provider IMG CT PROCEDURES Final Result * (ABNORMAL) Lipid Panel, Standard (04/15/2025 9:13 AM EDT) Triglycerides 205(H) <150 mg/dL [facility] Comment:Desirable Triglyceri de: less than 150 mg/dLBorderline High Triglyceride 150-199 mg/dLHigh Triglyceride: 200-499 mg/dLVery High Triglyceride: greater than or equal to 5OO mg/dL Cholesterol 112 <200 mg/dL [facility] Comment:Desirable Cholestero l: less than 200 mg/dLBorderline High Cholesterol: 200-239 mg/dLHigh Cholesterol: greater than 239 mg/dL LDL Cholesterol Calculated 44 <100 mg/dL [facility] Comment:Desirable LDL: less than 100 mg/dLNear Optimal/Above Optimal LDL: 110- 129 mg/dLBorderline High LDL: 130-159 mg/dLHigh LDL: 160-189 mg/dLVery High LDL: greater than or equal to 190 mg/dL HDL Cholesterol 27(L) >40 mg/dL [facility] Comment:Desirable HDL: great er than 40 mg/dL Note: This HDL assay may give artificially low results in patients with liver disease. Blood Venous blood specimen / Unknown 04/15/2025 9:13 AM EDT 04/15/2025 11:06 AM EDT Isai Resendez MD LAB BLOOD ORDERABLES Final Resul t [facility] [address] [place] [address] [phone] from Last 3 Months or Most Recently Relevant to Health Maintenance Insurance [place] [facility] OPTIONS (HMO D-SNP) H[place]IE [place]ANIELSON [id number] * Guarantor: Nelson Mandujano Account Type Relation to Patient Date of Phone Billing Address Personal/Family Self [place], [place] * Guarantor: Nelson Mandujano Account Type Relation to Patient Date of Phone Billing Address Personal/Family Self [place], [place] * Guarantor: Nelson Mandujano Account Type Relation to Patient Date of Phone Billing Address Personal/Family Self [place], [place] Care Teams Exercise Instruct Relationship Specialty Start Date End Date Name, MD Isai [address] [place] [address] PCP - General Family Medicine 09/30/18
--- OUTSIDE RECORDS SUMMARY | 2025-08-11 11:41 | XMS_ITS | Encounter Summary ---
Author Organization [employer] Address [address] [place] [address] 7[address] [place] [address] Care Team Providers Care Tub Wash Operator Name Role Phone Name, Isai ARZATE Primary Care Provider [phone] Encounter Details Date Type Department Care Team (Late st Contact Info) Description 10/08/2022 Orders Only [facility] [address] [place] [address] Asia Duffy LPN Social History Tobacco Use [...] 10:30 AM EDT) Creatinine, Urine 81.71 mg/dL [facility] Microalbumin Urine 468.0 mg/L H [facility] Microalbum Creatinine Ratio Ur 572.7(H) <30 ug/mg cr [facility] Comment:Albumin/Creatinine R atio Reference Ranges: Normal: < 30 ug/mg creatinine Microalbuminuria: 30 - 300 ug/mg creatinineClinical Albuminuria: > 300 ug/mg creatinine 07/09/2023 10:3 0 AM EDT 07/09/2023 12:39 PM EDT Isai Resendez MD LAB URINE ORDERABLES Final Resul t Performing Organization Address City/[facility] Co de Phone Number [facility] [address] [place] [phone] * PSA,Total (05/09/2023 2:57 PM EDT) Prostate Specific Antigen 2.90 <0.05 - 4.0 ng/mL [facility] Comment:PSA methodology: Dhaval Ashby i ChemiluminescentMicroparticle Immunoassay (CMIA) 05/09/2023 2:57 PM EDT 05/09/2023 2:57 PM EDT [facility] External Provider LAB BLO OD ORDERABLES Final Result Performing Organization Address City/[facility]/ZIP Co de Phone Number [facility] [address] [place] [phone] * (ABNORMAL) CBC auto differential (04/09/2023 2:45 PM EDT) White Blood Count 5.4 4.8 - 10.8 X10*3/uL [facility] Red Blood Count 3.86(L) 4.60 - 5.80 X10*6/uL [facility] Hemoglobin 11.5(L) 14.0 - 18.0 g/dl [facility] Hematocrit 37.0(L) 42.0 - 52.0 % [facility] Mean Corpuscular Volume 95.9 80.0 - 98.0 fL [facility] Mean Corpuscular Hemoglobin 29.8 27.0 - 33.0 pg [facility] Mean Corpuscular HGB Conc 31.1 31.0 - 36.0 g/dl [facility] Red Cell Distribution Width 13.5 11.0 - 16.0 % [facility] Platelet Count 322 160 - 400 X10*3/uL [facility] Mean Platelet Volume 10.3 9.4 - 12.4 fL [facility] Neutrophils Percent Auto 61.5 45 - 73 % [facility] Imm Gran Pct Auto 0.6(H) 0.0 - 0.4 % [facility] Lymphocytes Percent Auto 22.4 20 - 40 % [facility] Monocytes Percent Auto 11.9(H) 2 - 11 % [facility] Eosinophils Percent Auto 2.9 0 - 4 % [facility] Basophils Percent Auto 0.7 0 - 2 % [facility] NRBC Pct Auto 0.0 0.0 - 0.2 /100WBC [facility] Neutrophils Absolute Auto 3.3 2.0 - 8.3 x10*3/uL [facility] Imm Gran Abs Auto 0.03 0.00 - 0.03 X10*3/uL [facility] Lymphocytes Absolute Auto 1.2 1.2 - 4.9 X10*3/uL [facility] Monocytes Absolute Auto 0.7 0.1 - 1.2 X10*3/uL [facility] Eosinophils Absolute Auto 0.2 0.0 - 0.4 X10*3/uL [facility] Basophils Absolute Auto 0.0 0.0 - 0.2 X10*3/uL [facility] NRBC Abs Auto 0.000 0.0 - 0.012 X10*3/uL [facility] 04/09/2023 2:45 PM EDT 04/09/2023 4:13 PM EDT [facility] External Provider LAB BLO OD ORDERABLES Final Result Performing Organization Address City/State/[facility] Co de Phone Number [facility] [address] [place] [address] [phone] * (ABNORMAL) Basic Metabolic Panel (04/09/2023 2:45 PM EDT) Sodium 136 135 - 145 mmol/L [facility] Potassium 4.4 3.3 - 5.1 mmol/L [facility] Chloride 103 96 - 108 mmol/L [facility] Carbon Dioxide 25 22 - 29 mmol/L [facility] Anion Gap 12 12 - 20 [facility] Urea Nitrogen (BUN) 17(H) 9 - 16 mg/dL [facility] Creatinine, Serum 1.36 0.5 - 1.4 mg/dL [facility] Estimated Glomerular Filt Rate 50 [facility] Comment:NOTE: For -Am erican individuals, multiply the result by 1.210.Chronic Kidney Disease: Estimated GFR < 60 mL/min/1.76s0Lfhyqn Kidney Disease: Estimated GFR < 15 mL/min/1.73m2 Glucose 180(H) 60 - 115 mg/dL [facility] Calcium 9.7 8.4 - 10.2 mg/dL [facility] 04/09/2023 2:45 PM EDT 04/09/2023 4:13 PM EDT [facility] External Provider LAB BLO OD ORDERABLES Final Result [facility] [address] [place] [phone] [phone] * Calcium (01/08/2023 9:38 AM EDT) Calcium 9.2 8.4 - 10.2 mg/dL [facility] 01/08/2023 9:38 AM EDT 01/08/2023 9:38 AM EDT [facility] External Provider LAB BLO OD ORDERABLES Final Result Performing Organization Address [facility] Co de Phone Number [facility] [address] [place] [address] [phone] * (ABNORMAL) Creatinine, Serum (01/08/2023 9:38 AM EDT) Creatinine, Serum 1.77(H) 0.5 - 1.4 mg/dL [facility] Estimated Glomerular Filt Rate 37 [facility] Comment:NOTE: For -Am erican individuals, multiply the result by 1.210.Chronic Kidney Disease: Estimated GFR < 60 mL/min/1.38q8Fiwdfw Kidney Disease: Estimated GFR < 15 mL/min/1.73m2 01/08/2023 9:38 AM EDT 01/08/2023 9:38 AM EDT [facility] External Provider LAB BLO OD ORDERABLES Final Result Performing Organization Address [facility] Co de Phone Number [facility] [address] [place] [phone] [phone] * (ABNORMAL) BUN (Blood Urea Nitrogen) (01/08/2023 9:38 AM EDT) Urea Nitrogen (BUN) 23(H) 9 - 16 mg/dL [facility] 01/08/2023 9:38 AM EDT 01/08/2023 9:38 AM EDT [facility] External Provider LAB BLO OD ORDERABLES Final Result Performing Organization Address [facility] de Phone Number [facility] [address] [place] [address] [phone] * Electrolyte Panel (01/08/2023 9:38 AM EDT) Sodium 136 135 - 145 mmol/L [facility] Potassium 4.0 3.3 - 5.1 mmol/L [facility] Chloride 102 96 - 108 mmol/L [facility] Carbon Dioxide 26 22 - 29 mmol/L [facility] Anion Gap 12 12 - 20 [facility] 01/08/2023 9:38 AM EDT 01/08/2023 9:38 AM EDT [facility] External Provider LAB BLO OD ORDERABLES Final Result Performing Organization Address [facility] de Phone Number [facility] [address] [place] [address] [phone] * (ABNORMAL) GLUCOSE, WHOLE BLOOD (01/07/2023 9:20 AM EDT) Glucose, Whole Blood 169(H) 60 - 115 mg/dL [facility] Comment:METER #: [id number] 01/07/2023 9:20 AM EDT 01/07/2023 9:23 AM EDT [facility] External Provider LAB BLO OD ORDERABLES Final Result Performing Organization Address [facility] de Phone Number [facility] [address] [place] [address] [phone] documented in this encounter Visit Diagnoses Not on filedocumented in this encounter Care Teams Tub Wash Operator Relationship Specialty Start Date End Date Name, MD Isai [address] [place] [phone] PCP - General Family Medicine 09/30/18 documented as of this encounter
--- OUTSIDE RECORDS SUMMARY | 2025-08-11 11:41 | XMS_ITS | Patient Health Record ---
Author Organization [facility] Address [address] [place] [address] Care Team Providers Care Yield Improvement Engineer Name Role Phone Name Isai ARZATE Primary Care Provider Rodrick Li Unavailable [phone] Allergies No Known Allergies Results Component Value [...] Problem Acquired hammer toe of right foot (6493618821061 105) Other hammer toe(s) (acquired), right foot (M20.41) Active confirmed Response to treatment,I mprovement Problem Type 2 diabetes mellitus with peripheral angiopathy (364275974) Type 2 diabetes mellitus with diabetic peripheral angiopathy without gangrene (E11.51) Active confirmed Q7(A), Q8(2B), Q9(1B,2C) Problem Acquired hammer toe of left foot (3435055628863 103) Other hammer toe(s) (acquired), left foot (M20.42) Active confirmed Response to treatment,I mprovement Vital Signs Heart Rate 68 /min 06/24/2025 Blood pressure diastolic 86 R mm Hg 06/24/2025 Height 5ft 7in in 06/24/2025 Blood pressure systolic 151 mm Hg 06/24/2025 Weight 195 lbs 06/24/2025 BMI 30.54 kg/m2 06/24/2025 Procedures Procedure Date Ordered Date Performed Result Body Sit e 04190-GKPYDGP NAIL, 6 OR MORE 09/28/2024 N/A 75543-BPYE SKIN LESIONS, OVER 4 09/28/2024 N/A 04432-IXZNWZU NAIL, 6 OR MORE 12/31/2024 N/A 41291-EWCT SKIN LESIONS, OVER 4 12/31/2024 N/A 64107-SEMOKTL NAIL, 6 OR MORE 03/31/2025 N/A 44642-ZYFU SKIN LESIONS, OVER 4 03/31/2025 N/A 34158-RYYIWLY NAIL, 6 OR MORE 06/24/2025 N/A 88137-LKGI SKIN LESIONS, OVER 4 06/24/2025 N/A Encounters Encounter Location Date Provider Diagnosis [address] [address] 09/28/2024 Rodricktianna PhanSergio Type 2 diabetes mellitus with diabetic peripheral angiopathy without gangrene E11.51 ; Tinea unguium B35.1 ; Pain in right toe(s) M79.674 ; Pain in left toe(s) M79.675 and Tinea pedis of both feet B35.[address] [address] 12/31/2024 Rodricktianna PhanSergio Type 2 diabetes mellitus with diabetic peripheral angiopathy without gangrene E11.51 ; Tinea unguium B35.1 ; Pain in right toe(s) M79.674 ; Pain in left toe(s) M79.675 and Tinea pedis of both feet B35.[address] [address] 03/31/2025 Rodricktianna Hill Type 2 diabetes mellitus with diabetic peripheral angiopathy without gangrene E11.51 ; Other hammer toe(s) (acquired), right foot M20.41 ; Tinea unguium B35.1 ; Pain in right toe(s) M79.674 ; Pain in left toe(s) M79.675 and Other hammer toe(s) (acquired), left foot M20.[address] [address] 06/24/2025 Rodrick Sergio Type 2 diabetes mellitus [...] Treatment Pending Test Test Name Order Date 41023-DSMEPLD NAIL, 6 OR MORE 04/15/2024 46253-JOTMDXG NAIL, 6 OR MORE 06/29/2024 05268-WVXHMQU NAIL, 6 OR MORE 09/28/2024 01204-XDPQLQW NAIL, 6 OR MORE 12/31/2024 31685-DOMQLFN NAIL, 6 OR MORE 03/31/2025 93874-STIPZGU NAIL, 6 OR MORE 06/24/2025 27066-OVND SKIN LESIONS, OVER 4 06/24/20 25 02132-CFXN SKIN LESIONS, OVER 4 03/31/20 25 77906-XMAV SKIN LESIONS, OVER 4 04/15/20 24 89036-JTQF SKIN LESIONS, OVER 4 01/01/20 25 16537-XDSQ SKIN LESIONS, OVER 4 09/28/20 24 22192-YPAD SKIN LESIONS, OVER 4 06/29/20 24 41750-Zedo. Subungual Hematoma Next Appt Details Provider Name:Rodrick Hill , 10/11/2025 02:30:00 PM, [address] [facility], [place] [address], [place], [address], Insurance Providers Payer Name Payer Address Payer Phone Subscriber Number Group Number Insured Name Patient Relationship to Insured Coverage Start Date Coverage End Date [facility] [employer] Claims [address] [place] [id number] Harrison Nelson bellamy Self - patient is the insured Medical (General) History Medical History History ICD Code Arthritis Back,Hip,and Knee pain Diabetic High blood pressure Stomach ulcer Joint implants/screws Bone implants/screws Transfusions Surgical History Surgery Date(Month/Year) 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
--- OUTSIDE RECORDS SUMMARY | 2025-08-11 11:41 | XMS_ITS | Encounter Summary ---
Author Organization [facility] Address [address] [place] [address] [address] [place] [address] Care Team Providers Care Clinical Review Nurse Name Role Phone Name, Isai ARZATE Primary Care Provider [phone] Reason for Referral * Consultation (Urgent) - Closed Specialty Diagnoses / Procedures Referred By Contac t Referred To Contact Physical Therapy Diagnoses Stress fracture of sacrococcygeal region with routine healing Roxanna Nichole MD [address] [place] [address] Phone: tel: fax: [facility] Physical Therapy [address] [place] [address] Phone: tel: fax: Referral ID Status Reason Start Date Expiration Date V isits Requested Visits Authorized [id number] Closed Specialty Services Required 04/20/2024 04/20/2025 1 1 Encounter Details Date Type Department Care Team (Late st Contact Info) Description 04/20/2024 Orders Only [facility] [address] [place] [phone] Roxanna Nichole MD [address] [place], [place] [phone] Stress fracture of sacrococcygeal region with routine [...] documented as of this encounter Care Teams Clinical Review Nurse Relationship Specialty Start Date End Date Name, MD Isai [address] [place] [address] PCP - General Family Medicine 09/30/18 documented as of this encounter
--- OUTSIDE RECORDS SUMMARY | 2025-08-11 11:42 | XMS_ITS | Encounter Summary ---
Author Organization [facility] Address [address] [place] [address] [address] [place] [address] Care Team Providers Care Forms Designer Name Role Phone Name, Isai ARZATE Primary Care Provider [phone] Reason for Visit * Reason Onset Date Comments Appointment Request 10/25/2022 Encounter Details Date Type Department Care Team ([facility] st Contact Info) Description 10/25/2022 Telephone [facility] [address] [place], [place] [phone] Name, MD Isai [address] [place] [address] Appointment Request Social History Tobacco Use Types [...] to r/s appt Please contact daughter at [phone] documented in this encounter Plan of Treatment Not on file documented as of this encounter Visit Diagnoses Not on filedocumented in this encounter Care Teams Forms Designer Relationship Specialty Start Date End Date Name, MD Isai [address] [place] [address] PCP - General Family Medicine 09/30/18 documented as of this encounter
== END 2025-08-11 11:22 | disposition home or self-care (01) ==
LOC: HO.HUSH 09:59
PROVIDERS: PCP Internal Medicine Geriatric Medicine; Visit Provider Urology
DX: N48.1 Balanitis (principal); N40.1 Benign prostatic hyperplasia with lower urinary tract symptoms; N13.8 Other obstructive and reflux uropathy
CPT/HCPCS: 99214; G2211

== ENCOUNTER → 2025-08-11 09:59 | Outpatient (BNVA) | payer OTHER, SELFPAY | PROVIDERS: PCP Internal Medicine Geriatric Medicine; Visit Provider Urology | DX: N40.1 Benign prostatic hyperplasia with lower urinary tract symptoms (principal); N13.8 Other obstructive and reflux uropathy | CPT/HCPCS: 51798; 99212 ==